=== PATIENT | female | born 1970 | race Caucasian/White ===

== ENCOUNTER 2017-01-17 21:57 | Emergency (ER) | payer OTHER ==
[2017-01-17 22:10] VITALS: RESP 18
[2017-01-17] MEDS ORDERED: METOCLOPRAMIDE 5 MG/ML 2 ML VIAL IVP STA (22:16)
[2017-01-17] MEDS ORDERED: KETOROLAC 30 MG/ML 1 ML VIAL IVP STA (22:16)
[2017-01-17] MEDS ORDERED: SODIUM CHLORIDE 0.9% 1,000 ML IV STA (22:16)
--- NOTE | 2017-01-17 22:19 | ED ---
General Adult HPI - General Chief complaint: Abdominal Pain Stated complaint: kidney stone Time Seen by Provider: 01/17/17 22:13 Source: patient, RN notes reviewed Mode of arrival: ambulatory Limitations: no limitations - History of Present Illness Initial comments: Patient is a pleasantly 7-year-old female presenting to the emergency Department with right flank pain. Onset of symptoms was an hour to an hour and a half ago. Discomfort was sudden and remained severe. Patient states symptoms are similar to previous kidney stones. Patient states she has had kidney stones approximately 30 times in the past. Patient has associated nausea. Patient has had 3 episodes of diarrhea since early this morning. Patient has occasional lower abdominal cramping, none at this time. No fever. - Related Data Home Medications Medication Instructions Recorded Confirmed Loratadine [Claritin] 10 mg PO DAILY 01/17/17 01/17/17 Losartan [Cozaar] 25 mg PO HS 01/17/17 01/17/17 Omeprazole 20 mg PO DAILY 01/17/17 01/17/17 Phentermine HCl [Adipex-P] 37.5 mg PO QAM 01/17/17 01/17/17 Plant Stanol Anaid [Cholest Off] 450 mg PO HS 01/17/17 01/17/17 Ranitidine HCl [Zantac] 150 mg PO BID 01/17/17 01/17/17 Vitamin D(Unknown) 1 tab PO HS 01/17/17 01/17/17 Previous Rx's Medication Instructions Recorded Hydrocodone/Acetaminophen [[place] 2 each PO Q6HR PRN #20 tab 01/17/17 5-325] Ondansetron Odt [Zofran Odt] 4 mg PO Q8HR PRN #10 tab 01/17/17 Allergies Allergy/AdvReac Type Severity Reaction Status Date / Time adhesive tape Allergy Rash/Hives Verified 01/17/17 22:37 benzene Allergy Itching Verified 01/17/17 22:37 Sulfa (Sulfonamide Allergy Dyspnea Verified 01/17/17 22:37 Antibiotics) Review of Systems ROS Statement: Those systems with pertinent positive or pertinent negative responses have been documented in the HPI. ROS Other: All systems not noted in ROS Statement are negative. Constitutional: Denies: fever, chills Eyes: Denies: eye pain ENT: Denies: ear pain Respiratory: Denies: cough, dyspnea Cardiovascular: Denies: chest pain Endocrine: Denies: fatigue Gastrointestinal: Reports: abdominal pain, nausea, diarrhea Genitourinary: Denies: urgency, dysuria, frequency, hematuria Musculoskeletal: Reports: back pain (Right flank) Skin: Denies: rash Neurological: Denies: weakness Past Medical History Additional Past Medical History / Comment(s): Kidney Stones History of Any Multi-Drug Resistant Organisms: None Reported Past Surgical History: Back Surgery, Hysterectomy, Orthopedic Surgery Additional Past Surgical History / Comment(s): Rotator cuff left; foot surgery left Past Psychological History: No Psychological Hx Reported Smoking Status: Never smoker Past Alcohol Use History: None Reported Past Drug Use History: None Reported General Exam Limitations: no limitations General appearance: alert, other (Appears uncomfortable) Head exam: Present: atraumatic Eye exam: Present: normal appearance, PERRL ENT exam: Present: normal oropharynx Neck exam: Present: normal inspection Respiratory exam: Present: normal lung sounds bilaterally Cardiovascular Exam: Present: tachycardia GI/Abdominal exam: Present: soft, normal bowel sounds. Absent: distended, tenderness, guarding, rebound, rigid, pulsatile mass Back exam: Present: tenderness (Patient does have mild to moderate tenderness below the right CVA) Neurological exam: Present: alert Psychiatric exam: Present: normal affect, normal mood Skin exam: Absent: rash Course Vital Signs 01/17/17 01/17/17 22:08 23:39 Temperature 98.0 F 97.1 F L Pulse Rate 116 H 94 Respiratory 18 18 Rate Blood Pressure 162/71 135/70 O2 Sat by Pulse 99 98 Oximetry Medical Decision Making - Medical Decision Making Patient reevaluated and resting comfortably in bed. Patient symptom-free. Patient updated on results and need for follow-up. - Lab Data Result diagrams: 01/17/17 22:35 01/17/17 22:35 Lab Results 01/17/17 01/17/17 01/17/17 Range/Units 22:35 22:35 22:35 WBC 7.1 (3.8-10.6) k/uL RBC 5.20 (3.80-5.40) m/uL Hgb 15.1 (11.4-16.0) gm/dL Hct 45.0 (34.0-46.0) % MCV 86.5 (80.0-100.0) fL MCH 29.1 (25.0-35.0) pg MCHC 33.6 (31.0-37.0) g/dL RDW 12.8 (11.5-15.5) % Plt Count 277 (150-450) k/uL Neutrophils % 56 % Lymphocytes % 33 % Monocytes % 5 % Eosinophils % 2 % Basophils % 1 % Neutrophils # 4.0 (1.3-7.7) k/uL Lymphocytes # 2.4 (1.0-4.8) k/uL Monocytes # 0.3 (0-1.0) k/uL Eosinophils # 0.2 (0-0.7) k/uL Basophils # 0.0 (0-0.2) k/uL PT 10.4 (9.0-12.0) sec INR 1.0 (<1.1) APTT 24.7 (22.0-30.0) sec Sodium 143 (137-145) mmol/L Potassium 3.7 (3.5-5.1) mmol/L Chloride 105 (98-107) mmol/L Carbon Dioxide 26 (22-30) mmol/L Anion Gap 12 mmol/L BUN 14 (7-17) mg/dL Creatinine 0.77 (0.52-1.04) mg/dL Est GFR (MDRD) Af Amer >60 (>60 ml/min/1.73 sqM) Est GFR (MDRD) Non-Af >60 (>60 ml/min/1.73 sqM) Glucose 107 H (74-99) mg/dL Calcium 9.8 (8.4-10.2) mg/dL Total Bilirubin 0.7 (0.2-1.3) mg/dL AST 36 (14-36) U/L ALT 70 H (9-52) U/L Alkaline Phosphatase 72 (38-126) U/L Total Protein 7.7 (6.3-8.2) g/dL Albumin 4.6 (3.5-5.0) g/dL Amylase <30 L (30-110) U/L Lipase 60 (23-300) U/L HCG, Quant <2.4 mIU/mL Urine Color Urine Appearance (Clear) Urine pH (5.0-8.0) Ur Specific [place] (1.001-1.035) Urine Protein (Negative) Urine Glucose (UA) (Negative) Urine Ketones (Negative) Urine Blood (Negative) Urine Nitrate (Negative) Urine Bilirubin (Negative) Urine Urobilinogen (<2.0) mg/dL Ur Leukocyte Esterase (Negative) Urine RBC (0-5) /hpf Urine WBC (0-5) /hpf Ur Squamous Epith Cells (0-4) /hpf Urine Mucus (None) /hpf 01/17/17 Range/Units 23:40 WBC (3.8-10.6) k/uL RBC (3.80-5.40) m/uL Hgb (11.4-16.0) gm/dL Hct (34.0-46.0) % MCV (80.0-100.0) fL MCH (25.0-35.0) pg MCHC (31.0-37.0) g/dL RDW (11.5-15.5) % Plt Count (150-450) k/uL Neutrophils % % Lymphocytes % % Monocytes % % Eosinophils % % Basophils % % Neutrophils # (1.3-7.7) k/uL Lymphocytes # (1.0-4.8) k/uL Monocytes # (0-1.0) k/uL Eosinophils # (0-0.7) k/uL Basophils # (0-0.2) k/uL PT (9.0-12.0) sec INR (<1.1) APTT (22.0-30.0) sec Sodium (137-145) mmol/L Potassium (3.5-5.1) mmol/L Chloride (98-107) mmol/L Carbon Dioxide (22-30) mmol/L Anion Gap mmol/L BUN (7-17) mg/dL Creatinine (0.52-1.04) mg/dL Est GFR (MDRD) Af Amer (>60 ml/min/1.73 sqM) Est GFR (MDRD) Non-Af (>60 ml/min/1.73 sqM) Glucose (74-99) mg/dL Calcium (8.4-10.2) mg/dL Total Bilirubin (0.2-1.3) mg/dL AST (14-36) U/L ALT (9-52) U/L Alkaline Phosphatase (38-126) U/L Total Protein (6.3-8.2) g/dL Albumin (3.5-5.0) g/dL Amylase (30-110) U/L Lipase (23-300) U/L HCG, Quant mIU/mL Urine Color Light Red Urine Appearance Cloudy H (Clear) Urine pH 5.5 (5.0-8.0) Ur Specific [place] 1.019 (1.001-1.035) Urine Protein 1+ H (Negative) Urine Glucose (UA) Negative (Negative) Urine Ketones Negative (Negative) Urine Blood Large H (Negative) Urine Nitrate Negative (Negative) Urine Bilirubin Negative (Negative) Urine Urobilinogen <2.0 (<2.0) mg/dL Ur Leukocyte Esterase Trace H (Negative) Urine RBC >182 H (0-5) /hpf Urine WBC 9 H (0-5) /hpf Ur Squamous Epith Cells 9 H (0-4) /hpf Urine Mucus Moderate H (None) /hpf - Radiology Data Radiology results: report reviewed (Computed tomography scan shows a 5-6 mm stone proximal right ureter.) Disposition Clinical Impression: Ureterolithiasis Disposition: HOME SELF-CARE Condition: Stable Instructions: Kidney Stones (ED) Additional Instructions: Please follow-up with primary care physician in the next day or 2 for recheck. Return for fever, uncontrolled vomiting, uncontrolled pain, worsening symptoms or other concerns. Prescriptions: Hydrocodone/Acetaminophen [[place] 5-325] 2 each PO Q6HR PRN #20 tab PRN Reason: Pain Ondansetron Odt [Zofran Odt] 4 mg PO Q8HR PRN #10 tab PRN Reason: Nausea Referrals: Josue Cline MD [Primary Care Provider] - 1-2 days Neeraj Castro MD [STAFF PHYSICIAN] - 1-2 days
[2017-01-17 22:49] LABS: Basophils % (A) 1 %; CH 30.3; CHCM 35.1; Eosinophils # (A) 0.2 k/uL (0-0.7); Eosinophils % (A) 2 %; HDW 2.82; HGB 15.1 gm/dL (11.4-16.0); Luc # (Auto) 0.26; Luc % (Auto) 4; Lymphocytes # (A) 2.4 k/uL (1.0-4.8); Lymphocytes % (A) 33 %; MCH 29.1 pg (25.0-35.0); MCHC 33.6 g/dL (31.0-37.0); MCV 86.5 fL (80.0-100.0); Mean Platelet Volume 7.6; Monocytes # (A) 0.3 k/uL (0-1.0); Monocytes % (A) 5 %; Neutrophils % (A) 56 %; RDW 12.8 % (11.5-15.5); WBC 7.1 k/uL (3.8-10.6); WBC (Perox) 6.98
[2017-01-17 22:59] LABS: ALT 70 U/L (9-52); AST 36 U/L (14-36); Alkaline Phosphatase 72 U/L (38-126); Amylase <30 U/L (30-110); Anion Gap 12 mmol/L; Blood Urea Nitrogen 14 mg/dL (7-17); Calcium 9.8 mg/dL (8.4-10.2); Carbon Dioxide 26 mmol/L (22-30); Chloride 105 mmol/L (98-107); Glucose 107 mg/dL (74-99); Non-African American GFR(MDRD) >60 (>60 ml/min/1.73 sqM); Potassium 3.7 mmol/L (3.5-5.1); Sodium 143 mmol/L (137-145); Total Bilirubin 0.7 mg/dL (0.2-1.3); Total Protein 7.7 g/dL (6.3-8.2)
[2017-01-17 23:03] LABS: Partial Thromboplastin Time 24.7 sec (22.0-30.0); Prothrombin Time 10.4 sec (9.0-12.0)
[2017-01-17 23:15] LABS: HCG,Quantitative Serum <2.4 mIU/mL
--- NOTE | 2017-01-17 23:37 | CT ---
EXAM: CT Abdomen and Pelvis Without Intravenous Contrast. CLINICAL HISTORY: Right flank pain TECHNIQUE: Axial computed tomography images of the abdomen and pelvis without intravenous contrast. CTDI is 25 mGy and DLP is 1244 mGy-cm. Coronal and sagittal reformatted images were created and reviewed. COMPARISON: No relevant prior studies available. FINDINGS: Lower thorax: No acute findings. Small hiatal hernia ABDOMEN: Liver: Fatty infiltration. Gallbladder and bile ducts: Unremarkable. No calcified stones. No ductal dilation. Pancreas: Unremarkable. No ductal dilation. Spleen: Unremarkable. No splenomegaly. Adrenals: Unremarkable. No mass. Kidneys and ureters: 5-6 mm stone in the proximal right ureter. Nonobstructive bilateral renal stones. Mild right hydronephrosis. Stomach and bowel: Diverticulosis without evidence of diverticulitis. No obstruction. No mucosal thickening. Appendix: No findings to suggest acute appendicitis. PELVIS: Bladder: Unremarkable. No stones. Reproductive: Absent uterus. ABDOMEN and PELVIS: Intraperitoneal space: Unremarkable. No free air. No significant fluid collection. Bones/joints: No acute fracture. No dislocation. Degenerative changes in lower lumbar spine. Soft tissues: Unremarkable. Vasculature: Unremarkable. No abdominal aortic aneurysm. Lymph nodes: Unremarkable. No enlarged lymph nodes. IMPRESSION: 5-6 mm stone in proximal right ureter, resulting in mild right hydronephrosis. Punctate bilateral nonobstructive renal stones. Normal appendix. Diverticulosis without evidence of diverticulitis. Fatty liver.
[2017-01-17 23:39] VITALS: BP 135/70; PULSE 94; TEMP 97.1
[2017-01-17 23:52] LABS: Appearance,Urine Cloudy (Clear); Bilirubin,Urine Negative (Negative); Glucose,Urine (UA) Negative (Negative); Ketones,Urine Negative (Negative); Leukocyte Esterase,Urine Trace (Negative); Mucus,Urine Moderate /hpf; Nitrite,Urine Negative (Negative); PH, Urine 5.5 (5.0-8.0); Particle Count 15833; Protein,Urine 1+ (Negative); RBC,Urine >182 /hpf (0-5); Specific Gravity,Urine 1.019 (1.001-1.035); Squamous Epithelial Cell,Urine 9 /hpf (0-4); UA Billing (MACRO vs. MICRO) MICRO; Urobilinogen,Urine <2.0 mg/dL (<2.0); WBC,Urine 9 /hpf (0-5)
== END 2017-01-18 00:16 | disposition home or self-care (01) ==
LOC: EC 21:57
DX: N20.1 Calculus of ureter (principal); Z91.048 Other nonmedicinal substance allergy status; Z88.2 Allergy status to sulfonamides; Z88.8 Allergy status to other drugs, medicaments and biological substances; Z79.899 Other long term (current) drug therapy
CPT/HCPCS: 96361 ×2; 96374 ×2; 96375 ×2; 99284 ×2; 36415; 80053; 82150; 83690; 85025; 85610; 85730; 81001; 84702; 74176; J2765; J1885

== ENCOUNTER → 2017-01-28 | Outpatient (CLI) | payer OTHER ==
--- NOTE | 2017-01-28 15:56 | XR ---
EXAMINATION TYPE: XR abdomen 1V DATE OF EXAM: 01/28/2017 3:26 PM COMPARISON: 06/18/2012 HISTORY: Renal stone TECHNIQUE: 2 views FINDINGS: Bowel gas pattern is normal. There is no sign of intestinal obstruction or pneumoperitoneum . I see no pathologic calcifications over the kidneys and ureters. Lung bases are clear. There is no sign of a mass. IMPRESSION: Nonacute abdomen. No change.
== END | disposition home or self-care (01) ==
LOC: RADXRMAIN 14:46
PROVIDERS: ATTEND Urology
DX: N20.1 Calculus of ureter (principal)
CPT/HCPCS: 74000

== ENCOUNTER → 2017-02-07 | Outpatient (CLI) | payer OTHER | LOC: LABWHC1 11:39 | PROVIDERS: ATTEND Urology | DX: N20.1 Calculus of ureter (principal); E83.50 Unspecified disorder of calcium metabolism | CPT/HCPCS: 36415; 80051 ==

== ENCOUNTER → 2017-06-15 | Outpatient (CLI) | payer OTHER ==
--- NOTE | 2017-06-19 08:15 | MM ---
Reason for exam: additional evaluation requested from prior study. Last mammogram was performed 1 year and 1 month ago. History: Benign core biopsy of the left breast, November 2013. Took hormonal contraceptives for 4 years beginning at age 22. Physical Findings: Nurse did not find any significant physical abnormalities on exam. MG Diagnostic Mammo w CAD SHAY Bilateral CC and MLO view(s) were taken. Prior study comparison: May 25, 2016, bilateral MG diagnostic mammo w CAD SHAY. November 25, 2015, bilateral MG diagnostic mammo w CAD SHAY. The breast tissue is heterogeneously dense. This may lower the sensitivity of mammography. Previous mammotome biopsy in the left breast. There is chronic nodularity bilaterally. There is no dominant lesion. There is no discrete abnormality. These results were verbally communicated with the patient and result sheet given to the patient on 06/15/17. ASSESSMENT: Benign, BI-RAD 2 RECOMMENDATION: Routine screening mammogram of both breasts in 1 year.
--- NOTE | 2017-06-19 08:19 | USB ---
Reason for exam: additional evaluation requested from prior study. History: Benign core biopsy of the left breast, November 2013. Took hormonal contraceptives for 4 years beginning at age 22. US Breast BILAT Right breast ultrasound includes all four quadrants, the retroareolar region and axilla. Finding demonstrates a 0.7 x 0.3 x 0.5cm oval, cystic, stable lesion at 12 o'clock, a 0.5 x 0.4 x 0.5cm lesion too small to characterize at 1 o'clock, a 0.5 x 0.2 x 0.4cm lesion too small to characterize at 6 o'clock, a 0.5 x 0.2 x 0.3cm lesion too small to characterize at 6 o'clock, a 0.3 x 0.2 x 0.5cm lesion too small to characterize at 9 o'clock and a 1.0 x 0.6 x 0.8cm mixed lesion at 10 o'clock. Left breast ultrasound includes all four quadrants, the retroareolar region and axilla. Finding demonstrates a 0.5 x 0.2 x 0.6cm mixed lesion at 12 o'clock, ductal ectasia at 6 o'clock and a 0.5 x 0.2 x 0.2cm mixed lesion at 11 o'clock, decreased in size. These results were verbally communicated with the patient and result sheet given to the patient on 06/15/17. ASSESSMENT: Benign, BI-RAD 2 RECOMMENDATION: Routine screening mammogram of both breasts in 1 year.
== END | disposition home or self-care (01) ==
LOC: RADMAMWWP 14:56
PROVIDERS: ATTEND Surgery
DX: R92.8 Other abnormal and inconclusive findings on diagnostic imaging of breast (principal)
CPT/HCPCS: 76641; G0204

== ENCOUNTER 2018-01-10 09:21 | Emergency (ER) | payer OTHER ==
[2018-01-10] MEDS ORDERED: KETOROLAC 30 MG/ML 1 ML VIAL IVP STA (09:28)
[2018-01-10] MEDS ORDERED: MORPHINE SULFATE 4 MG/ML SYRINGE IV STA ×2 (09:28→10:32)
[2018-01-10] MEDS ORDERED: SODIUM CHLORIDE 0.9% 1,000 ML IV STA (09:28)
[2018-01-10] MEDS ORDERED: ONDANSETRON 4 MG/2 ML VIAL IVP STA (09:28)
--- NOTE | 2018-01-10 09:38 | ED ---
General Adult HPI - General Chief complaint: Abdominal Pain Stated complaint: Poss Kidney Stone Time Seen by Provider: 01/10/18 09:27 Source: patient, RN notes reviewed Mode of arrival: wheelchair Limitations: no limitations - History of Present Illness Initial comments: Patient is a 48-year-old female with significant past medical history for kidney stones, presenting today with a chief complaint of left-sided flank pain. She states she's had the stone over the last 4 weeks has been following up with her urologist. Had an ultrasound 5 days ago and saw small stone on the left side. She states she had increased pain with nausea vomiting this morning. Patient states only symptoms are consistent with kidney stones that she's had in the past. Patient denies any recent fever, chills, shortness of breath, chest pain, numbness or tingling, headaches or visual changes, or any other complaints. - Related Data Home Medications Medication Instructions Recorded Confirmed Omeprazole 20 mg PO DAILY 01/17/17 01/10/18 Ranitidine HCl [Zantac] 150 mg PO BID 01/17/17 01/10/18 Albuterol Nebulized [Ventolin 2.5 mg INHALATION RT-TID 01/10/18 01/10/18 Nebulized] Albuterol Sulfate [Proair Hfa] 2 puff INHALATION RT-Q4H PRN 01/10/18 01/10/18 Atorvastatin [Lipitor] 10 mg PO DAILY 01/10/18 01/10/18 Beclomethasone Dipropionate [Qvar 2 puff INHALATION RT-BID 01/10/18 01/10/18 80 mcg] Cetirizine HCl [Zyrtec] 10 mg PO DAILY 01/10/18 01/10/18 Cyclobenzaprine [Flexeril] 5 mg PO TID PRN 01/10/18 01/10/18 EPINEPHrine (Auto Inject) [Epipen] 0.3 mg IM ONCE PRN 01/10/18 01/10/18 Ergocalciferol (Vitamin D2) 50,000 unit PO Q7D 01/10/18 01/10/18 [Vitamin D2] Fluticasone Nasal [place] [Flonase 1 spray EA NOSTRIL DAILY 01/10/18 01/10/18 Nasal [place]] Ibuprofen [Motrin] 800 mg PO TID PRN 01/10/18 01/10/18 Ketorolac [Toradol] 10 mg PO Q6HR 01/10/18 01/10/18 Losartan-Hctz 50-12.5 mg [Hyzaar 1 tab PO DAILY 01/10/18 01/10/18 50-12.5] SUMAtriptan SUCCINATE [Imitrex] 50 mg PO DAILY PRN 01/10/18 01/10/18 Tamsulosin HCl [Flomax] 0.4 mg PO DAILY 01/10/18 01/10/18 Allergies Allergy/AdvReac Type Severity Reaction Status Date / Time adhesive tape Allergy Rash/Hives Verified 01/10/18 10:04 benzene Allergy Itching Verified 01/10/18 10:04 Sulfa (Sulfonamide Allergy Dyspnea Verified 01/10/18 10:04 Antibiotics) Review of Systems ROS Statement: Those systems with pertinent positive or pertinent negative responses have been documented in the HPI. ROS Other: All systems not noted in ROS Statement are negative. Past Medical History Additional Past Medical History / Comment(s): Kidney Stones History of Any Multi-Drug Resistant Organisms: None Reported Past Surgical History: Back Surgery, Hysterectomy, Orthopedic Surgery Additional Past Surgical History / Comment(s): Rotator cuff left; foot surgery left Past Psychological History: No Psychological Hx Reported Smoking Status: Never smoker Past Alcohol Use History: None Reported Past Drug Use History: None Reported General Exam - General Exam Comments Initial Comments: General: The patient is awake and alert, in moderate distress. Eye: Pupils are equal, round and reactive to light, extra-ocular movements are intact. No nystagmus. There is normal conjunctiva bilaterally. No signs of icterus. Ears, nose, mouth and throat: There are moist mucous membranes and no oral lesions. Neck: The neck is supple, there is no tenderness or JVD. Cardiovascular: Tachycardic. No murmur, rub or gallop is appreciated. Respiratory: Lungs are clear to auscultation, respirations are non-labored, breath sounds are equal. No wheezes, stridor, rales, or rhonchi. Gastrointestinal: Abdomen soft on palpation mild tenderness left lower side. Mild tenderness left CVA. No rebound tenderness. No guarding. Musculoskeletal: Normal ROM, no tenderness. Strength 5/5. Sensation intact. Pulses equal bilaterally 2+. Neurological: A&O x 3. CN II-XII intact, There are no obvious motor or sensory deficits. Coordination appears grossly intact. Speech is normal. Skin: Skin is warm and dry and no rashes or lesions are noted. Psychiatric: Cooperative, appropriate mood & affect, normal judgment. Limitations: no limitations Course Vital Signs 01/10/18 01/10/18 01/10/18 09:23 10:28 11:27 Temperature 98.3 F Pulse Rate 129 H 112 H 99 Respiratory 24 16 18 Rate Blood Pressure 138/80 131/70 120/64 O2 Sat by Pulse 98 96 97 Oximetry 01/10/18 11:35 Temperature 98.6 F Pulse Rate Respiratory Rate Blood Pressure O2 Sat by Pulse Oximetry Medical Decision Making - Medical Decision Making Patient's labs been reviewed. Patient's CT of the abdomen and pelvis does reveal a kidney stone which appears to maybe just passed into the bladder. Patient at this time is feeling much better. She states her pain is gone. It appears that kidney stone has passed into bladder. Patient feels comfortable being discharged to follow-up with her urologist if needed. Advised return if any symptoms increase or worsen. - Lab Data Result diagrams: 01/10/18 09:49 01/10/18 09:49 Lab Results 01/10/18 01/10/18 01/10/18 Range/Units 09:49 09:49 09:49 WBC 6.1 (3.8-10.6) k/uL RBC 4.92 (3.80-5.40) m/uL Hgb 14.3 (11.4-16.0) gm/dL Hct 41.2 (34.0-46.0) % MCV 83.7 (80.0-100.0) fL MCH 29.1 (25.0-35.0) pg MCHC 34.8 (31.0-37.0) g/dL RDW 12.9 (11.5-15.5) % Plt Count 246 (150-450) k/uL Neutrophils % 58 % Lymphocytes % 33 % Monocytes % 5 % Eosinophils % 2 % Basophils % 0 % Neutrophils # 3.5 (1.3-7.7) k/uL Lymphocytes # 2.0 (1.0-4.8) k/uL Monocytes # 0.3 (0-1.0) k/uL Eosinophils # 0.1 (0-0.7) k/uL Basophils # 0.0 (0-0.2) k/uL Sodium 139 (137-145) mmol/L Potassium 3.6 (3.5-5.1) mmol/L Chloride 101 (98-107) mmol/L Carbon Dioxide 24 (22-30) mmol/L Anion Gap 14 mmol/L BUN 15 (7-17) mg/dL Creatinine 0.58 (0.52-1.04) mg/dL Est GFR (CKD-EPI)AfAm >90 (>60 ml/min/1.73 sqM) Est GFR (CKD-EPI)NonAf >90 (>60 ml/min/1.73 sqM) Glucose 141 H (74-99) mg/dL Calcium 9.7 (8.4-10.2) mg/dL Total Bilirubin 0.8 (0.2-1.3) mg/dL AST 28 (14-36) U/L ALT 38 (9-52) U/L Alkaline Phosphatase 97 (38-126) U/L Total Protein 7.3 (6.3-8.2) g/dL Albumin 4.4 (3.5-5.0) g/dL Amylase 33 (30-110) U/L Lipase 49 (23-300) U/L Urine Color Urine Appearance (Clear) Urine pH (5.0-8.0) Ur Specific [place] (1.001-1.035) Urine Protein (Negative) Urine Glucose (UA) (Negative) Urine Ketones (Negative) Urine Blood (Negative) Urine Nitrite (Negative) Urine Bilirubin (Negative) Urine Urobilinogen (<2.0) mg/dL Ur Leukocyte Esterase (Negative) Urine HCG, Qual Not Detected (Not Detectd) 01/10/18 Range/Units 09:49 WBC (3.8-10.6) k/uL RBC (3.80-5.40) m/uL Hgb (11.4-16.0) gm/dL Hct (34.0-46.0) % MCV (80.0-100.0) fL MCH (25.0-35.0) pg MCHC (31.0-37.0) g/dL RDW (11.5-15.5) % Plt Count (150-450) k/uL Neutrophils % % Lymphocytes % % Monocytes % % Eosinophils % % Basophils % % Neutrophils # (1.3-7.7) k/uL Lymphocytes # (1.0-4.8) k/uL Monocytes # (0-1.0) k/uL Eosinophils # (0-0.7) k/uL Basophils # (0-0.2) k/uL Sodium (137-145) mmol/L Potassium (3.5-5.1) mmol/L Chloride (98-107) mmol/L Carbon Dioxide (22-30) mmol/L Anion Gap mmol/L BUN (7-17) mg/dL Creatinine (0.52-1.04) mg/dL Est GFR (CKD-EPI)AfAm (>60 ml/min/1.73 sqM) Est GFR (CKD-EPI)NonAf (>60 ml/min/1.73 sqM) Glucose (74-99) mg/dL Calcium (8.4-10.2) mg/dL Total Bilirubin (0.2-1.3) mg/dL AST (14-36) U/L ALT (9-52) U/L Alkaline Phosphatase (38-126) U/L Total Protein (6.3-8.2) g/dL Albumin (3.5-5.0) g/dL Amylase (30-110) U/L Lipase (23-300) U/L Urine Color Light Yellow Urine Appearance Clear (Clear) Urine pH 5.5 (5.0-8.0) Ur Specific [place] 1.010 (1.001-1.035) Urine Protein Negative (Negative) Urine Glucose (UA) Trace H (Negative) Urine Ketones Negative (Negative) Urine Blood Negative (Negative) Urine Nitrite Negative (Negative) Urine Bilirubin Negative (Negative) Urine Urobilinogen <2.0 (<2.0) mg/dL Ur Leukocyte Esterase Negative (Negative) Urine HCG, Qual (Not Detectd) Disposition Clinical Impression: Kidney stone Disposition: HOME SELF-CARE Condition: Good Instructions: Kidney Stones (ED) Additional Instructions: Please use medication as discussed. Please follow-up with urology/family doctor in the next 2 days of symptoms have not improved. Please return to emergency room if the symptoms increase or worsen or for any other concerns. Referrals: Josue Cline MD [Primary Care Provider] - 1-2 days Time of Disposition: 11:49
[2018-01-10 09:54] LABS: Basophils % (A) 0 %; Eosinophils # (A) 0.1 k/uL (0-0.7); Eosinophils % (A) 2 %; HCT 41.2 % (34.0-46.0); HGB 14.3 gm/dL (11.4-16.0); Lymphocytes % (A) 33 %; MCH 29.1 pg (25.0-35.0); MCHC 34.8 g/dL (31.0-37.0); MCV 83.7 fL (80.0-100.0); Mean Platelet Volume 7.2; Monocytes # (A) 0.3 k/uL (0-1.0); Monocytes % (A) 5 %; Neutrophils # (A) 3.5 k/uL (1.3-7.7); Neutrophils % (A) 58 %; Platelet Count 246 k/uL (150-450); RBC 4.92 m/uL (3.80-5.40); RDW 12.9 % (11.5-15.5); WBC 6.1 k/uL (3.8-10.6)
[2018-01-10 09:56] LABS: Appearance,Urine Clear (Clear); Bilirubin,Urine Negative (Negative); Blood,Urine Negative (Negative); Color,Urine Light Yellow; Glucose,Urine (UA) Trace (Negative); Ketones,Urine Negative (Negative); Leukocyte Esterase,Urine Negative (Negative); PH, Urine 5.5 (5.0-8.0); Protein,Urine Negative (Negative); Urobilinogen,Urine <2.0 mg/dL (<2.0)
--- NOTE | 2018-01-10 10:02 | XR ---
EXAMINATION TYPE: XR KUB DATE OF EXAM: 01/10/2018 COMPARISON: 06/18/2012 INDICATION: Abdomen pain left flank pain TECHNIQUE: Single view abdomen frontal projection FINDINGS: There is a normal bowel gas pattern. Psoas margins are normal. No organomegaly is present. No suspicious calcifications are evident. IMPRESSION: 1. Unremarkable Abdomen
[2018-01-10 10:07] LABS: ALT 38 U/L (9-52); AST 28 U/L (14-36); Albumin 4.4 g/dL (3.5-5.0); Alkaline Phosphatase 97 U/L (38-126); Amylase 33 U/L (30-110); Anion Gap 14 mmol/L; Blood Urea Nitrogen 15 mg/dL (7-17); Calcium 9.7 mg/dL (8.4-10.2); Carbon Dioxide 24 mmol/L (22-30); Chloride 101 mmol/L (98-107); Glucose 141 mg/dL (74-99); Lipase 49 U/L (23-300); Potassium 3.6 mmol/L (3.5-5.1); Sodium 139 mmol/L (137-145); Total Bilirubin 0.8 mg/dL (0.2-1.3); Total Protein 7.3 g/dL (6.3-8.2)
--- NOTE | 2018-01-10 11:23 | CT ---
EXAMINATION TYPE: CT abdomen pelvis wo con DATE OF EXAM: 01/10/2018 COMPARISON: Prior CT 01/17/2017 HISTORY: Lt flank and groin pain CT DLP: 1132 mGycm Automated exposure control for dose reduction was used. TECHNIQUE: Helical acquisition of images from the lung bases through the pelvis. FINDINGS: LUNG BASES: No significant abnormality is appreciated. AORTA: No significant abnormality is appreciated. LIVER/GB: Liver shows low attenuation likely due to hepatic steatosis. The liver is enlarged. Gallbla dder is normal. PANCREAS: No significant abnormality is seen. SPLEEN: Spleen is borderline enlarged ADRENALS: No significant abnormality is seen. KIDNEYS: Punctate calcifications are present within the left kidney which are nonobstructive, there a re at least 2 noted on the left, one on the right at the upper pole. No evident hydronephrosis bilate rally. No ureteral calcification. REPRODUCTIVE ORGANS: Not seen. URINARY BLADDER: 4 mm calcification is present within the right side of the bladder near the level o f the ureterovesical orifice. Urinary bladder is contracted. BOWEL: Suspect a hiatal hernia present at the gastroesophageal junction, some focal thickening is in determinate. Duodenal diverticulum is present at the level of the head of the pancreas. Small umbilic al hernia contains fat. Diverticular changes associated with the colon. The appendix is normal FREE AIR: No Free Air is visible. ASCITES: None visible. PELVIC ADENOPATHY: None visualized. Probable phleboliths present within gonadal vein on the left at the level of the psoas muscle and pelvic inlet. RETROPERITONEAL ADENOPATHY: No Retroperitoneal Adenopathy visible. OSSEOUS STRUCTURES: Degenerative disc change noted at the lumbosacral junction, there is loss of dis c height, minimal retrolisthesis grade 1 L5-S1, posterior extension of endplate disc complex. IMPRESSION: Noncontrast exam. CALCIFICATION IN THE BLADDER MAY BE AT THE LEVEL OF THE URETEROVESICAL ORIFICE ON THE RIGHT. BILATERA L NONOBSTRUCTIVE NEPHROLITHIASIS. DIVERTICULOSIS. HEPATIC STEATOSIS, HEPATOSPLENOMEGALY. DUODENAL DIV ERTICULUM. Additional findings above. Postop changes.
[2018-01-10 11:29] VITALS: BP 120/64
[2018-01-10 11:36] VITALS: TEMP 98.6
[2018-01-10 12:14] VITALS: PULSE 86; RESP 16
== END 2018-01-10 12:14 | disposition home or self-care (01) ==
LOC: EC 09:21
DX: N20.0 Calculus of kidney (principal); Z79.899 Other long term (current) drug therapy; Z79.52 Long term (current) use of systemic steroids; Z79.1 Long term (current) use of non-steroidal anti-inflammatories (NSAID); Z79.51 Long term (current) use of inhaled steroids; Z91.048 Other nonmedicinal substance allergy status; Z88.8 Allergy status to other drugs, medicaments and biological substances; Z88.2 Allergy status to sulfonamides
CPT/HCPCS: 36415; 80053; 82150; 83690; 85025; 81003; 81025; 87086; 74018; 74176; 99284; 96374; 96375 ×2; 96376; 96361; J2270; J2405; J1885

== ENCOUNTER → 2018-06-05 | Outpatient (CLI) | payer OTHER ==
--- NOTE | 2018-06-05 13:42 | XR ---
EXAMINATION TYPE: XR KUB DATE OF EXAM: 06/05/2018 COMPARISON: 01/10/2018 HISTORY: Pain TECHNIQUE: One view abdominal series FINDINGS: The osseous structures are intact. The bowel gas pattern is nonspecific. Lung bases are clear. No s uspicious calcifications. IMPRESSION: 1. Nonspecific abdomen.
== END | disposition home or self-care (01) ==
LOC: RADXRMAIN 13:18
PROVIDERS: ATTEND Urology
DX: N20.0 Calculus of kidney (principal)
CPT/HCPCS: 74018

== ENCOUNTER → 2018-07-05 | Outpatient (CLI) | payer OTHER ==
--- NOTE | 2018-07-05 14:39 | MM ---
Reason for exam: screening (asymptomatic). Last mammogram was performed 1 year and 1 month ago. History: Benign core biopsy of the left breast, November 2013. Took hormonal contraceptives for 4 years beginning at age 22. Physical Findings: A clinical breast exam by your physician is recommended on an annual basis and results should be correlated with mammographic findings. MG Screening Mammo w CAD Bilateral CC and MLO view(s) were taken. Prior study comparison: June 15, 2017, bilateral MG diagnostic mammo w CAD SHAY. May 25, 2016, bilateral MG diagnostic mammo w CAD SHAY. The breast tissue is heterogeneously dense. This may lower the sensitivity of mammography. Previous mammotome biopsy in the left breast. There is chronic nodularity bilaterally with slight fluctuation in size on the right. No significant changes when compared with prior studies. ASSESSMENT: Benign, BI-RAD 2 RECOMMENDATION: Routine screening mammogram of both breasts in 1 year.
== END | disposition home or self-care (01) ==
LOC: RADMAMWWP 09:48
PROVIDERS: ATTEND Surgery
DX: Z12.31 Encounter for screening mammogram for malignant neoplasm of breast (principal)
CPT/HCPCS: 77067

== ENCOUNTER 2019-07-21 12:57 | Emergency (ER) | payer OTHER ==
[2019-07-21] MEDS ORDERED: IPRATROPIUM-ALBUTEROL 3 ML NEB INHALATION STA ×2 (13:36→15:57)
[2019-07-21] MEDS ORDERED: MAGNESIUM SULFATE-D5W PMX 1 GM in DEXTROSE/WATER 1 100ML.BAG IVPB STA (13:36)
[2019-07-21] MEDS ORDERED: SODIUM CHLORIDE 0.9% 1,000 ML IV STA (13:36)
[2019-07-21 13:47] LABS: Basophils % (A) 0 %; Eosinophils # (A) 0.2 k/uL (0-0.7); Eosinophils % (A) 2 %; HCT 39.7 % (34.0-46.0); Lymphocytes # (A) 1.4 k/uL (1.0-4.8); Lymphocytes % (A) 12 %; MCH 27.7 pg (25.0-35.0); MCHC 32.9 g/dL (31.0-37.0); MCV 84.2 fL (80.0-100.0); Mean Platelet Volume 7.4; Monocytes # (A) 0.3 k/uL (0-1.0); Monocytes % (A) 3 %; Neutrophils # (A) 9.2 k/uL (1.3-7.7); Neutrophils % (A) 82 %; Platelet Count 281 k/uL (150-450); Poikilocytosis Slight; RBC 4.71 m/uL (3.80-5.40); RDW 15.2 % (11.5-15.5); WBC 11.3 k/uL (3.8-10.6)
--- NOTE | 2019-07-21 13:47 | ED ---
SOB HPI - General Chief Complaint: Shortness of Breath Stated Complaint: SOB, congestion Time Seen by Provider: 07/21/19 13:15 Source: patient, RN notes reviewed Mode of arrival: ambulatory Limitations: no limitations - History of Present Illness Initial Comments: This is a 49-year-old female history of asthma states she's had upper respiratory symptoms for past several days and started having shortness breath yesterday with cough fevers chills and sweats. She was seen at [facility] x- rays were done which showed no evidence of infiltrate EKG was unremarkable she did have a shot of steroids given as well as updraft treatments without any relief. She was sent here for further evaluation. She has some chest tightness but no overt pain no palpitations she is a nonsmoker. No other modifying factors. MD Complaint: shortness of breath, cough - Related Data Home Medications Medication Instructions Recorded Confirmed Omeprazole 20 mg PO DAILY 01/17/17 07/21/19 Ranitidine HCl [Zantac] 150 mg PO BID 01/17/17 07/21/19 Albuterol Sulfate [Proair Hfa] 2 puff INHALATION RT-Q4H PRN 01/10/18 07/21/19 Atorvastatin [Lipitor] 10 mg PO DAILY 01/10/18 07/21/19 Cetirizine HCl [Zyrtec] 10 mg PO DAILY 01/10/18 07/21/19 EPINEPHrine (Auto Inject) [Epipen] 0.3 mg IM ONCE PRN 01/10/18 07/21/19 Ergocalciferol (Vitamin D2) 50,000 unit PO MO 01/10/18 07/21/19 [Vitamin D2] Losartan-Hctz 50-12.5 mg [Hyzaar 1 tab PO DAILY 01/10/18 07/21/19 50-12.5] Previous Rx's Medication Instructions Recorded Azithromycin [Zithromax Z-pack] 250 mg PO DIRECTED #6 tab 07/21/19 Benzonatate [Tessalon Perles] 100 mg PO TID #15 cap 07/21/19 Ipratropium/Albuterol Sulfate 2 puff INHALATION QID #1 inhaler 07/21/19 [Combivent Respimat Inhaler] predniSONE 20 mg PO BID #10 tab 07/21/19 Allergies Allergy/AdvReac Type Severity Reaction Status Date / Time adhesive tape Allergy Rash/Hives Verified 07/21/19 13:44 benzene Allergy Itching Verified 07/21/19 13:44 Sulfa (Sulfonamide Allergy Dyspnea Verified 07/21/19 13:44 Antibiotics) Review of Systems ROS Statement: Those systems with pertinent positive or pertinent negative responses have been documented in the HPI. ROS Other: All systems not noted in ROS Statement are negative. Past Medical History Additional Past Medical History / Comment(s): Kidney Stones History of Any Multi-Drug Resistant Organisms: None Reported Past Surgical History: Back Surgery, Hysterectomy, Orthopedic Surgery Additional Past Surgical History / Comment(s): Rotator cuff left; foot surgery left Past Psychological History: No Psychological Hx Reported Smoking Status: Never smoker Past Alcohol Use History: None Reported Past Drug Use History: None Reported General Exam - General Exam Comments Initial Comments: This is a well-developed well-nourished awake alert oriented x 3 female Limitations: no limitations General appearance: alert, anxious, in distress Head exam: Present: atraumatic, normocephalic, normal inspection Eye exam: Present: normal appearance, PERRL, EOMI. Absent: scleral icterus, conjunctival injection, periorbital swelling ENT exam: Present: other (Boggy nasal mucosa with clear drainage) Neck exam: Present: normal inspection, full ROM, other (No stridor JVD or bruits). Absent: tenderness, meningismus, lymphadenopathy Respiratory exam: Present: wheezes, accessory muscle use, decreased breath sounds Cardiovascular Exam: Present: normal rhythm, tachycardia GI/Abdominal exam: Present: soft, normal bowel sounds. Absent: distended, tenderness, guarding, rebound, rigid Extremities exam: Present: normal inspection, full ROM, normal capillary refill. Absent: tenderness, pedal edema, joint swelling, calf tenderness Back exam: Present: normal inspection Neurological exam: Present: alert, oriented X3, CN II-XII intact Psychiatric exam: Present: normal affect, normal mood Skin exam: Present: warm, dry, intact, normal color. Absent: rash Course Vital Signs 07/21/19 07/21/19 07/21/19 13:09 13:43 13:52 Temperature 97.8 F Pulse Rate 117 H 97 98 Respiratory 16 Rate Blood Pressure 148/82 O2 Sat by Pulse 97 Oximetry 07/21/19 07/21/19 07/21/19 15:01 16:42 16:51 Temperature 98.1 F Pulse Rate 90 114 H 110 H Respiratory 18 Rate Blood Pressure 145/82 O2 Sat by Pulse 97 Oximetry - Reevaluation(s) Reevaluation #1: 07/21/19 16:45 Reevaluation after the initial treatment reveals some improvement patient does feel better she still has some slight wheezing or tightness has improved. Medical Decision Making - Medical Decision Making Patient is feeling improved at this time after 2 treatments as well as medication previously rendered. She is in satisfactory condition for discharge at this time we did discuss the findings and the medication. She will be placed on an antitussive as well as antibiotics she'll change from an albuterol inhaler to calm he had and a course of oral steroids. She is a follow-up with her doctor return when necessary - Lab Data Result diagrams: 07/21/19 13:36 07/21/19 13:36 Lab Results 07/21/19 07/21/19 07/21/19 Range/Units 13:36 13:36 13:36 WBC 11.3 H (3.8-10.6) k/uL RBC 4.71 (3.80-5.40) m/uL Hgb 13.0 (11.4-16.0) gm/dL Hct 39.7 (34.0-46.0) % MCV 84.2 (80.0-100.0) fL MCH 27.7 (25.0-35.0) pg MCHC 32.9 (31.0-37.0) g/dL RDW 15.2 (11.5-15.5) % Plt Count 281 (150-450) k/uL Neutrophils % 82 % Lymphocytes % 12 % Monocytes % 3 % Eosinophils % 2 % Basophils % 0 % Neutrophils # 9.2 H (1.3-7.7) k/uL Lymphocytes # 1.4 (1.0-4.8) k/uL Monocytes # 0.3 (0-1.0) k/uL Eosinophils # 0.2 (0-0.7) k/uL Basophils # 0.0 (0-0.2) k/uL Poikilocytosis Slight PT 9.8 (9.0-12.0) sec INR 0.9 (<1.2) APTT 25.3 (22.0-30.0) sec D-Dimer 0.58 (<0.60) mg/L FEU Sodium 139 (137-145) mmol/L Potassium 4.7 (3.5-5.1) mmol/L Chloride 104 (98-107) mmol/L Carbon Dioxide 22 (22-30) mmol/L Anion Gap 13 mmol/L BUN 9 (7-17) mg/dL Creatinine 0.50 L (0.52-1.04) mg/dL Est GFR (CKD-EPI)AfAm >90 (>60 ml/min/1.73 sqM) Est GFR (CKD-EPI)NonAf >90 (>60 ml/min/1.73 sqM) Glucose 124 H (74-99) mg/dL Calcium 9.2 (8.4-10.2) mg/dL Magnesium 1.9 (1.6-2.3) mg/dL Total Bilirubin 0.9 (0.2-1.3) mg/dL AST 83 H (14-36) U/L ALT 94 H (9-52) U/L Alkaline Phosphatase 100 (38-126) U/L Creatine Kinase 105 (30-135) U/L Troponin I (0.000-0.034) ng/mL NT-Pro-B Natriuret Pep pg/mL Total Protein 8.0 (6.3-8.2) g/dL Albumin 4.6 (3.5-5.0) g/dL 07/21/19 07/21/19 Range/Units 13:36 13:36 WBC (3.8-10.6) k/uL RBC (3.80-5.40) m/uL Hgb (11.4-16.0) gm/dL Hct (34.0-46.0) % MCV (80.0-100.0) fL MCH (25.0-35.0) pg MCHC (31.0-37.0) g/dL RDW (11.5-15.5) % Plt Count (150-450) k/uL Neutrophils % % Lymphocytes % % Monocytes % % Eosinophils % % Basophils % % Neutrophils # (1.3-7.7) k/uL Lymphocytes # (1.0-4.8) k/uL Monocytes # (0-1.0) k/uL Eosinophils # (0-0.7) k/uL Basophils # (0-0.2) k/uL Poikilocytosis PT (9.0-12.0) sec INR (<1.2) APTT (22.0-30.0) sec D-Dimer (<0.60) mg/L FEU Sodium (137-145) mmol/L Potassium (3.5-5.1) mmol/L Chloride (98-107) mmol/L Carbon Dioxide (22-30) mmol/L Anion Gap mmol/L BUN (7-17) mg/dL Creatinine (0.52-1.04) mg/dL Est GFR (CKD-EPI)AfAm (>60 ml/min/1.73 sqM) Est GFR (CKD-EPI)NonAf (>60 ml/min/1.73 sqM) Glucose (74-99) mg/dL Calcium (8.4-10.2) mg/dL Magnesium (1.6-2.3) mg/dL Total Bilirubin (0.2-1.3) mg/dL AST (14-36) U/L ALT (9-52) U/L Alkaline Phosphatase (38-126) U/L Creatine Kinase (30-135) U/L Troponin I <0.012 (0.000-0.034) ng/mL NT-Pro-B Natriuret Pep 67 pg/mL Total Protein (6.3-8.2) g/dL Albumin (3.5-5.0) g/dL - EKG Data -: EKG Interpreted by Dc EKG shows normal: sinus rhythm (Sinus tachycardia rate of 111. Interval 140 QRS duration 74 QT since QTC 350/476 moderate voltage criteria for LVH no change when compared to that of the one submitted from the outpatient clinic.) - Radiology Data Radiology results: report reviewed (I did review the imaging and report no acute findings.), image reviewed Disposition Clinical Impression: Asthma with acute exacerbation, Bronchitis, Upper respiratory infection, Bro nchospasm, acute Disposition: HOME SELF-CARE Condition: Good Instructions (If sedation given, give patient instructions): Asthma (ED), Bronchospasm (ED), Acute Bronchitis (ED) Additional Instructions: Pres[place] [facility] [place] Prescriptions: Ipratropium/Albuterol Sulfate [Combivent Respimat Inhaler] 2 puff INHALATION QID #1 inhaler predniSONE 20 mg PO BID #10 tab Benzonatate [Tessalon Perles] 100 mg PO TID #15 cap Azithromycin [Zithromax Z-pack] 250 mg PO DIRECTED #6 tab Is patient prescribed a controlled substance at d/c from ED?: No Referrals: Gabino Gonzalez, ZURI [Primary Care Provider] - 1-2 days
[2019-07-21 14:02] LABS: ALT 94 U/L (9-52); AST 83 U/L (14-36); African American GFR (CKD) >90 (>60 ml/min/1.73 sqM); Albumin 4.6 g/dL (3.5-5.0); Alkaline Phosphatase 100 U/L (38-126); Anion Gap 13 mmol/L; Blood Urea Nitrogen 9 mg/dL (7-17); Calcium 9.2 mg/dL (8.4-10.2); Carbon Dioxide 22 mmol/L (22-30); Chloride 104 mmol/L (98-107); Creatine Kinase 105 U/L (30-135); Glucose 124 mg/dL (74-99); Magnesium 1.9 mg/dL (1.6-2.3); Sodium 139 mmol/L (137-145); Total Bilirubin 0.9 mg/dL (0.2-1.3)
[2019-07-21 14:04] LABS: D-Dimer 0.58 mg/L FEU (<0.60); INR 0.9 (<1.2); Partial Thromboplastin Time 25.3 sec (22.0-30.0); Prothrombin Time 9.8 sec (9.0-12.0)
[2019-07-21 14:05] LABS: Potassium 4.7 mmol/L (3.5-5.1)
--- NOTE | 2019-07-21 14:30 | XR ---
EXAMINATION TYPE: XR chest 2V DATE OF EXAM: 07/21/2019 COMPARISON: Chest x-ray October 04, 2012 HISTORY: History of asthma with shortness of breath, cough, and congestion. TECHNIQUE: Frontal and lateral views of the chest are obtained. FINDINGS: Overlying EKG leads are seen. There is no focal air space opacity, pleural effusion, or pne umothorax seen. The cardiac silhouette size is within normal limits. The osseous structures are in tact. IMPRESSION: No suspicious new acute pulmonary process.
[2019-07-21 15:02] VITALS: RESP 18
[2019-07-21 18:10] VITALS: BP 147/72; PULSE 98; TEMP 98.2
== END 2019-07-21 18:09 | disposition home or self-care (01) ==
LOC: EC 12:57
DX: J45.901 Unspecified asthma with (acute) exacerbation (principal); J06.9 Acute upper respiratory infection, unspecified; Z79.51 Long term (current) use of inhaled steroids; Z79.899 Other long term (current) drug therapy; Z88.2 Allergy status to sulfonamides; Z91.048 Other nonmedicinal substance allergy status
CPT/HCPCS: 99285; 96365; 96366; 96361 ×3; 36415; 94640 ×2; 93005; 85379; 83880; 80053; 82550; 83735; 84484; 85025; 85610; 85730; 87040; 71046; J3475

== ENCOUNTER → 2019-09-11 | Outpatient (CLI) | payer OTHER ==
--- NOTE | 2019-09-13 09:36 | MM ---
Reason for exam: screening (asymptomatic). Last mammogram was performed 1 year and 2 months ago. History: Benign core biopsy of the left breast, November 2013. Took hormonal contraceptives for 4 years beginning at age 22. Physical Findings: A clinical breast exam by your physician is recommended on an annual basis and results should be correlated with mammographic findings. MG 3D Screening Mammo W/Cad Bilateral CC and MLO view(s) were taken. Prior study comparison: July 05, 2018, bilateral MG screening mammo w CAD. June 15, 2017, bilateral MG diagnostic mammo w CAD SHAY. The breast tissue is heterogeneously dense. This may lower the sensitivity of mammography. Finding: There is a 16 mm circumscribed oval mass located 10 cm from the nipple in the posterior middle position of the left breast. Previous mammotome biopsy in the left breast. There is a chronic nodularity bilaterally. New finding since July 05, 2018. ASSESSMENT: Incomplete: need additional imaging evaluation, BI-RAD 0 RECOMMENDATION: Ultrasound of the left breast. [facility] will attempt to contact patient to return for ultrasound.
== END | disposition home or self-care (01) ==
LOC: RADMAMWWP 13:40
PROVIDERS: ATTEND Surgery
DX: Z12.31 Encounter for screening mammogram for malignant neoplasm of breast (principal)
CPT/HCPCS: 77063; 77067

== ENCOUNTER → 2019-09-27 | Outpatient (CLI) | payer OTHER ==
--- NOTE | 2019-09-30 08:32 | USB ---
Reason for exam: additional evaluation requested from abnormal screening. History: Benign core biopsy of the left breast, November 2013. Took hormonal contraceptives for 4 years beginning at age 22. Physical Findings: Nurse did not find any significant physical abnormalities on exam. US Breast Workup Limited LT Left limited breast ultrasound including focal area of concern, retroareolar and axilla demonstrates a 1.5 x 0.6 x 1.1cm cystic cluster at 6 o'clock and a 1.5 x 0.4 x 1.5cm cystic cluster at 6 o'clock. These results were verbally communicated with the patient and result sheet given to the patient on 09/27/19. ASSESSMENT: Benign, BI-RAD 2 RECOMMENDATION: Return to routine screening mammogram schedule for both breasts.
== END | disposition home or self-care (01) ==
LOC: RADUSWWP 14:59
PROVIDERS: ATTEND Surgery
DX: R92.8 Other abnormal and inconclusive findings on diagnostic imaging of breast (principal)

== ENCOUNTER → 2021-02-18 | Outpatient (CLI) | payer OTHER ==
--- NOTE | 2021-02-22 11:59 | MM ---
Reason for exam: screening (asymptomatic). Last mammogram was performed 1 year and 5 months ago. History: Benign core biopsy of the left breast, November 2013. Took hormonal contraceptives for 4 years beginning at age 22. Physical Findings: A clinical breast exam by your physician is recommended on an annual basis and results should be correlated with mammographic findings. MG Screening Mammo w CAD Bilateral CC and MLO view(s) were taken. Prior study comparison: September 11, 2019, bilateral MG 3d screening mammo w/cad. July 05, 2018, bilateral MG screening mammo w CAD. The breast tissue is heterogeneously dense. This may lower the sensitivity of mammography. There is chronic nodularity bilaterally. No significant changes when compared with prior studies. ASSESSMENT: Benign, BI-RAD 2 RECOMMENDATION: Routine screening mammogram of both breasts in 1 year.
== END | disposition home or self-care (01) ==
LOC: RADMAMWWP 08:20
PROVIDERS: ATTEND Family Medicine
DX: Z12.31 Encounter for screening mammogram for malignant neoplasm of breast (principal)
CPT/HCPCS: 77067

== ENCOUNTER 2021-03-15 15:25 | Inpatient (IN) | payer OTHER ==
[2021-03-15] MEDS ORDERED: DEXAMETHASONE SOD PHOSPHATE 10 MG/ML 1 ML VIAL IV STA (16:06)
[2021-03-15 16:28] LABS: Basophils % (A) 0 %; Eosinophils # (A) 0.1 k/uL (0-0.7); Eosinophils % (A) 1 %; HCT 44.2 % (34.0-46.0); HGB 14.8 gm/dL (11.4-16.0); Lymphocytes # (A) 1.2 k/uL (1.0-4.8); Lymphocytes % (A) 8 %; MCH 29.2 pg (25.0-35.0); MCHC 33.4 g/dL (31.0-37.0); MCV 87.4 fL (80.0-100.0); Mean Platelet Volume 6.9; Monocytes # (A) 0.6 k/uL (0-1.0); Monocytes % (A) 4 %; Neutrophils % (A) 87 %; Platelet Count 295 k/uL (150-450); RBC 5.06 m/uL (3.80-5.40); RDW 13.3 % (11.5-15.5)
[2021-03-15 16:38] LABS: ALT 31 U/L (4-34); AST 24 U/L (14-36); African American GFR (CKD) >90 (>60 ml/min/1.73 sqM); Albumin 4.8 g/dL (3.5-5.0); Alkaline Phosphatase 125 U/L (38-126); Anion Gap 12 mmol/L; Blood Urea Nitrogen 13 mg/dL (7-17); Calcium 9.8 mg/dL (8.4-10.2); Carbon Dioxide 21 mmol/L (22-30); Chloride 109 mmol/L (98-107); Glucose 136 mg/dL (74-99); Non-African American GFR(CKD) >90 (>60 ml/min/1.73 sqM); Potassium 4.1 mmol/L (3.5-5.1); Sodium 142 mmol/L (137-145); Total Bilirubin 0.5 mg/dL (0.2-1.3)
[2021-03-15 16:43] LABS: INR 0.9 (<1.2); Partial Thromboplastin Time 22.5 sec (22.0-30.0); Prothrombin Time 9.7 sec (9.0-12.0)
[2021-03-15] MEDS ORDERED: diphenhydrAMINE 50 MG/ML 1 ML VIAL IVP STA (16:50)
[2021-03-15] MEDS ORDERED: FAMOTIDINE 20 MG/2 ML VIAL IV STA (16:50)
--- NOTE | 2021-03-15 17:06 | ED ---
SOB HPI - General Chief Complaint: Shortness of Breath Stated Complaint: DUY Time Seen by Provider: 03/15/21 15:46 Source: patient Mode of arrival: ambulatory Limitations: no limitations - History of Present Illness Initial Comments: 51-year-old female past medical history of asthma who presents emergency Department with reported shortness of breath. Patient is under the care of Dr. Ovalles and Dr. Rodarte. She reports that she began having shortness of breath 3 weeks ago. She was seen in our office and placed on steroids, nebulizer, antibiotics and an inhaler. She took the entire course of the medications without improvement in her symptoms. She then presented to the office again yesterday and had a chest x-ray performed. She was told she had pneumonia and was started once again steroids and antibiotics. They were concerned as patient was tachycardic and had upper airway stridor. They recommended that she come into the emergency room for evaluation however the patient waited until today. Patient admits to palpitations. Denies fevers or chills. Denies previous hospital admissions or intubations due to her asthma. She did attempt to set up an appointment with a pediatric medical assistant however does not have an appointment until April 12. Her progressive worsening symptoms with failed outpatient treatment she did present to the emergency room. Denies any chest pain. No cardiac history. No lower extremity swelling. No history of DVT or PE. No other alleviating, precipitating or modifying factors - Related Data Home Medications Medication Instructions Recorded Confirmed Omeprazole 20 mg PO DAILY 01/17/17 03/15/21 Albuterol Sulfate [Proair Hfa] 2 puff INHALATION RT-Q4H PRN 01/10/18 03/15/21 Cetirizine HCl [Zyrtec] 10 mg PO HS 01/10/18 03/15/21 Albuterol Nebulized [Ventolin 2.5 mg INHALATION RT-Q2H 03/15/21 03/15/21 Nebulized] Atorvastatin Calcium [Lipitor] 40 mg PO HS 03/15/21 03/15/21 Losartan Potassium [Cozaar] 50 mg PO HS 03/15/21 03/15/21 Melatonin 10 mg PO HS 03/15/21 03/15/21 traZODone HCL [Desyrel] 50 mg PO HS 03/15/21 03/15/21 Previous Rx's Medication Instructions Recorded Azithromycin [Zithromax] 500 mg PO HS 4 Days #4 tab 03/17/21 Benzonatate [Tessalon Perles] 200 mg PO TID PRN 10 Days #40 cap 03/17/21 Budesonide-Formot 160-4.5 Mcg 2 puff INHALATION BID 30 Days #1 03/17/21 [Symbicort 160-4.5 Mcg Inhaler] inhaler Cefdinir [Omnicef] 300 mg PO Q12HR 5 Days #10 capsule 03/17/21 methylPREDNISolone Dose Pack 4 mg PO DIRECTED #21 package 03/17/21 [Medrol Dose Pack] Allergies Allergy/AdvReac Type Severity Reaction Status Date / Time adhesive tape Allergy Rash/Hives Verified 03/15/21 19:13 benzene Allergy Itching Verified 03/15/21 19:13 Iodine and Iodide Containing Allergy Unknown Verified 03/15/21 19:13 Produc Sulfa (Sulfonamide Allergy Dyspnea Verified 03/15/21 19:13 Antibiotics) Review of Systems ROS Statement: Those systems with pertinent positive or pertinent negative responses have been documented in the HPI. ROS Other: All systems not noted in ROS Statement are negative. Past Medical History Past Medical History: Asthma Additional Past Medical History / Comment(s): Kidney Stones History of Any Multi-Drug Resistant Organisms: None Reported Past Surgical History: Back Surgery, Hysterectomy, Orthopedic Surgery Additional Past Surgical History / Comment(s): Rotator cuff left; foot surgery left Past Psychological History: No Psychological Hx Reported Smoking Status: Never smoker Past Alcohol Use History: None Reported Past Drug Use History: None Reported General Exam Limitations: no limitations General appearance: alert, in no apparent distress, anxious Head exam: Present: atraumatic, normocephalic, normal inspection Eye exam: Present: normal appearance, PERRL, EOMI. Absent: scleral icterus, conjunctival injection, periorbital swelling ENT exam: Present: normal oropharynx, mucous membranes moist Neck exam: Present: normal inspection, other (upper airway stridor). Absent: tenderness, meningismus, lymphadenopathy Respiratory exam: Present: normal lung sounds bilaterally. Absent: respiratory distress, wheezes, rales, rhonchi, stridor Cardiovascular Exam: Present: regular rate, normal rhythm, tachycardia, normal heart sounds. Absent: systolic murmur, diastolic murmur, rubs, gallop, clicks GI/Abdominal exam: Present: soft, normal bowel sounds. Absent: distended, tenderness, guarding, rebound, rigid Extremities exam: Present: normal inspection, full ROM, normal capillary refill. Absent: tenderness, pedal edema, joint swelling, calf tenderness Back exam: Present: normal inspection Neurological exam: Present: alert, oriented X3, CN II-XII intact Psychiatric exam: Present: normal affect, normal mood Skin exam: Present: warm, dry, intact, normal color. Absent: rash Course Vital Signs 03/15/21 03/15/21 03/15/21 15:43 18:00 19:30 Temperature 97.9 F Pulse Rate 116 H 108 H 97 Respiratory 24 20 Rate Blood Pressure 191/94 182/113 O2 Sat by Pulse 95 96 Oximetry 03/15/21 03/15/21 19:39 20:44 Temperature 97.7 F Pulse Rate 96 106 H Respiratory 20 Rate Blood Pressure 166/106 O2 Sat by Pulse 96 Oximetry Medical Decision Making - Medical Decision Making Upon arrival patient is placed into room 5. There was seen physical exam was performed. Patient does have significant upper airway stridor. IV was established. 12-lead EKG was performed. Patient to continuous pulse ox and cardiac monitoring. After increases her conducted which demonstrated white count of 15,000. Likely secondary to recent steroid use. Lactic acid is 2.4. Patient was sent over for a CT of her chest as well as CT of her neck. Demonstrates no acute findings in the cervical soft tissues. Normal epiglottis. Normal trachea. CT of the chest fails to demonstrate home embolism. Mild groundglass interstitial pneumonia. Patient was given a DuoNeb breathing treatments no liter bolus of normal saline. Patient started on steroids. Did recommend hospital admission due to failed outpatient treatment which the patient did agree to. Spoke with Dr. Howard who agreed to admit the patient. Patient was taken to the floor in stable condition - Lab Data Result diagrams: 03/17/21 06:31 03/17/21 06:31 Lab Results 03/15/21 03/15/21 03/15/21 Range/Units 16:20 16:20 16:20 WBC 15.0 H (3.8-10.6) k/uL RBC 5.06 (3.80-5.40) m/uL Hgb 14.8 (11.4-16.0) gm/dL Hct 44.2 (34.0-46.0) % MCV 87.4 (80.0-100.0) fL MCH 29.2 (25.0-35.0) pg MCHC 33.4 (31.0-37.0) g/dL RDW 13.3 (11.5-15.5) % Plt Count 295 (150-450) k/uL MPV 6.9 Neutrophils % 87 % Lymphocytes % 8 % Monocytes % 4 % Eosinophils % 1 % Basophils % 0 % Neutrophils # 13.0 H (1.3-7.7) k/uL Lymphocytes # 1.2 (1.0-4.8) k/uL Monocytes # 0.6 (0-1.0) k/uL Eosinophils # 0.1 (0-0.7) k/uL Basophils # 0.0 (0-0.2) k/uL PT 9.7 (9.0-12.0) sec INR 0.9 (<1.2) APTT 22.5 (22.0-30.0) sec D-Dimer 0.38 (<0.60) mg/L FEU Sodium 142 (137-145) mmol/L Potassium 4.1 (3.5-5.1) mmol/L Chloride 109 H (98-107) mmol/L Carbon Dioxide 21 L (22-30) mmol/L Anion Gap 12 mmol/L BUN 13 (7-17) mg/dL Creatinine 0.59 (0.52-1.04) mg/dL Est GFR (CKD-EPI)AfAm >90 (>60 ml/min/1.73 sqM) Est GFR (CKD-EPI)NonAf >90 (>60 ml/min/1.73 sqM) Glucose 136 H (74-99) mg/dL Lactic Ac Sepsis Rflx Plasma Lactic Acid Aubrey (0.7-2.0) mmol/L Calcium 9.8 (8.4-10.2) mg/dL Magnesium 2.0 (1.6-2.3) mg/dL Total Bilirubin 0.5 (0.2-1.3) mg/dL AST 24 (14-36) U/L ALT 31 (4-34) U/L Alkaline Phosphatase 125 (38-126) U/L Troponin I (0.000-0.034) ng/mL Total Protein 8.0 (6.3-8.2) g/dL Albumin 4.8 (3.5-5.0) g/dL Influenza Type A (PCR) (Not Detectd) Influenza Type B (PCR) (Not Detectd) RSV (PCR) (Not Detectd) SARS-CoV-2 (PCR) (Not Detectd) 03/15/21 03/15/21 03/15/21 Range/Units 16:20 16:20 16:20 WBC (3.8-10.6) k/uL RBC (3.80-5.40) m/uL Hgb (11.4-16.0) gm/dL Hct (34.0-46.0) % MCV (80.0-100.0) fL MCH (25.0-35.0) pg MCHC (31.0-37.0) g/dL RDW (11.5-15.5) % Plt Count (150-450) k/uL MPV Neutrophils % % Lymphocytes % % Monocytes % % Eosinophils % % Basophils % % Neutrophils # (1.3-7.7) k/uL Lymphocytes # (1.0-4.8) k/uL Monocytes # (0-1.0) k/uL Eosinophils # (0-0.7) k/uL Basophils # (0-0.2) k/uL PT (9.0-12.0) sec INR (<1.2) APTT (22.0-30.0) sec D-Dimer (<0.60) mg/L FEU Sodium (137-145) mmol/L Potassium (3.5-5.1) mmol/L Chloride (98-107) mmol/L Carbon Dioxide (22-30) mmol/L Anion Gap mmol/L BUN (7-17) mg/dL Creatinine (0.52-1.04) mg/dL Est GFR (CKD-EPI)AfAm (>60 ml/min/1.73 sqM) Est GFR (CKD-EPI)NonAf (>60 ml/min/1.73 sqM) Glucose (74-99) mg/dL Lactic Ac Sepsis Rflx Plasma Lactic Acid Aubrey 2.4 H* (0.7-2.0) mmol/L Calcium (8.4-10.2) mg/dL Magnesium (1.6-2.3) mg/dL Total Bilirubin (0.2-1.3) mg/dL AST (14-36) U/L ALT (4-34) U/L Alkaline Phosphatase (38-126) U/L Troponin I <0.012 (0.000-0.034) ng/mL Total Protein (6.3-8.2) g/dL Albumin (3.5-5.0) g/dL Influenza Type A (PCR) Not Detected (Not Detectd) Influenza Type B (PCR) Not Detected (Not Detectd) RSV (PCR) Not Detected (Not Detectd) SARS-CoV-2 (PCR) Not Detected (Not Detectd) 03/15/21 03/15/21 Range/Units 16:42 18:27 WBC (3.8-10.6) k/uL RBC (3.80-5.40) m/uL Hgb (11.4-16.0) gm/dL Hct (34.0-46.0) % MCV (80.0-100.0) fL MCH (25.0-35.0) pg MCHC (31.0-37.0) g/dL RDW (11.5-15.5) % Plt Count (150-450) k/uL MPV Neutrophils % % Lymphocytes % % Monocytes % % Eosinophils % % Basophils % % Neutrophils # (1.3-7.7) k/uL Lymphocytes # (1.0-4.8) k/uL Monocytes # (0-1.0) k/uL Eosinophils # (0-0.7) k/uL Basophils # (0-0.2) k/uL PT (9.0-12.0) sec INR (<1.2) APTT (22.0-30.0) sec D-Dimer (<0.60) mg/L FEU Sodium (137-145) mmol/L Potassium (3.5-5.1) mmol/L Chloride (98-107) mmol/L Carbon Dioxide (22-30) mmol/L Anion Gap mmol/L BUN (7-17) mg/dL Creatinine (0.52-1.04) mg/dL Est GFR (CKD-EPI)AfAm (>60 ml/min/1.73 sqM) Est GFR (CKD-EPI)NonAf (>60 ml/min/1.73 sqM) Glucose (74-99) mg/dL Lactic Ac Sepsis Rflx Y Plasma Lactic Acid Aubrey 1.9 (0.7-2.0) mmol/L Calcium (8.4-10.2) mg/dL Magnesium (1.6-2.3) mg/dL Total Bilirubin (0.2-1.3) mg/dL AST (14-36) U/L ALT (4-34) U/L Alkaline Phosphatase (38-126) U/L Troponin I (0.000-0.034) ng/mL Total Protein (6.3-8.2) g/dL Albumin (3.5-5.0) g/dL Influenza Type A (PCR) (Not Detectd) Influenza Type B (PCR) (Not Detectd) RSV (PCR) (Not Detectd) SARS-CoV-2 (PCR) (Not Detectd) - EKG Data EKG Comments: EKG demonstrates sinus tachycardia with a ventricular rate of 105. GA interval 138. QRS 82. QTC 446. No acute ST segment elevations or depressions Disposition Clinical Impression: Tachycardia, Acute respiratory insufficiency, Stridor Disposition: ADMITTED IP TO THIS HOSP Condition: Stable Is patient prescribed a controlled substance at d/c from ED?: No Decision to Admit Reason: Admit from EC Decision Date: 03/15/21 Decision Time: 18:58
[2021-03-15] MEDS ORDERED: SODIUM CHLORIDE 0.9% 1,000 ML IV ONE (18:15)
[2021-03-15] MEDS ORDERED: IPRATROPIUM-ALBUTEROL 3 ML NEB INHALATION STA (18:16)
--- NOTE | 2021-03-15 18:34 | CT ---
EXAMINATION TYPE: CT chest angio for PE DATE OF EXAM: 03/15/2021 COMPARISON: None HISTORY: Stridor and shortness of breath. CT DLP: 890.4 mGycm Automated exposure control for dose reduction was used. CONTRAST: Performed with IV Contrast, patient injected with 50ml mL of Isovue 370. Images were obtained from the thoracic inlet to the diaphragm with IV contrast. There are 3-D post pr ocessed images. There is mild increased groundglass interstitial density in the mid and upper lung hermosillo. There is n o evidence of a pulmonary mass. There is no pleural effusion. There is small area of subsegmental ate lectasis in the lingula left upper lobe. There is no pericardial effusion. There is no mediastinal adenopathy. There are no hilar masses. I see no evidence of filling defect in the pulmonary arteries. The thoracic vertebra have normal alignment. There is mild spurring of the endplates. There is no com pression fracture. Sternum is intact. IMPRESSION: No evidence of pulmonary embolism. Mild groundglass interstitial pneumonia. No suspicious primary mas s.
--- NOTE | 2021-03-15 18:40 | CT ---
EXAMINATION TYPE: CT soft tissue neck w con DATE OF EXAM: 03/15/2021 COMPARISON: None HISTORY: Stridor and shortness of breath. CT DLP: 705.5 mGycm Automated exposure control for dose reduction was used. CONTRAST: Performed with IV Contrast, patient injected with 50ml mL of Isovue 370. Images obtained from the level of the aortic arch to the top of the maxillary sinuses with IV contras t. There is no evidence of mediastinal adenopathy. Thoracic aorta appears intact. There is no evidence o f aneurysm or dissection. Trachea appears normal. Epiglottis is normal. Prevertebral soft tissues christo ear normal. Cervical vertebra have fairly normal spacing and alignment. The tonsils and adenoids are within normal limits. The tongue appears normal. There is no evidence of a pharyngeal mass. There is fatty infiltration of the parotid glands. Submandibular salivary glands are symmetric. There is normal aeration of the maxillary sinuses. The maxilla is intact. I see no evidence of cervical adenopathy. There are a few anterior triangle cervical lymph nodes that measure up to 10 mm. IMPRESSION: Negative CT scan of the cervical soft tissues. Normal epiglottis. Normal trachea.
[2021-03-15] MEDS ORDERED: NALOXONE 0.4 MG/ML 1 ML VIAL IV PRN (19:11)
[2021-03-15] MEDS ORDERED: guaiFENesin SYRUP 100MG/5ML 200 MG/10 ML CUP PO PRN (22:24)
[2021-03-15] MEDS: BENZONATATE 100 MG CAP PO PRN (22:50)
[2021-03-15] MEDS: DEXAMETHASONE SOD PHOSPHATE 4 MG/ML 1 ML VIAL IV SCH (22:53)
--- NOTE | 2021-03-16 | P.HPIM ---
History of Present Illness H&P Date: 03/15/21 Patient is a 51-year-old female with a PMH of asthma, non-smoker who presents to the emergency room with complaints of shortness of breath and wheezing. The patient reports that she had her symptoms initially started 3 weeks ago, at which time she was seen at her primary care physician office (Dr Roadrte) and was prescribed a Z-Santino, oral prednisone, and an inhaler. Patient reports that she completed the course without any improvement in her symptoms. She subsequently went back to the office twice including ones earlier today and was informed that she may have a pneumonia after undergoing a chest x-ray. The patient was also noted to be tachycardic with concerns for stridor and was sent into the emergency room for further evaluation. The patient reports that she her symptoms of shortness of breath and wheezing have only worsened since their onset. She notes that this is not typical for attacks of asthma since they all would resolve quickly after initiation of steroids. She also reported fever and chills at home with T-max of 100.5 over the past 1 week. She further endorsed on-going cough productive of green-yellow phlegm. She underwent an extensive evaluation in the emergency room with a CT angiogram of the chest revealing no evidence of PE with mild ground glass interstitial pneumonia. Neck CT was also unremarkable. EKG revealed sinus tachycardia at [address]/T-wave changes noted as reviewed by me. Laboratory evaluation was remarkable for leukocytosis of 15.0, chloride 109, CO2 21, glucose 136, lactic acid 2.4, troponin less than 0.012, influenza type A and B negative, and COVID-19 PCR negative. Review of Systems Pertinent positives and negatives as discussed in HPI, a complete review of systems was performed and all other systems are negative. Past Medical History Past Medical History: Asthma Additional Past Medical History / Comment(s): Kidney Stones History of Any Multi-Drug Resistant Organisms: None Reported Past Surgical History: Back Surgery, Hysterectomy, Orthopedic Surgery Additional Past Surgical History / Comment(s): Rotator cuff left; foot surgery left Past Psychological History: No Psychological Hx Reported Smoking Status: Never smoker Past Alcohol Use History: None Reported Past Drug Use History: None Reported Medications and Allergies Home Medications Medication Instructions Recorded Confirmed Type Omeprazole 20 mg PO DAILY 01/17/03/15/21 History Albuterol Sulfate [Proair Hfa] 2 puff INHALATION RT-Q4H PRN 01/10/18 03/15/21 History Cetirizine HCl [Zyrtec] 10 mg PO HS 01/10/18 03/15/21 History Albuterol Nebulized [Ventolin 2.5 mg INHALATION RT-Q2H 03/15/21 03/15/21 History Nebulized] Atorvastatin Calcium [Lipitor] 40 mg PO HS 03/15/21 03/15/21 History Azithromycin [Zithromax] 500 mg PO HS 03/15/21 03/15/21 History Losartan Potassium [Cozaar] 50 mg PO HS 03/15/21 03/15/21 History Melatonin 10 mg PO HS 03/15/21 03/15/21 History predniSONE See Taper PO DIRECTED 03/15/21 03/15/21 History traZODone HCL [Desyrel] 50 mg PO HS 03/15/21 03/15/21 History Allergies Allergy/AdvReac Type Severity Reaction Status Date / Time adhesive tape Allergy Rash/Hives Verified 03/15/21 19:13 benzene Allergy Itching Verified 03/15/21 19:13 Iodine and Iodide Containing Allergy Unknown Verified 03/15/21 19:13 Produc Sulfa (Sulfonamide Allergy Dyspnea Verified 03/15/21 19:13 Antibiotics) Physical Exam Vitals: Vital Signs Temp Pulse Pulse Resp BP BP Pulse Ox 03/15/21 21:55 165/113 03/15/21 21:18 97.3 F L 100 18 180/99 94 L 03/15/21 20:44 97.7 F 106 H 20 166/106 96 03/15/21 19:39 96 03/15/21 19:30 97 03/15/21 18:00 108 H 20 182/113 96 03/15/21 15:43 97.9 F 116 H 24 191/94 95 Intake and Output 03/15/21 03/15/21 03/16/21 14:59 22:59 06:59 Other: # Voids 1 Weight 122.47 kg General: non toxic, no distress, appears at stated age, morbidly obese, audible stridor noted Derm: no unusual rashes/lesions no unusual ecchymoses, warm, dry Head: atraumatic, normocephalic, symmetric Eyes: EOMI, no lid lag, anicteric sclera, pupils equal round reactive to light ENT: Nose and ears atraumatic, no thrush, no pharyngeal erythema Neck: No thyromegaly, no cervical lymphadenopathy, trachea midline, supple Mouth: no lip lesion, mucus membranes moist Cardiovascular: S1S2 reg, no murmur, positive posterior tibial pulse bilateral, no edema, capillary refill less than 2 seconds Lungs: Somewhat poor air entry bilaterally with bibasilar rales, no wheezing noted throughout the lung hermosillo, no accessory muscle use Abdominal: soft, nontender to palpation, no guarding, no appreciable organomegaly, normal bowel sounds Ext: no gross muscle atrophy, muscle strength 5 out of 5 in all 4 extremities grossly, no contractures, Neuro: CN II-XI grossly intact, light touch intact all 4 extremities, finger to nose within normal limits, Psych: Alert, oriented, appropriate affect Results CBC & Chem 7: 03/15/21 16:20 03/15/21 16:20 Labs: Abnormal Lab Results - Last 24 Hours (Table) 03/15/21 03/15/21 03/15/21 Range/Units 16:20 16:20 16:20 WBC 15.0 H (3.8-10.6) k/uL Neutrophils # 13.0 H (1.3-7.7) k/uL Chloride 109 H (98-107) mmol/L Carbon Dioxide 21 L (22-30) mmol/L Glucose 136 H (74-99) mg/dL Plasma Lactic Acid Aubrey 2.4 H* (0.7-2.0) mmol/L Thrombosis Risk Factor Assmnt - Choose All That Apply Each Factor Represents 1 point: Age 41-60 years, Obesity (BMI >25) Other Risk Factors: No Other congenital or acquired thrombophilia - If yes, enter type in comment: No Thrombosis Risk Factor Assessment Total Risk Factor Score: 2 Thrombosis Risk Factor Assessment Level: Low Risk Assessment and Plan Plan: Stridor, differential includes vocal cord dysfunction vs laryngeal stenosis -ENT consult -Obtain ABG -- may consider BiPAP -C/w Decadron for now -Antitussives -C/w Bronchodilators -Insulin supplemental scale for now Fever, productive cough, concerning for pneumonia -C/w Azithromycin and Ceftriaxone for now -Obtain Procalcitonin levels Lactic acidosis -Monitor to resolution DVT prophylaxis -Heparin subq The patient is admitted with an anticipated greater than 2 midnight stay for evaluation of Stridor CODE STATUS:Full Code Discussed with: Patient Anticipated dischage date: 2-[address]: Home A total of 35 minutes was spent on the care of this complex patient more than 50% of the time was spent in counseling and care coordination.
[2021-03-16] MEDS: HEPARIN SODIUM,PORCINE/PF 5,000 UNIT/0.5 ML SYRINGE SQ SCH ×4 (00:51→23:05)
[2021-03-16] MEDS: IPRATROPIUM-ALBUTEROL 3 ML NEB INHALATION SCH ×6 (02:13→20:04)
[2021-03-16 02:39] LABS: ABG Base Excess -1.1 mmol/L; ABG HCO3 23 mmol/L (21-25); ABG PCO2 34 mmHg (35-45); ABG PH 7.45 (7.35-7.45); ABG PO2 83 mmHg (83-108); ABG TCO2 24 mmol/L (19-24); Allen Test Performed? Yes
[2021-03-16] MEDS ORDERED: RACEPINEPHRINE 2.25% NEB 0.5 ML NEBU INHALATION PRN (03:13)
[2021-03-16] MEDS: BUDESONIDE 1 MG/2 ML NEBU INHALATION SCH ×2 (03:37→20:04)
[2021-03-16 07:53] LABS: African American GFR (CKD) >90 (>60 ml/min/1.73 sqM); Anion Gap 10 mmol/L; Blood Urea Nitrogen 12 mg/dL (7-17); Carbon Dioxide 23 mmol/L (22-30); Chloride 108 mmol/L (98-107); Glucose 199 mg/dL (74-99); Non-African American GFR(CKD) >90 (>60 ml/min/1.73 sqM); Potassium 3.8 mmol/L (3.5-5.1); Sodium 141 mmol/L (137-145)
[2021-03-16 08:21] LABS: Basophils % (A) 0 %; Eosinophils % (A) 0 %; HGB 13.3 gm/dL (11.4-16.0); Lymphocytes # (A) 0.8 k/uL (1.0-4.8); Lymphocytes % (A) 6 %; MCH 29.4 pg (25.0-35.0); MCHC 33.2 g/dL (31.0-37.0); MCV 88.4 fL (80.0-100.0); Monocytes # (A) 0.4 k/uL (0-1.0); Monocytes % (A) 3 %; Neutrophils # (A) 10.9 k/uL (1.3-7.7); Neutrophils % (A) 90 %; Platelet Count 242 k/uL (150-450); RBC 4.53 m/uL (3.80-5.40); RDW 13.5 % (11.5-15.5); WBC 12.1 k/uL (3.8-10.6)
[2021-03-16 08:25] LABS: Glucose,Whole Blood 205 mg/dL (75-99)
[2021-03-16] MEDS: AZITHROMYCIN 250 MG TAB PO SCH (08:28)
[2021-03-16] MEDS: DEXAMETHASONE SOD PHOSPHATE 4 MG/ML 1 ML VIAL IV SCH (08:30)
[2021-03-16] MEDS: INSULIN ASPART (NovoLOG) 100 UNIT/ML VIAL SQ SCH ×4 (08:30→21:06)
[2021-03-16] MEDS: ACETAMINOPHEN TAB 325 MG TAB PO PRN (10:30)
[2021-03-16 11:23] LABS: Glucose,Whole Blood 156 mg/dL (75-99)
[2021-03-16] MEDS: PANTOPRAZOLE 40 MG TABLET PO SCH (11:45)
[2021-03-16] MEDS: BENZONATATE 100 MG CAP PO PRN ×2 (11:48→21:05)
--- NOTE | 2021-03-16 14:04 | P.PN ---
Subjective Progress Note Date: 03/16/21 Principal diagnosis: Pneumonia Currently doing better. Breathing is improved. No pain. Still having a dry cough. Objective - Vital Signs Vital signs: Vital Signs Temp 97.7 F 03/16/21 07:56 Pulse 92 03/16/21 11:51 Resp 16 03/16/21 08:00 BP 167/94 03/16/21 07:56 Pulse Ox 94 L 03/16/21 07:56 Intake & Output 03/15/21 03/16/21 03/16/21 18:59 06:59 18:59 Weight 122.47 kg 122.47 kg Other: # Voids 1 - Exam Constitutional: No acute distress, conversant, pleasant Eyes:Anicteric sclerae, moist conjunctiva, no lid-lag, PERRLA, ENMT: Oropharynx clear, no erythema, exudates Neck: Supple, FROM, no masses, or JVD, No carotid bruits, No thyromegaly Lungs: Minimal scattered wheezing, Clear to percussion, Normal respiratory effort, no accessory muscle use Cardiovascular: Heart regular in rate and rhythm, No murmurs, gallops, or rubs, No peripheral edema Abdominal: Soft, Nontender, no guarding, rebound or rigidity, Normoactive bowel sounds, No hepatomegaly, No splenomegaly, No palpable mass Skin: Normal temperature, tone, texture, turgor, no induration, No subcutaneous nodules, No rash, lesions, No ulcers Extremities: No digital cyanosis, No clubbing, Pedal pulses intact and symmetrical, Radial pulses intact and symmetrical, No calf tenderness Psychiatric: Alert and oriented to person, place and time, appropriate affect, intact judgement Neuro: Muscles Strength 5/5 in all 4 extremities, Sensation to light touch grossly present throughout, Cranial nerves II-XII grossly intact, no focal sensory deficits - Labs CBC & Chem 7: 03/16/21 07:09 03/16/21 07:09 Labs: Abnormal Lab Results - Last 24 Hours (Table) 03/15/21 03/15/21 03/15/21 Range/Units 16:20 16:20 16:20 WBC 15.0 H (3.8-10.6) k/uL Neutrophils # 13.0 H (1.3-7.7) k/uL Lymphocytes # (1.0-4.8) k/uL ABG pCO2 (35-45) mmHg Chloride 109 H (98-107) mmol/L Carbon Dioxide 21 L (22-30) mmol/L Glucose 136 H (74-99) mg/dL POC Glucose (mg/dL) (75-99) mg/dL Plasma Lactic Acid Aubrey 2.4 H* (0.7-2.0) mmol/L 03/16/21 03/16/21 03/16/21 Range/Units 02:35 07:09 07:09 WBC 12.1 H (3.8-10.6) k/uL Neutrophils # 10.9 H (1.3-7.7) k/uL Lymphocytes # 0.8 L (1.0-4.8) k/uL ABG pCO2 34 L (35-45) mmHg Chloride 108 H (98-107) mmol/L Carbon Dioxide (22-30) mmol/L Glucose 199 H (74-99) mg/dL POC Glucose (mg/dL) (75-99) mg/dL Plasma Lactic Acid Aubrey (0.7-2.0) mmol/L 03/16/21 03/16/21 Range/Units 08:24 11:19 WBC (3.8-10.6) k/uL Neutrophils # (1.3-7.7) k/uL Lymphocytes # (1.0-4.8) k/uL ABG pCO2 (35-45) mmHg Chloride (98-107) mmol/L Carbon Dioxide (22-30) mmol/L Glucose (74-99) mg/dL POC Glucose (mg/dL) 205 H 156 H (75-99) mg/dL Plasma Lactic Acid Aubrey (0.7-2.0) mmol/L Assessment and Plan Plan: Stridor, differential includes vocal cord dysfunction vs laryngeal stenosis -Likely sec to bronchitis/pneumonia -C/w steroids Multilobar bilateral CAP -Antitussives -Bronchodilators -Abx -O2 to keep sats above 92% Lactic acidosis -Resolved DVT prophylaxis -Heparin subq Anticipated discharge tomorrow Disposition home
[2021-03-16 16:23] LABS: Glucose,Whole Blood 220 mg/dL (75-99)
[2021-03-16] MEDS: methylPREDNISolone SOD SUCCI 40 MG/ML 1 ML VIAL IV SCH ×2 (17:14→23:05)
[2021-03-16 20:39] LABS: Glucose,Whole Blood 181 mg/dL (75-99)
[2021-03-16] MEDS ORDERED: MELATONIN 5 MG TABLET PO SCH (21:00)
[2021-03-16] MEDS ORDERED: LOSARTAN 50 MG TAB PO SCH (21:00)
[2021-03-16] MEDS ORDERED: traZODone HCL 50 MG TAB PO SCH (21:00)
[2021-03-16] MEDS ORDERED: ATORVASTATIN 40 MG TAB PO SCH (21:00)
[2021-03-17] MEDS: IPRATROPIUM-ALBUTEROL 3 ML NEB INHALATION SCH ×4 (01:16→11:21)
[2021-03-17 03:41] VITALS: RESP 18
[2021-03-17] MEDS: BENZONATATE 100 MG CAP PO PRN (06:11)
[2021-03-17] MEDS: methylPREDNISolone SOD SUCCI 40 MG/ML 1 ML VIAL IV SCH ×2 (06:11→12:40)
[2021-03-17] MEDS: ACETAMINOPHEN TAB 325 MG TAB PO PRN (06:15)
[2021-03-17 07:09] LABS: Basophils % (A) 0 %; Eosinophils % (A) 0 %; HCT 39.4 % (34.0-46.0); HGB 13.3 gm/dL (11.4-16.0); Lymphocytes % (A) 8 %; MCH 29.9 pg (25.0-35.0); MCHC 33.7 g/dL (31.0-37.0); MCV 88.6 fL (80.0-100.0); Monocytes # (A) 0.4 k/uL (0-1.0); Monocytes % (A) 3 %; Neutrophils # (A) 11.1 k/uL (1.3-7.7); Neutrophils % (A) 88 %; Platelet Count 235 k/uL (150-450); RBC 4.44 m/uL (3.80-5.40); RDW 13.4 % (11.5-15.5); WBC 12.6 k/uL (3.8-10.6)
[2021-03-17 07:21] LABS: Glucose,Whole Blood 165 mg/dL (75-99)
[2021-03-17] MEDS: AZITHROMYCIN 250 MG TAB PO SCH (07:29)
[2021-03-17] MEDS: HEPARIN SODIUM,PORCINE/PF 5,000 UNIT/0.5 ML SYRINGE SQ SCH (07:29)
[2021-03-17] MEDS: PANTOPRAZOLE 40 MG TABLET PO SCH (07:29)
[2021-03-17] MEDS: INSULIN ASPART (NovoLOG) 100 UNIT/ML VIAL SQ SCH ×2 (07:30→12:40)
[2021-03-17 07:48] VITALS: BP 151/94; TEMP 97.6
[2021-03-17] MEDS: BUDESONIDE 1 MG/2 ML NEBU INHALATION SCH (07:50)
[2021-03-17 08:32] LABS: African American GFR (CKD) >90 (>60 ml/min/1.73 sqM); Anion Gap 11 mmol/L; Blood Urea Nitrogen 13 mg/dL (7-17); Calcium 9.8 mg/dL (8.4-10.2); Carbon Dioxide 23 mmol/L (22-30); Chloride 108 mmol/L (98-107); Glucose 183 mg/dL (74-99); Magnesium 2.1 mg/dL (1.6-2.3); Non-African American GFR(CKD) >90 (>60 ml/min/1.73 sqM); Phosphorus 3.7 mg/dL (2.5-4.5); Potassium 4.3 mmol/L (3.5-5.1); Sodium 142 mmol/L (137-145)
[2021-03-17 11:35] VITALS: PULSE 79
[2021-03-17 12:10] LABS: Glucose,Whole Blood 186 mg/dL (75-99)
--- NOTE | 2021-03-17 14:23 | P.DS ---
Providers Date of admission: 03/15/21 19:11 Expected date of discharge: 03/17/21 Attending physician: Gilma Ling MD Primary care physician: Ervin Rodarte [facility] Course: Patient is a 51-year-old female with a PMH of asthma, non-smoker who presents to the emergency room with complaints of shortness of breath and wheezing. Her symptoms initially started 3 weeks ago, at which time she was seen at her primary care physician office (Dr Rodarte) and was prescribed a Z-Santino, oral prednisone, and an inhaler. Patient reports that she completed the course without any improvement in her symptoms. She subsequently went back to the office twice and was informed that she may have a pneumonia after undergoing a chest x-ray. She also reported fever and chills at home with T-max of 100.5 over the past 1 week. She further endorsed on-going cough productive of green-yellow phlegm. The patient was also noted to be tachycardic with concerns for stridor and was sent into the emergency room for further evaluation. Patient reported that this was her fourth worsening of shortness of breath/asthma attack over the past several months. She underwent an extensive evaluation in the emergency room with a CT angiogram of the chest revealing no evidence of PE with mild ground glass interstitial pneumonia. Neck CT was also unremarkable. EKG revealed sinus tachycardia at [address]/T-wave changes noted as reviewed by me. Laboratory evaluation was remarkable for leukocytosis of 15.0, chloride 109, CO2 21, glucose 136, lactic acid 2.4, troponin less than 0.012, influenza type A and B negative, and COVID-19 PCR negative. Patient was admitted for treatment of acute asthma exacerbation and community- acquired pneumonia. She was started on ceftriaxone and azithromycin. In addition she was treated with bronchodilators and steroids. She continued to have cough during the admission but her shortness of breath improved. She was treated symptomatically with Tessalon. Today she is feeling better, she will be discharged on a steroid taper, Omnicef, azithromycin. Symbicort and restarted because this is her fourth asthma exacerbation over the past several months. Symbicort can be tapered down over the next few month if she remains clinically stable. Time for discharge 35 minutes. Patient Condition at Discharge: Stable Plan - Discharge Summary Discharge Rx Participant: Yes New Discharge Prescriptions: New methylPREDNISolone Dose Pack [Medrol Dose Pack] 4 mg PO DIRECTED #21 package Budesonide-Formot 160-4.5 Mcg [Symbicort 160-4.5 Mcg Inhaler] 2 puff INHALATION BID 30 Days #1 inhaler Benzonatate [Tessalon Perles] 200 mg PO TID PRN 10 Days #40 cap PRN Reason: Cough Cefdinir [Omnicef] 300 mg PO Q12HR 5 Days #10 capsule Continue Omeprazole 20 mg PO DAILY Albuterol Sulfate [Proair Hfa] 2 puff INHALATION RT-Q4H PRN PRN Reason: Shortness Of Breath Cetirizine HCl [Zyrtec] 10 mg PO HS Albuterol Nebulized [Ventolin Nebulized] 2.5 mg INHALATION RT-Q2H Losartan Potassium [Cozaar] 50 mg PO HS traZODone HCL [Desyrel] 50 mg PO HS Melatonin 10 mg PO HS Atorvastatin Calcium [Lipitor] 40 mg PO HS Azithromycin [Zithromax] 500 mg PO HS 4 Days #4 tab Discontinued predniSONE See Taper PO DIRECTED Discharge Medication List Omeprazole 20 mg PO DAILY 01/17/17 [History] Albuterol Sulfate [Proair Hfa] 2 puff INHALATION RT-Q4H PRN 01/10/18 [History] Cetirizine HCl [Zyrtec] 10 mg PO HS 01/10/18 [History] Albuterol Nebulized [Ventolin Nebulized] 2.5 mg INHALATION RT-Q2H 03/15/21 [History] Atorvastatin Calcium [Lipitor] 40 mg PO HS 03/15/21 [History] Losartan Potassium [Cozaar] 50 mg PO HS 03/15/21 [History] Melatonin 10 mg PO HS 03/15/21 [History] traZODone HCL [Desyrel] 50 mg PO HS 03/15/21 [History] Azithromycin [Zithromax] 500 mg PO HS 4 Days #4 tab 03/17/21 [Rx] Benzonatate [Tessalon Perles] 200 mg PO TID PRN 10 Days #40 cap 03/17/21 [Rx] Budesonide-Formot 160-4.5 Mcg [Symbicort 160-4.5 Mcg Inhaler] 2 puff INHALATION BID 30 Days #1 inhaler 03/17/21 [Rx] Cefdinir [Omnicef] 300 mg PO Q12HR 5 Days #10 capsule 03/17/21 [Rx] methylPREDNISolone Dose Pack [Medrol Dose Pack] 4 mg PO DIRECTED #21 package 03/17/21 [Rx] Follow up Appointment(s)/Referral(s): Ervin Rodarte MD [Primary Care Provider] - 1-2 days
--- NOTE | 2021-04-08 09:07 | CDI ---
Documentation Clarification Form Date: 04/08/2021 08:48:00 AM From: Shameka Elizalde * Phone: If you have a question about this query, please contact Fernanda Almonte, Singe Winder at [phone] Admit Date: 03/15/2021 07:11:00 PM Patient Name: Iveth Dockery Visit Number: [id number] Discharge Date: 03/17/2021 03:05:00 PM ATTENTION: The Clinical Documentation Specialists (CDI) and [facility] Coding Staff appreciate your assistance in clarifying documentation. Please respond to the clarification below the line at the bottom and electronically sign. The CDI & [facility] Coding staff will review the response and follow-up if needed. Please note: Queries are made part of the Legal Health Record. If you have any questions, please contact the author of this message via ITS. Dr. Sandra oHward The patient presented with the following clinical indicators elevated WBC's, lactic acidosis and tachycardia.. Additional clarification regarding the etiology/cause of the clinical indicators is requested. History/Risk Factors: Patient with pneumonia and exacerbation of asthma Clinical Indicators: WBC: 15.0 Lactic acid: 1.9 2.4 Blood cultures: Blood cultures not drawn Vitals signs: 98.2 F, 116 bpm, 18, 179/94, 97% RA Treatment: Antibiotics, bronchodilators and steroids Antibiotics: Ceftraxone and Azithromycin In your professional opinion, please clarify if these findings of patient meeting 2/4 of SIRS criteria, signify one of the following conditions: [ ] Sepsis POA [ ] Sepsis, Not POA [ ] Sepsis ruled out [ ] Severe Sepsis with organ failure [ ] Other, please specify [ ] Unable to determine SIRS Criteria: 2 or more of the following may indicate SIRS -Temperature < 96.8F (36C) or > 101.0F (38.3C) -Heart Rate > 90 bpm -Respiratory Rate > 20 breaths/min or PaCO2 < 32 mmHg -White Blood Cell Count > 12,000 or < 4,000 cells/mm3 or > 10% bands MTDD
== END 2021-03-17 15:05 | disposition home or self-care (01) | DRG 871 ==
LOC: EC 15:25 → 4SSUR 19:11
PROVIDERS: ADMIT Internal Medicine; ATTEND Internal Medicine
DX: A41.9 Sepsis, unspecified organism (principal); J18.9 Pneumonia, unspecified organism; J45.901 Unspecified asthma with (acute) exacerbation; E87.2 Acidosis; T38.0X5A Adverse effect of glucocorticoids and synthetic analogues, initial encounter; R06.1 Stridor; D72.829 Elevated white blood cell count, unspecified; Z20.822 Contact with and (suspected) exposure to COVID-19; Z79.51 Long term (current) use of inhaled steroids; Z79.899 Other long term (current) drug therapy; Z87.442 Personal history of urinary calculi; Z90.710 Acquired absence of both cervix and uterus; Z98.890 Other specified postprocedural states; Z88.2 Allergy status to sulfonamides; Z88.8 Allergy status to other drugs, medicaments and biological substances
CPT/HCPCS: 36415; 36600; 70491; 71275; 80048; 80053; 82805; 83605; 83735; 84100; 84145; 84484; 85025; 85379; 85610; 85730; 87636; 93005; 94640; 94760; 96365; 96366; 96375; 99285

== ENCOUNTER → 2021-04-07 | Outpatient (CLI) | payer OTHER ==
[2021-04-08 19:25] LABS: Alternaria alternata IgE <0.10 kU/L
[2021-04-08 19:26] LABS: Ragweed,Common IgE 4.04 kU/L
[2021-04-08 19:27] LABS: Birch IgE 1.72 kU/L; Elm IgE <0.10 kU/L; Oak IgE 0.12 kU/L
[2021-04-08 19:29] LABS: Aspergillus fumagatus IgE <0.10 kU/L; Cladosporian herbarum IgE <0.10 kU/L; Maple (Box Elder) IgE 0.21 kU/L
[2021-04-08 19:30] LABS: Cat Epith & Dander IgE 0.72 kU/L; Cockroach IgE <0.10 kU/L; Dermato. farinae IgE 0.63 kU/L; Dog Dander IgE <0.10 kU/L
[2021-04-08 19:35] LABS: Scallop IgE <0.10 kU/L; Walnut IgE (Food) <0.10 kU/L
[2021-04-08 19:36] LABS: Clam IgE <0.10 kU/L; Shrimp IgE <0.10 kU/L; Soybean IgE <0.10 kU/L
[2021-04-08 19:37] LABS: Peanut IgE <0.10 kU/L
[2021-04-08 19:39] LABS: Codfish IgE <0.10 kU/L; Egg White IgE <0.10 kU/L
== END | disposition home or self-care (01) ==
LOC: LABWHC1 10:03
PROVIDERS: ATTEND Internal Medicine Critical Care Medicine
DX: J45.909 Unspecified asthma, uncomplicated (principal); T78.40XA Allergy, unspecified, initial encounter
CPT/HCPCS: 36415; 82785; 85008; 86001; 86003; 86606; 86609

== ENCOUNTER → 2021-06-11 | Outpatient (CLI) | payer OTHER ==
--- NOTE | 2021-06-13 10:24 | CT ---
EXAMINATION TYPE: CT chest wo con DATE OF EXAM: 06/11/2021 COMPARISON: HISTORY: Pt being treated for asthma, but symptoms not improving. Interstitial pulmonary disease. Hx Covid CT DLP: 1121.10 mGycm, Automated exposure control for dose reduction was used. CONTRAST: None TECHNIQUE: Axial images were obtained at 1 mm thick sections at 10 mm intervals. This will limit po rtions of the examination which may not be visualized within the [id number]. Images were obtained in the prone and supine views. FINDINGS: Portion of the thyroid visualized is normal. There is a 0.6 cm nodule within the posterior right upper lobe. Series [address] chest with contrast is recommended for additional workup. Nodule versus vascular structure is in the anterior left lung. Series 8 image 13. Mild filtration may be within the right upper lung field, series 4 image 14. No enlarged mediastinal or hilar adenopathy is evident. The ascending aorta diameter at the level o f the main pulmonary artery is 3.1 cm. The main pulmonary artery diameter at the bifurcation is 2.[address] sections are obtained through the upper abdomen. Abdomen is essentially unremarkable. IMPRESSIONS: 1. 0.6 cm nodule suspected posterior right upper lung field. Additional workup with standard CT chest with contrast recommended. 2. An additional nodule may be present on the left. However, given the limitations of high-resolution CT images could be artifactual.
== END | disposition home or self-care (01) ==
LOC: RADCTMAIN 18:18
PROVIDERS: ATTEND Internal Medicine Critical Care Medicine
DX: J84.89 Other specified interstitial pulmonary diseases (principal); Z86.16 Personal history of COVID-19
CPT/HCPCS: 71250

== ENCOUNTER → 2021-06-30 | Outpatient (CLI) | payer OTHER ==
[2021-07-02 15:00] LABS: Cotinine <2.0 ng/mL (<2.0); Nicotine <2.0 ng/mL (<2.0)
== END | disposition home or self-care (01) ==
LOC: LABWHC1 12:17
PROVIDERS: ATTEND Internal Medicine Critical Care Medicine
DX: J45.909 Unspecified asthma, uncomplicated (principal)
CPT/HCPCS: 36415; G0480; 80323

== ENCOUNTER → 2021-12-13 | Outpatient (CLI) | payer OTHER ==
--- NOTE | 2021-12-13 13:35 | CT ---
EXAMINATION TYPE: CT abdomen pelvis wo con DATE OF EXAM: 12/13/2021 COMPARISON: 01/10/2018 HISTORY: Right lower quadrant CT DLP: 1136 mGycm Automated exposure control for dose reduction was used. TECHNIQUE: Helical acquisition of images was performed from the lung bases through the pelvis. FINDINGS: LUNG BASES: No significant abnormality is appreciated. LIVER/GB: Diffuse low-attenuation throughout the liver compatible with fatty change postcholecystecto my changes noted. PANCREAS: No significant abnormality is seen. SPLEEN: No significant abnormality is seen. ADRENALS: No significant abnormality is seen. KIDNEYS: Indeterminate hypodensity involving the posterior mid pole right kidney. 1 mm punctate lower pole left renal calculus which is nonobstructing. ADENOPATHY: None visualized. OSSEOUS STRUCTURES: No significant abnormality is seen. BOWEL: Bowel gas pattern nonspecific with no obstruction and changes of diverticulosis. Appendix is normal. OTHER: Hypertrophic and degenerative change spine. Aorta of normal caliber small hiatal hernia IMPRESSION: 1. No hydronephrosis. Nonobstructing 1 mm lower pole left renal calculus. Indeterminate right renal l esion correlate with ultrasound. 2. Fatty infiltration of liver 3. small hiatal hernia. 4. Diverticulosis no CT evidence of diverticulitis
== END | disposition home or self-care (01) ==
LOC: RADCTMAIN 12:35
PROVIDERS: ATTEND Family Medicine
DX: N20.0 Calculus of kidney (principal); K76.0 Fatty (change of) liver, not elsewhere classified; K44.9 Diaphragmatic hernia without obstruction or gangrene; K57.90 Diverticulosis of intestine, part unspecified, without perforation or abscess without bleeding
CPT/HCPCS: 74176

== ENCOUNTER → 2021-12-27 | Outpatient (CLI) | payer OTHER ==
--- NOTE | 2021-12-27 16:58 | US ---
EXAMINATION TYPE: US kidneys/renal and bladder DATE OF EXAM: 12/27/2021 COMPARISON: US 05/11/12, CT 12/13/21 CLINICAL HISTORY: D49.511 NEOPLASM UNSPECIFIED BEHAVIOR RT KIDNEY. Right flank pain on and off. Hx re nal stones. Compare to CT EXAM MEASUREMENTS: Right Kidney: 14.5 x 6.7 x 6.3 cm Left Kidney: 13.3 x 5.5 x 4.7 cm Post Void Residual Volume: 24.0 mL Right Kidney: No hydronephrosis or masses seen, ? upper/mid pole cyst = 1.4 x 1.6 x 1.4 cm Left Kidney: echogenic foci seen in lower pole. Shadowing not definitely seen. No obstructing stone identified. Bladder: wnl Bilateral Jets seen: Yes Normal Post Void Residual: Yes COMPARISON: This exam is compared to 12/13/2021 CT exam. The echogenic foci within the inferior pole le ft kidney on ultrasound is larger than the very fine calcification identified on the CT examination. No comparable large calcification on CT is identified. In retrospect a very faint cyst at the superio r pole right kidney is identified corresponding to the finding on ultrasound. This does not have post erior wall enhancement although good through transmission may be present. Short term Follow-up is rec ommended. IMPRESSION: 1. Suspected cyst superior pole right kidney better visualized by ultrasound. Short-term follow-up re commended for monitoring. 2. There appears to be large calcification present at the inferior pole left kidney measuring 0.6 cm. This is significantly larger than the uptake 0.[address]
== END | disposition home or self-care (01) ==
LOC: RADUSWWP 11:00
PROVIDERS: ATTEND Family Medicine
DX: D49.511 Neoplasm of unspecified behavior of right kidney (principal)
CPT/HCPCS: 76770

== ENCOUNTER → 2021-12-27 | Outpatient (CLI) | payer OTHER ==
--- NOTE | 2021-12-27 17:14 | FL ---
EXAMINATION TYPE: FL barium swallow DATE OF EXAM: 12/27/2021 COMPARISON: None HISTORY: Dyskinesia of the esophagus, history of GERD TECHNIQUE: A double air contrast esophagram study is performed. FINDINGS: Esophagus dilation normal caliber and has normal contour to the gastroesophageal junction. The gastro esophageal junction opens to normal caliber. Reflux could not be elicited during this examination. In the horizontal drinking position a partial Schatzki's ring is identified. A small sliding-type hia lucien hernia is identified. A secondary contraction was evident. IMPRESSIONS: 1. Small self reducing sliding type hiatal hernia. 2. No reflux elicited during this exam. 3. Mild presbyesophagus with secondary contraction horizontal drinking position.
== END | disposition home or self-care (01) ==
LOC: RADUSWWP 11:01
PROVIDERS: ATTEND Family Medicine
DX: K44.9 Diaphragmatic hernia without obstruction or gangrene (principal); K22.89 Other specified disease of esophagus
CPT/HCPCS: 74220

== ENCOUNTER 2022-02-25 14:23 | Inpatient (IN) | payer OTHER ==
--- NOTE | 2022-02-25 15:34 | XR ---
EXAMINATION TYPE: XR chest 2V DATE OF EXAM: 02/25/2022 COMPARISON: 07/21/2019 INDICATION: Difficulty breathing TECHNIQUE: Frontal and lateral views of the chest are obtained. FINDINGS: The heart size is normal. The pulmonary vasculature is normal. The lungs are clear. IMPRESSION: 1. No acute pulmonary process.
[2022-02-25 16:02] LABS: Basophils % (A) 0 %; Eosinophils # (A) 0.3 k/uL (0-0.7); Eosinophils % (A) 2 %; HCT 44.4 % (34.0-46.0); Lymphocytes % (A) 17 %; MCH 29.7 pg (25.0-35.0); MCHC 33.7 g/dL (31.0-37.0); Mean Platelet Volume 7.1; Monocytes # (A) 0.5 k/uL (0-1.0); Monocytes % (A) 5 %; Neutrophils # (A) 8.8 k/uL (1.3-7.7); Neutrophils % (A) 74 %; Platelet Count 378 k/uL (150-450); RBC 5.04 m/uL (3.80-5.40); RDW 13.9 % (11.5-15.5); WBC 11.9 k/uL (3.8-10.6)
[2022-02-25] MEDS ORDERED: diphenhydrAMINE 50 MG/ML 1 ML VIAL IVP ONE (16:09)
[2022-02-25] MEDS ORDERED: methylPREDNISolone SOD SUCCI 125 MG/2 ML VIAL IV ONE (16:09)
[2022-02-25 16:11] LABS: ALT 79 U/L (4-34); AST 111 U/L (14-36); African American GFR (CKD) >90 (>60 ml/min/1.73 sqM); Albumin 4.4 g/dL (3.5-5.0); Alkaline Phosphatase 108 U/L (38-126); Blood Urea Nitrogen 12 mg/dL (7-17); Calcium 8.7 mg/dL (8.4-10.2); Carbon Dioxide 25 mmol/L (22-30); Glucose 192 mg/dL (74-99); Non-African American GFR(CKD) >90 (>60 ml/min/1.73 sqM); Total Bilirubin 0.6 mg/dL (0.2-1.3); Total Protein 7.6 g/dL (6.3-8.2)
[2022-02-25 16:15] LABS: INR 0.9 (<1.2); Partial Thromboplastin Time 23.4 sec (22.0-30.0); Prothrombin Time 9.7 sec (9.0-12.0)
[2022-02-25 16:30] LABS: Anion Gap 12 mmol/L; Chloride 104 mmol/L (98-107); Potassium 3.3 mmol/L (3.5-5.1); Sodium 141 mmol/L (137-145)
[2022-02-25] MEDS ORDERED: SODIUM CHLORIDE 0.9% 2,000 ML IV STA (17:02)
--- NOTE | 2022-02-25 17:39 | CT ---
EXAMINATION TYPE: CT chest angio for PE CT DLP: 609.9 mGycm, Automated exposure control for dose reduction was used. DATE OF EXAM: 02/25/2022 5:15 PM COMPARISON: Chest radiograph from same day. CT chest 03/15/2021. CLINICAL INDICATION:Female, 52 years old with history of SOB with PE risk factors; Shortness of breat h. TECHNIQUE/CONTRAST: CTA scan of the thorax is performed with IV Contrast, patient injected with 100 mL of Isovue 370, pul monary embolism protocol. MIP images are created and reviewed. FINDINGS: Pulmonary Artery: There is no evidence for a central filling defect within the pulmonary vasculature to suggest acute pulmonary embolism. Limited evaluation of the segmental and subsegmental branches se condary to bolus timing. The pulmonary artery is of normal size. Lungs/Pleura: No evidence of focal consolidation, pleural effusion or pneumothorax. Scattered mosaic attenuation to the lung parenchyma which is more prominent on today's exam and could be due to phase of inspiration given respiratory motion. Airway: Large airways are patent. Heart: Within normal limits for size.. Vasculature: No evidence of aortic aneurysm. Mediastinum: No gross evidence of adenopathy. Musculoskeletal: No acute osseous abnormalities. Mild multilevel disc degeneration changes throughout the spine. Soft Tissues: Unremarkable. Lower neck: No significant findings. Upper Abdomen: Diffuse low-attenuation to the liver parenchyma IMPRESSION: 1. No evidence of central pulmonary embolism. Limited evaluation of the segmental and subsegmental br anches. 2. Hepatic steatosis.
[2022-02-25] MEDS: IPRATROPIUM-ALBUTEROL 3 ML NEB INHALATION STA ×2 (18:22→20:03)
[2022-02-25] MEDS ORDERED: IPRATROPIUM-ALBUTEROL 3 ML NEB INHALATION STA ×2 (18:51→20:46)
[2022-02-25] MEDS ORDERED: MORPHINE SULFATE 4 MG/ML SYRINGE IVP PRN (21:29)
--- NOTE | 2022-02-25 22:23 | ED ---
SOB HPI - General Chief Complaint: Shortness of Breath Stated Complaint: Poss DVT Time Seen by Provider: 02/25/22 15:56 Source: patient Mode of arrival: ambulatory Limitations: no limitations - History of Present Illness Initial Comments: Patient is a 52-year-old female with a past medical history of asthma who presents to the emergency department with a chief complaint of shortness of breath. Patient states shortness of breath started 1 week ago. Patient used her albuterol inhaler and nebulizer with no relief. Patient has associated sore throat, intermittent chills and general malaise. Patient saw her primary care provider on Monday02/21/22 and states that she was told she had walking pneumonia however no imaging was performed. She states she was negative for COVID-19 and influenza. Patient was given a Z-Santino and a Solu-Medrol Dosepak. P atient states she stopped the steroid on day 2 because it caused rash and irritated mood. Patient currently reports worsening of shortness of breath. Patient feels short of breath at rest. Patient states she has not had an asthma exacerbation in a long time. Patient saw her primary care provider again today who had concern for pulmonary embolism. Patient notes she was diagnosed with lung nodule that she was supposed to have monitored in another [address] as well as a biopsy of the nodule however patient has not had these test done yet. She denies leg pain or swelling. She denies headache, runny nose, congestion, cough, chest pain, abdominal pain, nausea, vomiting, diarrhea, and burning with urination. - Related Data Home Medications Medication Instructions Recorded Confirmed Cetirizine HCl [Zyrtec] 10 mg PO HS 01/10/18 02/25/22 Atorvastatin Calcium [Lipitor] 40 mg PO HS 03/15/21 02/25/22 traZODone HCL [Desyrel] 50 mg PO HS 03/15/21 02/25/22 DULoxetine HCL [Cymbalta] 30 mg PO DAILY 02/25/22 02/25/22 Losartan Potassium [Cozaar] 100 mg PO HS 02/25/22 02/25/22 Nitroglycerin Sl Tabs [Nitrostat] 0.4 mg SUBLINGUAL Q5M PRN 02/25/22 02/25/22 Pantoprazole [Protonix] 40 mg PO BID 02/25/22 02/25/22 Vitamin E 100 unit PO DAILY 02/25/22 02/25/22 metFORMIN HCL ER [Glucophage XR] 500 mg PO HS 02/25/22 02/25/22 Allergies Allergy/AdvReac Type Severity Reaction Status Date / Time adhesive tape Allergy Rash/Hives Verified 02/25/22 17:03 benzene Allergy Itching Verified 02/25/22 17:03 Iodine and Iodide Containing Allergy Unknown Verified 02/25/22 17:03 Produc prednisone Allergy Unknown Verified 02/25/22 17:03 Sulfa (Sulfonamide Allergy Dyspnea Verified 02/25/22 17:03 Antibiotics) Review of Systems ROS Statement: Those systems with pertinent positive or pertinent negative responses have been documented in the HPI. ROS Other: All systems not noted in ROS Statement are negative. Past Medical History Past Medical History: Asthma Additional Past Medical History / Comment(s): Kidney Stones History of Any Multi-Drug Resistant Organisms: None Reported Past Surgical History: Back Surgery, Hysterectomy, Orthopedic Surgery Additional Past Surgical History / Comment(s): Rotator cuff left; foot surgery left Past Psychological History: No Psychological Hx Reported Smoking Status: Never smoker Past Alcohol Use History: None Reported Past Drug Use History: None Reported - Past Family History Mother Family Medical History: Myocardial Infarction ([place]) Father Family Medical History: CVA/TIA General Exam Limitations: no limitations General appearance: alert, in no apparent distress Head exam: Present: atraumatic, normocephalic, normal inspection Eye exam: Present: normal appearance, PERRL, EOMI. Absent: scleral icterus, conjunctival injection, periorbital swelling ENT exam: Present: normal oropharynx, mucous membranes moist Neck exam: Present: normal inspection, full ROM Respiratory exam: Present: wheezes (audible), decreased breath sounds. Absent: normal lung sounds bilaterally, respiratory distress, rales, rhonchi, stridor, chest wall tenderness, accessory muscle use, prolonged expiratory Cardiovascular Exam: Present: normal rhythm, tachycardia, normal heart sounds. Absent: systolic murmur, diastolic murmur, rubs, gallop, JVD, S3, S4 GI/Abdominal exam: Present: soft, normal bowel sounds. Absent: distended, tenderness, guarding, rebound, rigid Extremities exam: Present: normal inspection, full ROM, normal capillary refill, calf tenderness (Right) Neurological exam: Present: alert, oriented X3, CN II-XII intact Psychiatric exam: Present: normal affect, normal mood Skin exam: Present: warm, dry, intact, normal color. Absent: rash Course Vital Signs 02/25/22 02/25/22 02/25/22 15:00 16:02 18:22 Temperature 98.3 F Pulse Rate 110 H 113 H 84 Respiratory 24 26 H 20 Rate Blood Pressure 159/105 158/101 O2 Sat by Pulse 97 97 Oximetry 02/25/22 02/25/22 02/25/22 18:29 20:03 20:15 Temperature Pulse Rate 94 104 H 116 H Respiratory 18 Rate Blood Pressure O2 Sat by Pulse Oximetry 02/25/22 02/25/22 02/25/22 21:00 21:12 21:26 Temperature 97.5 F L Pulse Rate 122 H 117 H 118 H Respiratory 28 H Rate Blood Pressure 130/103 O2 Sat by Pulse 97 Oximetry 02/25/22 02/25/22 02/25/22 22:13 22:38 22:45 Temperature Pulse Rate 130 H 115 H 124 H Respiratory 18 26 H 18 Rate Blood Pressure 169/100 175/125 155/88 O2 Sat by Pulse 98 97 97 Oximetry 02/25/22 02/26/22 02/26/22 22:55 01:50 05:00 Temperature Pulse Rate 105 H 95 75 Respiratory 18 19 17 Rate Blood Pressure 132/60 152/80 O2 Sat by Pulse 97 96 97 Oximetry 02/26/22 02/26/22 02/26/22 06:56 07:10 07:21 Temperature 97.8 F Pulse Rate 79 74 78 Respiratory 18 18 18 Rate Blood Pressure 128/64 O2 Sat by Pulse 97 95 Oximetry Medical Decision Making - Medical Decision Making This is a 52-year-old female with a history of asthma who presents with shortness of breath, sore throat, malaise, and intermittent chills x1 week. Thorough history and examination were performed. Pulse ox is 97% on room air. Patient is afebrile. She is tachycardic at 110 bpm. Patient is in no apparent distress however has diminished breath sounds with audible wheeze. Pulmonary embolism and asthma exacerbation are on my differential. Patient has risk factors for pulmonary embolism which include obesity and possible malignancy. Patient has right calf tenderness with palpation. Negative Homans sign. With her primary care provider's concern for pulmonary embolism as well as my moderate level of clinical suspicion CT angiogram was ordered to rule out pulmonary embolism. This showed no evidence of central pulmonary embolism. There was limited valuation of the segmental and subsegmental branches. D-dimer is within normal limits. Further workup was initiated for possible asthma exacerbation. Chest x-ray is negative for acute process. White count is elevated at 11.9. Lactic acid is elevated at 2.2. Large fluid bolus was ordered. Patient was given Solu-Medrol IV and 3 DuoNeb treatments with no response. On my third reevaluation patient continued to have audible wheeze. At this time patient appeared diaphoretic and rigors were observed. Patient seemed very uncomfortable and reported severe body aches. Patient states she just isn't feeling well overall. COVID-19 and influenza A/B were tested which arr not detected. Repeat lactic acid is 4.0. With suspicion for infection blood cultures were ordered. Morphine was given for pain control. Blood pressure consistently remained elevated during patient's emergency stay. At 22:38 blood pressure is 175/125. Patient was given nitroglycerin with good response of blood pressure. Repeat blood pressure is 132/60. On reevaluation patient appears markedly improved. Patient is no longer diaphoretic. She is r esting comfortably and is much more calm. Rigors have improved. She states that the medications she received has made her feel much better. Case discussed with Dr. Howard. Patient will be admitted to his service for asthma exacerbation refractory to treatment. He recommended initiation of IV antibiotics, ABG draw, and a liter fluid bolus. Zosyn was given. ABG was significant for decreases pO2 at 73.9. Respiratory recommended oxygen supplementation via 2L nasal cannula. Patient is currently receiving supplemental oxygen. She is agreeable to admission. Available bed pending. The nurse did inform me that patient disconnected her original 2 L fluid bolus therefore she only received a portion of the bolus. Patient did receive rest of bolus and repeat lactic acid was ordered. On repeat evaluation (00:57) patient is sleeping in bed. Repeat lactic acid is 4.2. On repeat evaluation (2:05) patient has increased body aches. No audible wheeze. Nurse is giving more fluids and another dose of morphine. Dr. Howard is agreeable with plan. Dr. Oates is my attending. Patient was admitted to the hospital in stable condition. - Lab Data Result diagrams: 02/26/22 05:37 02/26/22 05:37 Lab Results 02/25/22 02/25/22 02/25/22 Range/Units 15:48 15:48 15:48 WBC 11.9 H (3.8-10.6) k/uL RBC 5.04 (3.80-5.40) m/uL Hgb 15.0 (11.4-16.0) gm/dL Hct 44.4 (34.0-46.0) % MCV 88.0 (80.0-100.0) fL MCH 29.7 (25.0-35.0) pg MCHC 33.7 (31.0-37.0) g/dL RDW 13.9 (11.5-15.5) % Plt Count 378 (150-450) k/uL MPV 7.1 Neutrophils % 74 % Lymphocytes % 17 % Monocytes % 5 % Eosinophils % 2 % Basophils % 0 % Neutrophils # 8.8 H (1.3-7.7) k/uL Lymphocytes # 2.0 (1.0-4.8) k/uL Monocytes # 0.5 (0-1.0) k/uL Eosinophils # 0.3 (0-0.7) k/uL Basophils # 0.0 (0-0.2) k/uL PT 9.7 (9.0-12.0) sec INR 0.9 (<1.2) APTT 23.4 (22.0-30.0) sec D-Dimer 0.29 (<0.60) mg/L FEU Sodium 141 (137-145) mmol/L Potassium 3.3 L (3.5-5.1) mmol/L Chloride 104 (98-107) mmol/L Carbon Dioxide 25 (22-30) mmol/L Anion Gap 12 mmol/L BUN 12 (7-17) mg/dL Creatinine 0.55 (0.52-1.04) mg/dL Est GFR (CKD-EPI)AfAm >90 (>60 ml/min/1.73 sqM) Est GFR (CKD-EPI)NonAf >90 (>60 ml/min/1.73 sqM) Glucose 192 H (74-99) mg/dL Lactic Ac Sepsis Rflx Plasma Lactic Acid Aubrey (0.7-2.0) mmol/L Calcium 8.7 (8.4-10.2) mg/dL Total Bilirubin 0.6 (0.2-1.3) mg/dL AST 111 H (14-36) U/L ALT 79 H (4-34) U/L Alkaline Phosphatase 108 (38-126) U/L Troponin I (0.000-0.034) ng/mL Total Protein 7.6 (6.3-8.2) g/dL Albumin 4.4 (3.5-5.0) g/dL Influenza Type A (PCR) (Not Detectd) Influenza Type B (PCR) (Not Detectd) RSV (PCR) (Not Detectd) SARS-CoV-2 (PCR) (Not Detectd) 02/25/22 02/25/22 02/25/22 Range/Units 15:48 15:48 16:52 WBC (3.8-10.6) k/uL RBC (3.80-5.40) m/uL Hgb (11.4-16.0) gm/dL Hct (34.0-46.0) % MCV (80.0-100.0) fL MCH (25.0-35.0) pg MCHC (31.0-37.0) g/dL RDW (11.5-15.5) % Plt Count (150-450) k/uL MPV Neutrophils % % Lymphocytes % % Monocytes % % Eosinophils % % Basophils % % Neutrophils # (1.3-7.7) k/uL Lymphocytes # (1.0-4.8) k/uL Monocytes # (0-1.0) k/uL Eosinophils # (0-0.7) k/uL Basophils # (0-0.2) k/uL PT (9.0-12.0) sec INR (<1.2) APTT (22.0-30.0) sec D-Dimer (<0.60) mg/L FEU Sodium (137-145) mmol/L Potassium (3.5-5.1) mmol/L Chloride (98-107) mmol/L Carbon Dioxide (22-30) mmol/L Anion Gap mmol/L BUN (7-17) mg/dL Creatinine (0.52-1.04) mg/dL Est GFR (CKD-EPI)AfAm (>60 ml/min/1.73 sqM) Est GFR (CKD-EPI)NonAf (>60 ml/min/1.73 sqM) Glucose (74-99) mg/dL Lactic Ac Sepsis Rflx Y Plasma Lactic Acid Aubrey 2.2 H* (0.7-2.0) mmol/L Calcium (8.4-10.2) mg/dL Total Bilirubin (0.2-1.3) mg/dL AST (14-36) U/L ALT (4-34) U/L Alkaline Phosphatase (38-126) U/L Troponin I <0.012 (0.000-0.034) ng/mL Total Protein (6.3-8.2) g/dL Albumin (3.5-5.0) g/dL Influenza Type A (PCR) (Not Detectd) Influenza Type B (PCR) (Not Detectd) RSV (PCR) (Not Detectd) SARS-CoV-2 (PCR) (Not Detectd) 02/25/22 02/25/22 02/25/22 Range/Units 21:03 21:14 21:51 WBC (3.8-10.6) k/uL RBC (3.80-5.40) m/uL Hgb (11.4-16.0) gm/dL Hct (34.0-46.0) % MCV (80.0-100.0) fL MCH (25.0-35.0) pg MCHC (31.0-37.0) g/dL RDW (11.5-15.5) % Plt Count (150-450) k/uL MPV Neutrophils % % Lymphocytes % % Monocytes % % Eosinophils % % Basophils % % Neutrophils # (1.3-7.7) k/uL Lymphocytes # (1.0-4.8) k/uL Monocytes # (0-1.0) k/uL Eosinophils # (0-0.7) k/uL Basophils # (0-0.2) k/uL PT (9.0-12.0) sec INR (<1.2) APTT (22.0-30.0) sec D-Dimer (<0.60) mg/L FEU Sodium (137-145) mmol/L Potassium (3.5-5.1) mmol/L Chloride (98-107) mmol/L Carbon Dioxide (22-30) mmol/L Anion Gap mmol/L BUN (7-17) mg/dL Creatinine (0.52-1.04) mg/dL Est GFR (CKD-EPI)AfAm (>60 ml/min/1.73 sqM) Est GFR (CKD-EPI)NonAf (>60 ml/min/1.73 sqM) Glucose (74-99) mg/dL Lactic Ac Sepsis Rflx Y Plasma Lactic Acid Aubrey 4.0 H* (0.7-2.0) mmol/L Calcium (8.4-10.2) mg/dL Total Bilirubin (0.2-1.3) mg/dL AST (14-36) U/L ALT (4-34) U/L Alkaline Phosphatase (38-126) U/L Troponin I (0.000-0.034) ng/mL Total Protein (6.3-8.2) g/dL Albumin (3.5-5.0) g/dL Influenza Type A (PCR) Not Detected (Not Detectd) Influenza Type B (PCR) Not Detected (Not Detectd) RSV (PCR) Not Detected (Not Detectd) SARS-CoV-2 (PCR) Not Detected (Not Detectd) - EKG Data EKG Comments: EKG taken at 15:41 Sinus tachycardia, possible left atrial enlargement Ventricular rate 115 GA interval 147 QRS duration 84 QTC 385 Disposition Clinical Impression: Rigors, Shortness of breath, Tachycardia, Tachypnea Disposition: ADMITTED IP TO THIS HOSP Condition: Fair Decision Time: 23:21
[2022-02-25] MEDS ORDERED: PIPERACILLIN-TAZOBACTAM 3.375 GM in SODIUM CHLORIDE 0.9% 100 ML IVPB STA (22:25)
[2022-02-25] MEDS ORDERED: SODIUM CHLORIDE 0.9% 1,000 ML IV STA (22:26)
[2022-02-25] MEDS: NITROGLYCERIN SL TABS 0.4 MG TAB SUBLINGUAL PRN ×2 (22:40→22:48)
[2022-02-25 22:55] LABS: ABG Base Excess -5.3 mmol/L; ABG HCO3 20 mmol/L (21-25); ABG Oxygen Saturation 95.1 % (94-97); ABG PCO2 34 mmHg (35-45); ABG PH 7.38 (7.35-7.45); ABG PO2 74 mmHg (83-108); ABG TCO2 21 mmol/L (19-24); Allen Test Performed? Yes
[2022-02-25 23:36] LABS: Amorphous Sediment,Urine Rare /hpf; Appearance,Urine Cloudy (Clear); Bacteria,Urine Rare /hpf; Bilirubin,Urine Negative (Negative); Blood,Urine Negative (Negative); Calcium Oxalate Crystals,Urine Many /hpf; Color,Urine Yellow; Glucose,Urine (UA) 2+ (Negative); Ketones,Urine Negative (Negative); Leukocyte Esterase,Urine Negative (Negative); Mucus,Urine Occasional /hpf; Nitrite,Urine Negative (Negative); PH, Urine 5.5 (5.0-8.0); Protein,Urine Trace (Negative); RBC,Urine 2 /hpf (0-5); Specific Gravity,Urine 1.028 (1.001-1.035); Squamous Epithelial Cell,Urine 3 /hpf (0-4); Urobilinogen,Urine <2.0 mg/dL (<2.0); WBC,Urine 2 /hpf (0-5)
[2022-02-26] MEDS ORDERED: SODIUM CHLORIDE 0.9% 1,000 ML IV ONE (01:38)
[2022-02-26] MEDS: SODIUM CHLORIDE 0.9% 1,000 ML IV SCH ×4 (01:45→22:59)
[2022-02-26] MEDS ORDERED: IPRATROPIUM-ALBUTEROL 3 ML NEB INHALATION PRN (02:41)
--- NOTE | 2022-02-26 02:43 | P.HPIM ---
History of Present Illness H&P Date: 02/25/22 Patient is a 52-year-old female with a PMH of asthma, hypertension, hyperlipidemia, and type II DM who presents to the emergency room with complaints of shortness of breath, wheezing, and myalgias. Patient reports that her symptoms started roughly one week ago. She reports being seen at her PCPs o ffice 5 days ago at which time she was started on Medrol Dosepak and Z-Santino. She also was tested for COVID-19 and influenza which were reportedly negative. Patient reported however that she stopped taking her steroids due to pruritus diffusely on day 2. She also reported feeling irritable. She reports gradual worsening of her shortness of breath but denied experiencing chest discomfort. Reports nonproductive cough. Also reports diffuse myalgias. Denied nausea, vomiting, abdominal pain, diarrhea. She reported being informed of a lung nodule for which a follow-up CT was to be performed in [address] in the emergency room was unremarkable except for hepatic steatosis. Laboratory evaluation was remarkable for a lactic acid of 2.2, potassium 3.3, WBC count 11.9, with influenza, RSV, and Covid testing negative. The patient was not requiring supplemental oxygen in the emergency room with SpO2 97% on room air although was tachycardic and mildly tachypneic with RR 20-25. Review of systems: Pertinent positives and negatives as discussed in HPI, a complete review of systems was performed and all other systems are negative. Physical examination: General: non toxic, no distress, appears at stated age, morbidly obese Derm: no unusual rashes/lesions no unusual ecchymoses, warm, dry Head: atraumatic, normocephalic, symmetric Eyes: EOMI, no lid lag, anicteric sclera, pupils equal round reactive to light ENT: Nose and ears atraumatic, no thrush, no pharyngeal erythema Neck: No thyromegaly, no cervical lymphadenopathy, trachea midline, supple Mouth: no lip lesion, mucus membranes moist Cardiovascular: S1S2 reg, no murmur, positive posterior tibial pulse bilateral, no edema, capillary refill less than 2 seconds Lungs: Diffuse expiratory wheezing without rales or ronchi, no accessory muscle use Abdominal: soft, nontender to palpation, no guarding, no appreciable orga nomegaly, normal bowel sounds Ext: no gross muscle atrophy, muscle strength 5 out of 5 in all 4 extremities grossly, no contractures, Neuro: CN II-XI grossly intact, light touch intact all 4 extremities, finger to nose within normal limits, Psych: Alert, oriented, appropriate affect Assessment/plan Acute asthma exacerbation -Solu-Medrol -DuoNeb's -Supplemental oxygen SIRS with myalgias, no clear infectious etiology noted -IV fluids -Broad-spectrum IV antibiotics given in the emergency room -Follow up blood cultures Lactic acidosis -IV fluids -Monitor for resolution Chronic conditions: Hypertension, hyperlipidemia, type II DM -Insulin sliding scale and blood glucose monitoring -Continue home medications DVT prophylaxis -Heparin subq The patient is admitted with an anticipated [] than 2 midnight stay for evaluation of []. CODE STATUS:[] Discussed with: Patient Anticipated discharge date: [] Anticipated discharge place: Home Past Medical History Past Medical History: Asthma Additional Past Medical History / Comment(s): Kidney Stones History of Any Multi-Drug Resistant Organisms: None Reported Past Surgical History: Back Surgery, Hysterectomy, Orthopedic Surgery Additional Past Surgical History / Comment(s): Rotator cuff left; foot surgery left Past Psychological History: No Psychological Hx Reported Smoking Status: Never smoker Past Alcohol Use History: None Reported Past Drug Use History: None Reported Medications and Allergies Home Medications Medication Instructions Recorded Confirmed Type Cetirizine HCl [Zyrtec] 10 mg PO HS 01/10/18 02/25/22 History Atorvastatin Calcium [Lipitor] 40 mg PO HS 03/15/21 02/25/22 History traZODone HCL [Desyrel] 50 mg PO HS 03/15/21 02/25/22 History DULoxetine HCL [Cymbalta] 30 mg PO DAILY 02/25/22 02/25/22 History Losartan Potassium [Cozaar] 100 mg PO HS 02/25/22 02/25/22 History Nitroglycerin Sl Tabs [Nitrostat] 0.4 mg SUBLINGUAL Q5M PRN 02/25/22 02/25/22 History Pantoprazole [Protonix] 40 mg PO BID 02/25/22 02/25/22 History Vitamin E 100 unit PO DAILY 02/25/22 02/25/22 History metFORMIN HCL ER [Glucophage XR] 500 mg PO HS 02/25/22 02/25/22 History Allergies Allergy/AdvReac Type Severity Reaction Status Date / Time adhesive tape Allergy Rash/Hives Verified 02/25/22 17:03 benzene Allergy Itching Verified 02/25/22 17:03 Iodine and Iodide Containing Allergy Unknown Verified 02/25/22 17:03 Produc prednisone Allergy Unknown Verified 02/25/22 17:03 Sulfa (Sulfonamide Allergy Dyspnea Verified 02/25/22 17:03 Antibiotics) Physical Exam Vitals: Vital Signs Temp Pulse Resp BP Pulse Ox 02/25/22 22:55 105 H 18 132/60 97 02/25/22 22:45 124 H 18 155/88 97 02/25/22 22:38 115 H 26 H 175/125 97 02/25/22 22:13 130 H 18 169/100 98 02/25/22 21:26 118 H 02/25/22 21:12 117 H 02/25/22 21:00 97.5 F L 122 H 28 H 130/103 97 02/25/22 20:15 116 H 02/25/22 20:03 104 H 02/25/22 18:29 94 18 02/25/22 18:22 84 20 02/25/22 16:02 113 H 26 H 158/101 97 02/25/22 15:00 98.3 F 110 H 24 159/105 97 Intake and Output 02/25/22 02/25/22 02/26/22 14:59 22:59 06:59 Other: Weight 122.47 kg Results CBC & Chem 7: 02/25/22 15:48 02/25/22 15:48 Labs: Abnormal Lab Results - Last 24 Hours (Table) 02/25/22 02/25/22 02/25/22 Range/Units 15:48 15:48 15:48 WBC 11.9 H (3.8-10.6) k/uL Neutrophils # 8.8 H (1.3-7.7) k/uL ABG pCO2 (35-45) mmHg ABG pO2 (83-108) mmHg ABG HCO3 (21-25) mmol/L Potassium 3.3 L (3.5-5.1) mmol/L Glucose 192 H (74-99) mg/dL Plasma Lactic Acid Aubrey 2.2 H* (0.7-2.0) mmol/L AST 111 H (14-36) U/L ALT 79 H (4-34) U/L Urine Appearance (Clear) Urine Protein (Negative) Urine Glucose (UA) (Negative) Calcium Oxalate Crystal (None) /hpf Amorphous Sediment (None) /hpf Urine Bacteria (None) /hpf Urine Mucus (None) /hpf 02/25/22 02/25/22 02/25/22 Range/Units 21:14 22:44 23:04 WBC (3.8-10.6) k/uL Neutrophils # (1.3-7.7) k/uL ABG pCO2 34 L (35-45) mmHg ABG pO2 74 L (83-108) mmHg ABG HCO3 20 L (21-25) mmol/L Potassium (3.5-5.1) mmol/L Glucose (74-99) mg/dL Plasma Lactic Acid Aubrey 4.0 H* (0.7-2.0) mmol/L AST (14-36) U/L ALT (4-34) U/L Urine Appearance Cloudy H (Clear) Urine Protein Trace H (Negative) Urine Glucose (UA) 2+ H (Negative) Calcium Oxalate Crystal Many H (None) /hpf Amorphous Sediment Rare H (None) /hpf Urine Bacteria Rare H (None) /hpf Urine Mucus Occasional H (None) /hpf
[2022-02-26] MEDS: IPRATROPIUM-ALBUTEROL 3 ML NEB INHALATION SCH ×4 (07:10→20:33)
[2022-02-26 07:56] LABS: Glucose,Whole Blood 132 mg/dL (75-99)
[2022-02-26] MEDS: INSULIN ASPART (NovoLOG) 100 UNIT/ML VIAL SQ SCH ×4 (08:40→22:26)
[2022-02-26 09:02] LABS: HCT 38.6 % (37.2-46.3); HGB 12.4 g/dL (12.0-15.0); MCH 28.3 pg (27.0-32.0); MCHC 32.1 g/dL (32.0-37.0); MCV 88.1 fL (80.0-97.0); Mean Platelet Volume 10.2 fL (9.5-12.2); NRBC Per 100 WBC 0 /100 WBCS (0.0-0.0); Platelet Count 283 X 10*3/uL (140-440); RBC 4.38 X 10*6/uL (4.10-5.20); RDW 13.1 % (11.5-14.5); WBC 11.49 X 10*3/uL (4.50-10.00)
[2022-02-26 09:08] LABS: African American GFR (CKD) 130.8 (60.0-200.0); Anion Gap 12.2 mmol/L (10.00-18.00); BUN/Creat Ratio 15.4 Ratio (12.00-20.00); Blood Urea Nitrogen 7.7 mg/dL (9.0-27.0); Calcium 8.1 mg/dL (8.7-10.3); Carbon Dioxide 20.8 mmol/L (20.0-27.5); Non-African American GFR(CKD) 112.9 (60.0-200.0); Potassium 4.1 mmol/L (3.5-5.5)
[2022-02-26] MEDS ORDERED: LOSARTAN 50 MG TAB PO STA (09:36)
[2022-02-26] MEDS: methylPREDNISolone SOD SUCCI 125 MG/2 ML VIAL IV SCH ×2 (09:50→16:35)
[2022-02-26] MEDS: PANTOPRAZOLE 40 MG TABLET PO SCH ×2 (09:51→16:36)
[2022-02-26] MEDS: DULoxetine HCL 30 MG CAPSULE.DR PO SCH (09:51)
[2022-02-26 11:43] LABS: Glucose,Whole Blood 195 mg/dL (75-99)
--- NOTE | 2022-02-26 13:47 | P.PN ---
Subjective Progress Note Date: 02/26/22 History of Present Illness H&P Date: 02/25/22 Patient is a 52-year-old female with a PMH of asthma, hypertension, hyperlipidemia, and type II DM who presents to the emergency room with complaints of shortness of breath, wheezing, and myalgias. Patient reports that her symptoms started roughly one week ago. She reports being seen at her PCPs office 5 days ago at which time she was started on Medrol Dosepak and Z-Santino. She also was tested for COVID-19 and influenza which were reportedly negative. Patient reported however that she stopped taking her steroids due to pruritus diffusely on day 2. She also reported feeling irritable. She reports gradual worsening of her shortness of breath but denied experiencing chest discomfort. Reports nonproductive cough. Also reports diffuse myalgias. Denied nausea, vomiting, abdominal pain, diarrhea. She reported being informed of a lung nodule for which a follow-up CT was to be performed in [address] in the emergency room was unremarkable except for hepatic steatosis. Laboratory evaluation was remarkable for a lactic acid of 2.2, potassium 3.3, WBC count 11.9, with influenza, RSV, and Covid testing negative. The patient was not requiring supplemental oxygen in the emergency room with SpO2 97% on room air although was tachycardic and mildly tachypneic with RR 20-25. Interval history: Patient was examined at the bedside. She still complained of shortness of breath. She denies any chest pain. Physical examination: General: non toxic, no distress, appears at stated age, morbidly obese Derm: no unusual rashes/lesions no unusual ecchymoses, warm, dry Head: atraumatic, normocephalic, symmetric Eyes: EOMI, no lid lag, anicteric sclera, pupils equal round reactive to light ENT: Nose and ears atraumatic, no thrush, no pharyngeal erythema Neck: No thyromegaly, no cervical lymphadenopathy, trachea midline, supple Mouth: no lip lesion, mucus membranes moist Cardiovascular: S1S2 reg, no murmur, positive posterior tibial pulse bilateral, no edema, capillary refill less than 2 seconds Lungs: Diffuse expiratory wheezing without rales or ronchi, no accessory muscle use Abdominal: soft, nontender to palpation, no guarding, no appreciable organomegaly, normal bowel sounds Ext: no gross muscle atrophy, muscle strength 5 out of 5 in all 4 extremities grossly, no contractures, Neuro: CN II-XI grossly intact, light touch intact all 4 extremities, finger to nose within normal limits, Psych: Alert, oriented, appropriate affect. Assessment/plan: Acute asthma exacerbation -Solu-Medrol -DuoNeb's -Supplemental oxygen. SIRS with myalgias, no clear infectious etiology noted -Negative Covid 19 infection negative RSV and influenza -IV Rocephin and azithromycin -Follow up blood cultures Lactic acidosis -Resolved -IV fluids -Monitor for resolution. Chronic conditions: Hypertension, hyperlipidemia, type II DM -Insulin sliding scale and blood glucose monitoring -Continue home medications. Obesity BMI 39 DVT prophylaxis -Heparin subq CODE STATUS: Full code Objective - Vital Signs Vital signs: Vital Signs Temp 96.9 F L 02/26/22 08:00 Pulse 78 02/26/22 11:26 Resp 18 02/26/22 11:26 BP 198/101 02/26/22 08:00 Pulse Ox 98 02/26/22 08:00 Intake & Output 02/25/22 02/26/22 02/26/22 18:59 06:59 18:59 Weight 122.47 kg 122.47 kg - Labs CBC & Chem 7: 02/26/22 05:37 02/26/22 05:37 Labs: Abnormal Lab Results - Last 24 Hours (Table) 02/25/22 02/25/22 02/25/22 Range/Units 15:48 15:48 15:48 WBC 11.9 H (3.8-10.6) k/uL Neutrophils # 8.8 H (1.3-7.7) k/uL ABG pCO2 (35-45) mmHg ABG pO2 (83-108) mmHg ABG HCO3 (21-25) mmol/L Potassium 3.3 L (3.5-5.1) mmol/L BUN (9.0-27.0) mg/dL Creatinine (0.6-1.5) mg/dL Glucose 192 H (74-99) mg/dL POC Glucose (mg/dL) (75-99) mg/dL Plasma Lactic Acid Aubrey 2.2 H* (0.7-2.0) mmol/L Calcium (8.7-10.3) mg/dL AST 111 H (14-36) U/L ALT 79 H (4-34) U/L Urine Appearance (Clear) Urine Protein (Negative) Urine Glucose (UA) (Negative) Calcium Oxalate Crystal (None) /hpf Amorphous Sediment (None) /hpf Urine Bacteria (None) /hpf Urine Mucus (None) /hpf 02/25/22 02/25/22 02/25/22 Range/Units 21:14 22:44 23:04 WBC (3.8-10.6) k/uL Neutrophils # (1.3-7.7) k/uL ABG pCO2 34 L (35-45) mmHg ABG pO2 74 L (83-108) mmHg ABG HCO3 20 L (21-25) mmol/L Potassium (3.5-5.1) mmol/L BUN (9.0-27.0) mg/dL Creatinine (0.6-1.5) mg/dL Glucose (74-99) mg/dL POC Glucose (mg/dL) (75-99) mg/dL Plasma Lactic Acid Aubrey 4.0 H* (0.7-2.0) mmol/L Calcium (8.7-10.3) mg/dL AST (14-36) U/L ALT (4-34) U/L Urine Appearance Cloudy H (Clear) Urine Protein Trace H (Negative) Urine Glucose (UA) 2+ H (Negative) Calcium Oxalate Crystal Many H (None) /hpf Amorphous Sediment Rare H (None) /hpf Urine Bacteria Rare H (None) /hpf Urine Mucus Occasional H (None) /hpf 02/26/22 02/26/22 02/26/22 Range/Units 00:10 01:09 03:42 WBC (3.8-10.6) k/uL Neutrophils # (1.3-7.7) k/uL ABG pCO2 (35-45) mmHg ABG pO2 (83-108) mmHg ABG HCO3 (21-25) mmol/L Potassium (3.5-5.1) mmol/L BUN (9.0-27.0) mg/dL Creatinine (0.6-1.5) mg/dL Glucose (74-99) mg/dL POC Glucose (mg/dL) (75-99) mg/dL Plasma Lactic Acid Aubrey 4.2 H* 3.9 H* 2.8 H* (0.7-2.0) mmol/L Calcium (8.7-10.3) mg/dL AST (14-36) U/L ALT (4-34) U/L Urine Appearance (Clear) Urine Protein (Negative) Urine Glucose (UA) (Negative) Calcium Oxalate Crystal (None) /hpf Amorphous Sediment (None) /hpf Urine Bacteria (None) /hpf Urine Mucus (None) /hpf 02/26/22 02/26/22 02/26/22 Range/Units 05:37 05:37 07:54 WBC 11.49 H (3.8-10.6) k/uL Neutrophils # (1.3-7.7) k/uL ABG pCO2 (35-45) mmHg ABG pO2 (83-108) mmHg ABG HCO3 (21-25) mmol/L Potassium (3.5-5.1) mmol/L BUN 7.7 L (9.0-27.0) mg/dL Creatinine 0.5 L (0.6-1.5) mg/dL Glucose 172 H (74-99) mg/dL POC Glucose (mg/dL) 132 H (75-99) mg/dL Plasma Lactic Acid Aubrey (0.7-2.0) mmol/L Calcium 8.1 L (8.7-10.3) mg/dL AST (14-36) U/L ALT (4-34) U/L Urine Appearance (Clear) Urine Protein (Negative) Urine Glucose (UA) (Negative) Calcium Oxalate Crystal (None) /hpf Amorphous Sediment (None) /hpf Urine Bacteria (None) /hpf Urine Mucus (None) /hpf 02/26/22 Range/Units 11:41 WBC (3.8-10.6) k/uL Neutrophils # (1.3-7.7) k/uL ABG pCO2 (35-45) mmHg ABG pO2 (83-108) mmHg ABG HCO3 (21-25) mmol/L Potassium (3.5-5.1) mmol/L BUN (9.0-27.0) mg/dL Creatinine (0.6-1.5) mg/dL Glucose (74-99) mg/dL POC Glucose (mg/dL) 195 H (75-99) mg/dL Plasma Lactic Acid Aubrey (0.7-2.0) mmol/L Calcium (8.7-10.3) mg/dL AST (14-36) U/L ALT (4-34) U/L Urine Appearance (Clear) Urine Protein (Negative) Urine Glucose (UA) (Negative) Calcium Oxalate Crystal (None) /hpf Amorphous Sediment (None) /hpf Urine Bacteria (None) /hpf Urine Mucus (None) /hpf
[2022-02-26 16:12] LABS: Glucose,Whole Blood 171 mg/dL (75-99)
[2022-02-26] MEDS: ACETAMINOPHEN TAB 325 MG TAB PO PRN ×2 (16:34→22:25)
[2022-02-26] MEDS: AZITHROMYCIN 500 MG in SODIUM CHLORIDE 0.9% 250 ML IVPB SCH (16:35)
[2022-02-26 21:09] LABS: Glucose,Whole Blood 168 mg/dL (75-99)
[2022-02-26] MEDS: traZODone HCL 50 MG TAB PO SCH (22:24)
[2022-02-26] MEDS: ATORVASTATIN 40 MG TAB PO SCH (22:25)
[2022-02-26] MEDS: LOSARTAN 50 MG TAB PO SCH (22:25)
[2022-02-27] MEDS: methylPREDNISolone SOD SUCCI 125 MG/2 ML VIAL IV SCH ×4 (00:18→23:57)
[2022-02-27] MEDS: SODIUM CHLORIDE 0.9% 1,000 ML IV SCH ×3 (06:26→20:19)
[2022-02-27 07:16] LABS: Glucose,Whole Blood 137 mg/dL (75-99)
[2022-02-27] MEDS: IPRATROPIUM-ALBUTEROL 3 ML NEB INHALATION SCH ×4 (08:22→19:26)
[2022-02-27] MEDS: AZITHROMYCIN 500 MG in SODIUM CHLORIDE 0.9% 250 ML IVPB SCH (08:47)
[2022-02-27] MEDS: INSULIN ASPART (NovoLOG) 100 UNIT/ML VIAL SQ SCH ×4 (08:47→20:54)
[2022-02-27] MEDS: PANTOPRAZOLE 40 MG TABLET PO SCH ×2 (08:47→18:16)
[2022-02-27] MEDS: ACETAMINOPHEN TAB 325 MG TAB PO PRN ×2 (08:53→20:14)
[2022-02-27 09:08] LABS: Basophils # (A) 0.02 X 10*3/uL (0.00-0.10); Basophils % (A) 0.2 %; Eosinophils # (A) 0.01 X 10*3/uL (0.04-0.35); Eosinophils % (A) 0.1 %; HCT 37.8 % (37.2-46.3); HGB 11.9 g/dL (12.0-15.0); Immature Grans, Automated 2.1 %; Lymphocytes # (A) 1.14 X 10*3/uL (0.90-5.00); Lymphocytes % (A) 9.4 %; MCH 28.2 pg (27.0-32.0); MCHC 31.5 g/dL (32.0-37.0); MCV 89.6 fL (80.0-97.0); Mean Platelet Volume 10.2 fL (9.5-12.2); Monocytes # (A) 0.43 X 10*3/uL (0.20-1.00); Monocytes % (A) 3.6 %; NRBC Per 100 WBC 0 /100 WBCS (0.0-0.0); Neutrophils # (A) 10.26 X 10*3/uL (1.80-7.70); Neutrophils % (A) 84.6 %; Platelet Count 275 X 10*3/uL (140-440); RBC 4.22 X 10*6/uL (4.10-5.20); RDW 13.2 % (11.5-14.5); WBC 12.11 X 10*3/uL (4.50-10.00)
[2022-02-27 09:30] LABS: ALT 45 U/L (8-44); AST 17 U/L (13-35); African American GFR (CKD) 138.5 (60.0-200.0); Albumin 3.9 g/dL (3.8-4.9); Albumin/Globulin Ratio 1.72 (1.60-3.17); Alkaline Phosphatase 92 U/L (41-126); BUN/Creat Ratio 22.14 Ratio (12.00-20.00); Blood Urea Nitrogen 9.3 mg/dL (9.0-27.0); Calcium 8.4 mg/dL (8.7-10.3); Carbon Dioxide 21.1 mmol/L (20.0-27.5); Chloride 108 mmol/L (96-109); Globulin 2.3 g/dL (1.6-3.3); Glucose 155 mg/dL (70-110); Magnesium 2.3 mg/dL (1.5-2.4); Non-African American GFR(CKD) 119.5 (60.0-200.0); Potassium 4.1 mmol/L (3.5-5.5); Sodium 142 mmol/L (135-145); Total Bilirubin <0.15 mg/dL (0.30-1.20); Total Protein 6.1 g/dL (6.2-8.2)
[2022-02-27] MEDS: DULoxetine HCL 30 MG CAPSULE.DR PO SCH (09:30)
[2022-02-27 11:32] LABS: Glucose,Whole Blood 139 mg/dL (75-99)
--- NOTE | 2022-02-27 14:15 | P.PN ---
Subjective History of Present Illness H&P Date: 02/25/22 Patient is a 52-year-old female with a PMH of asthma, hypertension, hyperlipidemia, and type II DM who presents to the emergency room with complaints of shortness of breath, wheezing, and myalgias. Patient reports that her symptoms started roughly one week ago. She reports being seen at her PCPs office 5 days ago at which time she was started on Medrol Dosepak and Z-Santino. She also was tested for COVID-19 and influenza which were reportedly negative. Patient reported however that she stopped taking her steroids due to pruritus diffusely on day 2. She also reported feeling irritable. She reports gradual worsening of her shortness of breath but denied experiencing chest discomfort. Reports nonproductive cough. Also reports diffuse myalgias. Denied nausea, vomiting, abdominal pain, diarrhea. She reported being informed of a lung nodule for which a follow-up CT was to be performed in [address] in the emergency room was unremarkable except for hepatic steatosis. Laboratory evaluation was remarkable for a lactic acid of 2.2, potassium 3.3, WBC count 11.9, with influenza, RSV, and Covid testing negative. The patient was not requiring supplemental oxygen in the emergency room with SpO2 97% on room air although was tachycardic and mildly tachypneic with RR 20-25. Interval history: Patient was examined at the bedside. She still complained of shortness of breath. She denies any chest pain. 02/27 patient was seen and examined at the bedside. She is complaining of shortness of breath she is currently on 3 L nasal cannula satting 94% Physical examination: General: non toxic, no distress, appears at stated age, morbidly obese Derm: no unusual rashes/lesions no unusual ecchymoses, warm, dry Head: atraumatic, normocephalic, symmetric Eyes: EOMI, no lid lag, anicteric sclera, pupils equal round reactive to light ENT: Nose and ears atraumatic, no thrush, no pharyngeal erythema Neck: No thyromegaly, no cervical lymphadenopathy, trachea midline, supple Mouth: no lip lesion, mucus membranes moist Cardiovascular: S1S2 reg, no murmur, positive posterior tibial pulse bilateral, no edema, capillary refill less than 2 seconds Lungs: Diffuse expiratory wheezing without rales or ronchi, no accessory muscle use Abdominal: soft, nontender to palpation, no guarding, no appreciable organomegaly, normal bowel sounds Ext: no gross muscle atrophy, muscle strength 5 out of 5 in all 4 extremities grossly, no contractures, Neuro: CN II-XI grossly intact, light touch intact all 4 extremities, finger to nose within normal limits, Psych: Alert, oriented, appropriate affect. Assessment/plan: Acute asthma exacerbation -Solu-Medrol -DuoNeb's -Supplemental oxygen. -Pulmonary consulted SIRS with myalgias, no clear infectious etiology noted -Negative Covid 19 infection negative RSV and influenza -IV Rocephin and azithromycin -Follow up blood cultures Lactic acidosis -Resolved -IV fluids -Monitor for resolution. Chronic conditions: Hypertension, hyperlipidemia, type II DM -Insulin sliding scale and blood glucose monitoring -Continue home medications. Obesity BMI 39 DVT prophylaxis -Heparin subq CODE STATUS: Full code Objective - Vital Signs Vital signs: Vital Signs Temp 97.9 F 02/27/22 07:56 Pulse 77 02/27/22 12:24 Resp 18 02/27/22 12:24 BP 124/79 02/27/22 07:56 Pulse Ox 94 L 02/27/22 08:22 Intake & Output 02/26/22 02/27/22 02/27/22 18:59 06:59 18:59 Intake Total 296 Balance 296 Intake: Oral 296 Other: Voiding Method Toilet Toilet # Voids 2 3 # Bowel Movements 0 - Labs CBC & Chem 7: 02/27/22 05:11 02/27/22 05:08 Labs: Abnormal Lab Results - Last 24 Hours (Table) 02/26/22 02/26/22 02/27/22 Range/Units 16:10 21:04 05:08 WBC (4.50-10.00) X 10*3/uL Hgb (12.0-15.0) g/dL MCHC (32.0-37.0) g/dL Immature Gran # (0.00-0.04) X 10*3/uL Neutrophils # (1.80-7.70) X 10*3/uL Eosinophils # (0.04-0.35) X 10*3/uL Creatinine 0.4 L (0.6-1.5) mg/dL BUN/Creatinine Ratio 22.14 H (12.00-20.00) Ratio Glucose 155 H (70-110) mg/dL POC Glucose (mg/dL) 171 H 168 H (75-99) mg/dL Calcium 8.4 L (8.7-10.3) mg/dL Total Bilirubin <0.15 L (0.30-1.20) mg/dL ALT 45 H (8-44) U/L Total Protein 6.1 L (6.2-8.2) g/dL 02/27/22 02/27/22 02/27/22 Range/Units 05:11 07:14 11:31 WBC 12.11 H (4.50-10.00) X 10*3/uL Hgb 11.9 L (12.0-15.0) g/dL MCHC 31.5 L (32.0-37.0) g/dL Immature Gran # 0.25 H (0.00-0.04) X 10*3/uL Neutrophils # 10.26 H (1.80-7.70) X 10*3/uL Eosinophils # 0.01 L (0.04-0.35) X 10*3/uL Creatinine (0.6-1.5) mg/dL BUN/Creatinine Ratio (12.00-20.00) Ratio Glucose (70-110) mg/dL POC Glucose (mg/dL) 137 H 139 H (75-99) mg/dL Calcium (8.7-10.3) mg/dL Total Bilirubin (0.30-1.20) mg/dL ALT (8-44) U/L Total Protein (6.2-8.2) g/dL Microbiology - Last 24 Hours (Table) 02/25/22 22:45 Blood Culture - Preliminary Blood No Growth after 24 hours 02/25/22 23:02 Blood Culture - Preliminary Blood No Growth after 24 hours
[2022-02-27] MEDS: ENALAPRILAT 1.25 MG/ML 1 ML VIAL IVP PRN (14:24)
[2022-02-27] MEDS: BENZONATATE 100 MG CAP PO SCH ×2 (14:24→20:14)
--- NOTE | 2022-02-27 14:59 | P.CNPUL ---
History of Present Illness Consult date: 02/27/22 Requesting physician: Sandra Howard Reason for consult: dyspnea, asthma Chief complaint: Shortness of breath, chest tightness and wheezing History of present illness: Visit very pleasant 52-year-old female patient with a history of morbid obesity, hyperlipidemia, hypertension, depression, diabetes mellitus, GERD chronic intermittent moderate bronchial asthma. She is a nonsmoker. She follows with Dr. Aguilar in our office. She was last seen in June 2021 at that time a CAT scan of the chest had revealed a small 6 mm right upper lobe posterior pulmonary nodule followed up with a another computed tomography scan. She presented here to the emergency room with increased shortness of breath cough and congestion. She'll set a sour throat and intermittent chills and generalized weakness. Her PCP treated her for walking pneumonia. No chest x-ray was taken. She was given a Z-Santino and a Medrol Dosepak she only completed 2 days because of a rash and irritable mood. There was some concern regarding possible pulmonary embolism and she was referred to the emergency room. Chest x-ray revealed no acute pulmonary process. CT angiogram ruled out pulmonary embolism. No mention of pulmonary nodule. No nodule seen. There is some hepatic steatosis. Blood cultures reveal no growth to date. White count 12.1. Hemoglobin 11.9. Platelets 275. Sodium 142. Potassium 4.1. BUN 9. Creatinine 0.4. Blood glucose 155. AST 17. ALT 45. She is seen today in consultation on the regular medical floor. She is up ambulating in her room. Awake and alert in no acute distress. She is still somewhat bronchospastic and wheezing. She has a dry nonproductive cough. No fever or chills. Continue good O2 saturations in the mid 90s on 2 L/m per nasal cannula. She's afebrile. Somewhat hypertensive. Review of Systems REVIEW OF SYSTEMS: CONSTITUTIONAL: Denies any recent significant weight loss or weight gain. EYES: Denies change in vision. EARS, NOSE, MOUTH, THROAT: Denies headaches, positive for sore throat. CARDIOVASCULAR: Denies chest pain, palpitations or syncopal episodes. RESPIRATORY: Positive for shortness of breath, cough, congestion no hemoptysis. GASTROINTESTINAL: Denies change in appetite, denies abdominal pain GENITOURINARY: Denies hematuria, denies infections. MUSKULOSKELETAL: Denies pain, denies swelling. INTEGUMENTARY: Denies rash, denies eczema. NEUROLOGICAL: Denies recent memory loss, no recent seizure activity. PSYCHIATRIC: Denies anxiety, denies depression. HEMATOLOGIC/LYMPHATIC: Denies anemia, denies enlarged lymph nodes. Past Medical History Past Medical History: Asthma Additional Past Medical History / Comment(s): Kidney Stones History of Any Multi-Drug Resistant Organisms: None Reported Past Surgical History: Back Surgery, Hysterectomy, Orthopedic Surgery Additional Past Surgical History / Comment(s): Rotator cuff left; foot surgery left Past Anesthesia/Blood Transfusion Reactions: No Reported Reaction Past Psychological History: No Psychological Hx Reported Smoking Status: Never smoker Past Alcohol Use History: None Reported Past Drug Use History: None Reported - Past Family History Mother Family Medical History: Myocardial Infarction ([place]) Father Family Medical History: CVA/TIA Medications and Allergies Home Medications Medication Instructions Recorded Confirmed Type Cetirizine HCl [Zyrtec] 10 mg PO HS 01/10/18 02/25/22 History Atorvastatin Calcium [Lipitor] 40 mg PO HS 03/15/21 02/25/22 History traZODone HCL [Desyrel] 50 mg PO HS 03/15/21 02/25/22 History DULoxetine HCL [Cymbalta] 30 mg PO DAILY 02/25/22 02/25/22 History Losartan Potassium [Cozaar] 100 mg PO HS 02/25/22 02/25/22 History Nitroglycerin Sl Tabs [Nitrostat] 0.4 mg SUBLINGUAL Q5M PRN 02/25/22 02/25/22 History Pantoprazole [Protonix] 40 mg PO BID 02/25/22 02/25/22 History Vitamin E 100 unit PO DAILY 02/25/22 02/25/22 History metFORMIN HCL ER [Glucophage XR] 500 mg PO HS 02/25/22 02/25/22 History Allergies Allergy/AdvReac Type Severity Reaction Status Date / Time adhesive tape Allergy Rash/Hives Verified 02/25/22 17:03 benzene Allergy Itching Verified 02/25/22 17:03 Iodine and Iodide Containing Allergy Unknown Verified 02/25/22 17:03 Produc prednisone Allergy Unknown Verified 02/25/22 17:03 Sulfa (Sulfonamide Allergy Dyspnea Verified 02/25/22 17:03 Antibiotics) Physical Exam Vitals: Vital Signs Temp Pulse Pulse Resp BP Pulse Ox 02/27/22 14:29 98 F 104 H 16 173/112 97 02/27/22 12:24 77 18 02/27/22 12:16 79 18 02/27/22 08:32 74 18 02/27/22 08:22 72 18 94 L 02/27/22 07:56 97.9 F 78 16 124/79 95 02/27/22 07:35 78 18 02/27/22 02:00 97.7 F 68 15 166/96 96 02/26/22 20:48 70 02/26/22 20:34 72 97 02/26/22 20:00 98.3 F 85 18 156/97 97 02/26/22 15:58 90 18 02/26/22 15:49 95 17 Intake and Output 02/26/22 02/27/22 02/27/22 22:59 06:59 14:59 Intake Total 296 Balance 296 Intake: Oral 296 Other: Voiding Method Toilet # Voids 2 3 # Bowel Movements 0 GENERAL EXAM: Alert, active, morbidly obese 52-year-old female patient, on 2 L nasal cannula, fairly comfortable in no apparent distress. HEAD: Normocephalic. EYES: Normal reaction of pupils, equal size. NOSE: Clear with pink turbinates. THROAT: No erythema or exudates. NECK: No masses, no JVD. CHEST: No chest wall deformity. LUNGS: Equal air entry with bilateral end expiratory wheeze CVS: S1 and S2 normal with no audible murmur, regular rhythm. ABDOMEN: No hepatosplenomegaly, normal bowel sounds, no guarding or rigidity. SPINE: No scoliosis or deformity SKIN: No rashes CENTRAL NERVOUS SYSTEM: No focal deficits, tone is normal in all 4 extremities. EXTREMITIES: There is no peripheral edema. No clubbing, no cyanosis. Peripheral pulses are intact. Results - Laboratory Findings CBC and BMP: 02/27/22 05:11 02/27/22 05:08 ABG ABG pH 7.38 (7.35-7.45) 02/25/22 22:44 ABG pCO2 34 mmHg (35-45) L 02/25/22 22:44 ABG pO2 74 mmHg (83-108) L 02/25/22 22:44 ABG O2 Saturation 95.1 % (94-97) 02/25/22 22:44 PT/INR, D-dimer PT 9.7 sec (9.0-12.0) 02/25/22 15:48 INR 0.9 (<1.2) 02/25/22 15:48 D-Dimer 0.29 mg/L FEU (<0.60) 02/25/22 15:48 Abnormal lab findings: Abnormal Labs 02/25/22 02/25/22 02/25/22 15:48 15:48 15:48 WBC 11.9 H Hgb MCHC Immature Gran # Neutrophils # 8.8 H Eosinophils # ABG pCO2 ABG pO2 ABG HCO3 Potassium 3.3 L BUN Creatinine BUN/Creatinine Ratio Glucose 192 H POC Glucose (mg/dL) Plasma Lactic Acid Aubrey 2.2 H* Calcium Total Bilirubin AST 111 H ALT 79 H Total Protein Urine Appearance Urine Protein Urine Glucose (UA) Calcium Oxalate Crystal Amorphous Sediment Urine Bacteria Urine Mucus 02/25/22 02/25/22 02/25/22 21:14 22:44 23:04 WBC Hgb MCHC Immature Gran # Neutrophils # Eosinophils # ABG pCO2 34 L ABG pO2 74 L ABG HCO3 20 L Potassium BUN Creatinine BUN/Creatinine Ratio Glucose POC Glucose (mg/dL) Plasma Lactic Acid Aubrey 4.0 H* Calcium Total Bilirubin AST ALT Total Protein Urine Appearance Cloudy H Urine Protein Trace H Urine Glucose (UA) 2+ H Calcium Oxalate Crystal Many H Amorphous Sediment Rare H Urine Bacteria Rare H Urine Mucus Occasional H 02/26/22 02/26/22 02/26/22 00:10 01:09 03:42 WBC Hgb MCHC Immature Gran # Neutrophils # Eosinophils # ABG pCO2 ABG pO2 ABG HCO3 Potassium BUN Creatinine BUN/Creatinine Ratio Glucose POC Glucose (mg/dL) Plasma Lactic Acid Aubrey 4.2 H* 3.9 H* 2.8 H* Calcium Total Bilirubin AST ALT Total Protein Urine Appearance Urine Protein Urine Glucose (UA) Calcium Oxalate Crystal Amorphous Sediment Urine Bacteria Urine Mucus 02/26/22 02/26/22 02/26/22 05:37 05:37 07:54 WBC 11.49 H Hgb MCHC Immature Gran # Neutrophils # Eosinophils # ABG pCO2 ABG pO2 ABG HCO3 Potassium BUN 7.7 L Creatinine 0.5 L BUN/Creatinine Ratio Glucose 172 H POC Glucose (mg/dL) 132 H Plasma Lactic Acid Aubrey Calcium 8.1 L Total Bilirubin AST ALT Total Protein Urine Appearance Urine Protein Urine Glucose (UA) Calcium Oxalate Crystal Amorphous Sediment Urine Bacteria Urine Mucus 02/26/22 02/26/22 02/26/22 11:41 16:10 21:04 WBC Hgb MCHC Immature Gran # Neutrophils # Eosinophils # ABG pCO2 ABG pO2 ABG HCO3 Potassium BUN Creatinine BUN/Creatinine Ratio Glucose POC Glucose (mg/dL) 195 H 171 H 168 H Plasma Lactic Acid Aubrey Calcium Total Bilirubin AST ALT Total Protein Urine Appearance Urine Protein Urine Glucose (UA) Calcium Oxalate Crystal Amorphous Sediment Urine Bacteria Urine Mucus 02/27/22 02/27/22 02/27/22 05:08 05:11 07:14 WBC 12.11 H Hgb 11.9 L MCHC 31.5 L Immature Gran # 0.25 H Neutrophils # 10.26 H Eosinophils # 0.01 L ABG pCO2 ABG pO2 ABG HCO3 Potassium BUN Creatinine 0.4 L BUN/Creatinine Ratio 22.14 H Glucose 155 H POC Glucose (mg/dL) 137 H Plasma Lactic Acid Aubrey Calcium 8.4 L Total Bilirubin <0.15 L AST ALT 45 H Total Protein 6.1 L Urine Appearance Urine Protein Urine Glucose (UA) Calcium Oxalate Crystal Amorphous Sediment Urine Bacteria Urine Mucus 02/27/22 11:31 WBC Hgb MCHC Immature Gran # Neutrophils # Eosinophils # ABG pCO2 ABG pO2 ABG HCO3 Potassium BUN Creatinine BUN/Creatinine Ratio Glucose POC Glucose (mg/dL) 139 H Plasma Lactic Acid Aubrey Calcium Total Bilirubin AST ALT Total Protein Urine Appearance Urine Protein Urine Glucose (UA) Calcium Oxalate Crystal Amorphous Sediment Urine Bacteria Urine Mucus - Diagnostic Findings Chest x-ray: image reviewed CT scan - chest: image reviewed Assessment and Plan Assessment: Acute exacerbation of moderate intermittent chronic bronchial asthma. No evidence of pneumonia. Pro-calcitonin pending History of 6 mm right upper lobe posterior pulmonary nodule on CAT scan in June 2021. Not seen on CAT scan 02/25/2022 Morbid obesity with a BMI of 40 kg per metered squared Hypertension Hyperlipidemia Diabetes mellitus History of anxiety/depression Plan: The patient was seen and evaluated Chest x-ray, CAT scans and labs reviewed No evidence of pulmonary nodule or pneumonia Continue DuoNeb inhalations, IV Solu-Medrol Add Pulmicort and Perforomist inhalations Add Tessalon Perles Check a pro-calcitonin Titrate her FiO2 as tolerated Increase her activity as tolerated We will continue to follow and make further recommendations based on her clinical status I have personally seen and examined the patient, performed the documentation and the assessment and plan as written. Number of minutes spent on the visit: 20.
[2022-02-27 17:18] LABS: Glucose,Whole Blood 205 mg/dL (75-99)
[2022-02-27] MEDS: BUDESONIDE 1 MG/2 ML NEBU INHALATION SCH (19:26)
[2022-02-27] MEDS: FORMOTEROL FUMARATE 20 MCG/2 ML NEBU INHALATION SCH (19:26)
[2022-02-27] MEDS: traZODone HCL 50 MG TAB PO SCH (20:14)
[2022-02-27] MEDS: LOSARTAN 50 MG TAB PO SCH (20:14)
[2022-02-27] MEDS: ATORVASTATIN 40 MG TAB PO SCH (20:14)
[2022-02-27 21:21] LABS: Glucose,Whole Blood 206 mg/dL (75-99)
[2022-02-28] MEDS: SODIUM CHLORIDE 0.9% 1,000 ML IV SCH ×4 (02:04→22:10)
[2022-02-28] MEDS ORDERED: BENZONATATE 100 MG CAP PO ONE (09:00)
[2022-02-28] MEDS ORDERED: methylPREDNISolone SOD SUCCI 125 MG/2 ML VIAL ONE (09:00)
[2022-02-28] MEDS ORDERED: PANTOPRAZOLE 40 MG TABLET PO ONE (09:00)
[2022-02-28 10:45] LABS: Glucose,Whole Blood 154 mg/dL (75-99)
[2022-02-28 11:43] LABS: Glucose,Whole Blood 227 mg/dL (75-99)
[2022-02-28] MEDS: INSULIN ASPART (NovoLOG) 100 UNIT/ML VIAL SQ SCH ×4 (11:49→22:07)
[2022-02-28] MEDS: methylPREDNISolone SOD SUCCI 125 MG/2 ML VIAL IV SCH ×4 (11:49→23:29)
[2022-02-28] MEDS: BENZONATATE 100 MG CAP PO SCH ×3 (11:50→22:08)
[2022-02-28] MEDS: DULoxetine HCL 30 MG CAPSULE.DR PO SCH (11:50)
[2022-02-28] MEDS: PANTOPRAZOLE 40 MG TABLET PO SCH ×2 (11:50→17:42)
[2022-02-28] MEDS: AZITHROMYCIN 500 MG in SODIUM CHLORIDE 0.9% 250 ML IVPB SCH (11:50)
--- NOTE | 2022-02-28 12:18 | P.PN ---
Subjective Progress Note Date: 02/28/22 Principal diagnosis: Shortness of breath, coughing This is a very pleasant 52-year-old female patient with a history of morbid obesity, hyperlipidemia, hypertension, depression, diabetes mellitus, GERD chronic intermittent moderate bronchial asthma. She is a nonsmoker. She follows with Dr. Aguilar in our office. She was last seen in June 2021 at that time a CAT scan of the chest had revealed a small 6 mm right upper lobe posterior pulmonary nodule followed up with a another computed tomography scan. She presented here to the emergency room with increased shortness of breath cough and congestion. She'll set a sour throat and intermittent chills and generalized weakness. Her PCP treated her for walking pneumonia. No chest x- ray was taken. She was given a Z-Santino and a Medrol Dosepak she only completed 2 days because of a rash and irritable mood. There was some concern regarding possible pulmonary embolism and she was referred to the emergency room. Chest x-ray revealed no acute pulmonary process. CT angiogram ruled out pulmonary embolism. No mention of pulmonary nodule. No nodule seen. There is some hepatic steatosis. Blood cultures reveal no growth to date. White count 12.1. Hemoglobin 11.9. Platelets 275. Sodium 142. Potassium 4.1. BUN 9. C reatinine 0.4. Blood glucose 155. AST 17. ALT 45. She is seen today in consultation on the regular medical floor. She is up ambulating in her room. Awake and alert in no acute distress. She is still somewhat bronchospastic and wheezing. She has a dry nonproductive cough. No fever or chills. Continue good O2 saturations in the mid 90s on 2 L/m per nasal cannula. She's afebrile. Somewhat hypertensive. On 02/28/2022 patient seen in follow-up on medical surgical floor. She states she feels about the same, still coughing, but on room air, pulse ox is 95-90%, she is afebrile, hemodynamically she's been stable. Denies any chest discomfort, she is able to speak in full sentences, didn't remains on a DuoNeb, remains on Solu-Medrol 60 g every 6 hours, she is on Pulmicort and Perforomist, she is on ceftriaxone 2 g every 24 hours, and patient is on Tessalon Perles. Chest x-ray showed no acute pulmonary process. CT angiogram of the chest showed no evidence of central pulmonary embolism and hepatic steatosis. No new labs today Objective - Vital Signs Vital signs: Vital Signs Temp 98.5 F 02/28/22 02:27 Pulse 74 02/28/22 02:27 Resp 14 02/28/22 02:27 BP 127/74 02/28/22 02:27 Pulse Ox 95 02/28/22 02:27 Intake & Output 02/27/22 02/28/22 02/28/22 18:59 06:59 18:59 Intake Total 296 Balance 296 Intake: Oral 296 Other: Voiding Method Toilet # Voids 2 - Exam GENERAL EXAM: Alert, morbidly obese 52-year-old white female, on room air, pulse ox of 95-98%, short of breath with exertion, but appears to be in no acute distress, has a frequent dry nonproductive cough, comfortable in no apparent distress. HEAD: Normocephalic/atraumatic. EYES: Normal reaction of pupils, equal size. Conjunctiva pink, sclera white. NOSE: Clear with pink turbinates. THROAT: No erythema or exudates. NECK: No masses, no JVD, no thyroid enlargement, no adenopathy. CHEST: No chest wall deformity. Symmetrical expansion. LUNGS: Equal air entry with diminished breath sounds CVS: Regular rate and rhythm, normal S1 and S2, no gallops, no murmurs, no rubs ABDOMEN: Soft, nontender. No hepatosplenomegaly, normal bowel sounds, no guardi ng or rigidity. EXTREMITIES: No clubbing, no edema, no cyanosis, 2+ pulses and upper and lower extremities. MUSCULOSKELETAL: Muscle strength and tone normal. SPINE: No scoliosis or deformity SKIN: No rashes CENTRAL NERVOUS SYSTEM: Alert and oriented -3. No focal deficits, tone is normal in all 4 extremities. PSYCHIATRIC: Alert and oriented -3. Appropriate affect. Intact judgment and insight. - Labs CBC & Chem 7: 02/28/22 03:26 02/28/22 03:26 Labs: Abnormal Lab Results - Last 24 Hours (Table) 02/27/22 02/27/22 02/28/22 Range/Units 17:15 20:48 07:00 POC Glucose (mg/dL) 205 H 206 H 154 H (75-99) mg/dL 02/28/22 Range/Units 11:41 POC Glucose (mg/dL) 227 H (75-99) mg/dL Microbiology - Last 24 Hours (Table) 02/25/22 22:45 Blood Culture - Preliminary Blood No Growth after 48 hours 02/25/22 23:02 Blood Culture - Preliminary Blood No Growth after 48 hours Assessment and Plan Plan: Acute exacerbation of moderate intermittent chronic bronchial asthma. No evidence of pneumonia. Pro-calcitonin pending History of 6 mm right upper lobe posterior pulmonary nodule on CAT scan in June 2021. Not seen on CAT scan 02/25/2022 Morbid obesity with a BMI of 40 kg per metered squared Hypertension Hyperlipidemia Diabetes mellitus History of anxiety/depression Plan: Continue current medical treatment No worsening dyspnea Still coughing and having exertional dyspnea We'll continue same dose IV steroids neb was bronchodilators and antibiotics Progress to a level is still pending We'll continue to follow I have personally seen and examined the patient, performed the documentation and the assessment and plan as written. Number of minutes spent on the visit: [10] I have personally seen and examined the patient and reviewed the documentation. I performed a joint evaluation with the nurse practitioner in this evaluation was done more than 20 minutes. I fully agree with the documentation above and the plan of care. The patient is still having increased cough and congestion. Limited improvement since yesterday. We'll continue same treatment of bronchodilators and steroids. Reevaluate in a.m. CAT scan of the chest was essentially negative. Time with Patient: Less than 30
[2022-02-28 12:54] LABS: HCT 38.6 % (34.0-46.0); HGB 12.4 gm/dL (11.4-16.0); MCH 29.5 pg (25.0-35.0); MCV 91.7 fL (80.0-100.0); RBC 4.21 m/uL (3.80-5.40); WBC 9.9 k/uL (3.8-10.6)
[2022-02-28 12:55] LABS: Basophils % (A) 0 %; Eosinophils % (A) 0 %; Hypochromasia Slight; Lymphocytes % (A) 10 %; MCHC 32.2 g/dL (31.0-37.0); Mean Platelet Volume 8.2; Monocytes # (A) 0.4 k/uL (0-1.0); Monocytes % (A) 4 %; Neutrophils # (A) 8.4 k/uL (1.3-7.7); Neutrophils % (A) 85 %; Platelet Count 277 k/uL (150-450); RDW 13.9 % (11.5-15.5)
[2022-02-28 12:59] LABS: ALT 37 U/L (4-34); AST 31 U/L (14-36); African American GFR (CKD) >90 (>60 ml/min/1.73 sqM); Albumin 3.3 g/dL (3.5-5.0); Albumin/Globulin Ratio 1.2; Alkaline Phosphatase 86 U/L (38-126); Anion Gap 8 mmol/L; Blood Urea Nitrogen 11 mg/dL (7-17); Calcium 8.1 mg/dL (8.4-10.2); Carbon Dioxide 22 mmol/L (22-30); Chloride 110 mmol/L (98-107); Globulin 2.8 g/dL; Glucose 142 mg/dL (74-99); Magnesium 2.2 mg/dL (1.6-2.3); Non-African American GFR(CKD) >90 (>60 ml/min/1.73 sqM); Potassium 4.1 mmol/L (3.5-5.1); Sodium 140 mmol/L (137-145); Total Bilirubin 0.4 mg/dL (0.2-1.3); Total Protein 6.1 g/dL (6.3-8.2)
--- NOTE | 2022-02-28 13:25 | P.PN ---
Subjective Progress Note Date: 02/28/22 History of Present Illness H&P Date: 02/25/22 Patient is a 52-year-old female with a PMH of asthma, hypertension, hyperlipidemia, and type II DM who presents to the emergency room with complaints of shortness of breath, wheezing, and myalgias. Patient reports that her symptoms started roughly one week ago. She reports being seen at her PCPs office 5 days ago at which time she was started on Medrol Dosepak and Z-Santino. She also was tested for COVID-19 and influenza which were reportedly negative. Patient reported however that she stopped taking her steroids due to pruritus diffusely on day 2. She also reported feeling irritable. She reports gradual worsening of her shortness of breath but denied experiencing chest discomfort. Reports nonproductive cough. Also reports diffuse myalgias. Denied nausea, vomiting, abdominal pain, diarrhea. She reported being informed of a lung nodule for which a follow-up CT was to be performed in [address] in the emergency room was unremarkable except for hepatic steatosis. Laboratory evaluation was remarkable for a lactic acid of 2.2, potassium 3.3, WBC count 11.9, with influenza, RSV, and Covid testing negative. The patient was not requiring supplemental oxygen in the emergency room with SpO2 97% on room air although was tachycardic and mildly tachypneic with RR 20-25. Interval history: 02/26 Patient was seen and examined at the bedside. She still complained of shortness of breath. She denies any chest pain. 02/27 patient was seen and examined at the bedside. She is complaining of shortness of breath she is currently on 3 L nasal cannula satting 94% 02/28 patient seen and examined at the bedside. She reported improvement in his symptoms overnight. She is currently Loy but she still reporting exertional dyspnea. She denied any chest pain. Physical examination: General: non toxic, no distress, appears at stated age, morbidly obese Derm: no unusual rashes/lesions no unusual ecchymoses, warm, dry Head: atraumatic, normocephalic, symmetric Eyes: EOMI, no lid lag, anicteric sclera, pupils equal round reactive to light ENT: Nose and ears atraumatic, no thrush, no pharyngeal erythema Neck: No thyromegaly, no cervical lymphadenopathy, trachea midline, supple Mouth: no lip lesion, mucus membranes moist Cardiovascular: S1S2 reg, no murmur, positive posterior tibial pulse bilateral, no edema, capillary refill less than 2 seconds Lungs: Diminished air entry bilaterally without significant wheezesAbdominal: soft, nontender to palpation, no guarding, no appreciable organomegaly, normal bowel sounds Ext: no gross muscle atrophy, muscle strength 5 out of 5 in all 4 extremities grossly, no contractures, Neuro: CN II-XI grossly intact, light touch intact all 4 extremities, finger to nose within normal limits, Psych: Alert, oriented, appropriate affect. Assessment/plan: Acute asthma exacerbation -Solu-Medrol -DuoNeb's -Supplemental oxygen. -Pulmonary consulted SIRS with myalgias, no clear infectious etiology noted -Negative Covid 19 infection negative RSV and influenza -IV Rocephin and azithromycin -Follow up blood cultures Lactic acidosis -Resolved -IV fluids -Monitor for resolution. History of 6 mm right upper lobe posterior pulmonary nodule on CAT scan in June 2021. -Not seen on CAT scan 02/25/2022 Chronic conditions: Hypertension, hyperlipidemia, type II DM -Insulin sliding scale and blood glucose monitoring -Continue home medications. Obesity BMI 39 DVT prophylaxis -Heparin subq CODE STATUS: Full code Discharge home on March 01 Objective - Vital Signs Vital signs: Vital Signs Temp 98.5 F 02/28/22 02:27 Pulse 74 02/28/22 02:27 Resp 14 02/28/22 02:27 BP 127/74 02/28/22 02:27 Pulse Ox 95 02/28/22 02:27 Intake & Output 02/27/22 02/28/22 02/28/22 18:59 06:59 18:59 Intake Total 296 Balance 296 Intake: Oral 296 Other: Voiding Method Toilet # Voids 2 1 - Labs CBC & Chem 7: 02/28/22 03:26 02/28/22 03:26 Labs: Abnormal Lab Results - Last 24 Hours (Table) 02/27/22 02/27/22 02/28/22 Range/Units 17:15 20:48 03:26 Neutrophils # 8.4 H (1.3-7.7) k/uL Chloride (98-107) mmol/L Creatinine (0.52-1.04) mg/dL Glucose (74-99) mg/dL POC Glucose (mg/dL) 205 H 206 H (75-99) mg/dL Calcium (8.4-10.2) mg/dL ALT (4-34) U/L Total Protein (6.3-8.2) g/dL Albumin (3.5-5.0) g/dL 02/28/22 02/28/22 02/28/22 Range/Units 03:26 07:00 11:41 Neutrophils # (1.3-7.7) k/uL Chloride 110 H (98-107) mmol/L Creatinine 0.45 L (0.52-1.04) mg/dL Glucose 142 H (74-99) mg/dL POC Glucose (mg/dL) 154 H 227 H (75-99) mg/dL Calcium 8.1 L (8.4-10.2) mg/dL ALT 37 H (4-34) U/L Total Protein 6.1 L (6.3-8.2) g/dL Albumin 3.3 L (3.5-5.0) g/dL Microbiology - Last 24 Hours (Table) 02/25/22 22:45 Blood Culture - Preliminary Blood No Growth after 48 hours 02/25/22 23:02 Blood Culture - Preliminary Blood No Growth after 48 hours
[2022-02-28] MEDS: IPRATROPIUM-ALBUTEROL 3 ML NEB INHALATION SCH ×4 (13:40→19:58)
[2022-02-28] MEDS: FORMOTEROL FUMARATE 20 MCG/2 ML NEBU INHALATION SCH ×2 (15:03→19:58)
[2022-02-28] MEDS: BUDESONIDE 1 MG/2 ML NEBU INHALATION SCH ×2 (15:03→19:58)
[2022-02-28] MEDS: ENALAPRILAT 1.25 MG/ML 1 ML VIAL IVP PRN (15:52)
[2022-02-28 17:29] LABS: Glucose,Whole Blood 153 mg/dL (75-99)
[2022-02-28 21:40] LABS: Glucose,Whole Blood 175 mg/dL (75-99)
[2022-02-28] MEDS: LOSARTAN 50 MG TAB PO SCH (22:08)
[2022-02-28] MEDS: traZODone HCL 50 MG TAB PO SCH (22:08)
[2022-02-28] MEDS: ATORVASTATIN 40 MG TAB PO SCH (22:08)
[2022-03-01] MEDS: SODIUM CHLORIDE 0.9% 1,000 ML IV SCH ×3 (04:57→14:52)
[2022-03-01] MEDS: methylPREDNISolone SOD SUCCI 125 MG/2 ML VIAL IV SCH ×3 (05:20→17:00)
[2022-03-01 07:05] LABS: Glucose,Whole Blood 158 mg/dL (75-99)
[2022-03-01] MEDS: INSULIN ASPART (NovoLOG) 100 UNIT/ML VIAL SQ SCH ×4 (08:03→22:05)
[2022-03-01] MEDS: BENZONATATE 100 MG CAP PO SCH ×3 (08:04→20:14)
[2022-03-01] MEDS: PANTOPRAZOLE 40 MG TABLET PO SCH ×2 (08:04→16:58)
[2022-03-01] MEDS: DULoxetine HCL 30 MG CAPSULE.DR PO SCH (08:05)
[2022-03-01 09:08] LABS: HCT 38.7 % (37.2-46.3); HGB 12.3 g/dL (12.0-15.0); MCH 28.3 pg (27.0-32.0); MCHC 31.8 g/dL (32.0-37.0); Mean Platelet Volume 10.4 fL (9.5-12.2); NRBC Per 100 WBC 0.3 /100 WBCS (0.0-0.0); Platelet Count 276 X 10*3/uL (140-440); RBC 4.35 X 10*6/uL (4.10-5.20); RDW 13.2 % (11.5-14.5); WBC 12.55 X 10*3/uL (4.50-10.00)
[2022-03-01 09:30] LABS: African American GFR (CKD) 130.8 (60.0-200.0); Albumin 3.8 g/dL (3.8-4.9); Albumin/Globulin Ratio 1.73 (1.60-3.17); Anion Gap 13.6 mmol/L (10.00-18.00); BUN/Creat Ratio 24.2 Ratio (12.00-20.00); Blood Urea Nitrogen 12.1 mg/dL (9.0-27.0); Calcium 8.6 mg/dL (8.7-10.3); Carbon Dioxide 21.4 mmol/L (20.0-27.5); Globulin 2.2 g/dL (1.6-3.3); Magnesium 2.4 mg/dL (1.5-2.4); Non-African American GFR(CKD) 112.9 (60.0-200.0); Potassium 4.1 mmol/L (3.5-5.5); Total Bilirubin 0.3 mg/dL (0.30-1.20)
[2022-03-01] MEDS: FORMOTEROL FUMARATE 20 MCG/2 ML NEBU INHALATION SCH ×2 (09:30→20:38)
[2022-03-01] MEDS: IPRATROPIUM-ALBUTEROL 3 ML NEB INHALATION SCH ×4 (09:30→20:38)
[2022-03-01] MEDS: BUDESONIDE 1 MG/2 ML NEBU INHALATION SCH ×2 (09:30→20:38)
[2022-03-01 09:51] LABS: Basophils # (M) 0 X 10*3/uL (0.00-0.10); Eosinophils # (M) 0 X 10*3/uL (0.04-0.35); Lymphocytes # (M) 1.51 X 10*3/uL (0.90-5.00); Metamyelocytes % 1 % (0-0); Monocytes # (M) 0.25 X 10*3/uL (0.20-1.00); Neutrophils # (M) 10.67 X 10*3/uL (2.00-8.90); Neutrophils % (M) 85 %
[2022-03-01 11:31] LABS: Glucose,Whole Blood 149 mg/dL (75-99)
--- NOTE | 2022-03-01 13:27 | P.PN ---
Subjective Progress Note Date: 03/01/22 Principal diagnosis: Shortness of breath, coughing This is a very pleasant 52-year-old female patient with a history of morbid obesity, hyperlipidemia, hypertension, depression, diabetes mellitus, GERD chronic intermittent moderate bronchial asthma. She is a nonsmoker. She follows with Dr. Aguilar in our office. She was last seen in June 2021 at that time a CAT scan of the chest had revealed a small 6 mm right upper lobe posterior pulmonary nodule followed up with a another computed tomography scan. She presented here to the emergency room with increased shortness of breath cough and congestion. She'll set a sour throat and intermittent chills and generalized weakness. Her PCP treated her for walking pneumonia. No chest x- ray was taken. She was given a Z-Santino and a Medrol Dosepak she only completed 2 days because of a rash and irritable mood. There was some concern regarding possible pulmonary embolism and she was referred to the emergency room. Chest x-ray revealed no acute pulmonary process. CT angiogram ruled out pulmonary embolism. No mention of pulmonary nodule. No nodule seen. There is some hepatic steatosis. Blood cultures reveal no growth to date. White count 12.1. Hemoglobin 11.9. Platelets 275. Sodium 142. Potassium 4.1. BUN 9. C reatinine 0.4. Blood glucose 155. AST 17. ALT 45. She is seen today in consultation on the regular medical floor. She is up ambulating in her room. Awake and alert in no acute distress. She is still somewhat bronchospastic and wheezing. She has a dry nonproductive cough. No fever or chills. Continue good O2 saturations in the mid 90s on 2 L/m per nasal cannula. She's afebrile. Somewhat hypertensive. On 02/28/2022 patient seen in follow-up on medical surgical floor. She states she feels about the same, still coughing, but on room air, pulse ox is 95-90%, she is afebrile, hemodynamically she's been stable. Denies any chest discomfort, she is able to speak in full sentences, didn't remains on a DuoNeb, remains on Solu-Medrol 60 g every 6 hours, she is on Pulmicort and Perforomist, she is on ceftriaxone 2 g every 24 hours, and patient is on Tessalon Perles. Chest x-ray showed no acute pulmonary process. CT angiogram of the chest showed no evidence of central pulmonary embolism and hepatic steatosis. No new labs today On 03/01/2022 patient seen in follow-up on medical surgical floor. She is resting comfortably in the recliner, she states her breathing is improving, she is on room air, pulse ox 95%, she's had no acute events overnight, still has exertional dyspnea, and persistent cough, but seems to be breathing and feeling better on today's exam. She was able to ambulate in the hallway last night. No acute events overnight. She remains on IV Solu-Medrol, nebulized bronchodilators, and empiric antibiotics. Cultures have been negative, patient is not producing any phlegm. Objective - Vital Signs Vital signs: Vital Signs Temp 98.4 F 03/01/22 07:33 Pulse 88 03/01/22 13:13 Resp 16 03/01/22 07:33 BP 169/94 03/01/22 07:33 Pulse Ox 95 03/01/22 07:33 Intake & Output 02/28/22 03/01/22 03/01/22 18:59 06:59 18:59 Other: Voiding Method Toilet # Voids 1 1 - Exam GENERAL EXAM: Alert, morbidly obese 52-year-old white female, on room air, pulse ox of 95-98%, short of breath with exertion, but appears to be in no acute distress, has a frequent dry nonproductive cough, comfortable in no apparent distress. HEAD: Normocephalic/atraumatic. EYES: Normal reaction of pupils, equal size. Conjunctiva pink, sclera white. NOSE: Clear with pink turbinates. THROAT: No erythema or exudates. NECK: No masses, no JVD, no thyroid enlargement, no adenopathy. CHEST: No chest wall deformity. Symmetrical expansion. LUNGS: Equal air entry with diminished breath sounds CVS: Regular rate and rhythm, normal S1 and S2, no gallops, no murmurs, no rubs ABDOMEN: Soft, nontender. No hepatosplenomegaly, normal bowel sounds, no gu arding or rigidity. EXTREMITIES: No clubbing, no edema, no cyanosis, 2+ pulses and upper and lower e xtremities. MUSCULOSKELETAL: Muscle strength and tone normal. SPINE: No scoliosis or deformity SKIN: No rashes CENTRAL NERVOUS SYSTEM: Alert and oriented -3. No focal deficits, tone is normal in all 4 extremities. PSYCHIATRIC: Alert and oriented -3. Appropriate affect. Intact judgment and insight. - Labs CBC & Chem 7: 03/01/22 04:29 03/01/22 04:29 Labs: Abnormal Lab Results - Last 24 Hours (Table) 02/28/22 02/28/22 03/01/22 Range/Units 17:27 21:38 04:29 WBC 12.55 H (4.50-10.00) X 10*3/uL MCHC 31.8 L (32.0-37.0) g/dL Absolute Nucleated RBC 0.04 H (0.00-0.00) X 10*3/uL Metamyelocytes % 1 H (0-0) % Neutrophils # (Manual) 10.67 H (2.00-8.90) X 10*3/uL Eosinophils # (Manual) 0 L (0.04-0.35) X 10*3/uL NRBC/100 WBC Diff 0.3 H (0.0-0.0) /100 WBCS Creatinine (0.6-1.5) mg/dL BUN/Creatinine Ratio (12.00-20.00) Ratio Glucose (70-110) mg/dL POC Glucose (mg/dL) 153 H 175 H (75-99) mg/dL Calcium (8.7-10.3) mg/dL Total Protein (6.2-8.2) g/dL 03/01/22 03/01/22 03/01/22 Range/Units 04:29 07:03 11:30 WBC (4.50-10.00) X 10*3/uL MCHC (32.0-37.0) g/dL Absolute Nucleated RBC (0.00-0.00) X 10*3/uL Metamyelocytes % (0-0) % Neutrophils # (Manual) (2.00-8.90) X 10*3/uL Eosinophils # (Manual) (0.04-0.35) X 10*3/uL NRBC/100 WBC Diff (0.0-0.0) /100 WBCS Creatinine 0.5 L (0.6-1.5) mg/dL BUN/Creatinine Ratio 24.20 H (12.00-20.00) Ratio Glucose 167 H (70-110) mg/dL POC Glucose (mg/dL) 158 H 149 H (75-99) mg/dL Calcium 8.6 L (8.7-10.3) mg/dL Total Protein 6.0 L (6.2-8.2) g/dL Microbiology - Last 24 Hours (Table) 02/25/22 23:02 Blood Culture - Preliminary Blood No Growth after 72 hours 02/25/22 22:45 Blood Culture - Preliminary Blood No Growth after 72 hours Assessment and Plan Plan: Acute exacerbation of moderate intermittent chronic bronchial asthma. No evidence of pneumonia. Pro-calcitonin negative History of 6 mm right upper lobe posterior pulmonary nodule on CAT scan in June 2021. Not seen on CAT scan 02/25/2022 Morbid obesity with a BMI of 40 kg per metered squared Hypertension Hyperlipidemia Diabetes mellitus History of anxiety/depression Plan: Continue current medical treatment Still coughing and having exertional dyspnea Continue IV steroids, bronchodilators and antibiotics Overall patient is feeling a bit better, breathing easier, she is tolerating ambulation Not quite ready for discharge, we will reevaluate in another 24 hours I have personally seen and examined the patient, performed the documentation and the assessment and plan as written. Number of minutes spent on the visit: [10] I have personally seen and examined the patient and reviewed the documentation. I performed a joint evaluation with the nurse practitioner in this evaluation was done more than 20 minutes. I fully agree with the documentation above and the plan of care.. The patient is feeling better and she is is less short of breath compared to yesterday. Nevertheless her recovery is still slow. No new complaints otherwise for now. Continue the bronchodilators and steroids and resident treatment for another 24 hours. At the patient to ambulate and increase her level of activity as tolerated. Time with Patient: Less than 30
--- NOTE | 2022-03-01 15:05 | P.PN ---
Subjective Progress Note Date: 03/01/22 Principal diagnosis: COPD exacerbation Patient is a 52-year-old female with a PMH of asthma, hypertension, hyperlipidemia, and type II DM who presents to the emergency room with co mplaints of shortness of breath, wheezing, and myalgias. Patient reports that her symptoms started roughly one week ago. She reports being seen at her PCPs office 5 days ago at which time she was started on Medrol Dosepak and Z-Santino. She also was tested for COVID-19 and influenza which were reportedly negative. Patient reported however that she stopped taking her steroids due to pruritus diffusely on day 2. She also reported feeling irritable. She reports gradual worsening of her shortness of breath but denied experiencing chest discomfort. Reports nonproductive cough. Also reports diffuse myalgias. Denied nausea, vomiting, abdominal pain, diarrhea. She reported being informed of a lung nodule for which a follow-up CT was to be performed in [address] in the emergency room was unremarkable except for hepatic steatosis. Laboratory evaluation was remarkable for a lactic acid of 2.2, potassium 3.3, WBC count 11.9, with influenza, RSV, and Covid testing negative. The patient was not requiring supplemental oxygen in the emergency room with SpO2 97% on room air although was tachycardic and mildly tachypneic with RR 20-25. 03/01: Patient seen and examined. She reports that she is feeling better with her breathing. She is now off oxygen she is ambulating more. Her wheezing has decreased. She still feels unsafe to be discharged home at this time. Hesitant Objective - Vital Signs Vital signs: Vital Signs Temp 97.8 F 03/01/22 14:00 Pulse 87 03/01/22 14:00 Resp 16 03/01/22 14:00 BP 152/83 03/01/22 14:00 Pulse Ox 97 03/01/22 14:00 Intake & Output 02/28/22 03/01/22 03/01/22 18:59 06:59 18:59 Other: Voiding Method Toilet # Voids 1 1 - Exam General: non toxic, no distress, appears at stated age, morbidly obese Derm: no unusual rashes/lesions no unusual ecchymoses, warm, dry Head: atraumatic, normocephalic, symmetric Eyes: EOMI, no lid lag, anicteric sclera, pupils equal round reactive to light ENT: Nose and ears atraumatic, no thrush, no pharyngeal erythema Neck: No thyromegaly, no cervical lymphadenopathy, trachea midline, supple Mouth: no lip lesion, mucus membranes moist Cardiovascular: S1S2 reg, no murmur, positive posterior tibial pulse bilateral, no edema, capillary refill less than 2 seconds Lungs: Diminished air entry bilaterally without significant wheezesAbdominal: soft, nontender to palpation, no guarding, no appreciable organomegaly, normal bowel sounds Ext: no gross muscle atrophy, muscle strength 5 out of 5 in all 4 extremities grossly, no contractures, Neuro: CN II-XI grossly intact, light touch intact all 4 extremities, finger to nose within normal limits, Psych: Alert, oriented, appropriate affect. - Labs CBC & Chem 7: 03/01/22 04:29 03/01/22 04:29 Labs: Abnormal Lab Results - Last 24 Hours (Table) 02/28/22 02/28/22 03/01/22 Range/Units 17:27 21:38 04:29 WBC 12.55 H (4.50-10.00) X 10*3/uL MCHC 31.8 L (32.0-37.0) g/dL Absolute Nucleated RBC 0.04 H (0.00-0.00) X 10*3/uL Metamyelocytes % 1 H (0-0) % Neutrophils # (Manual) 10.67 H (2.00-8.90) X 10*3/uL Eosinophils # (Manual) 0 L (0.04-0.35) X 10*3/uL NRBC/100 WBC Diff 0.3 H (0.0-0.0) /100 WBCS Creatinine (0.6-1.5) mg/dL BUN/Creatinine Ratio (12.00-20.00) Ratio Glucose (70-110) mg/dL POC Glucose (mg/dL) 153 H 175 H (75-99) mg/dL Calcium (8.7-10.3) mg/dL Total Protein (6.2-8.2) g/dL 03/01/22 03/01/22 03/01/22 Range/Units 04:29 07:03 11:30 WBC (4.50-10.00) X 10*3/uL MCHC (32.0-37.0) g/dL Absolute Nucleated RBC (0.00-0.00) X 10*3/uL Metamyelocytes % (0-0) % Neutrophils # (Manual) (2.00-8.90) X 10*3/uL Eosinophils # (Manual) (0.04-0.35) X 10*3/uL NRBC/100 WBC Diff (0.0-0.0) /100 WBCS Creatinine 0.5 L (0.6-1.5) mg/dL BUN/Creatinine Ratio 24.20 H (12.00-20.00) Ratio Glucose 167 H (70-110) mg/dL POC Glucose (mg/dL) 158 H 149 H (75-99) mg/dL Calcium 8.6 L (8.7-10.3) mg/dL Total Protein 6.0 L (6.2-8.2) g/dL Microbiology - Last 24 Hours (Table) 02/25/22 23:02 Blood Culture - Preliminary Blood No Growth after 72 hours 02/25/22 22:45 Blood Culture - Preliminary Blood No Growth after 72 hours Assessment and Plan (1) Shortness of breath Current Visit: Yes Status: Acute Code(s): R06.02 - SHORTNESS OF BREATH SNOMED Code(s): 875122037 Plan: Acute asthma exacerbation -Improved. Continue with IV Solu-Medrol -DuoNeb's -Patient is now off of supplemental oxygen and on room air -pulmonary team is currently following as well SIRS with myalgias, no clear infectious etiology noted -Negative Covid 19 infection negative RSV and influenza -IV Rocephin and azithromycin -Blood cultures negative to date Lactic acidosis -Resolved -IV fluids History of 6 mm right upper lobe posterior pulmonary nodule on CAT scan in June 2021. -Not seen on CAT scan 02/25/2022 Chronic conditions: Hypertension, hyperlipidemia, type II DM -Patient currently hypertensive despite the home medication of losartan. We will add hydrochlorothiazide. -Continue with sliding scale, patient is hyperglycemic secondary to steroids with underlying diabetes history. Obesity BMI 39 DVT prophylaxis -Heparin subq CODE STATUS: Full code Disposition: Anticipate discharge home within the next 24 hours
[2022-03-01] MEDS: hydroCHLOROthiazide 12.5 MG CAP PO SCH (15:27)
[2022-03-01 16:37] LABS: Glucose,Whole Blood 242 mg/dL (75-99)
[2022-03-01] MEDS: ENALAPRILAT 1.25 MG/ML 1 ML VIAL IVP PRN (20:10)
[2022-03-01] MEDS: LOSARTAN 50 MG TAB PO SCH (20:14)
[2022-03-01] MEDS: ATORVASTATIN 40 MG TAB PO SCH (20:14)
[2022-03-01] MEDS: traZODone HCL 50 MG TAB PO SCH (20:14)
[2022-03-01] MEDS: ACETAMINOPHEN TAB 325 MG TAB PO PRN (20:20)
[2022-03-01 20:36] LABS: Glucose,Whole Blood 198 mg/dL (75-99)
[2022-03-01] MEDS ORDERED: hydrALAZINE HCL 25 MG TAB PO STA (22:12)
[2022-03-02] MEDS: SODIUM CHLORIDE 0.9% 1,000 ML IV SCH ×3 (00:12→11:15)
[2022-03-02] MEDS: methylPREDNISolone SOD SUCCI 125 MG/2 ML VIAL IV SCH ×3 (02:11→12:21)
[2022-03-02 06:56] LABS: Glucose,Whole Blood 150 mg/dL (75-99)
[2022-03-02 07:50] VITALS: RESP 18; TEMP 97.9
[2022-03-02] MEDS: IPRATROPIUM-ALBUTEROL 3 ML NEB INHALATION SCH ×2 (08:10→11:48)
[2022-03-02] MEDS: FORMOTEROL FUMARATE 20 MCG/2 ML NEBU INHALATION SCH (08:11)
[2022-03-02] MEDS: BUDESONIDE 1 MG/2 ML NEBU INHALATION SCH (08:11)
[2022-03-02] MEDS: DULoxetine HCL 30 MG CAPSULE.DR PO SCH (09:27)
[2022-03-02] MEDS: PANTOPRAZOLE 40 MG TABLET PO SCH (09:27)
[2022-03-02] MEDS: BENZONATATE 100 MG CAP PO SCH (09:27)
[2022-03-02] MEDS: hydroCHLOROthiazide 12.5 MG CAP PO SCH (09:27)
[2022-03-02] MEDS: INSULIN ASPART (NovoLOG) 100 UNIT/ML VIAL SQ SCH ×2 (09:28→12:17)
[2022-03-02 11:08] LABS: Glucose,Whole Blood 233 mg/dL (75-99)
[2022-03-02 12:02] VITALS: PULSE 71
[2022-03-02 12:23] VITALS: BP 144/83
--- NOTE | 2022-03-02 13:28 | P.DS ---
Providers Date of admission: 02/25/22 22:10 Attending physician: Sandra Howard MD Consults: 02/26/22 13:34 Consult Physician Routine Consulting Provider: Mio Aguilar Consult Reason/Comments: acute asthma exacerbation Do you want consulting provider notified?: Yes Primary care physician: Ervin Rodarte - Discharge Diagnosis(es) (1) Shortness of breath Patient is a 52-year-old female with a PMH of asthma, hypertension, hyperlipidemia, and type II DM who presents to the emergency room with complaints of shortness of breath, wheezing, and myalgias. Patient reports that her symptoms started roughly one week ago. She reports being seen at her PCPs office 5 days ago at which time she was started on Medrol Dosepak and Z-Santino. She also was tested for COVID-19 and influenza which were reportedly negative. Patient reported however that she stopped taking her steroids due to pruritus diffusely on day 2. She also reported feeling irritable. She reports gradual worsening of her shortness of breath but denied experiencing chest discomfort. Reports nonproductive cough. Also reports diffuse myalgias. Denied nausea, vomiting, abdominal pain, diarrhea. She reported being informed of a lung nodule for which a follow-up CT was to be performed in [address] in the emergency room was unremarkable except for hepatic steatosis. Laboratory evaluation was remarkable for a lactic acid of 2.2, potassium 3.3, WBC count 11.9, with influenza, RSV, and Covid testing negative. The patient was not requiring supplemental oxygen in the emergency room with SpO2 97% on room air although was tachycardic and mildly tachypneic with RR 20-25. Patient was admitted to the hospital with acute asthma exacerbation. Patient's overall symptoms improved with treatment with IV Solu-Medrol and empiric antibiotics. Patient's x-ray imaging was negative for pneumonia. Patient's viral workup was negative, cultures were negative. Patient's oxygenation improved during her hospitalization. And on day of discharge was not requiring any oxygen. She is being discharged home in stable medical condition. She is to follow up outpatient with pulmonology team. She was prescribed prednisone on discharge as well as inhaler therapy, Patient seen was seen and examined in full physical exam was performed on day of discharge Current Visit: Yes Status: Acute Patient Condition at Discharge: Good Plan - Discharge Summary Discharge Rx Participant: Yes New Discharge Prescriptions: New Ipratropium-Albuterol Nebulize [Duoneb 0.5 mg-3 mg/3 ml Soln] 3 ml INHALATION QID 30 Days #8 pack hydroCHLOROthiazide [Hydrodiuril] 12.5 mg PO DAILY 30 Days #30 cap Fluticasone Propion/Salmeterol [Fluticasone-Salmeterol 500-50] 1 inhalation PO BID 30 Days #1 each predniSONE 0 mg PO DIRECTED 15 Days #30 tab Continue Cetirizine HCl [Zyrtec] 10 mg PO HS metFORMIN HCL ER [Glucophage XR] 500 mg PO HS Nitroglycerin Sl Tabs [Nitrostat] 0.4 mg SUBLINGUAL Q5M PRN PRN Reason: Chest Pain Vitamin E 100 unit PO DAILY traZODone HCL [Desyrel] 50 mg PO HS Atorvastatin Calcium [Lipitor] 40 mg PO HS DULoxetine HCL [Cymbalta] 30 mg PO DAILY Losartan Potassium [Cozaar] 100 mg PO HS Pantoprazole [Protonix] 40 mg PO BID Discharge Medication List Cetirizine HCl [Zyrtec] 10 mg PO HS 01/10/18 [History] Atorvastatin Calcium [Lipitor] 40 mg PO HS 03/15/21 [History] traZODone HCL [Desyrel] 50 mg PO HS 03/15/21 [History] DULoxetine HCL [Cymbalta] 30 mg PO DAILY 02/25/22 [History] Losartan Potassium [Cozaar] 100 mg PO HS 02/25/22 [History] Nitroglycerin Sl Tabs [Nitrostat] 0.4 mg SUBLINGUAL Q5M PRN 02/25/22 [History] Pantoprazole [Protonix] 40 mg PO BID 02/25/22 [History] Vitamin E 100 unit PO DAILY 02/25/22 [History] metFORMIN HCL ER [Glucophage XR] 500 mg PO HS 02/25/22 [History] Fluticasone Propion/Salmeterol [Fluticasone-Salmeterol 500-50] 1 inhalation PO BID 30 Days #1 each 03/02/22 [Rx] Ipratropium-Albuterol Nebulize [Duoneb 0.5 mg-3 mg/3 ml Soln] 3 ml INHALATION Q ID 30 Days #8 pack 03/02/22 [Rx] hydroCHLOROthiazide [Hydrodiuril] 12.5 mg PO DAILY 30 Days #30 cap 03/02/22 [Rx] predniSONE 0 mg PO DIRECTED 15 Days #30 tab 03/02/22 [Rx] Follow up Appointment(s)/Referral(s): Ervin Rodarte MD [Primary Care Provider] - 1-2 days (Office closed at time of discharge. Please call office Monday to make an appointment. ) Mio Aguilar DO [Doctor of Osteopathic Medicine] - 1 Week Patient Instructions/Handouts: Recurrent Seizures in Adults (DC) Discharge Disposition: HOME SELF-CARE
--- NOTE | 2022-03-02 14:07 | P.PN ---
Subjective Progress Note Date: 03/02/22 This is a very pleasant 52-year-old female patient with a history of morbid obesity, hyperlipidemia, hypertension, depression, diabetes mellitus, GERD chronic intermittent moderate bronchial asthma. She is a nonsmoker. She follows with Dr. Aguilar in our office. She was last seen in June 2021 at that time a CAT scan of the chest had revealed a small 6 mm right upper lobe posterior pulmonary nodule followed up with a another computed tomography scan. She presented here to the emergency room with increased shortness of breath cough and congestion. She'll set a sour throat and intermittent chills and generalized weakness. Her PCP treated her for walking pneumonia. No chest x- ray was taken. She was given a Z-Santino and a Medrol Dosepak she only completed 2 days because of a rash and irritable mood. There was some concern regarding possible pulmonary embolism and she was referred to the emergency room. Chest x-ray revealed no acute pulmonary process. CT angiogram ruled out pulmonary embolism. No mention of pulmonary nodule. No nodule seen. There is some hepatic steatosis. Blood cultures reveal no growth to date. White count 12.1. Hemoglobin 11.9. Platelets 275. Sodium 142. Potassium 4.1. BUN 9. Creatinine 0.4. Blood glucose 155. AST 17. ALT 45. She is seen today in cons ultation on the regular medical floor. She is up ambulating in her room. Awake and alert in no acute distress. She is still somewhat bronchospastic and wheezing. She has a dry nonproductive cough. No fever or chills. Continue good O2 saturations in the mid 90s on 2 L/m per nasal cannula. She's afebrile. Somewhat hypertensive. On 02/28/2022 patient seen in follow-up on medical surgical floor. She states she feels about the same, still coughing, but on room air, pulse ox is 95-90%, she is afebrile, hemodynamically she's been stable. Denies any chest discomfort, she is able to speak in full sentences, didn't remains on a DuoNeb, remains on Solu-Medrol 60 g every 6 hours, she is on Pulmicort and Perforomist, she is on ceftriaxone 2 g every 24 hours, and patient is on Tessalon Perles. Chest x-ray showed no acute pulmonary process. CT angiogram of the chest showed no evidence of central pulmonary embolism and hepatic steatosis. No new labs today On 03/01/2022 patient seen in follow-up on medical surgical floor. She is resting comfortably in the recliner, she states her breathing is improving, she is on room air, pulse ox 95%, she's had no acute events overnight, still has exertional dyspnea, and persistent cough, but seems to be breathing and feeling better on today's exam. She was able to ambulate in the hallway last night. No acute events overnight. She remains on IV Solu-Medrol, nebulized bronchodilators, and empiric antibiotics. Cultures have been negative, patient is not producing any phlegm. The patient is seen today the 2021 in follow-up on the regular medical floor. She is currently sitting up in bed. Awake and alert in no acute distress. She is feeling back to her baseline. Much less coughing. No shortness of breath. Continues to maintain good O2 saturations in the 90s on room air. She's been afebrile. Blood cultures revealed no growth. Glucose 150. She is continued on DuoNeb inhalations, Pulmicort and Perforomist inhalations, IV Solu-Medrol. Remains on Tessalon Perles. Antibiotics in the form of ceftriaxone. Objective - Vital Signs Vital signs: Vital Signs Temp 97.9 F 03/02/22 07:49 Pulse 71 03/02/22 12:01 Resp 18 03/02/22 07:49 BP 144/83 03/02/22 12:23 Pulse Ox 95 03/02/22 07:49 Intake & Output 03/01/22 03/02/22 03/02/22 18:59 06:59 18:59 Other: Voiding Method Toilet # Voids 5 # Bowel Movements 1 - Exam GENERAL EXAM: Alert, morbidly obese. Pleasant 52-year-old female, on room air, in no acute distress. HEAD: Normocephalic/atraumatic. EYES: Normal reaction of pupils, equal size. Conjunctiva pink, sclera white. NOSE: Clear with pink turbinates. THROAT: No erythema or exudates. NECK: No masses, no JVD, no thyroid enlargement, no adenopathy. CHEST: No chest wall deformity. Symmetrical expansion. LUNGS: Equal air entry with diminished breath sounds CVS: Regular rate and rhythm, normal S1 and S2, no gallops, no murmurs, no rubs ABDOMEN: Soft, nontender. No hepatosplenomegaly, normal bowel sounds, no guarding or rigidity. EXTREMITIES: No clubbing, no edema, no cyanosis, 2+ pulses and upper and lower extremities. MUSCULOSKELETAL: Muscle strength and tone normal. SPINE: No scoliosis or deformity SKIN: No rashes CENTRAL NERVOUS SYSTEM: No focal deficits, tone is normal in all 4 extremities. PSYCHIATRIC: Alert and oriented -3. Appropriate affect. Intact judgment and insight. - Labs CBC & Chem 7: 03/01/22 04:29 03/01/22 04:29 Labs: Abnormal Lab Results - Last 24 Hours (Table) 03/01/22 03/01/22 03/02/22 Range/Units 16:35 20:35 06:55 POC Glucose (mg/dL) 242 H 198 H 150 H (75-99) mg/dL 03/02/22 Range/Units 11:07 POC Glucose (mg/dL) 233 H (75-99) mg/dL Microbiology - Last 24 Hours (Table) 02/25/22 22:45 Blood Culture - Preliminary Blood No Growth after 96 hours 02/25/22 23:02 Blood Culture - Preliminary Blood No Growth after 96 hours Assessment and Plan Assessment: Acute exacerbation of moderate intermittent chronic bronchial asthma History of 6 mm right upper lobe posterior pulmonary nodule on CAT scan in June 2021. Not seen on CAT scan 02/25/2022 Morbid obesity with a BMI of 40 kg per metered squared Hypertension Hyperlipidemia Diabetes mellitus History of anxiety/depression Plan: The patient was seen and evaluated Improved and back to her baseline Recommend maintenance Symbicort, DuoNeb inhalations, albuterol HFA Complete a prednisone taper Follow-up in the office in 1-2 weeks' I have personally seen and examined the patient, performed the documentation and the assessment and plan as written. Number of minutes spent on the visit: 10. I have personally seen and examined the patient and reviewed the documentation. I performed a joint evaluation with the nurse practitioner in this evaluation was done more than 10 minutes. I fully agree with the documentation above and the plan of care. Clinically improved and the patient can be discharged home on a maintenance of fluticasone/salmeterol 500/50 one puff twice a day along with a prednisone burst taper and albuterol nebulized treatment as necessary basis.
== END 2022-03-02 14:26 | disposition home or self-care (01) | DRG 202 ==
LOC: EC 14:23 → 5NMEDONC 22:10 → 4SSUR 02-26 03:22
PROVIDERS: ADMIT Internal Medicine; ATTEND Internal Medicine
DX: J45.21 Mild intermittent asthma with (acute) exacerbation (principal); Z68.41 Body mass index [BMI] 40.0-44.9, adult; E87.2 Acidosis; R65.10 Systemic inflammatory response syndrome (SIRS) of non-infectious origin without acute organ dysfunction; E11.9 Type 2 diabetes mellitus without complications; R91.1 Solitary pulmonary nodule; E66.01 Morbid (severe) obesity due to excess calories; E78.5 Hyperlipidemia, unspecified; I10 Essential (primary) hypertension; K76.0 Fatty (change of) liver, not elsewhere classified; L29.9 Pruritus, unspecified; Z20.822 Contact with and (suspected) exposure to COVID-19; Z79.84 Long term (current) use of oral hypoglycemic drugs; Z79.899 Other long term (current) drug therapy; Z82.3 Family history of stroke; Z82.49 Family history of ischemic heart disease and other diseases of the circulatory system; Z87.442 Personal history of urinary calculi; Z90.710 Acquired absence of both cervix and uterus; Z88.2 Allergy status to sulfonamides; Z88.8 Allergy status to other drugs, medicaments and biological substances; M79.10 Myalgia, unspecified site; F32.A Depression, unspecified; Z91.128 Patient's intentional underdosing of medication regimen for other reason; T38.0X6A Underdosing of glucocorticoids and synthetic analogues, initial encounter
CPT/HCPCS: 36415; 36600; 71046; 71275; 80048; 80053; 81001; 82805; 83605; 83735; 84145; 84484; 85025; 85027; 85379; 85610; 85730; 87040; 87636; 93005; 94640; 94760; 96360; 96361; 96365; 96366; 96375; 99285

== ENCOUNTER → 2022-04-25 | Outpatient (CLI) | payer OTHER ==
--- NOTE | 2022-04-25 15:26 | US ---
EXAMINATION TYPE: US kidneys/renal and bladder DATE OF EXAM: 04/25/2022 COMPARISON: NONE CLINICAL HISTORY: N20.0 CALCULUS OF KIDNEY. known renal stones for years, no symptoms today, possible right renal cyst EXAM MEASUREMENTS: Right Kidney: 12.1 x 3.4 x 5.7 cm Left Kidney: 11.3 x 3.8 x 5.4 cm habitus and bowel gas limits study Right Kidney: 1.3cm mid pole cyst not well defined on today's exam Left Kidney: 0.7 x 0.7cm mid pole stone seen Bladder: wnl Bilateral Jets seen: not seen, patient was so full she had to void as soon as possible IMPRESSION: 1. Right renal cyst. 2. Nonobstructing left renal stone
== END | disposition home or self-care (01) ==
LOC: RADUSWWP 10:52
PROVIDERS: ATTEND Family Medicine
DX: N20.0 Calculus of kidney (principal); N28.1 Cyst of kidney, acquired
CPT/HCPCS: 76770

== ENCOUNTER → 2022-05-02 | Outpatient (CLI) | payer OTHER ==
--- NOTE | 2022-05-03 12:19 | US ---
EXAMINATION TYPE: US soft tissue tissue neck DATE OF EXAM: 05/02/2022 COMPARISON: NONE CLINICAL HISTORY: 52-year-old female R59.0 ENLARGED LYMPH NODES. Pain and edema left neck for 2 month s Technique: Targeted scanning on the left side of the neck at site of patient's pain and swelling. FINDINGS: Food Science Technician notes: lymph node left neck = 1.0 x 0.5 x 0.7cm This represents a solitary prominent but nonenlarged lymph node. The contralateral side was imaged fo r comparison purposes and no discrete abnormality is seen. IMPRESSION: 1. A solitary, prominent but nonenlarged lymph node along the left side of the neck measuring 10 x 7 x 5 mm by ultrasound. 2. Recommend clinical follow-up of any palpable abnormality. If there is growth, the area should be r eimaged. If suspicious clinical features develop, contrast enhanced CT of the neck can be considered.
== END | disposition home or self-care (01) ==
LOC: RADUSWWP 16:09
PROVIDERS: ATTEND Family Medicine
DX: R59.0 Localized enlarged lymph nodes (principal)
CPT/HCPCS: 76536

== ENCOUNTER → 2022-05-20 | Outpatient (CLI) | payer OTHER ==
--- NOTE | 2022-05-23 10:01 | MM ---
Reason for Exam: Screening (asymptomatic). Last mammogram was performed 1 year(s) and 3 month(s) ago. Patient History: Menarche at age 14. First Full-Term at age 27. Hysterectomy at age 35. Postmenopausal. Patient has history of breast feeding. Hormonal Contraceptives for 4 years from age 22 until age 26. 11/2013, Benign Core Biopsy on the left side. Risk Values: Molly 5 year model risk: 1.3%. NCI Lifetime model risk: 11.6%. Prior Study Comparison: 07/05/2018 Bilateral Screening Mammogram, [facility]. 09/11/2019 Bilateral Screening Mammogram, [facility]. 02/18/2021 Bilateral Screening Mammogram, [facility]. Tissue Density: The breast tissue is heterogeneously dense. This may lower the sensitivity of mammography. Findings: Analyzed By CAD. Stable chronic nodularity seen bilaterally. No suspicious microcalcifications evident. Overall Assessment: Benign, BI-RAD 2 Management: Screening Mammogram of both breasts in 1 year. A clinical breast exam by your physician is recommended on an annual basis and results should be correlated with mammographic findings. Electronically signed and approved by: Oliver Gillette M.D. Radiologis
== END | disposition home or self-care (01) ==
LOC: RADMAMWWP 10:50
PROVIDERS: ATTEND Family Medicine
DX: Z12.31 Encounter for screening mammogram for malignant neoplasm of breast (principal); Z78.0 Asymptomatic menopausal state
CPT/HCPCS: 77067

== ENCOUNTER → 2022-08-11 | Outpatient (CLI) | payer OTHER ==
--- NOTE | 2022-08-11 14:49 | US ---
EXAMINATION TYPE: US kidneys/renal and bladder DATE OF EXAM: 08/11/2022 COMPARISON: Renal ultrasound 04/25/2022 CLINICAL HISTORY: Z87.442 HX OF CALCULUS OF KIDNEY. H/O multiple renal stones with lithotripsy, known stone on the left, lt flank pain EXAM MEASUREMENTS: Right Kidney: 13.2 x 5.4 x 6.8 cm Left Kidney: 12.2 x 4.9 x 4.9 cm Right Kidney: No hydronephrosis or masses seen . Stable 1.5 cm cyst in the right superior pole. Left Kidney: inferior 0.6 x 0.7cm stone is redemonstrated. No hydronephrosis or solid contour deformi ng mass. Bladder: wnl Bilateral Jets seen: Yes IMPRESSION: 1. No hydronephrosis. 2. Stable right renal cyst. 3. Nonobstructive left renal calculus redemonstrated.
== END | disposition home or self-care (01) ==
LOC: RADUSWWP 13:38
PROVIDERS: ATTEND Family Medicine
DX: N20.0 Calculus of kidney (principal); N28.1 Cyst of kidney, acquired
CPT/HCPCS: 76770

== ENCOUNTER → 2022-11-08 | Outpatient (CLI) | payer OTHER | END | disposition home or self-care (01) | LOC: LABWHC1 13:22 | PROVIDERS: ATTEND Internal Medicine Critical Care Medicine | DX: J45.909 Unspecified asthma, uncomplicated (principal) | CPT/HCPCS: 36415; 82785; 85008 ==

== ENCOUNTER 2022-11-30 13:56 | Emergency (ER) | payer OTHER ==
[2022-11-30 14:06] VITALS: TEMP 98
[2022-11-30] MEDS ORDERED: IPRATROPIUM 0.5 MG/2.5 ML NEBU INHALATION STA (14:49)
[2022-11-30] MEDS ORDERED: ALBUTEROL NEBULIZED 2.5 MG/3 ML INHALATION STA (14:49)
[2022-11-30] MEDS ORDERED: DEXAMETHASONE SOD PHOSPHATE 10 MG/ML 1 ML VIAL IV STA (14:49)
--- NOTE | 2022-11-30 15:00 | ED ---
General Adult HPI - General Chief complaint: Shortness of Breath Stated complaint: DUY Time Seen by Provider: 11/30/22 14:13 Source: patient, EMS Mode of arrival: EMS Limitations: no limitations - History of Present Illness Initial comments: Dictation was produced using Unified Color dictation software. please excuse any grammatical, word or spelling errors. Chief Complaint: 52-year-old female with alleged history of asthma presents to the ER for shortness of breath 4 days. History of Present Illness: She is 52-year-old female past medical history of asthma. The ROS documented in this emergency department record has been reviewed and confirmed by me. Those systems with pertinent positive or negative responses have been documented in the HPI. All other systems are other negative and/or noncontributory. PHYSICAL EXAM: General Impression: Alert and oriented x3, not in acute distress HEENT: Normocephalic atraumatic, extra-ocular movements intact, pupils equal and reactive to light bilaterally, mucous membranes moist. Cardiovascular: Heart regular rate and rhythm Chest: Able to complete full sentences, no retractions, no tachypnea, clear to auscultation bilaterally, upper airway wheezing Abdomen: abdomen soft, non-tender, non-distended, no organomegaly Musculoskeletal: Pulses present and equal in all extremities, no peripheral edema Motor: no focal deficits noted Neurological: CN II-XII grossly intact, no focal motor or sensory deficits noted Skin: Intact with no visualized rashes Psych: Normal affect and mood ED course: 52-year-old female presents to the emergency Department with wheezing 4 days. Vital signs upon arrival are within acceptable limits. Nursing notes and chart review was performed My EKG interpretation: Ventricular rate 76, sinus rhythm,. 162, QRS 86, QTC 378. No CO prolongation, no QTC prolongation, no ST or T-wave changes noted. Overall, this EKG is unremarkable Laboratory evaluation obtained. Patient evaluated bedside. She says clear lung sounds. Patient be discharged. She is given prescription for antibiotics, albuterol inhaler. Was pt. sent in by a medical professional or institution ([facility] Ulrich, MANDARIN TEACHER, urgent care, hospital, or snf...) When possible be specific @ -No Did you speak to anyone other than the patient for history (EMS, parent, family, police, friend...)? What history was obtained from this source @ -No Did you review nursing and triage notes (agree or disagree)? Why? @ -I reviewed and agree with nursing and triage notes Were old charts reviewed (outside hosp., previous admission, EMS record, old EKG, old radiological studies, urgent care reports/EKG's, snf records)? Report findings @ -No old charts were reviewed Differential Diagnosis (chest pain, altered mental status, abdominal pain women, abdominal pain men, vaginal bleeding, weakness, fever, dyspnea, syncope, headache, dizziness, GI bleed, back pain, seizure, CVA, palpatations, mental health)? @ -Differential Dyspnea: Coronary syndrome, arrhythmia, tamponade, asthma, COPD, pulmonary embolism, pneumonia, pneumothorax, pulmonary effusion, anaphylaxis, diabetic ketoacidosis, flailed chest, pulmonary contusion, diaphragmatic rupture, anemia, neuromuscular, this is not meant to be an all-inclusive list. EKG interpreted by me (3pts min.). @ -As above X-rays interpreted by me (1pt min.). @ -As above CT interpreted by me (1pt min.). @ -None done U/S interpreted by me (1pt. min.). @ -None done What testing was considered but not performed or refused? (CT, X-rays, U/S, labs)? Why? @ -See above What meds were considered but not given or refused? Why? @ -See above Did you discuss the management of the patient with other professionals (professionals i.e. , PA, MANDARIN TEACHER, lab, RT, psych nurse, social media intern, butadiene converter operator, teacher, medical officer, casework specialist)? Give summary @ -No Was smoking cessation discussed for >3mins.? @ -No Was critical care preformed (if so, how long)? @ -No Were there social determinants of health that impacted care today? How? (Homelessness, low income, unemployed, alcoholism, drug addiction, t ransportation, low edu. Level, literacy, decrease access to med. care, prison, rehab)? @ -No Was there de-escalation of care discussed even if they declined (Discuss DNR or withdrawal of care, Hospice)? DNR status @ -No What co-morbidities impacted this encounter? (DM, HTN, Smoking, COPD, CAD, Cancer, CVA, ARF, Chemo, Hep., AIDS, mental health diagnosis, sleep apnea, morbid obesity)? @ -Obesity Was patient admitted / discharged? Hospital course, mention meds given and route, prescriptions, significant lab abnormalities, going to OR and other pertinent info. @ -See above Undiagnosed new problem with uncertain prognosis? @ -No Drug Therapy requiring intensive monitoring for toxicity (Heparin, Nitro, Insu jesi, Cardizem)? @ -No Were any procedures done? @ -No Diagnosis/symptom? @ -Acute bronchospasm Acute, or Chronic, or Acute on Chronic? @ -Acute Uncomplicated (without systemic symptoms) or Complicated (systemic symptoms)? @ -default Side effects of treatment? @ -No Exacerbation, Progression, or Severe Exacerbation? @ -No Poses a threat to life or bodily function? How? (Chest pain, [place], [place], pneumonia, PE, COPD, DKA, ARF, appy, cholecystitis, CVA, Diverticulitis, Homicidal, Suicidal, threat to staff... and all critical care pts) @ -No - Related Data Home Medications Medication Instructions Recorded Confirmed Cetirizine HCl [Zyrtec] 10 mg PO HS 01/10/18 11/30/22 traZODone HCL [Desyrel] 50 mg PO HS 03/15/21 11/30/22 DULoxetine HCL [Cymbalta] 30 mg PO HS 02/25/22 11/30/22 Losartan Potassium [Cozaar] 100 mg PO HS 02/25/22 11/30/22 Nitroglycerin Sl Tabs [Nitrostat] 0.4 mg SUBLINGUAL Q5M PRN 02/25/22 11/30/22 Pantoprazole [Protonix] 40 mg PO BID 02/25/22 11/30/22 Albuterol Inhaler [Ventolin Hfa 2 puff INHALATION RT-Q4H PRN 11/30/22 11/30/22 Inhaler] Albuterol Nebulized [Ventolin 2.5 mg INHALATION RT-QID PRN 11/30/22 11/30/22 Nebulized] Budesonide/Formoterol Fumarate 2 puff INHALATION RT-BID 11/30/22 11/30/22 [Symbicort 160-4.5 Mcg Inhaler] Dulaglutide [Trulicity] 1.5 mg SQ TH 11/30/22 11/30/22 Ibuprofen [Motrin Ib] 800 mg PO Q8H PRN 11/30/22 11/30/22 Ondansetron Odt [Zofran Odt] 4 mg PO Q4H PRN 11/30/22 11/30/22 Rosuvastatin [Crestor] 20 mg PO HS 11/30/22 11/30/22 nadoloL 10 mg PO HS 11/30/22 11/30/22 Previous Rx's Medication Instructions Recorded Albuterol Sulfate [Proair Hfa] 1 - 2 puff INHALATION Q6HR PRN 11/30/22 #8.5 gm Azithromycin [Zithromax Z Pack] 1 tab PO DIRECTED #6 tab 11/30/22 Allergies Allergy/AdvReac Type Severity Reaction Status Date / Time adhesive tape Allergy Rash/Hives Verified 11/30/22 17:20 benzene Allergy Itching Verified 11/30/22 17:20 Iodine and Iodide Containing Allergy Unknown Verified 11/30/22 17:20 Produc Sulfa (Sulfonamide Allergy Dyspnea Verified 11/30/22 17:20 Antibiotics) Review of Systems ROS Statement: Those systems with pertinent positive or pertinent negative responses have been documented in the HPI. ROS Other: All systems not noted in ROS Statement are negative. Past Medical History Past Medical History: Asthma, Hypertension Additional Past Medical History / Comment(s): Kidney Stones History of Any Multi-Drug Resistant Organisms: None Reported Past Surgical History: Back Surgery, Hysterectomy, Orthopedic Surgery Additional Past Surgical History / Comment(s): Rotator cuff left; foot surgery left Past Anesthesia/Blood Transfusion Reactions: No Reported Reaction Past Psychological History: Depression Smoking Status: Never smoker Past Alcohol Use History: Occasional Past Drug Use History: None Reported - Past Family History Mother Family Medical History: Myocardial Infarction ([place]) Father Family Medical History: CVA/TIA General Exam Limitations: no limitations Course Vital Signs 11/30/22 11/30/22 11/30/22 13:58 15:19 15:38 Temperature 98 F Pulse Rate 89 88 Respiratory 22 24 Rate Blood Pressure 135/89 O2 Sat by Pulse 98 Oximetry 11/30/22 11/30/22 11/30/22 15:41 15:42 16:04 Temperature Pulse Rate 90 90 94 Respiratory Rate Blood Pressure O2 Sat by Pulse Oximetry 11/30/22 11/30/22 16:05 16:15 Temperature Pulse Rate 94 96 Respiratory Rate Blood Pressure O2 Sat by Pulse Oximetry Medical Decision Making - Lab Data Result diagrams: 11/30/22 14:52 11/30/22 14:52 Lab Results 11/30/22 11/30/22 11/30/22 Range/Units 14:52 14:52 14:52 WBC 7.9 (3.8-10.6) k/uL RBC 4.86 (3.80-5.40) m/uL Hgb 14.2 (11.4-16.0) gm/dL Hct 42.1 (34.0-46.0) % MCV 86.6 (80.0-100.0) fL MCH 29.2 (25.0-35.0) pg MCHC 33.7 (31.0-37.0) g/dL RDW 13.6 (11.5-15.5) % Plt Count 234 (150-450) k/uL MPV 7.5 Neutrophils % 74 % Lymphocytes % 19 % Monocytes % 3 % Eosinophils % 3 % Basophils % 0 % Neutrophils # 5.9 (1.3-7.7) k/uL Lymphocytes # 1.5 (1.0-4.8) k/uL Monocytes # 0.2 (0-1.0) k/uL Eosinophils # 0.2 (0-0.7) k/uL Basophils # 0.0 (0-0.2) k/uL PT 9.4 (9.0-12.0) sec INR 0.9 (<1.2) APTT 23.5 (22.0-30.0) sec Sodium 143 (137-145) mmol/L Potassium 4.1 (3.5-5.1) mmol/L Chloride 109 H (98-107) mmol/L Carbon Dioxide 27 (22-30) mmol/L Anion Gap 7 mmol/L BUN 16 (7-17) mg/dL Creatinine 0.57 (0.52-1.04) mg/dL Est GFR (CKD-EPI)AfAm >90 (>60 ml/min/1.73 sqM) Est GFR (CKD-EPI)NonAf >90 (>60 ml/min/1.73 sqM) Glucose 121 H (74-99) mg/dL Calcium 9.2 (8.4-10.2) mg/dL Total Bilirubin 1.3 (0.2-1.3) mg/dL AST 28 (14-36) U/L ALT 38 H (4-34) U/L Alkaline Phosphatase 91 (38-126) U/L Troponin I (0.000-0.034) ng/mL NT-Pro-B Natriuret Pep pg/mL Total Protein 7.1 (6.3-8.2) g/dL Albumin 4.3 (3.5-5.0) g/dL 11/30/22 11/30/22 Range/Units 14:52 14:52 WBC (3.8-10.6) k/uL RBC (3.80-5.40) m/uL Hgb (11.4-16.0) gm/dL Hct (34.0-46.0) % MCV (80.0-100.0) fL MCH (25.0-35.0) pg MCHC (31.0-37.0) g/dL RDW (11.5-15.5) % Plt Count (150-450) k/uL MPV Neutrophils % % Lymphocytes % % Monocytes % % Eosinophils % % Basophils % % Neutrophils # (1.3-7.7) k/uL Lymphocytes # (1.0-4.8) k/uL Monocytes # (0-1.0) k/uL Eosinophils # (0-0.7) k/uL Basophils # (0-0.2) k/uL PT (9.0-12.0) sec INR (<1.2) APTT (22.0-30.0) sec Sodium (137-145) mmol/L Potassium (3.5-5.1) mmol/L Chloride (98-107) mmol/L Carbon Dioxide (22-30) mmol/L Anion Gap mmol/L BUN (7-17) mg/dL Creatinine (0.52-1.04) mg/dL Est GFR (CKD-EPI)AfAm (>60 ml/min/1.73 sqM) Est GFR (CKD-EPI)NonAf (>60 ml/min/1.73 sqM) Glucose (74-99) mg/dL Calcium (8.4-10.2) mg/dL Total Bilirubin (0.2-1.3) mg/dL AST (14-36) U/L ALT (4-34) U/L Alkaline Phosphatase (38-126) U/L Troponin I <0.012 (0.000-0.034) ng/mL NT-Pro-B Natriuret Pep 138 pg/mL Total Protein (6.3-8.2) g/dL Albumin (3.5-5.0) g/dL Disposition Clinical Impression: Asthma exacerbation Disposition: HOME SELF-CARE Instructions (If sedation given, give patient instructions): Asthma (ED) Prescriptions: Albuterol Sulfate [Proair Hfa] 1 - 2 puff INHALATION Q6HR PRN #8.5 gm PRN Reason: Dyspnea Azithromycin [Zithromax Z Pack] 1 tab PO DIRECTED #6 tab Is patient prescribed a controlled substance at d/c from ED?: No Referrals: Ervin Rodarte MD [Primary Care Provider] - 1-2 days Time of Disposition: 18:11
[2022-11-30 15:02] LABS: Basophils % (A) 0 %; Eosinophils # (A) 0.2 k/uL (0-0.7); Eosinophils % (A) 3 %; HCT 42.1 % (34.0-46.0); HGB 14.2 gm/dL (11.4-16.0); Lymphocytes # (A) 1.5 k/uL (1.0-4.8); Lymphocytes % (A) 19 %; MCH 29.2 pg (25.0-35.0); MCHC 33.7 g/dL (31.0-37.0); MCV 86.6 fL (80.0-100.0); Mean Platelet Volume 7.5; Monocytes # (A) 0.2 k/uL (0-1.0); Monocytes % (A) 3 %; Neutrophils # (A) 5.9 k/uL (1.3-7.7); Neutrophils % (A) 74 %; Platelet Count 234 k/uL (150-450); RBC 4.86 m/uL (3.80-5.40); RDW 13.6 % (11.5-15.5); WBC 7.9 k/uL (3.8-10.6)
[2022-11-30 15:13] LABS: ALT 38 U/L (4-34); AST 28 U/L (14-36); African American GFR (CKD) >90 (>60 ml/min/1.73 sqM); Albumin 4.3 g/dL (3.5-5.0); Alkaline Phosphatase 91 U/L (38-126); Anion Gap 7 mmol/L; Blood Urea Nitrogen 16 mg/dL (7-17); Calcium 9.2 mg/dL (8.4-10.2); Carbon Dioxide 27 mmol/L (22-30); Chloride 109 mmol/L (98-107); Glucose 121 mg/dL (74-99); Non-African American GFR(CKD) >90 (>60 ml/min/1.73 sqM); Potassium 4.1 mmol/L (3.5-5.1); Sodium 143 mmol/L (137-145); Total Bilirubin 1.3 mg/dL (0.2-1.3); Total Protein 7.1 g/dL (6.3-8.2)
[2022-11-30 15:23] LABS: INR 0.9 (<1.2); Partial Thromboplastin Time 23.5 sec (22.0-30.0); Prothrombin Time 9.4 sec (9.0-12.0)
--- NOTE | 2022-11-30 17:09 | XR ---
EXAMINATION TYPE: XR chest 2V DATE OF EXAM: 11/30/2022 4:45 PM COMPARISON: Chest radiographs from 02/25/2022 TECHNIQUE: XR chest 2V Frontal and lateral views of the chest. CLINICAL INDICATION:Female, 52 years old with history of dyspnea; FINDINGS: Lungs/Pleura: There is no evidence of pleural effusion, focal consolidation, or pneumothorax. Pulmonary vascularity: Unremarkable. Heart/mediastinum: Cardiomediastinal silhouette is unremarkable. Musculoskeletal: No acute osseous pathology. IMPRESSION: No acute cardiopulmonary disease/process.
[2022-11-30 18:28] VITALS: BP 125/98; PULSE 88; RESP 15
== END 2022-11-30 18:28 | disposition home or self-care (01) ==
LOC: EC 13:56
DX: J45.901 Unspecified asthma with (acute) exacerbation (principal); I10 Essential (primary) hypertension; F32.A Depression, unspecified; Z91.048 Other nonmedicinal substance allergy status; Z88.2 Allergy status to sulfonamides; Z88.8 Allergy status to other drugs, medicaments and biological substances; Z79.899 Other long term (current) drug therapy
CPT/HCPCS: 36415; 94640 ×2; 93005; 83880; 80053; 84484; 85025; 85610; 85730; 71046; 99285; 96374; J1100

== ENCOUNTER → 2023-03-06 | Outpatient (CLI) | payer OTHER ==
--- NOTE | 2023-03-06 15:08 | US ---
EXAMINATION TYPE: US kidneys/renal and bladder DATE OF EXAM: 03/06/2023 COMPARISON: US January 11, [address] abdomen and pelvis December 13, 2021 CLINICAL INDICATION: Female, 53 years old with history of R10.9 ABD PAIN; Known kidney stones, pt hav ing flank pain EXAM MEASUREMENTS: Right Kidney: 10.2 x 4.5 x 5.3 cm Left Kidney: 11.9 x 4.5 x 5.3 cm Right Kidney: wnl Left Kidney: No evidence of hydro, possible 2 echogenic foci at lower pole both 6mm in size Bladder: wnl Bilateral Jets seen: No There is no evidence for hydronephrosis at this point in time. When scanning right kidney adjacent li felicita is heterogeneously hyperechoic. Cortical medullary differentiation is maintained in bilateral kid neys. Possible nonobstructing calculi lower pole left kidney. No masses are identified. The urinary bladder is not greatly distended. Bilateral ureteral jets are not seen. IMPRESSION: No hydronephrosis seen bilaterally. Possible 2 small nonobstructing calculi lower pole le ft kidney.
== END | disposition home or self-care (01) ==
LOC: RADUSWWP 14:38
PROVIDERS: ATTEND Family Medicine
DX: R10.9 Unspecified abdominal pain (principal)
CPT/HCPCS: 76770

== ENCOUNTER → 2023-06-02 | Outpatient (CLI) | payer OTHER ==
--- NOTE | 2023-06-05 14:54 | MM ---
Reason for Exam: Screening (asymptomatic). Last screening mammogram was performed 12 month(s) ago. Patient History: Menarche at age 14. First Full-Term at age 27. Hysterectomy at age 35. Postmenopausal. Patient has history of breast feeding. Hormonal Contraceptives for 4 years from age 22 until age 26. 11/2013, Benign Core Biopsy on the left side. Risk Values: Molly 5 year model risk: 1.3%. NCI Lifetime model risk: 11.4%. Prior Study Comparison: 09/11/2019 Bilateral Screening Mammogram, [facility]. 02/18/2021 Bilateral Screening Mammogram, [facility]. 05/20/2022 Bilateral MG screening mammo w CAD, [facility]. Tissue Density: There are scattered fibroglandular densities. Findings: Analyzed By CAD. Pattern appears symmetrical stable. Chronic nodularity is present bilaterally. A core markers within the left breast. No significant interval change is evident. No suspicious groups of microcalcifications, spiculated or lobular masses, architectural distortion or other secondary signs of malignancy are mammographically apparent. Overall Assessment: Benign, BI-RAD 2 Management: Screening Mammogram of both breasts in 1 year. A negative mammogram report should not preclude additional follow up of suspicious palpable abnormalities. Patient should continue monthly self breast exam. A clinical breast exam by your physician is recommended on an annual basis and results should be correlated with mammographic findings. Electronically signed and approved by: Maksim Tobar D.O. Radiologis
== END | disposition home or self-care (01) ==
LOC: RADMAMWWP 10:48
PROVIDERS: ATTEND Family Medicine
DX: Z12.31 Encounter for screening mammogram for malignant neoplasm of breast (principal); Z78.0 Asymptomatic menopausal state
CPT/HCPCS: 77067

== ENCOUNTER 2023-07-20 19:15 | Inpatient (IN) | payer OTHER ==
[2023-07-20] MEDS ORDERED: IPRATROPIUM-ALBUTEROL 3 ML NEB INHALATION STA ×3 (20:04→21:02)
[2023-07-20] MEDS ORDERED: methylPREDNISolone SOD SUCCI 125 MG/2 ML VIAL IV STA (20:04)
[2023-07-20 20:31] LABS: Basophils % (A) 0 %; Eosinophils # (A) 0.2 k/uL (0-0.7); Eosinophils % (A) 2 %; HCT 45.7 % (34.0-46.0); HGB 15.1 gm/dL (11.4-16.0); Lymphocytes # (A) 3.1 k/uL (1.0-4.8); Lymphocytes % (A) 27 %; MCH 29.9 pg (25.0-35.0); MCHC 33.1 g/dL (31.0-37.0); MCV 90.5 fL (80.0-100.0); Mean Platelet Volume 7.3; Monocytes # (A) 0.5 k/uL (0-1.0); Monocytes % (A) 5 %; Neutrophils # (A) 7.5 k/uL (1.3-7.7); Neutrophils % (A) 65 %; Platelet Count 238 k/uL (150-450); RBC 5.04 m/uL (3.80-5.40); RDW 13.1 % (11.5-15.5); WBC 11.5 k/uL (3.8-10.6)
[2023-07-20 20:40] LABS: INR 0.9 (<1.2); Partial Thromboplastin Time 22.9 sec (22.0-30.0); Prothrombin Time 9.4 sec (9.0-12.0)
[2023-07-20] MEDS ORDERED: KETOROLAC 15 MG/ML 1 ML VIAL IVP STA (20:45)
[2023-07-20 20:56] LABS: ALT 28 U/L (4-34); AST 21 U/L (14-36); African American GFR (CKD) >90 (>60 ml/min/1.73 sqM); Albumin 4.1 g/dL (3.5-5.0); Alkaline Phosphatase 78 U/L (38-126); Anion Gap 10 mmol/L; Blood Urea Nitrogen 17 mg/dL (7-17); Calcium 9.6 mg/dL (8.4-10.2); Carbon Dioxide 27 mmol/L (22-30); Chloride 102 mmol/L (98-107); Glucose 143 mg/dL (74-99); Non-African American GFR(CKD) >90 (>60 ml/min/1.73 sqM); Sodium 139 mmol/L (137-145); Total Bilirubin 0.7 mg/dL (0.2-1.3)
[2023-07-20] MEDS: LIDOCAINE 5% PATCH TOPICAL SCH (20:57)
[2023-07-20] MEDS ORDERED: ONDANSETRON 4 MG/2 ML VIAL IVP STA (21:02)
[2023-07-20] MEDS ORDERED: MORPHINE SULFATE 4 MG/ML SYRINGE IVP STA (21:50)
--- NOTE | 2023-07-20 22:04 | XR ---
EXAMINATION TYPE: XR chest 2V DATE OF EXAM: 07/20/2023 9:38 PM CLINICAL INDICATION:Female, 53 years old with history of difficulty breathing; [facility] COMPARISON: Chest radiographs from 07/11/2023 TECHNIQUE: XR chest 2V Frontal and lateral views of the chest. FINDINGS: Lungs/Pleura: There is flattening of the diaphragm with increased lucency of the lungs. No evidence o f pneumothorax, pleural effusion or focal consolidation. Pulmonary vascularity: Unremarkable. Heart/mediastinum: Cardiomediastinal silhouette is unremarkable. Musculoskeletal: No acute osseous pathology. IMPRESSION: 1. No acute cardiopulmonary disease process. 2. COPD changes.
--- NOTE | 2023-07-20 23:10 | ED ---
General Adult HPI - General Chief complaint: Upper Respiratory Infection Stated complaint: respiratory issues Time Seen by Provider: 07/20/23 19:52 Source: patient Mode of arrival: ambulatory Limitations: no limitations - History of Present Illness Initial comments: 53-year-old female with history of asthma presenting with chief complaint of cough and shortness of breath. Patient was recently discharged on 07/14 for asthma exacerbation, she states that she has been gradually worsening since discharge. She states that at home she uses albuterol inhaler, Symbicort, and DuoNeb. She admits to chest tightness. She also admits to sharp pain to the back on the right side. States that at times she coughs hard that she vomits. She follows with Dr. Aguilar in the outpatient setting. - Related Data Home Medications Medication Instructions Recorded Confirmed Cetirizine HCl [Zyrtec] 10 mg PO HS 01/10/18 07/20/23 traZODone HCL [Desyrel] 50 mg PO HS 03/15/21 07/20/23 DULoxetine HCL [Cymbalta] 30 mg PO HS 02/25/22 07/20/23 Losartan Potassium [Cozaar] 100 mg PO HS 02/25/22 07/20/23 Pantoprazole [Protonix] 40 mg PO HS 02/25/22 07/20/23 Albuterol Inhaler [Ventolin Hfa 2 puff INHALATION RT-Q4H PRN 11/30/22 07/20/23 Inhaler] Rosuvastatin [Crestor] 20 mg PO HS 11/30/22 07/20/23 Metoprolol Succinate (ER) [Toprol 100 mg PO HS 07/11/23 07/20/23 XL] Tirzepatide [Mounjaro] 2.5 mg SQ FR 07/11/23 07/20/23 Previous Rx's Medication Instructions Recorded Budesonide/Formoterol Fumarate 2 puff INHALATION RT-BID #0 07/14/23 [Symbicort 160-4.5 Mcg Inhaler] Ipratropium-Albuterol Nebulize 3 ml INHALATION RT-Q8H PRN #10 each 07/14/23 [Duoneb 0.5 mg-3 mg/3 ml Soln] Allergies Allergy/AdvReac Type Severity Reaction Status Date / Time adhesive tape Allergy Rash/Hives Verified 07/20/23 23:16 benzene Allergy Itching Verified 07/20/23 23:16 Iodine and Iodide Containing Allergy Unknown Verified 07/20/23 23:16 Produc Sulfa (Sulfonamide Allergy Dyspnea Verified 07/20/23 23:16 Antibiotics) Review of Systems ROS Statement: Those systems with pertinent positive or pertinent negative responses have been documented in the HPI. ROS Other: All systems not noted in ROS Statement are negative. Past Medical History Past Medical History: Asthma, GERD/Reflux, Hyperlipidemia, Hypertension, Sleep Apnea/CPAP/BIPAP Additional Past Medical History / Comment(s): Kidney Stones, intermittent tachycardia, pre-diabetes, nonsmokers emphysema. no cpap History of Any Multi-Drug Resistant Organisms: None Reported Past Surgical History: Back Surgery, Cholecystectomy, Hysterectomy, Orthopedic Surgery Additional Past Surgical History / Comment(s): Rotator cuff left; foot surgery left Past Anesthesia/Blood Transfusion Reactions: No Reported Reaction Past Psychological History: Depression Smoking Status: Never smoker Past Alcohol Use History: Occasional Past Drug Use History: None Reported - Past Family History Mother Family Medical History: Myocardial Infarction ([place]) Father Family Medical History: CVA/TIA General Exam Limitations: no limitations General appearance: alert, in no apparent distress Head exam: Present: atraumatic, normocephalic, normal inspection Eye exam: Present: normal appearance, EOMI. Absent: scleral icterus, periorbital swelling Neck exam: Present: normal inspection, full ROM Respiratory exam: Present: respiratory distress, wheezes, accessory muscle use Cardiovascular Exam: Present: normal rhythm, tachycardia. Absent: systolic murmur, diastolic murmur, rubs, gallop, clicks Neurological exam: Present: alert, oriented X3, CN II-XII intact Psychiatric exam: Present: normal affect, normal mood Skin exam: Present: warm, dry, intact, normal color. Absent: rash Course Vital Signs 07/20/23 07/20/23 07/20/23 19:44 20:48 21:26 Temperature 98.1 F Pulse Rate 128 H 125 H 128 H Respiratory 20 Rate Blood Pressure 149/108 O2 Sat by Pulse 96 Oximetry 07/20/23 07/20/23 07/21/23 23:41 23:56 00:09 Temperature Pulse Rate 91 92 96 Respiratory 20 Rate Blood Pressure 178/94 O2 Sat by Pulse 96 Oximetry 07/21/23 00:10 Temperature Pulse Rate 105 H Respiratory Rate Blood Pressure O2 Sat by Pulse Oximetry Medical Decision Making - Medical Decision Making Was pt. sent in by a medical professional or institution (, [facility], [facility], urgent care, hospital, or [facility]...) When possible be specific @ -No Did you speak to anyone other than the patient for history (EMS, parent, family, police, friend...)? What history was obtained from this source @ -No Did you review nursing and triage notes (agree or disagree)? Why? @ -I reviewed and agree with nursing and triage notes Were old charts reviewed (outside hosp., previous admission, EMS record, old EKG, old radiological studies, urgent care reports/EKG's, [facility] records)? Report findings @ -No old charts were reviewed Differential Diagnosis (chest pain, altered mental status, abdominal pain women, abdominal pain men, vaginal bleeding, weakness, fever, dyspnea, syncope, headache, dizziness, GI bleed, back pain, seizure, CVA, palpatations, mental health, musculoskeletal)? @ -MDM Differential Dyspnea: Coronary syndrome, arrhythmia, tamponade, asthma, COPD, pulmonary embolism, pneumonia, pneumothorax, pulmonary effusion, anaphylaxis, diabetic ketoacidosis, flailed chest, pulmonary contusion, diaphragmatic rupture, anemia, neuromuscular this is not meant to be an all-inclusive list. EKG interpreted by me (3pts min.). @ -As above X-rays interpreted by me (1pt min.). @ -No acute cardiopulmonary process. COPD changes. CT interpreted by me (1pt min.). @ -None done U/S interpreted by me (1pt. min.). @ -None done What testing was considered but not performed or refused? (CT, X-rays, U/S, labs)? Why? @ -None What meds were considered but not given or refused? Why? @ -None Did you discuss the management of the patient with other professionals (professionals i.e. [facility], [facility], lab, RT, psych nurse, clinical social work aide, bark scaler, teacher, collection officer, nurse case management)? Give summary @ -I spoke with Dr. Ling who accepted admission Was smoking cessation discussed for >3mins.? @ -No Was critical care preformed (if so, how long)? @ -No Were there social determinants of health that impacted care today? How? (Homel essness, low income, unemployed, alcoholism, drug addiction, transportation, low edu. Level, literacy, decrease access to med. care, assisted, rehab)? @ -No Was there de-escalation of care discussed even if they declined (Discuss DNR or withdrawal of care, Hospice)? DNR status @ -No What co-morbidities impacted this encounter? (DM, HTN, Smoking, COPD, CAD, Cancer, CVA, ARF, Chemo, Hep., AIDS, mental health diagnosis, sleep apnea, morbid obesity)? @ -Asthma Was patient admitted / discharged? Hospital course, mention meds given and route, prescriptions, significant lab abnormalities, going to OR and other pertinent info. @ -53-year-old female presenting with chief complaint of shortness of breath. She admits to cough and wheezing. History of asthma. On physical examination diffuse wheezes heard on auscultation. Patient is given 3 DuoNeb treatments and Solu-Medrol 125 mg. Lab work is essentially unremarkable, negative d-dimer and troponin. Negative influenza, RSV, Covid. Chest x-ray shows no acute process. Patient will be admitted for asthma exacerbation. She is agreeable with this plan. Discussed this case with my attending Dr. Marie Undiagnosed new problem with uncertain prognosis? @ -No Drug Therapy requiring intensive monitoring for toxicity (Heparin, Nitro, Insulin, Cardizem)? @ -No Were any procedures done? @ -No Diagnosis/symptom? @ -Asthma exacerbation Acute, or Chronic, or Acute on Chronic? @ -acute Uncomplicated (without systemic symptoms) or Complicated (systemic symptoms)? @ -Complicated Side effects of treatment? @ -No Exacerbation, Progression, or Severe Exacerbation? @ -Exacerbation Poses a threat to life or bodily function? How? (Chest pain, USA, ID, pneumonia, PE, COPD, DKA, ARF, appy, cholecystitis, CVA, Diverticulitis, Homicidal, Suicidal, threat to staff... and all critical care pts) @ -yes - Lab Data Result diagrams: 07/20/23 20:21 07/20/23 20:21 Lab Results 07/20/23 07/20/23 07/20/23 Range/Units 20:21 20:21 20:21 WBC 11.5 H (3.8-10.6) k/uL RBC 5.04 (3.80-5.40) m/uL Hgb 15.1 (11.4-16.0) gm/dL Hct 45.7 (34.0-46.0) % MCV 90.5 (80.0-100.0) fL MCH 29.9 (25.0-35.0) pg MCHC 33.1 (31.0-37.0) g/dL RDW 13.1 (11.5-15.5) % Plt Count 238 (150-450) k/uL MPV 7.3 Neutrophils % 65 % Lymphocytes % 27 % Monocytes % 5 % Eosinophils % 2 % Basophils % 0 % Neutrophils # 7.5 (1.3-7.7) k/uL Lymphocytes # 3.1 (1.0-4.8) k/uL Monocytes # 0.5 (0-1.0) k/uL Eosinophils # 0.2 (0-0.7) k/uL Basophils # 0.0 (0-0.2) k/uL PT 9.4 (9.0-12.0) sec INR 0.9 (<1.2) APTT 22.9 (22.0-30.0) sec D-Dimer (<0.60) mg/L FEU Sodium 139 (137-145) mmol/L Potassium 4.0 (3.5-5.1) mmol/L Chloride 102 (98-107) mmol/L Carbon Dioxide 27 (22-30) mmol/L Anion Gap 10 mmol/L BUN 17 (7-17) mg/dL Creatinine 0.63 (0.52-1.04) mg/dL Est GFR (CKD-EPI)AfAm >90 (>60 ml/min/1.73 sqM) Est GFR (CKD-EPI)NonAf >90 (>60 ml/min/1.73 sqM) Glucose 143 H (74-99) mg/dL Calcium 9.6 (8.4-10.2) mg/dL Total Bilirubin 0.7 (0.2-1.3) mg/dL AST 21 (14-36) U/L ALT 28 (4-34) U/L Alkaline Phosphatase 78 (38-126) U/L Troponin I (0.000-0.034) ng/mL Total Protein 7.0 (6.3-8.2) g/dL Albumin 4.1 (3.5-5.0) g/dL Influenza Type A (PCR) (Not Detectd) Influenza Type B (PCR) (Not Detectd) RSV (PCR) (Not Detectd) SARS-CoV-2 (PCR) (Not Detectd) 07/20/23 07/20/23 07/20/23 Range/Units 20:21 20:21 20:21 WBC (3.8-10.6) k/uL RBC (3.80-5.40) m/uL Hgb (11.4-16.0) gm/dL Hct (34.0-46.0) % MCV (80.0-100.0) fL MCH (25.0-35.0) pg MCHC (31.0-37.0) g/dL RDW (11.5-15.5) % Plt Count (150-450) k/uL MPV Neutrophils % % Lymphocytes % % Monocytes % % Eosinophils % % Basophils % % Neutrophils # (1.3-7.7) k/uL Lymphocytes # (1.0-4.8) k/uL Monocytes # (0-1.0) k/uL Eosinophils # (0-0.7) k/uL Basophils # (0-0.2) k/uL PT (9.0-12.0) sec INR (<1.2) APTT (22.0-30.0) sec D-Dimer 0.41 (<0.60) mg/L FEU Sodium (137-145) mmol/L Potassium (3.5-5.1) mmol/L Chloride (98-107) mmol/L Carbon Dioxide (22-30) mmol/L Anion Gap mmol/L BUN (7-17) mg/dL Creatinine (0.52-1.04) mg/dL Est GFR (CKD-EPI)AfAm (>60 ml/min/1.73 sqM) Est GFR (CKD-EPI)NonAf (>60 ml/min/1.73 sqM) Glucose (74-99) mg/dL Calcium (8.4-10.2) mg/dL Total Bilirubin (0.2-1.3) mg/dL AST (14-36) U/L ALT (4-34) U/L Alkaline Phosphatase (38-126) U/L Troponin I <0.012 (0.000-0.034) ng/mL Total Protein (6.3-8.2) g/dL Albumin (3.5-5.0) g/dL Influenza Type A (PCR) Not Detected (Not Detectd) Influenza Type B (PCR) Not Detected (Not Detectd) RSV (PCR) Not Detected (Not Detectd) SARS-CoV-2 (PCR) Not Detected (Not Detectd) Disposition Clinical Impression: Asthma exacerbation Disposition: ADMITTED IP TO THIS HOSP Condition: Fair Time of Disposition: 23:10
[2023-07-20] MEDS ORDERED: IPRATROPIUM-ALBUTEROL 3 ML NEB INHALATION PRN (23:15)
[2023-07-20] MEDS ORDERED: NALOXONE 0.4 MG/ML 1 ML VIAL IVP PRN (23:15)
[2023-07-20] MEDS ORDERED: ACETAMINOPHEN TAB 325 MG TAB PO PRN (23:19)
[2023-07-21] MEDS: methylPREDNISolone SOD SUCCI 125 MG/2 ML VIAL IV SCH ×5 (00:04→23:35)
--- NOTE | 2023-07-21 01:09 | P.CNPUL ---
History of Present Illness Consult date: 07/21/23 Requesting physician: Ibeth Martinez Reason for consult: asthma Chief complaint: Shortness of breath and cough History of present illness: I am seeing this patient in new consultation today 07/21/2023 for exacerbation of severe persistent asthma. Patient is a 53-year-old white female with past medical history significant for severe persistent asthma maintained on Xolair, Symbicort, and when necessary albuterol outpatient. She does follow with Dr. Aguilar in the office. She recently stopped her Xolair, because she developed postherpetic neuralgia from prior shingles. She did have a recent admission back on July 12 for similar symptoms. She was discharged on July 14 with a steroid taper. Yesterday, she restarted her Xolair. Since her discharge, she is been having progressively worsening dyspnea. She's also had a persistent mostly nonproductive cough, chest tightness, and wheezing. She has some chest and thoracic back pain that occurs with coughin only. Denies fevers. Denies sick contacts. She has not had much relief from her rescue inhaler. She did go to an urgent care clinic in [place] yesterday, who directed her to the emergency room late last night. Patient is currently sitting up at the edge of the bed, on room air, and mildly dyspneic. Chest x-ray on arrival showed no acute cardiopulmonary process. Negative for influenza, RSV, COVID-19. CBC shows a WBC count 11.5, hemoglobin 14.1, hematocrit 45.7, platelets 238. D-dimer was normal at 0.41. BMP was unremarkable. Troponin less than 0.012. Afebrile. Overall, the patient is currently medically stable and is being admitted to the general medical floor. Review of Systems REVIEW OF SYSTEMS: CONSTITUTIONAL: Denies any recent significant weight loss or weight gain. EYES: Denies change in vision. EARS, NOSE, MOUTH, THROAT: Denies headaches, denies sore throat. CARDIOVASCULAR: Denies chest pain, palpitations or syncopal episodes. RESPIRATORY: See HPI GASTROINTESTINAL: Denies change in appetite, abdominal pain, nausea and vomiting, or diarrhea GENITOURINARY: Denies hematuria, denies infections. MUSKULOSKELETAL: Denies pain, denies swelling. INTEGUMENTARY: Denies rash, denies eczema. NEUROLOGICAL: Denies recent memory loss, no recent seizure activity. PSYCHIATRIC: Denies anxiety, denies depression. HEMATOLOGIC/LYMPHATIC: Denies anemia, denies enlarged lymph node Past Medical History Past Medical History: Asthma, GERD/Reflux, Hyperlipidemia, Hypertension, Sleep Apnea/CPAP/BIPAP Additional Past Medical History / Comment(s): Kidney Stones, intermittent ta chycardia, pre-diabetes, nonsmokers emphysema. no cpap History of Any Multi-Drug Resistant Organisms: None Reported Past Surgical History: Back Surgery, Cholecystectomy, Hysterectomy, Orthopedic Surgery Additional Past Surgical History / Comment(s): Rotator cuff left; foot surgery left Past Anesthesia/Blood Transfusion Reactions: No Reported Reaction Past Psychological History: Depression Smoking Status: Never smoker Past Alcohol Use History: Occasional Past Drug Use History: None Reported - Past Family History Mother Family Medical History: Myocardial Infarction ([place]) Father Family Medical History: CVA/TIA Medications and Allergies Home Medications Medication Instructions Recorded Confirmed Type Cetirizine HCl [Zyrtec] 10 mg PO HS 01/10/18 07/20/23 History traZODone HCL [Desyrel] 50 mg PO HS 03/15/21 07/20/23 History DULoxetine HCL [Cymbalta] 30 mg PO HS 02/25/22 07/20/23 History Losartan Potassium [Cozaar] 100 mg PO HS 02/25/22 07/20/23 History Pantoprazole [Protonix] 40 mg PO HS 02/25/22 07/20/23 History Albuterol Inhaler [Ventolin Hfa 2 puff INHALATION RT-Q4H PRN 11/30/22 07/20/23 History Inhaler] Rosuvastatin [Crestor] 20 mg PO HS 11/30/22 07/20/23 History Metoprolol Succinate (ER) [Toprol 100 mg PO HS 07/11/23 07/20/23 History XL] Tirzepatide [Mounjaro] 2.5 mg SQ FR 07/11/23 07/20/23 History Budesonide/Formoterol Fumarate 2 puff INHALATION RT-BID #0 07/14/23 07/20/23 Rx [Symbicort 160-4.5 Mcg Inhaler] Ipratropium-Albuterol Nebulize 3 ml INHALATION RT-Q8H PRN #10 each 07/14/23 07/20/23 Rx [Duoneb 0.5 mg-3 mg/3 ml Soln] Allergies Allergy/AdvReac Type Severity Reaction Status Date / Time adhesive tape Allergy Rash/Hives Verified 07/20/23 23:16 benzene Allergy Itching Verified 07/20/23 23:16 Iodine and Iodide Containing Allergy Unknown Verified 07/20/23 23:16 Produc Sulfa (Sulfonamide Allergy Dyspnea Verified 07/20/23 23:16 Antibiotics) Physical Exam Vitals: Vital Signs Temp Pulse Resp BP Pulse Ox 07/21/23 00:10 105 H 07/21/23 00:09 96 20 178/94 96 07/20/23 23:56 92 07/20/23 23:41 91 07/20/23 21:26 128 H 07/20/23 20:48 125 H 07/20/23 19:44 98.1 F 128 H 20 149/108 96 Intake and Output 07/20/23 07/20/23 07/21/23 14:59 22:59 06:59 Other: Weight 122.47 kg GENERAL EXAM: Alert, 53-year-old white female appearing stated age, comfortable in no apparent distress. HEAD: Normocephalic and atraumatic EYES: Normal reaction of pupils, equal size. NOSE: Clear with pink turbinates. THROAT: No erythema or exudates. NECK: No masses, no JVD. CHEST: No chest wall deformity. LUNGS: Equal air entry with diminished lung sounds throughout and expiratory wheezes. On room air. Speaking in sentences, mildly dyspneic CVS: S1 and S2 normal with no audible murmur, regular rhythm. No extra heart sounds. Tachycardic heart rate 116 bpm. ABDOMEN: No hepatosplenomegaly, active bowel sounds, no guarding or rigidity. SPINE: No scoliosis or deformity SKIN: No rashes CENTRAL NERVOUS SYSTEM: No focal deficits, tone is normal in all 4 extremities. EXTREMITIES: There is no peripheral edema, clubbing, or cyanosis. Peripheral pulses are intact. Results - Laboratory Findings CBC and BMP: 07/20/23 20:21 07/20/23 20:21 PT/INR, D-dimer PT 9.4 sec (9.0-12.0) 07/20/23 20: INR 0.9 (<1.2) 07/20/23 20: D-Dimer 0.41 mg/L FEU (<0.60) 07/20/23 20:21 Abnormal lab findings: Abnormal Labs 07/20/23 07/20/23 20:21 20:21 WBC 11.5 H Glucose 143 H - Diagnostic Findings Chest x-ray: image reviewed Assessment and Plan Assessment: Acute exacerbation of severe persistent chronic bronchial asthma. Possibly exacerbated by stopping Xolair. Chest x-ray on arrival showed no infiltrates or evidence of pneumonia. Negative for influenza, RSV, COVID-19. Benign essential hypertension Hyperlipidemia Type 2 diabetes mellitus Gastroesophageal reflux disease Obesity, with a BMI of 39.9 kg/m Never smoker Plan: Patient's medications, labs, chest x-ray reviewed On room air Patient has been started on a combination of bronchodilators, Symbicort inhaler, and IV Solu Medrol. Overall, the patient appears hemodynamically stable, and will be admitted to the general medical floor. We will continue to follow and make recommendations I have personally seen and examined the patient, performed the documentation and the assessment and plan as written. Number of minutes spent on the visit:20 This is a joint evaluation that was done along with the nurse practitioner. The patient has severe persistent bronchial asthma, and the patient was treated with a combination of Symbicort and bronchodilators on outpatient basis and the patient has limited on Xolair injections and according to her, the Xolair injection has given a significant symptomatic relief and the steroid requirement has dropped significantly while on therapy. She developed an episode of shingles. She had stopped Xolair injections for approximately a month and her disease exacerbated. After being treated as an outpatient, she was discharged home on a prednisone burst taper on 07/14/2023 to be readmitted for worsening shortness of breath. She is a nonsmoker. She has active bronchospasm wheezing and on examination there is marked diminished breath sounds bilaterally. Chest x-ray is clear. Blood work is negative. The viral screening was also negative. Recommend DuoNeb updrafts, will switch to Symbicort to a combination of budesonide Pulmicort updrafts twice a day and will continue IV Solu-Medrol for now. We'll continue to follow. This evaluation was done in more than 30 minutes. The patient is diabetic and will monitor blood sugar while she is being treated with systemic steroids and the patient was placed on sliding-scale insulin coverage. Time with Patient: Greater than 30
[2023-07-21] MEDS ORDERED: DEXTROSE 50% SYRINGE 50 ML IVP PRN ×2 (01:58)
[2023-07-21] MEDS: METOPROLOL SUCCINATE (ER) 100 MG TAB.ER.24H PO SCH ×2 (02:20→21:35)
[2023-07-21] MEDS: PANTOPRAZOLE 40 MG TABLET PO SCH ×2 (02:20→21:36)
[2023-07-21] MEDS: DULoxetine HCL 30 MG CAPSULE.DR PO SCH ×2 (02:20→21:35)
[2023-07-21] MEDS: LOSARTAN 50 MG TAB PO SCH ×2 (02:20→21:35)
[2023-07-21] MEDS: traZODone HCL 50 MG TAB PO SCH ×2 (02:20→21:36)
[2023-07-21] MEDS: ATORVASTATIN 40 MG TAB PO SCH ×2 (02:20→21:36)
--- NOTE | 2023-07-21 04:32 | P.HPIM ---
History of Present Illness H&P Date: 07/21/23 Chief Complaint: Shortness of breath 53-year-old female with severe asthma Patient coming in for evaluation of worsening shortness of breath she was recently hospitalized on July 11 for about 3 days where she was given IV Solu-Medrol breathing treatment and azithromycin she was diagnosed with asthma exacerbation was discharged on prednisone for couple days she reports that since she finished the prednisone her breathing started getting worse again she's been wheezing with severe shortness of breath with the slightest activity and over the past couple days she's having shortness of breath even at rest while doing nothing she can't even talk of his sentences denies any fevers or chills reports nonproductive cough denies any hemoptysis denies any chest pain denies any nausea vomiting She reports that she used to take Xolair however she stopped secondary to brittni ngles and then resumed yesterday. She denies any tobacco smoking denies any known sick contacts denies any recent travel denies any history of blood clots or coronary artery disease. review of systems Pertinent positives as noted in HPI. All other systems were reviewed and are negative on exam Constitutional: Patient is short of breath while talking difficult for her to finish a sentence she is audibly wheezing Eyes: Anicteric sclerae, moist conjunctiva, Pupils equal round reactive to light ENMT: NC/AT Oropharynx clear, no erythema, or exudates Neck: Supple, no masses, or JVD No carotid bruits No thyromegaly Lungs: Diffuse inspiratory and 3 wheezing Clear to percussion Using accessory muscles of respiration Cardiovascular: Heart regular in rate and rhythm, No murmurs, gallops, or rubs No peripheral edema Abdominal: Soft Nontender, no guarding, rebound or rigidity Abdomen moving with respiration Normoactive bowel sounds No hepatomegaly, No splenomegaly No palpable mass No abdominal wall hernia noted Extremities: No digital cyanosis No clubbing Pedal pulses intact and symmetrical Radial pulses intact and symmetrical No calf tenderness Psychiatric: Alert and oriented to person, place and time Appropriate affect fair judgement Neuro Muscles Strength 5/5 in all 4 extremities Sensation to light touch grossly present throughout Cranial nerves II-XII grossly intact Lymphatics: no palpable cervical or supraclavicular lymph nodes Past Medical History Past Medical History: Asthma, GERD/Reflux, Hyperlipidemia, Hypertension, Sleep Apnea/CPAP/BIPAP Additional Past Medical History / Comment(s): Kidney Stones, intermittent tachycardia, pre-diabetes, nonsmokers emphysema. no cpap History of Any Multi-Drug Resistant Organisms: None Reported Past Surgical History: Back Surgery, Cholecystectomy, Hysterectomy, Orthopedic Surgery Additional Past Surgical History / Comment(s): Rotator cuff left; foot surgery left Past Anesthesia/Blood Transfusion Reactions: No Reported Reaction Past Psychological History: Depression Smoking Status: Never smoker Past Alcohol Use History: Occasional Past Drug Use History: None Reported - Past Family History Mother Family Medical History: Myocardial Infarction ([place]) Father Family Medical History: CVA/TIA Medications and Allergies Home Medications Medication Instructions Recorded Confirmed Type Cetirizine HCl [Zyrtec] 10 mg PO HS 01/10/18 07/20/23 History traZODone HCL [Desyrel] 50 mg PO HS 03/15/21 07/20/23 History DULoxetine HCL [Cymbalta] 30 mg PO HS 02/25/22 07/20/23 History Losartan Potassium [Cozaar] 100 mg PO HS 02/25/22 07/20/23 History Pantoprazole [Protonix] 40 mg PO HS 02/25/22 07/20/23 History Albuterol Inhaler [Ventolin Hfa 2 puff INHALATION RT-Q4H PRN 11/30/22 07/20/23 History Inhaler] Rosuvastatin [Crestor] 20 mg PO HS 11/30/22 07/20/23 History Metoprolol Succinate (ER) [Toprol 100 mg PO HS 07/11/23 07/20/23 History XL] Tirzepatide [Mounjaro] 2.5 mg SQ FR 07/11/23 07/20/23 History Budesonide/Formoterol Fumarate 2 puff INHALATION RT-BID #0 07/14/23 07/20/23 Rx [Symbicort 160-4.5 Mcg Inhaler] Ipratropium-Albuterol Nebulize 3 ml INHALATION RT-Q8H PRN #10 each 07/14/23 Rx [Duoneb 0.5 mg-3 mg/3 ml Soln] Allergies Allergy/AdvReac Type Severity Reaction Status Date / Time adhesive tape Allergy Rash/Hives Verified 07/20/23 23:16 benzene Allergy Itching Verified 07/20/23 23:16 Iodine and Iodide Containing Allergy Unknown Verified 07/20/23 23:16 Produc Sulfa (Sulfonamide Allergy Dyspnea Verified 07/20/23 23:16 Antibiotics) Physical Exam Vitals: Vital Signs Temp Pulse Pulse Resp BP BP Pulse Ox 07/21/23 02:20 135/88 07/21/23 02:00 97.9 F 114 H 18 129/86 92 L 07/21/23 01:50 18 07/21/23 00:10 105 H 07/21/23 00:09 96 20 178/94 96 07/20/23 23:56 92 07/20/23 23:41 91 07/20/23 21:26 128 H 07/20/23 20:48 125 H 07/20/23 19:44 98.1 F 128 H 20 149/108 96 Intake and Output 07/20/23 07/20/23 07/21/23 14:59 22:59 06:59 Other: Weight 122.47 kg 122.47 kg Results CBC & Chem 7: 07/20/23 20:21 07/20/23 20:21 Labs: Abnormal Lab Results - Last 24 Hours (Table) 07/20/23 07/20/23 Range/Units 20:21 20:21 WBC 11.5 H (3.8-10.6) k/uL Glucose 143 H (74-99) mg/dL Thrombosis Risk Factor Assmnt - Choose All That Apply Each Factor Represents 1 point: Age 41-60 years Thrombosis Risk Factor Assessment Total Risk Factor Score: 1 Thrombosis Risk Factor Assessment Level: Low Risk Assessment and Plan Assessment: 53-year-old female recently discharged from the hospital returning with worsening shortness of breath after finished her by mouth prednisone at discussed the case with the ED doctor and accepted the admission for acute asthma exacerbation with anticipated length of stay more than 2 midnights Severe recurrent asthma exacerbation Resume Symbicort DuoNeb scheduled and when necessary Restart IV Solu-Medrol consider a more prolonged course of prednisone upon di scharge Chest x-ray no acute pathology Vital signs otherwise stable Afebrile Blood work showing hemoglobin 15 white count 11.5 unremarkable Renal function unremarkable sodium 139 potassium 4 BUN 17 creatinine 0.6 Acute respiratory viral panel negative for Covid RSV and influenza EKG tachycardia no acute ST changes Chronic conditions Diabetes mellitus insulin sliding scale Hypertension resume metoprolol and losartan Hyperlipidemia resume statin Full code Due to prophylaxis of subcu daily
[2023-07-21 06:10] LABS: Glucose,Whole Blood 162 mg/dL (70-110)
[2023-07-21] MEDS: INSULIN ASPART (NovoLOG) 100 UNIT/ML VIAL SQ SCH ×4 (07:01→21:45)
[2023-07-21] MEDS ORDERED: SYMBICORT 160-4.5 MCG INHALER INHALATION SCH ×2 (08:00)
[2023-07-21] MEDS: HEPARIN SODIUM,PORCINE 5,000 UNIT/ML 1 ML VIAL SQ SCH ×3 (08:02→23:35)
[2023-07-21] MEDS: IPRATROPIUM-ALBUTEROL 3 ML NEB INHALATION SCH ×4 (09:03→20:07)
[2023-07-21 11:09] LABS: Glucose,Whole Blood 155 mg/dL (70-110)
[2023-07-21] MEDS: MORPHINE SULFATE 4 MG/ML SYRINGE IV PRN ×2 (11:33→20:11)
[2023-07-21 16:06] LABS: Glucose,Whole Blood 170 mg/dL (70-110)
[2023-07-21] MEDS: BUDESONIDE 0.5 MG/2 ML NEBU INHALATION SCH (20:07)
[2023-07-21] MEDS: FORMOTEROL FUMARATE 20 MCG/2 ML NEBU INHALATION SCH (20:07)
[2023-07-21 20:56] LABS: Glucose,Whole Blood 196 mg/dL (70-110)
[2023-07-21] MEDS: LIDOCAINE 5% PATCH TOPICAL SCH (21:44)
[2023-07-22] MEDS: methylPREDNISolone SOD SUCCI 125 MG/2 ML VIAL IV SCH ×3 (05:32→19:35)
[2023-07-22 05:41] LABS: Glucose,Whole Blood 156 mg/dL (70-110)
[2023-07-22] MEDS: INSULIN ASPART (NovoLOG) 100 UNIT/ML VIAL SQ SCH ×4 (06:09→21:50)
[2023-07-22] MEDS: IPRATROPIUM-ALBUTEROL 3 ML NEB INHALATION SCH ×4 (07:24→21:39)
[2023-07-22] MEDS: BUDESONIDE 0.5 MG/2 ML NEBU INHALATION SCH ×2 (07:24→21:39)
[2023-07-22] MEDS: FORMOTEROL FUMARATE 20 MCG/2 ML NEBU INHALATION SCH ×2 (07:36→21:39)
[2023-07-22] MEDS: HEPARIN SODIUM,PORCINE 5,000 UNIT/ML 1 ML VIAL SQ SCH ×2 (08:11→17:20)
[2023-07-22] MEDS: KETOROLAC 15 MG/ML 1 ML VIAL IVP PRN (10:52)
[2023-07-22 11:43] LABS: Glucose,Whole Blood 235 mg/dL (70-110)
--- NOTE | 2023-07-22 12:43 | P.PN ---
Subjective Progress Note Date: 07/22/23 I am seeing this patient in new consultation today 07/21/2023 for exacerbation of severe persistent asthma. Patient is a 53-year-old white female with past medical history significant for severe persistent asthma maintained on Xolair, Symbicort, and when necessary albuterol outpatient. She does follow with Dr. Aguilar in the office. She recently stopped her Xolair, because she developed postherpetic neuralgia from prior shingles. She did have a recent admission back on July 12 for similar symptoms. She was discharged on July 14 with a steroid taper. Yesterday, she restarted her Xolair. Since her discharge, she is been having progressively worsening dyspnea. She's also had a persistent mostly nonproductive cough, chest tightness, and wheezing. She has some chest and thoracic back pain that occurs with coughin only. Denies fevers. Denies sick contacts. She has not had much relief from her rescue inhaler. She did go to an urgent care clinic in [place] yesterday, who directed her to the emergency room late last night. Patient is currently sitting up at the edge of the bed, on room air, and mildly dyspneic. Chest x-ray on arrival showed no acute cardiopulmonary process. Negative for influenza, RSV, COVID-19. CBC shows a WBC count 11.5, hemoglobin 14.1, hematocrit 45.7, platelets 238. D-dimer was normal at 0.41. BMP was unremarkable. Troponin less than 0.012. Afebrile. Overall, the patient is currently medically stable and is being admitted to the general medical floor. On today's evaluation of 07/22/2023 patient is still short of breath, slightly improved compared to yesterday. She is still using O2. She is on bronchodilato rs. She is on steroids. Her chest was aching because of the repeated coughing episodes. She is morbidly obese and she may potentially have an underlying component of obstructive sleep apnea. Underlying tracheal bronchomalacia cannot be completely excluded. - Objective - Vital Signs Vital signs: Vital Signs Temp 97.9 F 07/22/23 07:20 Pulse 94 07/22/23 07:49 Resp 20 07/22/23 08:00 BP 133/76 07/22/23 07:20 Pulse Ox 98 07/22/23 07:25 FiO2 Intake & Output 07/21/23 07/22/23 07/22/23 18:59 06:59 18:59 Intake Total 600 Balance 600 Intake: Oral 600 Other: # Voids 2 2 - Exam GENERAL EXAM: Alert, 53-year-old white female appearing stated age, comfortable in no apparent distress. HEAD: Normocephalic and atraumatic EYES: Normal reaction of pupils, equal size. NOSE: Clear with pink turbinates. THROAT: No erythema or exudates. NECK: No masses, no JVD. CHEST: No chest wall deformity. LUNGS: Equal air entry with diminished lung sounds throughout and expiratory wheezes. On room air. Speaking in sentences, mildly dyspneic CVS: S1 and S2 normal with no audible murmur, regular rhythm. No extra heart sounds. Tachycardic heart rate 116 bpm. ABDOMEN: No hepatosplenomegaly, active bowel sounds, no guarding or rigidity. SPINE: No scoliosis or deformity SKIN: No rashes CENTRAL NERVOUS SYSTEM: No focal deficits, tone is normal in all 4 extremities. EXTREMITIES: There is no peripheral edema, clubbing, or cyanosis. Peripheral pulses are intact. - Labs CBC & Chem 7: 07/20/23 20:21 07/20/23 20:21 Labs: Abnormal Lab Results - Last 24 Hours (Table) 07/21/23 07/21/23 07/22/23 Range/Units 16:05 20:54 05:39 POC Glucose (mg/dL) 170 H 196 H 156 H (70-110) mg/dL 07/22/23 Range/Units 11:41 POC Glucose (mg/dL) 235 H (70-110) mg/dL Assessment and Plan Assessment: Acute exacerbation of severe persistent chronic bronchial asthma. Possibly exacerbated by stopping Xolair. Chest x-ray on arrival showed no infiltrates or evidence of pneumonia. Negative for influenza, RSV, COVID-19. Benign essential hypertension Hyperlipidemia Type 2 diabetes mellitus Gastroesophageal reflux disease Obesity, with a BMI of 39.9 kg/m Never smoker Plan: Slightly improved compared to yesterday Continue same management The patient has severe persistent bronchial asthma, and the patient was treated with a combination of Symbicort and bronchodilators on outpatient basis and the patient has limited on Xolair injections and according to her, the Xolair injection has given a significant symptomatic relief and the steroid requirement has dropped significantly while on therapy. She developed an episode of shingles. She had stopped Xolair injections for approximately a month and her disease exacerbated. After being treated as an outpatient, she was discharged home on a prednisone burst taper on 07/14/2023 to be readmitted for worsening shortness of breath. She is a nonsmoker. She has active bronchospasm wheezing and on examination there is marked diminished breath sounds bilaterally. Chest x-ray is clear. Blood work is negative. The viral screening was also negative. Recommend DuoNeb [facility], will switch to Symbicort to a combination of budesonide Pulmicort [facility] twice a day and will continue IV Solu-Medrol for now. We'll continue to follow. Toradol for chest wall pain in combination with lidocaine patch We'll follow
--- NOTE | 2023-07-22 13:56 | P.PN ---
Subjective Progress Note Date: 07/22/23 53-year-old female with PMH of asthma, GERD, hypertension, dyslipidemia presents the ED for shortness of breath and wheezing. She was recently admitted from 07/11-07/14 for similar complaints. Recently been taken off of Xolair after an episode of shingles which she believes aggravated her symptoms. She was recently restarted and received her first dose this Monday. In the ED, her vital signs were stable, tachycardic in the 120s. CBC showed leukocytosis of 11.5. INR 0.9. D-dimer 0.41. CMP showed glucose 143. A1c 5.8. Troponin less than 0.012. COVID-19, flu, RSV negative. Chest x-ray no acute process. Patient was admitted for asthma exacerbation. Pulmonology was consulted. She was started on Solu-Medrol and bronchodilators scheduled and as needed. 07/22 Patient was seen and examined. No acute events overnight. Patient reports SOB and wheezing. States that she is only 40% better. Nursing reports beats of NSVT so Cardiology was consulted and Echocardiogram was ordered. EKG shows NSR. General: non toxic, no distress, appears at stated age, obese Derm: warm, dry Head: atraumatic, normocephalic, symmetric Eyes: EOMI, no lid lag, anicteric sclera Mouth: no lip lesion, mucus membranes moist Cardiovascular: S1S2 tachycardic, no murmur Lungs: Severely diminished BS bilateral with inspiratory wheezing, no rhonchi, no rales , no accessory muscle use Ext: no gross muscle atrophy, no edema, no contractures Neuro: no focal neuro deficits Psych: Alert, oriented, appropriate affect Acute asthma exacerbation NSVT? Leukocytosis Hypertension Dyslipidemia GERD Based on my assessment of this patient, this patient meets a high complexity level of care. Patient has a history of asthma with severe exacerbation or progression of disease which poses a threat to life or bodily function. Acute asthma exacerbation: Pulmicort 0.5 mg INH BID. Performist 20 mcg INH BID. DuoNeb scheduled and as needed for SOB/wheezing. Solumedrol 60 mg IV Q6H. Pulmonology on board. NSVT? Already on Metoprolol. EKG shows NSR.Cardiology consulted. K 4 and Mg 2.1. Leukocytosis: No signs of active infection. Continue to monitor. Hypertension: Metoprolol 100 mg PO BID. Losartan 100 mg PO QHS. Dyslipidemia: Lipitor 40 mg PO QHS. GERD: Protonix 40 mg PO QD. Heparin SQ for DVT prophylaxis. FULL CODE I have reviewed the following storage management consultant notes: Pulmonology note. I have reviewed the results of the following tests: Mg I have ordered the following tests: Echo I have discussed the care of this patient with the following independent historian: I have independently interpreted the following test below: EKG I have discussed the management of this patient with the following physician: Objective - Vital Signs Vital signs: Vital Signs Temp 97.9 F 07/22/23 07:20 Pulse 94 07/22/23 07:49 Resp 20 07/22/23 08:00 BP 133/76 07/22/23 07:20 Pulse Ox 98 07/22/23 07:25 FiO2 Intake & Output 07/21/23 07/22/23 07/22/23 18:59 06:59 18:59 Intake Total 600 Balance 600 Intake: Oral 600 Other: # Voids 2 2 - Labs CBC & Chem 7: 07/20/23 20:21 07/20/23 20:21 Labs: Abnormal Lab Results - Last 24 Hours (Table) 07/21/23 07/21/23 07/22/23 Range/Units 16:05 20:54 05:39 POC Glucose (mg/dL) 170 H 196 H 156 H (70-110) mg/dL 07/22/23 Range/Units 11:41 POC Glucose (mg/dL) 235 H (70-110) mg/dL
[2023-07-22] MEDS: MORPHINE SULFATE 4 MG/ML SYRINGE IV PRN (14:08)
--- NOTE | 2023-07-22 16:01 | P.CRDCN ---
History of Present Illness Consult date: 07/22/23 History of present illness: HISTORY OF PRESENTING ILLNESS 53-year-old female with past medical history of asthma, GERD, hypertension, dyslipidemia presented to ER with shortness of breath and wheezing. She was admitted last week with similar complaints. 82 she was noticed to be tachycardic, her CBC showed hemoglobin 11.5, INR 0.9, d-dimer 0.41, experiencing 5.8. Troponins are negative. Chest x-ray did not show any acute cardiac permit process. Patient's zolair shots were discontinued because of her shingles recently. It seems patient on admitted with working diagnosis of acute asthma exacerbation Biology was consulted for concerns of nonsustained ventricular tachycardia. Sodium 139, potassium 4.0, BUN 17, creatinine 0.6 DIAGNOSTICS EKG reveals sinus rhythm with LVH by voltage criteria. Chest xray acute cardiac permit process. Home cardiac medications include metoprolol succinate 100 mg daily, losartan 100 mg daily, mounjaro, trazodone, simvastatin. On today's review her telemetry, paper charts there are no serial rhythm strips were monitored in nonsustained ventricular tachycardia. REVIEW OF SYSTEMS 14 point review of system is negative except what is mentioned above in HPI. PHYSICAL EXAMINATION Vital signs reviewed. Head: Normocephalic. Eyes: Sclerae nonicteric. Neck: Brisk carotid upstroke, no jugular venous distention. Lungs: Clear to auscultation. Heart: Regular rate and rhythm, S1-S2, no S3, no murmur or rub. Abdomen: Soft nontender, positive bowel sounds no organomegaly. Extremities: No edema, intact distal pulses. ASSESSMENT Consult for nonsustained ventricular tachycardia Acute hypoxic respiratory failure due to severe asthma exacerbation, likely due to recent discontinuation of zolair shots and mild URI Obesity Type II Diabetes Essential hypertension History of palpitations and high heart rate PLAN Patient had a recent event monitor outpatient which was not revealing. At this time patient's telemetry and ECG is nonrevealing. Her labs are essentially within normal limits. Patient's symptoms of chest pressure is most likely related to asthma exacerbation and is noncardiac. We will continue patient's home medication which includes losartan, metoprolol. Further management as per primary team. We'll review the echocardiogram which was done today. Further recommendations to follow echo results Past Medical History Past Medical History: Asthma, GERD/Reflux, Hyperlipidemia, Hypertension, Sleep Apnea/CPAP/BIPAP Additional Past Medical History / Comment(s): Kidney Stones, intermittent tachycardia, pre-diabetes, nonsmokers emphysema. no cpap History of Any Multi-Drug Resistant Organisms: None Reported Past Surgical History: Back Surgery, Cholecystectomy, Hysterectomy, Orthopedic Surgery Additional Past Surgical History / Comment(s): Rotator cuff left; foot surgery left Past Anesthesia/Blood Transfusion Reactions: No Reported Reaction Past Psychological History: Depression Smoking Status: Never smoker Past Alcohol Use History: Occasional Past Drug Use History: None Reported - Past Family History Mother Family Medical History: Myocardial Infarction ([place]) Father Family Medical History: CVA/TIA Medications and Allergies Home Medications Medication Instructions Recorded Confirmed Type Cetirizine HCl [Zyrtec] 10 mg PO HS 01/10/18 07/20/23 History traZODone HCL [Desyrel] 50 mg PO HS 03/15/21 07/20/23 History DULoxetine HCL [Cymbalta] 30 mg PO HS 02/25/22 07/20/23 History Losartan Potassium [Cozaar] 100 mg PO HS 02/25/22 07/20/23 History Pantoprazole [Protonix] 40 mg PO HS 02/25/22 07/20/23 History Albuterol Inhaler [Ventolin Hfa 2 puff INHALATION RT-Q4H PRN 11/30/22 07/20/23 History Inhaler] Rosuvastatin [Crestor] 20 mg PO HS 11/30/22 07/20/23 History Metoprolol Succinate (ER) [Toprol 100 mg PO HS 07/11/23 07/20/23 History XL] Tirzepatide [Mounjaro] 2.5 mg SQ FR 07/11/23 07/20/23 History Budesonide/Formoterol Fumarate 2 puff INHALATION RT-BID #0 07/14/23 07/20/23 Rx [Symbicort 160-4.5 Mcg Inhaler] Ipratropium-Albuterol Nebulize 3 ml INHALATION RT-Q8H PRN #10 each 07/14/23 07/20/23 Rx [Duoneb 0.5 mg-3 mg/3 ml Soln] Allergies Allergy/AdvReac Type Severity Reaction Status Date / Time adhesive tape Allergy Rash/Hives Verified 09/14/23 23:16 benzene Allergy Itching Verified 07/20/23 23:16 Iodine and Iodide Containing Allergy Unknown Verified 07/20/23 23:16 Produc Sulfa (Sulfonamide Allergy Dyspnea Verified 07/20/23 23:16 Antibiotics) Physical Exam Vitals: Vital Signs Temp Pulse Pulse Resp BP Pulse Ox 07/22/23 15:35 93 07/22/23 15:23 92 07/22/23 14:22 98.5 F 78 20 114/71 99 07/22/23 08:00 20 07/22/23 07:49 94 07/22/23 07:37 95 07/22/23 07:36 95 07/22/23 07:25 93 98 07/22/23 07:20 97.9 F 76 16 133/76 94 L 07/22/23 01:05 98.1 F 73 20 107/65 95 07/21/23 20:34 92 07/21/23 20:22 95 07/21/23 20:08 97 07/21/23 20:00 98.0 F 86 20 148/90 98 07/21/23 16:22 100 07/21/23 16:09 101 H Intake and Output 07/22/23 07/22/23 07/22/23 06:59 14:59 22:59 Intake Total 600 Balance 600 Intake: Oral 600 Other: # Voids 2 Results 07/20/23 20:21 07/20/23 20:21 Current Medications Generic Name Dose Route Start Last Admin Trade Name Freq PRN Reason Stop Dose Admin Acetaminophen 650 mg 07/20/23 23:19 Acetaminophen Tab 325 Mg Tab PO Q6HR PRN Mild Pain or Fever > 100.5 Albuterol/Ipratropium 3 ml 07/20/23 23:15 07/20/23 23:56 Ipratropium-Albuterol 3 Ml Neb INHALATION 3 ml RT-Q2H PRN Administration Shortness Of Breath Or Wheezing Albuterol/Ipratropium 3 ml 07/21/23 08:00 07/22/23 15:22 Ipratropium-Albuterol 3 Ml Neb INHALATION 3 ml RT-QID DIONI Administration Atorvastatin Calcium 40 mg 07/21/23 02:15 07/21/23 21:36 Atorvastatin 40 Mg Tab PO 40 mg HS DIONI Administration Budesonide 0.5 mg 07/21/23 20:00 07/22/23 07:24 Budesonide 0.5 Mg/2 Ml Nebu INHALATION 0.5 mg RT-BID DIONI Administration Dextrose/Water 25 ml 07/21/23 01:58 Dextrose 50% Syringe 50 Ml IVP PER PROTOCOL PRN Hypoglycemia Protocol Dextrose/Water 50 ml 07/21/23 01:58 Dextrose 50% Syringe 50 Ml IVP PER PROTOCOL PRN Hypoglycemia Protocol Duloxetine HCl 30 mg 07/21/23 02:15 07/21/23 21:35 Duloxetine Hcl 30 Mg Capsule.Dr PO 30 mg HS DIONI Administration Formoterol Fumarate 20 mcg 07/21/23 20:00 07/22/23 07:36 Formoterol Fumarate 20 Mcg/2 Ml Nebu INHALATION 20 mcg RT-BID DIONI Administration Heparin Sodium (Porcine) 5,000 unit 07/21/23 08:00 07/22/23 08:11 Heparin Sodium,Porcine 5,000 Unit/Ml 1 Ml Vial SQ 5,000 unit Q8HR DIONI Administration Ibuprofen 400 mg 07/20/23 23:19 Ibuprofen 400 Mg Tab PO Q6HR PRN Mild Pain or Fever > 100.5 Insulin Aspart 0 unit 07/21/23 07:30 07/22/23 12:58 Insulin Aspart (Novolog) 100 Unit/Ml Vial SQ 6 unit ACHS DIONI Administration Protocol Ketorolac Tromethamine 15 mg 07/20/23 23:19 07/22/23 10:52 Ketorolac 15 Mg/Ml 1 Ml Vial IVP 07/23/23 23:20 15 mg Q6HR PRN Administration Moderate Pain (Scale 4 to 6) Lidocaine 1 patch 07/20/23 21:00 07/21/23 21:44 Lidocaine 5% Patch TOPICAL 1 patch HS DIONI Administration Protocol Losartan Potassium 100 mg 07/21/23 02:00 07/21/23 21:35 Losartan 50 Mg Tab PO 100 mg HS DIONI Administration Methylprednisolone Sodium Succinate 60 mg 07/21/23 00:00 07/22/23 12:59 Methylprednisolone Sod Succi 125 Mg/2 Ml Vial IV 60 mg Q6HR DIONI Administration Metoprolol Succinate 100 mg 07/21/23 02:15 07/21/23 21:35 Metoprolol Succinate (Er) 100 Mg Tab.Er.24h PO 100 mg HS DIONI Administration Morphine Sulfate 4 mg 07/20/23 23:19 07/22/23 14:08 Morphine Sulfate 4 Mg/Ml Syringe IV 4 mg Q4HR PRN Administration Severe Pain (Scale 7 to 10) Naloxone HCl 0.2 mg 07/20/23 23:15 Naloxone 0.4 Mg/Ml 1 Ml Vial IVP Q2M PRN Opioid Reversal Pantoprazole Sodium 40 mg 07/21/23 02:15 07/21/23 21:36 Pantoprazole 40 Mg Tablet PO 40 mg HS DIONI Administration Trazodone HCl 50 mg 07/21/23 02:15 07/21/23 21:36 Trazodone Hcl 50 Mg Tab PO 50 mg HS DIONI Administration Intake and Output 07/22/23 07/22/23 07/22/23 06:59 14:59 22:59 Intake Total 600 Balance 600 Intake: Oral 600 Other: # Voids 2 07/20/23 20:21 07/20/23 20:21
--- NOTE | 2023-07-22 16:24 | CA ---
Transthoracic Echo Report Name: Iveth Dockery Age: 53 Gender: F : 1970 Exam Date: 07/22/2023 11:19 Exam Location: [facility] Ht (in): 69 Wt (lb): 270 Ordering Physician: Mickey Cuevas MD Attending/Referring Phys: [employer] Finishing Range Operator Chief Jana Saleh RDCS Procedure CPT: Indications: sob Cardiac Hx: Technical Quality: Fair Contrast 1: Total Dose (mL): Contrast 2: Total Dose (mL): MEASUREMENTS (Male / Female) Normal Values 2D ECHO LV Diastolic Diameter PLAX 4.4 cm 4.2 - 5.9 / 3.9 - 5.3 cm LV Systolic Diameter PLAX 3.1 cm IVS Diastolic Thickness 1.2 cm 0.6 - 1.0 / 0.6 - 0.9 cm LVPW Diastolic Thickness 1.1 cm 0.6 - 1.0 / 0.6 - 0.9 cm LV Relative Wall Thickness 0.5 RV Internal Dim ED PLAX 3.2 cm LA Volume 53.4 cm??? 18 - 58 / 22 - 52 cm??? M-MODE Aortic Root Diameter MM 3.0 cm LA Systolic Diameter MM 3.9 cm LA Ao Ratio MM 1.3 AV Cusp Separation MM 2.0 cm DOPPLER AV Peak Velocity 173.6 cm/s AV Peak Gradient 12.1 mmHg AV Mean Velocity 122.4 cm/s AV Mean Gradient 6.6 mmHg AV Velocity Time Integral 32.1 cm LVOT Peak Velocity 136.1 cm/s LVOT Peak Gradient 7.4 mmHg LVOT Velocity Time Integral 26.9 cm MV Area PHT 3.2 cm??? Mitral E Point Velocity 110.6 cm/s Mitral A Point Velocity 81.3 cm/s Mitral E to A Ratio 1.4 MV Deceleration Time 238.1 ms MV E' Velocity 7.2 cm/s Mitral E to MV E' Ratio 15.3 TR Peak Velocity 246.0 cm/s TR Peak Gradient 24.2 mmHg Right Ventricular Systolic Press 29.2 mmHg FINDINGS Left Ventricle Mildly increased left ventricular wall thickness. Left ventricular cavity size normal. Normal left ventricular systolic function with no obvious regional wall motion abnormalities. Left ventricular ejection fraction is estimated at 55-60 %. Right Ventricle Normal right ventricular size and function. Right ventricular systolic pressure within normal limits. Right Atrium Normal right atrial size. Left Atrium Mildly increased left atrial volume. Mildly increased left atrial area. Mitral Valve Structurally normal mitral valve. Mild mitral annular calcification. Mild mitral regurgitation. Aortic Valve Trileaflet aortic valve. No aortic valve stenosis or regurgitation. Tricuspid Valve Structurally normal tricuspid valve. Mild tricuspid regurgitation. Pulmonic Valve Structurally normal pulmonic valve. Pericardium No pericardial effusion. Aorta Normal size aortic root and proximal ascending aorta. CONCLUSIONS Left ventricular ejection fraction is estimated at 55-60 %. No obvious regional wall motion abnormalities. Mild mitral regurgitation Mild left atrial dilatation No prior echo to compare with Previewed by: Dr Jv Flannery (Electronically Signed) Final Date: 22 July 2023 16:23
[2023-07-22 17:01] LABS: Glucose,Whole Blood 121 mg/dL (70-110)
[2023-07-22 20:48] LABS: Glucose,Whole Blood 227 mg/dL (70-110)
[2023-07-22] MEDS ORDERED: bisacodyL 5 MG TABLET.DR PO STA (21:28)
[2023-07-22] MEDS: traZODone HCL 50 MG TAB PO SCH (21:50)
[2023-07-22] MEDS: LOSARTAN 50 MG TAB PO SCH (21:50)
[2023-07-22] MEDS: METOPROLOL SUCCINATE (ER) 100 MG TAB.ER.24H PO SCH (21:50)
[2023-07-22] MEDS: DULoxetine HCL 30 MG CAPSULE.DR PO SCH (21:50)
[2023-07-22] MEDS: ATORVASTATIN 40 MG TAB PO SCH (21:50)
[2023-07-22] MEDS: PANTOPRAZOLE 40 MG TABLET PO SCH (21:50)
[2023-07-22] MEDS: LIDOCAINE 5% PATCH TOPICAL SCH (21:51)
[2023-07-23] MEDS: methylPREDNISolone SOD SUCCI 125 MG/2 ML VIAL IV SCH ×4 (00:55→17:37)
[2023-07-23] MEDS: HEPARIN SODIUM,PORCINE 5,000 UNIT/ML 1 ML VIAL SQ SCH ×3 (00:56→16:05)
[2023-07-23 05:24] LABS: Glucose,Whole Blood 168 mg/dL (70-110)
[2023-07-23] MEDS: INSULIN ASPART (NovoLOG) 100 UNIT/ML VIAL SQ SCH ×4 (06:01→22:07)
[2023-07-23] MEDS: BUDESONIDE 0.5 MG/2 ML NEBU INHALATION SCH ×2 (08:24→20:44)
[2023-07-23] MEDS: FORMOTEROL FUMARATE 20 MCG/2 ML NEBU INHALATION SCH ×2 (08:24→20:43)
[2023-07-23] MEDS: IPRATROPIUM-ALBUTEROL 3 ML NEB INHALATION SCH ×4 (08:24→20:44)
[2023-07-23 11:25] LABS: Glucose,Whole Blood 170 mg/dL (70-110)
--- NOTE | 2023-07-23 12:19 | P.PN ---
Subjective Progress Note Date: 07/23/23 I am seeing this patient in new consultation today 07/21/2023 for exacerbation of severe persistent asthma. Patient is a 53-year-old white female with past medical history significant for severe persistent asthma maintained on Xolair, Symbicort, and when necessary albuterol outpatient. She does follow with Dr. Aguilar in the office. She recently stopped her Xolair, because she developed postherpetic neuralgia from prior shingles. She did have a recent admission back on July 12 for similar symptoms. She was discharged on July 14 with a steroid taper. Yesterday, she restarted her Xolair. Since her discharge, she is been having progressively worsening dyspnea. She's also had a persistent mostly nonproductive cough, chest tightness, and wheezing. She has some chest and thoracic back pain that occurs with coughin only. Denies fevers. Denies sick contacts. She has not had much relief from her rescue inhaler. She did go to an urgent care clinic in [place] yesterday, who directed her to the emergency room late last night. Patient is currently sitting up at the edge of the bed, on room air, and mildly dyspneic. Chest x-ray on arrival showed no acute cardiopulmonary process. Negative for influenza, RSV, COVID-19. CBC shows a WBC count 11.5, hemoglobin 14.1, hematocrit 45.7, platelets 238. D-dimer was normal at 0.41. BMP was unremarkable. Troponin less than 0.012. Afebrile. Overall, the patient is currently medically stable and is being admitted to the general medical floor. On today's evaluation of 07/22/2023 patient is still short of breath, slightly improved compared to yesterday. She is still using O2. She is on bronchodilato rs. She is on steroids. Her chest was aching because of the repeated coughing episodes. She is morbidly obese and she may potentially have an underlying component of obstructive sleep apnea. Underlying tracheal bronchomalacia cannot be completely excluded. - On 07/23/2023, the patient continues to improve slowly. We'll continue same treatment. On today's examination, there is improvement bilaterally in her lungs. She has got the chest wall pain. No fever. No chills. She is on room air oxygen. She remains on bronchodilators. She remains on steroids. Objective - Vital Signs Vital signs: Vital Signs Temp 97.8 F 07/23/23 07:07 Pulse 77 07/23/23 08:48 Resp 18 07/23/23 08:48 BP 151/89 07/23/23 07:07 Pulse Ox 94 L 07/23/23 08:25 FiO2 Intake & Output 07/22/23 07/23/23 07/23/23 18:59 06:59 18:59 Intake Total 1080 Balance 1080 Intake: Oral 1080 Other: # Voids 3 2 - Exam GENERAL EXAM: Alert, 53-year-old white female appearing stated age, comfortable in no apparent distress. HEAD: Normocephalic and atraumatic EYES: Normal reaction of pupils, equal size. NOSE: Clear with pink turbinates. THROAT: No erythema or exudates. NECK: No masses, no JVD. CHEST: No chest wall deformity. LUNGS: Equal air entry with diminished lung sounds throughout and expiratory wheezes. On room air. Speaking in sentences, mildly dyspneic CVS: S1 and S2 normal with no audible murmur, regular rhythm. No extra heart sounds. Tachycardic heart rate 116 bpm. ABDOMEN: No hepatosplenomegaly, active bowel sounds, no guarding or rigidity. SPINE: No scoliosis or deformity SKIN: No rashes CENTRAL NERVOUS SYSTEM: No focal deficits, tone is normal in all 4 extremities. EXTREMITIES: There is no peripheral edema, clubbing, or cyanosis. Peripheral pulses are intact. - Labs CBC & Chem 7: 07/20/23 20:21 07/20/23 20:21 Labs: Abnormal Lab Results - Last 24 Hours (Table) 07/22/23 07/22/23 07/22/23 Range/Units 11:41 16:59 20:46 POC Glucose (mg/dL) 235 H 121 H 227 H (70-110) mg/dL 07/23/23 Range/Units 05:23 POC Glucose (mg/dL) 168 H (70-110) mg/dL Assessment and Plan Assessment: Acute exacerbation of severe persistent chronic bronchial asthma. Possibly exacerbated by stopping Xolair. Chest x-ray on arrival showed no infiltrates or evidence of pneumonia. Negative for influenza, RSV, COVID-19. Benign essential hypertension Hyperlipidemia Type 2 diabetes mellitus Gastroesophageal reflux disease Obesity, with a BMI of 39.9 kg/m Never smoker Plan: Slightly improved compared to yesterday, currently she is on room air oxygen. Skeletal chest wall pain is present due to repeated coughing. Continue same management The patient has severe persistent bronchial asthma, and the patient was treated with a combination of Symbicort and bronchodilators on outpatient basis and the patient has limited on Xolair injections and according to her, the Xolair injection has given a significant symptomatic relief and the steroid requirement has dropped significantly while on therapy. She developed an episode of shingles. She had stopped Xolair injections for approximately a month and her disease exacerbated. After being treated as an outpatient, she was discharged home on a prednisone burst taper on 07/14/2023 to be readmitted for worsening shortness of breath. She is a nonsmoker. She has active bronchospasm wheezing and on examination there is marked diminished breath sounds bilaterally. Chest x-ray is clear. Blood work is negative. The viral screening was also negative. [facility], will switch to Symbicort to a combination of budesonide Pulmicort updrafts twice a day and will continue IV Solu-Medrol for now. We'll continue to follow. Toradol for chest wall pain in combination with lidocaine patch We'll follow, no changes in her medication regimen for now. We'll continue to follow.
--- NOTE | 2023-07-23 12:48 | P.PN ---
Subjective Progress Note Date: 07/23/23 53-year-old female with PMH of asthma, GERD, hypertension, dyslipidemia presents the ED for shortness of breath and wheezing. She was recently admitted from 07/11-07/14 for similar complaints. Recently been taken off of Xolair after an episode of shingles which she believes aggravated her symptoms. She was recently restarted and received her first dose this Monday. In the ED, her vital signs were stable, tachycardic in the 120s. CBC showed leukocytosis of 11.5. INR 0.9. D-dimer 0.41. CMP showed glucose 143. A1c 5.8. Troponin less than 0.012. COVID-19, flu, RSV negative. Chest x-ray no acute process. Patient was admitted for asthma exacerbation. Pulmonology was consulted. She was started on Solu-Medrol and bronchodilators scheduled and as needed. 07/22 Patient was seen and examined. No acute events overnight. Patient reports SOB and wheezing. States that she is only 40% better. Nursing reports beats of NSVT so Cardiology was consulted and Echocardiogram was ordered. EKG shows NSR. 07/23 Patient was seen and examined. She continues to reports chest tightness and wheezing. States not much improvement since yesterday. She reports right flank pain radiating to the RLQ, throbbing, 10/10 in severity. She reports a history of calcium kidney stones. No dysuria or hematuria. Toradol does not help, Morphine helps slightly. CT will be ordered to evaluate. Cardiology did not see any NSVT on telemetry. Echo shows EF 55-60% with mild MR and LA dilation. Case discussed with Dr. Gibson, continue present management. General: non toxic, no distress, appears at stated age, obese Derm: warm, dry Head: atraumatic, normocephalic, symmetric Eyes: EOMI, no lid lag, anicteric sclera Mouth: no lip lesion, mucus membranes moist Cardiovascular: S1S2 tachycardic, no murmur Lungs: Severely diminished BS bilateral with inspiratory wheezing, no rhonchi, no rales , no accessory muscle use Abd: R CVA tenderness Ext: no gross muscle atrophy, no edema, no contractures Neuro: no focal neuro deficits Psych: Alert, oriented, appropriate affect CVA tenderness Acute asthma exacerbation Leukocytosis Hypertension Dyslipidemia GERD Based on my assessment of this patient, this patient meets a high complexity level of care. Patient has a history of asthma with severe exacerbation or progression of disease which poses a threat to life or bodily function. CVA tenderness: Requiring Morphine for pain management. History of Ca kidney stones requiring lithotripsy in the past. Obtain CT. Acute asthma exacerbation: Pulmicort 0.5 mg INH BID. Performist 20 mcg INH BID. DuoNeb scheduled and as needed for SOB/wheezing. Solumedrol 60 mg IV Q6H. Pulmonology on board. Leukocytosis: No signs of active infection. Continue to monitor. Hypertension: Metoprolol 100 mg PO BID. Losartan 100 mg PO QHS. Dyslipidemia: Lipitor 40 mg PO QHS. GERD: Protonix 40 mg PO QD. Heparin SQ for DVT prophylaxis. FULL CODE I have reviewed the following tanning consultant notes: Pulmonology, Cardiology note. I have reviewed the results of the following tests: Echo I have ordered the following tests: CT I have discussed the care of this patient with the following independent historian: I have independently interpreted the following test below: I have discussed the management of this patient with the following physician: Discussed with Dr. Trujillo as above. Objective - Vital Signs Vital signs: Vital Signs Temp 97.8 F 07/23/23 07:07 Pulse 89 07/23/23 12:34 Resp 20 07/23/23 12:34 BP 151/89 07/23/23 07:07 Pulse Ox 94 L 07/23/23 08:25 FiO2 Intake & Output 07/22/23 07/23/23 07/23/23 18:59 06:59 18:59 Intake Total 1080 Balance 1080 Intake: Oral 1080 Other: # Voids 3 2 - Labs CBC & Chem 7: 07/20/23 20:21 07/20/23 20:21 Labs: Abnormal Lab Results - Last 24 Hours (Table) 07/22/23 07/22/23 07/23/23 Range/Units 16:59 20:46 05:23 POC Glucose (mg/dL) 121 H 227 H 168 H (70-110) mg/dL 07/23/23 Range/Units 11:24 POC Glucose (mg/dL) 170 H (70-110) mg/dL
[2023-07-23] MEDS: KETOROLAC 15 MG/ML 1 ML VIAL IVP PRN (13:30)
--- NOTE | 2023-07-23 13:42 | CT ---
EXAMINATION TYPE: CT renal stones wo con DATE OF EXAM: 07/23/2023 HISTORY: Renal stones CT DLP: 1604.2 mGycm. Automated Exposure Control for Dose Reduction was Utilized. TECHNIQUE: CT scan of the abdomen and pelvis is performed without oral or IV contrast. COMPARISON: 12/13/2021 FINDINGS: Within the limitations of a non-contrast study, the following observations are made. LUNG BASES: Basilar scarring or atelectasis.. LIVER/GB: Hypodensity in the dome of the liver is too small to characterize not seen with certainty o n prior exam. Postcholecystectomy changes are noted. Underlying hepatic steatosis suggested.. PANCREAS: No significant abnormality is seen. SPLEEN: No significant abnormality is seen. ADRENALS: No significant abnormality is seen. KIDNEYS: No hydronephrosis. There is a punctate bilateral renal calculi. Bladder nondistended and cantu ited. Indeterminate 1 cm posterior cortical right renal lesion stable.. BOWEL: Extensive diverticulosis. Bowel gas pattern nonspecific with no obstruction. Appendix normal. Small hiatal hernia. LYMPH NODES: No greater than 1cm abdominal or pelvic lymph nodes are appreciated. OSSEOUS STRUCTURES: Hypertrophic and degenerative change of the spine.. OTHER: Aorta of normal caliber with small bilateral inguinal hernia. Soft tissue nodule measuring 4 c m the left adnexa likely related to the left ovary. Post hysterectomy changes noted. IMPRESSION: 1. Punctate 1 mm nonobstructing bilateral renal calculi. 2. Indeterminate posterior right renal cortical lesion stable from prior exam. Consider short-term fo llow-up ultrasound. 3. left adnexa demonstrates a 4 cm soft tissue nodule. This appears to be in location of previous nor mal-appearing ovary. Given the enlargement would recommend a pelvic ultrasound to assess.
--- NOTE | 2023-07-23 15:57 | P.PN ---
Subjective Progress Note Date: 07/23/23 Subjective: Patient is doing well from cardiac vessel standpoint. On review of her telemetry she has not demonstrated any arrhythmias or supraventricular tachycardia. Her echocardiogram was reviewed which showed a normal LVEF of 55% with no major valvular abnormality or any chamber size abnormality. Synopsis 53-year-old female with past medical history of asthma, GERD, hypertension, dyslipidemia presented to ER with shortness of breath and wheezing. She was admitted last week with similar complaints. 80 she was noticed to be tachycardic, her CBC showed hemoglobin 11.5, INR 0.9, d-dimer 0.41, experiencing 5.8. Troponins are negative. Chest x-ray did not show any acute cardiac permit process. Patient's zolair shots were discontinued because of her shingles recently. It seems patient on admitted with working diagnosis of acute asthma exacerbation Biology was consulted for concerns of nonsustained ventricular tachycardia. Sodium 139, potassium 4.0, BUN 17, creatinine 0.6 DIAGNOSTICS EKG reveals sinus rhythm with LVH by voltage criteria. Chest xray acute cardiac permit process. Home cardiac medications include metoprolol succinate 100 mg daily, losartan 100 mg daily, mounjaro, trazodone, simvastatin. On today's review her telemetry, paper charts there are no serial rhythm strips were monitored in nonsustained ventricular tachycardia. REVIEW OF SYSTEMS 14 point review of system is negative except what is mentioned above in HPI. PHYSICAL EXAMINATION Vital signs reviewed. Head: Normocephalic. Eyes: Sclerae nonicteric. Neck: Brisk carotid upstroke, no jugular venous distention. Lungs: Clear to auscultation. Heart: Regular rate and rhythm, S1-S2, no S3, no murmur or rub. Abdomen: Soft nontender, positive bowel sounds no organomegaly. Extremities: No edema, intact distal pulses. ASSESSMENT Consult for nonsustained ventricular tachycardia Acute hypoxic respiratory failure due to severe asthma exacerbation, likely due to recent discontinuation of zolair shots and mild URI Obesity Type II Diabetes Essential hypertension History of palpitations and high heart rate PLAN Patient had a recent event monitor outpatient which was not revealing. At this time patient's telemetry and ECG is nonrevealing. Her labs are essentially within normal limits. Patient's symptoms of chest pressure is most likely related to asthma exacerbation and is noncardiac. We will continue patient's home medication which includes losartan, metoprolol. Further management as per primary team. Patient is okay to be discharged from cardiac vessel standpoint. Cardiology team will sign off. Please reconsult us in case of any question. Objective - Vital Signs Vital signs: Vital Signs Temp 98.4 F 07/23/23 14:50 Pulse 88 07/23/23 15:42 Resp 20 07/23/23 15:42 BP 158/72 07/23/23 14:50 Pulse Ox 95 07/23/23 14:50 FiO2 Intake & Output 07/22/23 07/23/23 07/23/23 18:59 06:59 18:59 Intake Total 1080 Balance 1080 Intake: Oral 1080 Other: # Voids 3 2 - Labs CBC & Chem 7: 07/20/23 20:21 07/20/23 20:21 Labs: Abnormal Lab Results - Last 24 Hours (Table) 07/22/23 07/22/23 07/23/23 Range/Units 16:59 20:46 05:23 POC Glucose (mg/dL) 121 H 227 H 168 H (70-110) mg/dL 07/23/23 Range/Units 11:24 POC Glucose (mg/dL) 170 H (70-110) mg/dL
[2023-07-23 16:35] LABS: Glucose,Whole Blood 165 mg/dL (70-110)
[2023-07-23] MEDS: MORPHINE SULFATE 4 MG/ML SYRINGE IV PRN (21:36)
[2023-07-23 21:46] LABS: Glucose,Whole Blood 160 mg/dL (70-110)
[2023-07-23] MEDS: traZODone HCL 50 MG TAB PO SCH ×2 (22:07→22:08)
[2023-07-23] MEDS: ATORVASTATIN 40 MG TAB PO SCH (22:07)
[2023-07-23] MEDS: PANTOPRAZOLE 40 MG TABLET PO SCH (22:08)
[2023-07-23] MEDS: DULoxetine HCL 30 MG CAPSULE.DR PO SCH (22:08)
[2023-07-23] MEDS: METOPROLOL SUCCINATE (ER) 100 MG TAB.ER.24H PO SCH (22:08)
[2023-07-23] MEDS: LIDOCAINE 5% PATCH TOPICAL SCH (22:08)
[2023-07-23] MEDS: LOSARTAN 50 MG TAB PO SCH (22:08)
[2023-07-24] MEDS: HEPARIN SODIUM,PORCINE 5,000 UNIT/ML 1 ML VIAL SQ SCH ×3 (00:35→17:45)
[2023-07-24] MEDS: methylPREDNISolone SOD SUCCI 125 MG/2 ML VIAL IV SCH ×4 (00:35→17:44)
[2023-07-24 06:06] LABS: Glucose,Whole Blood 205 mg/dL (70-110)
[2023-07-24] MEDS: INSULIN ASPART (NovoLOG) 100 UNIT/ML VIAL SQ SCH ×4 (06:13→20:26)
[2023-07-24] MEDS: IPRATROPIUM-ALBUTEROL 3 ML NEB INHALATION SCH ×4 (09:06→20:18)
[2023-07-24] MEDS: BUDESONIDE 0.5 MG/2 ML NEBU INHALATION SCH ×2 (09:06→20:18)
[2023-07-24] MEDS: FORMOTEROL FUMARATE 20 MCG/2 ML NEBU INHALATION SCH ×2 (09:06→20:17)
--- NOTE | 2023-07-24 10:57 | P.PN ---
Subjective Progress Note Date: 07/24/23 I am seeing this patient in new consultation today 07/21/2023 for exacerbation of severe persistent asthma. Patient is a 53-year-old white female with past medical history significant for severe persistent asthma maintained on Xolair, Symbicort, and when necessary albuterol outpatient. She does follow with Dr. Aguilar in the office. She recently stopped her Xolair, because she developed postherpetic neuralgia from prior shingles. She did have a recent admission back on July 12 for similar symptoms. She was discharged on July 14 with a steroid taper. Yesterday, she restarted her Xolair. Since her discharge, she is been having progressively worsening dyspnea. She's also had a persistent mostly nonproductive cough, chest tightness, and wheezing. She has some chest and thoracic back pain that occurs with coughin only. Denies fevers. Denies sick contacts. She has not had much relief from her rescue inhaler. She did go to an urgent care clinic in [place] yesterday, who directed her to the emergency room late last night. Patient is currently sitting up at the edge of the bed, on room air, and mildly dyspneic. Chest x-ray on arrival showed no acute cardiopulmonary process. Negative for influenza, RSV, COVID-19. CBC shows a WBC count 11.5, hemoglobin 14.1, hematocrit 45.7, platelets 238. D-dimer was normal at 0.41. BMP was unremarkable. Troponin less than 0.012. Afebrile. Overall, the patient is currently medically stable and is being admitted to the general medical floor. On today's evaluation of 07/22/2023 patient is still short of breath, slightly improved compared to yesterday. She is still using O2. She is on bronchodilators. She is on steroids. Her chest was aching because of the repeated coughing episodes. She is morbidly obese and she may potentially have an underlying component of obstructive sleep apnea. Underlying tracheal bronchomalacia cannot be completely excluded. On 07/23/2023, the patient continues to improve slowly. We'll continue same treatment. On today's examination, there is improvement bilaterally in her lungs. She has got the chest wall pain. No fever. No chills. She is on room air oxygen. She remains on bronchodilators. She remains on steroids. The patient is seen today 07/24/2023 in follow-up on the regular medical floor. She is sitting up in bed. Awake and alert in no acute distress. She is trigge red with a cough on deep inhalation. Improved and on room air. Computed tomography scan of the kidneys revealed punctate 1 mm nonobstructing bilateral renal calculi. Indeterminate posterior right renal cortical lesion stable from previous. Left adnexa demonstrates a 4 cm soft tissue nodule. Blood glucose 205. She remains on DuoNeb inhalations, Pulmicort and Perforomist inhalations, IV Solu-Medrol. Heparin for DVT prophylaxis. Objective - Vital Signs Vital signs: Vital Signs Temp 97.5 F L 07/24/23 07:23 Pulse 92 07/24/23 09:22 Resp 18 07/24/23 08:00 BP 143/84 07/24/23 07:23 Pulse Ox 97 07/24/23 09:08 FiO2 Intake & Output 07/23/23 07/24/23 07/24/23 18:59 06:59 18:59 Intake Total 1080 600 Balance 1080 600 Intake: Oral 1080 600 Other: # Voids 4 2 - Exam GENERAL EXAM: Alert, pleasant 53-year-old female, on room air, comfortable in no apparent distress. HEAD: Normocephalic. EYES: Normal reaction of pupils, equal size. NOSE: Clear with pink turbinates. THROAT: No erythema or exudates. NECK: No masses, no JVD. CHEST: No chest wall deformity. LUNGS: Equal air entry with bilateral end expiratory wheeze. CVS: S1 and S2 normal with no audible murmur, regular rhythm. ABDOMEN: No hepatosplenomegaly, normal bowel sounds, no guarding or rigidity. SPINE: No scoliosis or deformity SKIN: No rashes CENTRAL NERVOUS SYSTEM: No focal deficits, tone is normal in all 4 extremities. EXTREMITIES: There is no peripheral edema. No clubbing, no cyanosis. Peripheral pulses are intact. - Labs CBC & Chem 7: 07/20/23 20:21 07/20/23 20:21 Labs: Abnormal Lab Results - Last 24 Hours (Table) 07/23/23 07/23/23 07/23/23 Range/Units 11:24 16:33 21:44 POC Glucose (mg/dL) 170 H 165 H 160 H (70-110) mg/dL 07/24/23 Range/Units 06:05 POC Glucose (mg/dL) 205 H (70-110) mg/dL Assessment and Plan Assessment: Acute exacerbation of severe persistent chronic bronchial asthma. Possibly exacerbated by stopping Xolair. Chest x-ray on arrival showed no infiltrates or evidence of pneumonia. Negative for influenza, RSV, COVID-19 History of renal stones, renal scan revealed punctate 1 mm nonobstructing bilateral renal calculi. Indeterminate posterior right renal cortical lesion stable from previous. 4 cm soft tissue nodule in the left adnexa Benign essential hypertension Hyperlipidemia Type 2 diabetes mellitus Gastroesophageal reflux disease Obesity, with a BMI of 39.9 kg/m Never smoker Plan: The patient was seen and evaluated Renal scan, medications reviewed Improved but not quite back to her baseline Continue with the current treatment plan Obtain a pelvic ultrasound Possible discharge in a.m. We will continue to follow I have personally seen and examined the patient, performed the documentation and the assessment and plan as written. Number of minutes spent on the visit: 10.
--- NOTE | 2023-07-24 11:07 | US ---
EXAMINATION TYPE: US pelvis complete transvag DATE OF EXAM: 07/24/2023 COMPARISON: CT CLINICAL INDICATION: Female, 53 years old with history of left ovary mass; Abnormal CT TECHNIQUE: Transvaginal (TV) and Transabdominal (TA) . Transabdominal sonographic images of the pel vis were acquired. Transvaginal sonographic images were medically necessary to better assess the fol lowing anatomy: Ovaries Date of LMP: 20 years ago 1. Uterus: Surgically absent 2. Endometrium: Surgically absent 3. Right Ovary: Obscured by overlying bowel gas 4. Left Ovary: Obscured by overlying bowel gas 5. Bilateral Adnexa: wnl 6. Posterior cul-de-sac: wnl IMPRESSION: The left ovary is not visualized due to overlying bowel gas, No evidence for acute process.
[2023-07-24 11:27] LABS: Glucose,Whole Blood 197 mg/dL (70-110)
--- NOTE | 2023-07-24 12:37 | P.PN ---
Subjective Progress Note Date: 07/24/23 53-year-old female with PMH of asthma, GERD, hypertension, dyslipidemia presents the ED for shortness of breath and wheezing. She was recently admitted from 07/11-07/14 for similar complaints. Recently been taken off of Xolair after an episode of shingles which she believes aggravated her symptoms. She was recently restarted and received her first dose this Monday. In the ED, her vital signs were stable, tachycardic in the 120s. CBC showed leukocytosis of 11.5. INR 0.9. D-dimer 0.41. CMP showed glucose 143. A1c 5.8. Troponin less than 0.012. COVID-19, flu, RSV negative. Chest x-ray no acute process. Patient was admitted for asthma exacerbation. Pulmonology was consulted. She was started on Solu-Medrol and bronchodilators scheduled and as needed. 07/22 Patient was seen and examined. No acute events overnight. Patient reports SOB and wheezing. States that she is only 40% better. Nursing reports beats of NSVT so Cardiology was consulted and Echocardiogram was ordered. EKG shows NSR. 07/23 Patient was seen and examined. She continues to reports chest tightness and wheezing. States not much improvement since yesterday. She reports right flank pain radiating to the RLQ, throbbing, 10/10 in severity. She reports a history of calcium kidney stones. No dysuria or hematuria. Toradol does not help, Morphine helps slightly. CT will be ordered to evaluate. Cardiology did not see any NSVT on telemetry. Echo shows EF 55-60% with mild MR and LA dilation. Case discussed with Dr. Gibson, continue present management. 07/24 Patient was seen and examined. Continued SOB and wheezing with exertion. Pulmonology recommends 1-2 days of continued treatment, not ready for discharge. She continues to report right flank pain worsened with cough. CT AP done yesterday showed 1 mm non obstructive renal stone bilaterally and 4 cm soft tissue nodule left adnexa. Pelvic US is non conclusive. General: non toxic, no distress, appears at stated age, obese Derm: warm, dry Head: atraumatic, normocephalic, symmetric Eyes: EOMI, no lid lag, anicteric sclera Mouth: no lip lesion, mucus membranes moist Cardiovascular: S1S2 tachycardic, no murmur Lungs: Severely diminished BS bilateral with inspiratory wheezing, no rhonchi, no rales , no accessory muscle use Abd: R CVA tenderness Ext: no gross muscle atrophy, no edema, no contractures Neuro: no focal neuro deficits Psych: Alert, oriented, appropriate affect Nephrolithiasis Left adnexal mass Acute asthma exacerbation Leukocytosis Hypertension Dyslipidemia GERD Based on my assessment of this patient, this patient meets a moderate complexity level of care. Patient has a history of asthma with severe exacerbation or progression of d isease which poses a threat to life or bodily function. Nephrolithiasis: Requiring Morphine for pain management. Outpatient Urology follow up. Left adnexal mass: Pelvic US non conclusive. Outpatient OBGYN follow up. Acute asthma exacerbation: Pulmicort 0.5 mg INH BID. Performist 20 mcg INH BID. DuoNeb scheduled and as needed for SOB/wheezing. Solumedrol 60 mg IV Q6H. Pulmonology on board. Leukocytosis: No signs of active infection. Continue to monitor. Hypertension: Metoprolol 100 mg PO BID. Losartan 100 mg PO QHS. Dyslipidemia: Lipitor 40 mg PO QHS. GERD: Protonix 40 mg PO QD. Heparin SQ for DVT prophylaxis. FULL CODE I have reviewed the following strategy planning consultant notes: Pulmonology note. I have reviewed the results of the following tests: CT AP, Pelvic US I have ordered the following tests: I have discussed the care of this patient with the following independent historian: I have independently interpreted the following test below: I have discussed the management of this patient with the following physician: Objective - Vital Signs Vital signs: Vital Signs Temp 97.5 F L 07/24/23 07:23 Pulse 88 07/24/23 12:13 Resp 18 07/24/23 08:00 BP 143/84 07/24/23 07:23 Pulse Ox 97 07/24/23 09:08 FiO2 Intake & Output 07/23/23 07/24/23 07/24/23 18:59 06:59 18:59 Intake Total 1080 600 Balance 1080 600 Intake: Oral 1080 600 Other: # Voids 4 2 - Labs CBC & Chem 7: 07/20/23 20:21 07/20/23 20:21 Labs: Abnormal Lab Results - Last 24 Hours (Table) 07/23/23 07/23/23 07/24/23 Range/Units 16:33 21:44 06:05 POC Glucose (mg/dL) 165 H 160 H 205 H (70-110) mg/dL 07/24/23 Range/Units 11:26 POC Glucose (mg/dL) 197 H (70-110) mg/dL
[2023-07-24] MEDS: MORPHINE SULFATE 4 MG/ML SYRINGE IV PRN (14:58)
[2023-07-24 16:55] LABS: Glucose,Whole Blood 171 mg/dL (70-110)
[2023-07-24 19:49] LABS: Glucose,Whole Blood 171 mg/dL (70-110)
[2023-07-24] MEDS: ATORVASTATIN 40 MG TAB PO SCH (20:25)
[2023-07-24] MEDS: METOPROLOL SUCCINATE (ER) 100 MG TAB.ER.24H PO SCH (20:25)
[2023-07-24] MEDS: LOSARTAN 50 MG TAB PO SCH (20:25)
[2023-07-24] MEDS: DULoxetine HCL 30 MG CAPSULE.DR PO SCH (20:25)
[2023-07-24] MEDS: PANTOPRAZOLE 40 MG TABLET PO SCH (20:25)
[2023-07-24] MEDS: traZODone HCL 50 MG TAB PO SCH (20:26)
[2023-07-24] MEDS: LIDOCAINE 5% PATCH TOPICAL SCH (20:26)
[2023-07-25] MEDS: HEPARIN SODIUM,PORCINE 5,000 UNIT/ML 1 ML VIAL SQ SCH ×3 (00:03→15:50)
[2023-07-25] MEDS: methylPREDNISolone SOD SUCCI 125 MG/2 ML VIAL IV SCH ×2 (00:03→06:46)
[2023-07-25 05:21] LABS: Glucose,Whole Blood 168 mg/dL (70-110)
[2023-07-25] MEDS: INSULIN ASPART (NovoLOG) 100 UNIT/ML VIAL SQ SCH ×4 (06:47→21:21)
[2023-07-25] MEDS: MORPHINE SULFATE 4 MG/ML SYRINGE IV PRN (07:29)
[2023-07-25] MEDS: FORMOTEROL FUMARATE 20 MCG/2 ML NEBU INHALATION SCH ×2 (08:44→20:58)
[2023-07-25] MEDS: BUDESONIDE 0.5 MG/2 ML NEBU INHALATION SCH ×2 (08:44→20:58)
[2023-07-25] MEDS: IPRATROPIUM-ALBUTEROL 3 ML NEB INHALATION SCH ×5 (08:45→20:58)
[2023-07-25] MEDS ORDERED: TAMSULOSIN 0.4 MG CAP.ER.24H PO STA (10:14)
[2023-07-25] MEDS ORDERED: ALBUTEROL HFA INHALER INHALATION PRN (10:15)
[2023-07-25] MEDS ORDERED: IPRATROPIUM-ALBUTEROL 3 ML NEB INHALATION PRN (10:15)
[2023-07-25 11:21] LABS: Glucose,Whole Blood 154 mg/dL (70-110)
--- NOTE | 2023-07-25 11:45 | P.PN ---
Subjective Progress Note Date: 07/25/23 I am seeing this patient in new consultation today 07/21/2023 for exacerbation of severe persistent asthma. Patient is a 53-year-old white female with past medical history significant for severe persistent asthma maintained on Xolair, Symbicort, and when necessary albuterol outpatient. She does follow with Dr. Aguilar in the office. She recently stopped her Xolair, because she developed postherpetic neuralgia from prior shingles. She did have a recent admission back on July 12 for similar symptoms. She was discharged on July 14 with a steroid taper. Yesterday, she restarted her Xolair. Since her discharge, she is been having progressively worsening dyspnea. She's also had a persistent mostly nonproductive cough, chest tightness, and wheezing. She has some chest and thoracic back pain that occurs with coughin only. Denies fevers. Denies sick contacts. She has not had much relief from her rescue inhaler. She did go to an urgent care clinic in [place] yesterday, who directed her to the emergency room late last night. Patient is currently sitting up at the edge of the bed, on room air, and mildly dyspneic. Chest x-ray on arrival showed no acute cardiopulmonary process. Negative for influenza, RSV, COVID-19. CBC shows a WBC count 11.5, hemoglobin 14.1, hematocrit 45.7, platelets 238. D-dimer was normal at 0.41. BMP was unremarkable. Troponin less than 0.012. Afebrile. Overall, the patient is currently medically stable and is being admitted to the general medical floor. On today's evaluation of 07/22/2023 patient is still short of breath, slightly improved compared to yesterday. She is still using O2. She is on bronchodilators. She is on steroids. Her chest was aching because of the repeated coughing episodes. She is morbidly obese and she may potentially have an underlying component of obstructive sleep apnea. Underlying tracheal bronchomalacia cannot be completely excluded. On 07/23/2023, the patient continues to improve slowly. We'll continue same treatment. On today's examination, there is improvement bilaterally in her lungs. She has got the chest wall pain. No fever. No chills. She is on room air oxygen. She remains on bronchodilators. She remains on steroids. The patient is seen today 07/24/2023 in follow-up on the regular medical floor. She is sitting up in bed. Awake and alert in no acute distress. She is trigge red with a cough on deep inhalation. Improved and on room air. Computed tomography scan of the kidneys revealed punctate 1 mm nonobstructing bilateral renal calculi. Indeterminate posterior right renal cortical lesion stable from previous. Left adnexa demonstrates a 4 cm soft tissue nodule. Blood glucose 205. She remains on DuoNeb inhalations, Pulmicort and Perforomist inhalations, IV Solu-Medrol. Heparin for DVT prophylaxis. The patient is seen today 07/25/2023 in follow-up on the regular medical floor. She is awake and alert in no acute distress. Feeling nearly back to her baseline. Continues to maintain good O2 saturations in the 90s on room air. She's afebrile. Hemodynamically stable. Glucose 154. Pelvic ultrasound was unable to observe the left ovarian abnormality due to overlying bowel gas pattern. She is continued on DuoNeb inhalations, Pulmicort and Perforomist in halations, IV Solu-Medrol. Heparin for DVT prophylaxis. Objective - Vital Signs Vital signs: Vital Signs Temp 98.6 F 07/25/23 07:32 Pulse 80 07/25/23 11:38 Resp 17 07/25/23 07:35 BP 150/84 07/25/23 07:32 Pulse Ox 94 L 07/25/23 08:46 FiO2 21 07/25/23 08:46 Intake & Output 07/24/23 07/25/23 07/25/23 18:59 06:59 18:59 Other: # Voids 3 1 - Exam GENERAL EXAM: Alert, 53-year-old female, on room air, comfortable in no apparent distress. HEAD: Normocephalic. EYES: Normal reaction of pupils, equal size. NOSE: Clear with pink turbinates. THROAT: No erythema or exudates. NECK: No masses, no JVD. CHEST: No chest wall deformity. LUNGS: Equal air entry with faint bilateral end expiratory wheeze. CVS: S1 and S2 normal with no audible murmur, regular rhythm. ABDOMEN: No hepatosplenomegaly, normal bowel sounds, no guarding or rigidity. SPINE: No scoliosis or deformity SKIN: No rashes CENTRAL NERVOUS SYSTEM: No focal deficits, tone is normal in all 4 extremities. EXTREMITIES: There is no peripheral edema. No clubbing, no cyanosis. Peripheral pulses are intact. - Labs CBC & Chem 7: 07/20/23 20:21 07/20/23 20:21 Labs: Abnormal Lab Results - Last 24 Hours (Table) 07/24/23 07/24/23 07/25/23 Range/Units 16:54 19:47 05:20 POC Glucose (mg/dL) 171 H 171 H 168 H (70-110) mg/dL 07/25/23 Range/Units 11:20 POC Glucose (mg/dL) 154 H (70-110) mg/dL Assessment and Plan Assessment: Acute exacerbation of severe persistent chronic bronchial asthma. Possibly exacerbated by stopping Xolair. Chest x-ray on arrival showed no infiltrates or evidence of pneumonia. Negative for influenza, RSV, COVID-19 History of renal stones, renal scan revealed punctate 1 mm nonobstructing bilateral renal calculi. Indeterminate posterior right renal cortical lesion stable from previous. 4 cm soft tissue nodule in the left adnexa. Unable to visualize ovary due to bowel gas pattern per pelvic ultrasound report Benign essential hypertension Hyperlipidemia Type 2 diabetes mellitus Gastroesophageal reflux disease Obesity, with a BMI of 39.9 kg/m Never smoker Plan: The patient was seen and evaluated Pelvic ultrasound, medications reviewed Cleared for discharge from the pulmonary standpoint Continue her home pulmonary medications Complete a prednisone taper starting at 40 mg daily for 4 days Follow-up in our office in 1 week Follow-up with her PCP/BEE [facility] regarding soft tissue nodule in the left ovary I have personally seen and examined the patient, performed the documentation and the assessment and plan as written. Number of minutes spent on the visit: 10.
[2023-07-25] MEDS: HYDROcodone/APAP 5-325MG 1 EACH TAB PO PRN ×2 (13:03→21:20)
[2023-07-25] MEDS: IBUPROFEN 400 MG TAB PO PRN (15:36)
[2023-07-25 15:53] LABS: Basophils # (A) 0.01 X 10*3/uL (0.00-0.10); Basophils % (A) 0.1 %; Eosinophils # (A) 0 X 10*3/uL (0.04-0.35); Eosinophils % (A) 0 %; HCT 41.4 % (37.2-46.3); HGB 13.4 d/dL (12.0-15.0); Lymphocytes % (A) 6.9 %; MCH 29.1 pg (27.0-32.0); MCHC 32.4 d/dL (32.0-37.0); MCV 89.8 FL (80.0-97.0); Mean Platelet Volume 10.9 FL (9.5-12.2); Monocytes # (A) 0.44 X 10*3/uL (0.20-1.00); Monocytes % (A) 4.3 %; NRBC Per 100 WBC 0 X 10*3/uL (0.00-0.01); Neutrophils # (A) 8.75 X 10*3/uL (1.80-7.70); Neutrophils % (A) 86.2 %; Platelet Count 180 X 10*3/uL (140-440); RBC 4.61 X 10*6/uL (4.10-5.20); RDW 12.5 % (11.5-14.5); WBC 10.15 X 10*3/uL (4.50-10.00)
[2023-07-25 16:08] LABS: Blood Urea Nitrogen 14.4 mg/dL (9.0-27.0); Calcium 8.6 mg/dL (8.7-10.3); Carbon Dioxide 24.7 mmol/L (21.6-31.8); Chloride 104 mmol/L (96-109); Glucose 165 mg/dL (70-110); Magnesium 2.5 mg/dL (1.5-2.4); Potassium 4.5 mmol/L (3.5-5.5); Sodium 140 mmol/L (135-145)
--- NOTE | 2023-07-25 16:29 | P.PN ---
Subjective Progress Note Date: 07/25/23 Pt still c/o right flank pain, but breathing is improved. Gen: awake, alert HEENT: normocephalic, atraumatic, good hearing acuity, moist mucous membranes Resp: good air exchange, breathing comfortably with no accessory muscle use CVS: good distal perfusion x 4, GI: soft, NTTP, ND : no SPT, right CVAT, hobbs catheter not present MSK: no pitting edema, no clubbing Neuro: non-focal, moving all extremities Psych: cooperative, euthymic mood Hospital Course: 53-year-old female with PMH of asthma, GERD, hypertension, dyslipidemia presents the ED for shortness of breath and wheezing. She was recently admitted from 07/11-07/14 for similar complaints. Recently been taken off of Xolair after an episode of shingles which she believes aggravated her symptoms. She was recently restarted and received her first dose this Monday. In the ED, her vital signs were stable, tachycardic in the 120s. CBC showed leukocytosis of 11.5. INR 0.9. D-dimer 0.41. CMP showed glucose 143. A1c 5.8. Troponin less than 0.012. COVID-19, flu, RSV negative. Chest x-ray no acute process. Patient was admitted for asthma exacerbation. Pulmonology was consulted. She was started on Solu-Medrol and bronchodilators scheduled and as needed. 07/22 Patient was seen and examined. No acute events overnight. Patient reports SOB and wheezing. States that she is only 40% better. Nursing reports beats of NSVT so Cardiology was consulted and Echocardiogram was ordered. EKG shows NSR. 07/23 Patient was seen and examined. She continues to reports chest tightness and wheezing. States not much improvement since yesterday. She reports right flank pain radiating to the RLQ, throbbing, 10/10 in severity. She reports a history of calcium kidney stones. No dysuria or hematuria. Toradol does not help, Morphine helps slightly. CT will be ordered to evaluate. Cardiology did not see any NSVT on telemetry. Echo shows EF 55-60% with mild MR and LA dilation. Case discussed with Dr. Gibson, continue present management. 07/24 Patient was seen and examined. Continued SOB and wheezing with exertion. Pulmonology recommends 1-2 days of continued treatment, not ready for discharge. She continues to report right flank pain worsened with cough. CT AP done yesterday showed 1 mm non obstructive renal stone bilaterally and 4 cm soft tissue nodule left adnexa. Pelvic US is non conclusive. Assessment/plan: Nephrolithiasis Left adnexal mass - start tamsulosin 0.4mg daily - start IVF LR @ 125cc/hr - pain control: tylenol PRN, norco PRN, ibuprofen PRN - Re: adnexal mass - pelvic US non conclusive. Outpatient OBGYN follow up. Acute asthma exacerbation Leukocytosis - continue steroids, nebulizers - pulmonology consult following, appreciate recs Hypertension Dyslipidemia GERD - Home medications reviewed and reconciled Heparin SQ for DVT prophylaxis. FULL CODE Objective - Vital Signs Vital signs: Vital Signs Temp 98.2 F 07/25/23 13:55 Pulse 84 07/25/23 16:14 Resp 20 07/25/23 13:55 BP 131/80 07/25/23 13:55 Pulse Ox 97 07/25/23 13:55 FiO2 21 07/25/23 08:46 Intake & Output 07/24/23 07/25/23 07/25/23 18:59 06:59 18:59 Other: # Voids 3 1 - Labs CBC & Chem 7: 07/25/23 10:54 07/25/23 10:54 Labs: Abnormal Lab Results - Last 24 Hours (Table) 07/24/23 07/24/23 07/25/23 Range/Units 16:54 19:47 05:20 WBC (4.50-10.00) X 10*3/uL Neutrophils # (1.80-7.70) X 10*3/uL Lymphocytes # (0.90-5.00) X 10*3/uL Eosinophils # (0.04-0.35) X 10*3/uL BUN/Creatinine Ratio (12.00-20.00) Ratio Glucose (70-110) mg/dL POC Glucose (mg/dL) 171 H 171 H 168 H (70-110) mg/dL Calcium (8.7-10.3) mg/dL Magnesium (1.5-2.4) mg/dL 07/25/23 07/25/23 07/25/23 Range/Units 10:54 10:54 11:20 WBC 10.15 H (4.50-10.00) X 10*3/uL Neutrophils # 8.75 H (1.80-7.70) X 10*3/uL Lymphocytes # 0.70 L (0.90-5.00) X 10*3/uL Eosinophils # 0 L (0.04-0.35) X 10*3/uL BUN/Creatinine Ratio 24.00 H (12.00-20.00) Ratio Glucose 165 H (70-110) mg/dL POC Glucose (mg/dL) 154 H (70-110) mg/dL Calcium 8.6 L (8.7-10.3) mg/dL Magnesium 2.5 H (1.5-2.4) mg/dL
[2023-07-25 16:34] LABS: Glucose,Whole Blood 184 mg/dL (70-110)
[2023-07-25] MEDS: LACTATED RINGERS 1,000 ML IV SCH (17:15)
[2023-07-25] MEDS: MORPHINE SULFATE 2 MG/ML SYRINGE IVP STA ×2 (17:15→17:31)
[2023-07-25] MEDS ORDERED: MORPHINE SULFATE 2 MG/ML SYRINGE IVP STA (17:27)
[2023-07-25 19:29] LABS: Glucose,Whole Blood 156 mg/dL (70-110)
[2023-07-25] MEDS: DULoxetine HCL 30 MG CAPSULE.DR PO SCH (21:19)
[2023-07-25] MEDS: ATORVASTATIN 40 MG TAB PO SCH (21:19)
[2023-07-25] MEDS: PANTOPRAZOLE 40 MG TABLET PO SCH (21:19)
[2023-07-25] MEDS: METOPROLOL SUCCINATE (ER) 100 MG TAB.ER.24H PO SCH (21:19)
[2023-07-25] MEDS: LOSARTAN 50 MG TAB PO SCH (21:19)
[2023-07-25] MEDS: LIDOCAINE 5% PATCH TOPICAL SCH (21:21)
[2023-07-25] MEDS: traZODone HCL 50 MG TAB PO SCH (22:44)
[2023-07-26] MEDS: IBUPROFEN 400 MG TAB PO PRN ×2 (00:16→06:15)
[2023-07-26] MEDS: HEPARIN SODIUM,PORCINE 5,000 UNIT/ML 1 ML VIAL SQ SCH ×2 (00:17→11:17)
[2023-07-26] MEDS: LACTATED RINGERS 1,000 ML IV SCH ×2 (02:19→04:12)
[2023-07-26] MEDS: HYDROcodone/APAP 5-325MG 1 EACH TAB PO PRN ×2 (04:11→11:08)
[2023-07-26 05:31] LABS: Glucose,Whole Blood 117 mg/dL (70-110)
[2023-07-26] MEDS: INSULIN ASPART (NovoLOG) 100 UNIT/ML VIAL SQ SCH (06:32)
[2023-07-26 07:16] VITALS: BP 132/67; RESP 14; TEMP 98.5
[2023-07-26] MEDS ORDERED: TAMSULOSIN 0.4 MG CAP.ER.24H PO SCH (08:30)
[2023-07-26] MEDS ORDERED: predniSONE 20 MG TAB PO SCH (09:00)
[2023-07-26] MEDS: IPRATROPIUM-ALBUTEROL 3 ML NEB INHALATION SCH (09:15)
[2023-07-26] MEDS: BUDESONIDE 0.5 MG/2 ML NEBU INHALATION SCH (09:15)
[2023-07-26] MEDS: FORMOTEROL FUMARATE 20 MCG/2 ML NEBU INHALATION SCH (09:15)
--- NOTE | 2023-07-26 09:33 | P.DS ---
Providers Date of admission: 07/20/23 23:20 Expected date of discharge: 07/26/23 Attending physician: Gilma Ling MD Consults: 07/20/23 23:19 Consult Physician Urgent Consulting Provider: Mio Aguilar Reason/Comments: asthma exacerbation Do you want consulting provider notified?: Yes, Notify in am Primary care physician: Ervin Rodarte Hospital Course: Nephrolithiasis Left adnexal mass Acute asthma exacerbation Leukocytosis Hypertension Dyslipidemia GERD Hospital Course: 53-year-old female with PMH of asthma, GERD, hypertension, dyslipidemia presents the ED for shortness of breath and wheezing. She was recently admitted from 07/11-07/14 for similar complaints. Recently been taken off of Xolair after an episode of shingles which she believes aggravated her symptoms. She was recently restarted and received her first dose this Monday. In the ED, her vital signs were stable, tachycardic in the 120s. CBC showed leukocytosis of 11.5. INR 0.9. D-dimer 0.41. CMP showed glucose 143. A1c 5.8. Troponin less than 0.012. COVID-19, flu, RSV negative. Chest x-ray no acute process. Patient was admitted for asthma exacerbation. Pulmonology was consulted. She was started on Solu-Medrol and bronchodilators scheduled and as needed. 07/22 Patient was seen and examined. No acute events overnight. Patient reports SOB and wheezing. States that she is only 40% better. Nursing reports beats of NSVT so Cardiology was consulted and Echocardiogram was ordered. EKG shows NSR. 07/23 Patient was seen and examined. She continues to reports chest tightness and wheezing. States not much improvement since yesterday. She reports right flank pain radiating to the RLQ, throbbing, 10/10 in severity. She reports a history of calcium kidney stones. No dysuria or hematuria. Toradol does not help, Morphine helps slightly. CT will be ordered to evaluate. Cardiology did not see any NSVT on telemetry. Echo shows EF 55-60% with mild MR and LA dilation. Case discussed with Dr. Gibson, continue present management. 07/24 Patient was seen and examined. Continued SOB and wheezing with exertion. Pulmonology recommends 1-2 days of continued treatment, not ready for discharge. She continues to report right flank pain worsened with cough. CT AP done yesterday showed 1 mm non obstructive renal stone bilaterally and 4 cm soft tissue nodule left adnexa. Pelvic US is non conclusive. 07/25 Patient reported improvement of shortness of breath, wheezing. Continues to report significant right flank pain. Patient was started on Flomax as well as IV fluids for right-sided renal stone which was 1 mm nonobstructing. Patient's morphine was discontinued and Cherry Log 5/325 was added in addition to ibuprofen. 07/26 Patient reported improvement in right flank pain. She relates to me a history of recurrent urinary stones which has been previously worked up, and she was advised to drink a daily lemonade which I reiterated to her today. I did prescribe this patient 30 days of Flomax and 20 pills of 400 mg Motrin every 6 hours when necessary for pain. She was also prescribed that and is on taper per pulmonary recommendations. She should follow-up with her primary care physician. As noted regarding her left adnexal mass, she should follow up with [facility]. Lastly I also recommended she follow-up with urology regarding her history of recurrent urinary stones. I spent 38 minutes coordinating this discharge on 07/26 Gen: awake, alert HEENT: normocephalic, atraumatic, good hearing acuity, moist mucous membranes Resp: good air exchange, breathing comfortably with no accessory muscle use CVS: good distal perfusion x 4, GI: soft, NTTP, ND : no SPT, right CVAT, hobbs catheter not present MSK: no pitting edema, no clubbing Neuro: non-focal, moving all extremities Psych: cooperative, euthymic mood Patient Condition at Discharge: Good Plan - Discharge Summary Discharge Rx Participant: Yes New Discharge Prescriptions: New predniSONE [Deltasone] See Rx Instructions .ROUTE .COMPLEX #15 tab Tamsulosin [Flomax] 0.4 mg PO PC-BRKFST #30 cap Acetaminophen Tab [Tylenol] 650 mg PO Q6HR PRN tab PRN Reason: Mild Pain Or Fever > 100.5 Ibuprofen [Motrin] 400 mg PO Q6HR PRN #20 tab PRN Reason: Mild Pain Or Fever > 100.5 Continue Cetirizine HCl [Zyrtec] 10 mg PO HS Tirzepatide [Mounjaro] 2.5 mg SQ FR traZODone HCL [Desyrel] 50 mg PO HS DULoxetine HCL [Cymbalta] 30 mg PO HS Losartan Potassium [Cozaar] 100 mg PO HS Pantoprazole [Protonix] 40 mg PO HS Rosuvastatin [Crestor] 20 mg PO HS Albuterol Inhaler [Ventolin Hfa Inhaler] 2 puff INHALATION RT-Q4H PRN PRN Reason: Shortness Of Breath Metoprolol Succinate (ER) [Toprol XL] 100 mg PO HS Budesonide/Formoterol Fumarate [Symbicort 160-4.5 Mcg Inhaler] 2 puff INHALATION RT-BID #0 Ipratropium-Albuterol Nebulize [Duoneb 0.5 mg-3 mg/3 ml Soln] 3 ml INHALATION RT-Q8H PRN #10 each PRN Reason: Shortness Of Breath Discharge Medication List Cetirizine HCl [Zyrtec] 10 mg PO HS 01/10/18 [History] traZODone HCL [Desyrel] 50 mg PO HS 03/15/21 [History] DULoxetine HCL [Cymbalta] 30 mg PO HS 02/25/22 [History] Losartan Potassium [Cozaar] 100 mg PO HS 02/25/22 [History] Pantoprazole [Protonix] 40 mg PO HS 02/25/22 [History] Albuterol Inhaler [Ventolin Hfa Inhaler] 2 puff INHALATION RT-Q4H PRN 11/30/22 [History] Rosuvastatin [Crestor] 20 mg PO HS 11/30/22 [History] Metoprolol Succinate (ER) [Toprol XL] 100 mg PO HS 07/11/23 [History] Tirzepatide [Mounjaro] 2.5 mg SQ FR 07/11/23 [History] Budesonide/Formoterol Fumarate [Symbicort 160-4.5 Mcg Inhaler] 2 puff INHALATION RT-BID #0 07/14/23 [Rx] Ipratropium-Albuterol Nebulize [Duoneb 0.5 mg-3 mg/3 ml Soln] 3 ml INHALATION RT-Q8H PRN #10 each 07/14/23 [Rx] Acetaminophen Tab [Tylenol] 650 mg PO Q6HR PRN tab 07/26/23 [Rx] Ibuprofen [Motrin] 400 mg PO Q6HR PRN #20 tab 07/26/23 [Rx] Tamsulosin [Flomax] 0.4 mg PO PC-BRKFST #30 cap 07/26/23 [Rx] predniSONE [Deltasone] See Rx Instructions .ROUTE .COMPLEX #15 tab 07/26/23 [Rx] Follow up Appointment(s)/Referral(s): Rodrigo Sandoval MD [STAFF PHYSICIAN] - 4 Weeks (Kidney Stones. Office not answering please call to schedule appoinetment ) Ervin Rodarte MD [Primary Care Provider] - 1-2 days (office not answering Please call to schedule appointment) Discharge Disposition: HOME SELF-CARE
[2023-07-26 09:45] VITALS: PULSE 60
[2023-07-26 11:21] LABS: Basophils # (A) 0.01 X 10*3/uL (0.00-0.10); Basophils % (A) 0.1 %; Eosinophils # (A) 0.02 X 10*3/uL (0.04-0.35); Eosinophils % (A) 0.3 %; HCT 39.6 % (37.2-46.3); HGB 12.9 d/dL (12.0-15.0); Lymphocytes # (A) 1.83 X 10*3/uL (0.90-5.00); Lymphocytes % (A) 26.5 %; MCH 29.5 pg (27.0-32.0); MCHC 32.6 d/dL (32.0-37.0); MCV 90.6 FL (80.0-97.0); Mean Platelet Volume 11.1 FL (9.5-12.2); Monocytes # (A) 0.54 X 10*3/uL (0.20-1.00); Monocytes % (A) 7.8 %; NRBC Per 100 WBC 0 X 10*3/uL (0.00-0.01); Neutrophils # (A) 4.43 X 10*3/uL (1.80-7.70); Neutrophils % (A) 64.1 %; Platelet Count 142 X 10*3/uL (140-440); RBC 4.37 X 10*6/uL (4.10-5.20); RDW 12.6 % (11.5-14.5); WBC 6.91 X 10*3/uL (4.50-10.00)
[2023-07-26 11:22] LABS: Glucose,Whole Blood 151 mg/dL (70-110)
[2023-07-26 11:38] LABS: BUN/Creat Ratio 24.14 Ratio (12.00-20.00); Blood Urea Nitrogen 16.9 mg/dL (9.0-27.0); Calcium 7.9 mg/dL (8.7-10.3); Carbon Dioxide 25.8 mmol/L (21.6-31.8); Chloride 103 mmol/L (96-109); Glucose 102 mg/dL (70-110); Magnesium 2.2 mg/dL (1.5-2.4); Potassium 4.1 mmol/L (3.5-5.5); Sodium 139 mmol/L (135-145)
--- NOTE | 2023-07-26 12:48 | P.PN ---
Subjective Progress Note Date: 07/26/23 I am seeing this patient in new consultation today 07/21/2023 for exacerbation of severe persistent asthma. Patient is a 53-year-old white female with past medical history significant for severe persistent asthma maintained on Xolair, Symbicort, and when necessary albuterol outpatient. She does follow with Dr. Aguilar in the office. She recently stopped her Xolair, because she developed postherpetic neuralgia from prior shingles. She did have a recent admission back on July 12 for similar symptoms. She was discharged on July 14 with a steroid taper. Yesterday, she restarted her Xolair. Since her discharge, she is been having progressively worsening dyspnea. She's also had a persistent mostly nonproductive cough, chest tightness, and wheezing. She has some chest and thoracic back pain that occurs with coughin only. Denies fevers. Denies sick contacts. She has not had much relief from her rescue inhaler. She did go to an urgent care clinic in [place] yesterday, who directed her to the emergency room late last night. Patient is currently sitting up at the edge of the bed, on room air, and mildly dyspneic. Chest x-ray on arrival showed no acute cardiopulmonary process. Negative for influenza, RSV, COVID-19. CBC shows a WBC count 11.5, hemoglobin 14.1, hematocrit 45.7, platelets 238. D-dimer was normal at 0.41. BMP was unremarkable. Troponin less than 0.012. Afebrile. Overall, the patient is currently medically stable and is being admitted to the general medical floor. On today's evaluation of 07/22/2023 patient is still short of breath, slightly improved compared to yesterday. She is still using O2. She is on bronchodilators. She is on steroids. Her chest was aching because of the repeated coughing episodes. She is morbidly obese and she may potentially have an underlying component of obstructive sleep apnea. Underlying tracheal bronchomalacia cannot be completely excluded. On 07/23/2023, the patient continues to improve slowly. We'll continue same treatment. On today's examination, there is improvement bilaterally in her lungs. She has got the chest wall pain. No fever. No chills. She is on room air oxygen. She remains on bronchodilators. She remains on steroids. The patient is seen today 07/24/2023 in follow-up on the regular medical floor. She is sitting up in bed. Awake and alert in no acute distress. She is trigge red with a cough on deep inhalation. Improved and on room air. Computed tomography scan of the kidneys revealed punctate 1 mm nonobstructing bilateral renal calculi. Indeterminate posterior right renal cortical lesion stable from previous. Left adnexa demonstrates a 4 cm soft tissue nodule. Blood glucose 205. She remains on DuoNeb inhalations, Pulmicort and Perforomist inhalations, IV Solu-Medrol. Heparin for DVT prophylaxis. The patient is seen today 07/25/2023 in follow-up on the regular medical floor. She is awake and alert in no acute distress. Feeling nearly back to her baseline. Continues to maintain good O2 saturations in the 90s on room air. She's afebrile. Hemodynamically stable. Glucose 154. Pelvic ultrasound was unable to observe the left ovarian abnormality due to overlying bowel gas pattern. She is continued on DuoNeb inhalations, Pulmicort and Perforomist in halations, IV Solu-Medrol. Heparin for DVT prophylaxis. The patient is seen today 07/26/2023 in follow-up on the regular medical floor. She is awake and alert in no acute distress. Maintaining good O2 saturations in the 90s on room air. She is still having some right-sided chest wall discomfort . Lidoderm patch is in place. White count 6.9. Hemoglobin 12.9. Platelets 142. Sodium 139. Potassium 4.1. Bicarb 26. BUN 17. Creatinine 0.7. Glucose 102. She is continued on DuoNeb inhalations, Pulmicort and Perforomist inhalations, prednisone taper. Objective - Vital Signs Vital signs: Vital Signs Temp 98.5 F 07/26/23 07:13 Pulse 60 07/26/23 09:42 Resp 14 07/26/23 07:13 BP 132/67 07/26/23 07:13 Pulse Ox 98 07/26/23 07:13 FiO2 21 07/25/23 08:46 Intake & Output 07/25/23 07/26/23 07/26/23 18:59 06:59 18:59 Intake Total 175 Balance 175 Intake: Intake, IV Titration 175 Amount Lactated Ringers 1,000 ml 175 @ 125 mls/hr IV .Q8H [facility] Rx#:[id number] Other: Voiding Method Toilet # Voids 3 2 - Exam GENERAL EXAM: Alert, obese 53-year-old female, on room air, fairly comfortable in no apparent distress. HEAD: Normocephalic. EYES: Normal reaction of pupils, equal size. NOSE: Clear with pink turbinates. THROAT: No erythema or exudates. NECK: No masses, no JVD. CHEST: No chest wall deformity. LUNGS: Equal air entry with faint bilateral end expiratory wheeze. CVS: S1 and S2 normal with no audible murmur, regular rhythm. ABDOMEN: No hepatosplenomegaly, normal bowel sounds, no guarding or rigidity. SPINE: No scoliosis or deformity SKIN: No rashes CENTRAL NERVOUS SYSTEM: No focal deficits, tone is normal in all 4 extremities. EXTREMITIES: There is no peripheral edema. No clubbing, no cyanosis. Peripheral pulses are intact. - Labs CBC & Chem 7: 07/26/23 06:23 07/26/23 06:23 Labs: Abnormal Lab Results - Last 24 Hours (Table) 07/25/23 07/25/23 07/25/23 Range/Units 10:54 10:54 16:33 WBC 10.15 H (4.50-10.00) X 10*3/uL Neutrophils # 8.75 H (1.80-7.70) X 10*3/uL Lymphocytes # 0.70 L (0.90-5.00) X 10*3/uL Eosinophils # 0 L (0.04-0.35) X 10*3/uL BUN/Creatinine Ratio 24.00 H (12.00-20.00) Ratio Glucose 165 H (70-110) mg/dL POC Glucose (mg/dL) 184 H (70-110) mg/dL Calcium 8.6 L (8.7-10.3) mg/dL Magnesium 2.5 H (1.5-2.4) mg/dL 07/25/23 07/26/23 07/26/23 Range/Units 19:28 05:30 06:23 WBC (4.50-10.00) X 10*3/uL Neutrophils # (1.80-7.70) X 10*3/uL Lymphocytes # (0.90-5.00) X 10*3/uL Eosinophils # 0.02 L (0.04-0.35) X 10*3/uL BUN/Creatinine Ratio (12.00-20.00) Ratio Glucose (70-110) mg/dL POC Glucose (mg/dL) 156 H 117 H (70-110) mg/dL Calcium (8.7-10.3) mg/dL Magnesium (1.5-2.4) mg/dL 07/26/23 07/26/23 Range/Units 06:23 11:21 WBC (4.50-10.00) X 10*3/uL Neutrophils # (1.80-7.70) X 10*3/uL Lymphocytes # (0.90-5.00) X 10*3/uL Eosinophils # (0.04-0.35) X 10*3/uL BUN/Creatinine Ratio 24.14 H (12.00-20.00) Ratio Glucose (70-110) mg/dL POC Glucose (mg/dL) 151 H (70-110) mg/dL Calcium 7.9 L (8.7-10.3) mg/dL Magnesium (1.5-2.4) mg/dL Assessment and Plan Assessment: Acute exacerbation of severe persistent chronic bronchial asthma. Possibly exacerbated by stopping Xolair. Chest x-ray on arrival showed no infiltrates or evidence of pneumonia. Negative for influenza, RSV, COVID-19 History of renal stones, renal scan revealed punctate 1 mm nonobstructing bilateral renal calculi. Indeterminate posterior right renal cortical lesion stable from previous. 4 cm soft tissue nodule in the left adnexa. Unable to visualize ovary due to bowel gas pattern per pelvic ultrasound report Benign essential hypertension Hyperlipidemia Type 2 diabetes mellitus Gastroesophageal reflux disease Obesity, with a BMI of 39.9 kg/m Never smoker Plan: The patient was seen and evaluated Cleared for discharge from the pulmonary standpoint Continue her home pulmonary medications Complete a prednisone taper starting at 40 mg daily for 4 days Follow-up in our office in 1 week I have personally seen and examined the patient, performed the documentation and the assessment and plan as written. Number of minutes spent on the visit: 10.
== END 2023-07-26 12:43 | disposition home or self-care (01) | DRG 141 ==
LOC: EC 19:15 → 5NMEDONC 23:20 → 4SSUR 23:55
PROVIDERS: ADMIT Internal Medicine; ATTEND Internal Medicine
DX: J45.51 Severe persistent asthma with (acute) exacerbation (principal); I47.20 Ventricular tachycardia, unspecified; E11.9 Type 2 diabetes mellitus without complications; E66.01 Morbid (severe) obesity due to excess calories; Z20.822 Contact with and (suspected) exposure to COVID-19; Z28.310 Unvaccinated for COVID-19; J06.9 Acute upper respiratory infection, unspecified; E78.5 Hyperlipidemia, unspecified; F32.A Depression, unspecified; I10 Essential (primary) hypertension; J43.9 Emphysema, unspecified; N83.9 Noninflammatory disorder of ovary, fallopian tube and broad ligament, unspecified; G47.30 Sleep apnea, unspecified; M54.6 Pain in thoracic spine; B02.29 Other postherpetic nervous system involvement; Z68.39 Body mass index [BMI] 39.0-39.9, adult; Z79.51 Long term (current) use of inhaled steroids; Z79.85 Long-term (current) use of injectable non-insulin antidiabetic drugs; Z79.899 Other long term (current) drug therapy; J96.01 Acute respiratory failure with hypoxia; K21.9 Gastro-esophageal reflux disease without esophagitis; N20.0 Calculus of kidney; Z87.442 Personal history of urinary calculi; Z86.19 Personal history of other infectious and parasitic diseases; Z85.528 Personal history of other malignant neoplasm of kidney; Z88.2 Allergy status to sulfonamides; Z88.8 Allergy status to other drugs, medicaments and biological substances; Z91.041 Radiographic dye allergy status
CPT/HCPCS: 36415; 71046; 74150; 76830; 76856; 80048; 80053; 83036; 83735; 84484; 85025; 85379; 85610; 85730; 87636; 93005; 93306; 94640; 94760; 96374; 96375; 99285

== ENCOUNTER 2023-10-30 17:05 | Inpatient (IN) | payer OTHER ==
[2023-10-30] MEDS ORDERED: SODIUM CHLORIDE 0.9% 1,000 ML IV STA (17:15)
[2023-10-30] MEDS ORDERED: IPRATROPIUM-ALBUTEROL 3 ML NEB INHALATION STA (17:15)
[2023-10-30] MEDS ORDERED: methylPREDNISolone SOD SUCCI 125 MG/2 ML VIAL IV STA (17:15)
--- NOTE | 2023-10-30 17:17 | ED ---
General Adult HPI - General Chief complaint: Shortness of Breath Stated complaint: Sob Time Seen by Provider: 10/30/23 17:11 Source: patient Mode of arrival: wheelchair Limitations: no limitations - History of Present Illness Initial comments: Patient is a pleasant 53-year-old female presenting to the emergency department with concerns with difficulty breathing. Onset of symptoms was 2 or 3 days ago. Patient does have cough and chest congestion. Cough has occasional dark green sputum. Patient is having fevers at home up to 102. Patient does have chest congestion. Patient does have history of similar symptoms previously associated with asthma - Related Data Home Medications Medication Instructions Recorded Confirmed Cetirizine HCl [Zyrtec] 10 mg PO HS 01/10/18 08/17/23 traZODone HCL [Desyrel] 50 mg PO HS 03/15/21 08/17/23 DULoxetine HCL [Cymbalta] 30 mg PO HS 02/25/22 08/17/23 Losartan Potassium [Cozaar] 100 mg PO HS 02/25/22 08/17/23 Pantoprazole [Protonix] 40 mg PO HS 02/25/22 08/17/23 Albuterol Inhaler [Ventolin Hfa 2 puff INHALATION RT-Q4H PRN 11/30/22 08/17/23 Inhaler] Rosuvastatin [Crestor] 20 mg PO HS 11/30/22 08/17/23 Metoprolol Succinate (ER) [Toprol 100 mg PO HS 07/11/23 08/17/23 XL] Xolair(Unknown Dose) 0 mg SQ Q14D 08/17/23 Previous Rx's Medication Instructions Recorded Budesonide/Formoterol Fumarate 2 puff INHALATION RT-BID #0 07/14/23 [Symbicort 160-4.5 Mcg Inhaler] Ipratropium-Albuterol Nebulize 3 ml INHALATION RT-Q8H PRN #10 each 07/14/23 [Duoneb 0.5 mg-3 mg/3 ml Soln] Acetaminophen Tab [Tylenol] 650 mg PO Q6HR PRN tab 07/26/23 Allergies Allergy/AdvReac Type Severity Reaction Status Date / Time adhesive tape Allergy Rash/Hives Verified 10/30/23 17:09 benzene Allergy Itching Verified 10/30/23 17:09 Iodinated Contrast Media Allergy Anaphylaxis Verified 10/30/23 17:09 Iodine and Iodide Containing Allergy Anaphylaxis Verified 10/30/23 17:09 Produc Sulfa (Sulfonamide Allergy Dyspnea Verified 10/30/23 17:09 Antibiotics) MRI dye Allergy Anaphylaxis Uncoded 08/17/23 11:54 Review of Systems ROS Statement: Those systems with pertinent positive or pertinent negative responses have been documented in the HPI. ROS Other: All systems not noted in ROS Statement are negative. Constitutional: Reports: as per HPI, fever, chills Eyes: Denies: eye pain ENT: Denies: ear pain Respiratory: Reports: as per HPI, cough, dyspnea, wheezes Cardiovascular: Denies: palpitations Endocrine: Denies: fatigue Gastrointestinal: Denies: abdominal pain Past Medical History Past Medical History: Asthma, GERD/Reflux, Hyperlipidemia, Hypertension, Sleep Apnea/CPAP/BIPAP Additional Past Medical History / Comment(s): Kidney Stones, intermittent tachy cardia, pre-diabetes, nonsmokers emphysema. no cpap, recent adm. for asthma exacerbation per pt. History of Any Multi-Drug Resistant Organisms: None Reported Past Surgical History: Back Surgery, Cholecystectomy, Hysterectomy, Orthopedic Surgery Additional Past Surgical History / Comment(s): Rotator cuff left; foot surgery l eft Past Anesthesia/Blood Transfusion Reactions: No Reported Reaction Past Psychological History: Depression Smoking Status: Never smoker Past Alcohol Use History: Rare Past Drug Use History: None Reported - Past Family History Mother Family Medical History: Myocardial Infarction (NH) Father Family Medical History: CVA/TIA General Exam Limitations: no limitations General appearance: alert, in no apparent distress Head exam: Present: normocephalic Eye exam: Present: normal appearance Neck exam: Present: normal inspection Respiratory exam: Present: wheezes Cardiovascular Exam: Present: tachycardia GI/Abdominal exam: Present: soft. Absent: tenderness Extremities exam: Present: normal inspection. Absent: pedal edema, calf tenderness Neurological exam: Present: alert Psychiatric exam: Present: normal affect, normal mood Skin exam: Present: normal color Course Vital Signs 10/30/23 10/30/23 10/30/23 17:07 18:07 18:19 Temperature 97.6 F Pulse Rate 109 H 103 H 106 H Respiratory 18 Rate Blood Pressure 153/73 O2 Sat by Pulse 92 L Oximetry 10/30/23 18:29 Temperature 99.9 F H Pulse Rate 112 H Respiratory 32 H Rate Blood Pressure 155/100 O2 Sat by Pulse 92 L Oximetry EKG Findings - EKG Results: EKG: interpreted by ERMD, sinus rhythm, normal axis, normal QRS, normal ST/T EKG shows: tachycardia Medical Decision Making - Medical Decision Making Was pt. sent in by a medical professional or institution (, [facility], BOX TOE C[employer]ER, urgent care, hospital, or care home...) When possible be specific @ -No Did you speak to anyone other than the patient for history (EMS, parent, family, police, friend...)? What history was obtained from this source @ -No Did you review nursing and triage notes (agree or disagree)? Why? @ -I reviewed and agree with nursing and triage notes Were old charts reviewed (outside hosp., previous admission, EMS record, old EKG, old radiological studies, urgent care reports/EKG's, care home records)? Report findings @ -Previous chest x-ray reviewed Differential Diagnosis (chest pain, altered mental status, abdominal pain women, abdominal pain men, vaginal bleeding, weakness, fever, dyspnea, syncope, headache, dizziness, GI bleed, back pain, seizure, CVA, palpatations, mental health, musculoskeletal)? @ -.Differential Dyspnea: Coronary syndrome, arrhythmia, tamponade, asthma, COPD, pulmonary embolism, pneumonia, pneumothorax, pulmonary effusion, anaphylaxis, diabetic ketoacidosis, flailed chest, pulmonary contusion, diaphragmatic rupture, anemia, neuromuscular, this is not meant to be an all-inclusive list. EKG interpreted by me (3pts min.). @ -As above X-rays interpreted by me (1pt min.). @ -Chest x-ray shows patchy interstitial changes left midlung CT interpreted by me (1pt min.). @ -None done U/S interpreted by me (1pt. min.). @ -None done What testing was considered but not performed or refused? (CT, X-rays, U/S, l abs)? Why? @ -None What meds were considered but not given or refused? Why? @ -None Did you discuss the management of the patient with other professionals (professionals i.e. , [facility], BOX TOE [employer]ER, lab, RT, psych nurse, social work lecturer, adobe developer, teacher, promotion officer, ed case manager)? Give summary @ -Sound physician Dr. Mathews covering for Dr. Rodarte. He agrees no antibiotics this patient has influenza and no white blood cell count elevated. Was smoking cessation discussed for >3mins.? @ -No Was critical care preformed (if so, how long)? @ -No Were there social determinants of health that impacted care today? How? (Homelessness, low income, unemployed, alcoholism, drug addiction, transportation, low edu. Level, literacy, decrease access to med. care, senior care, rehab)? @ -No Was there de-escalation of care discussed even if they declined (Discuss DNR or withdrawal of care, Hospice)? DNR status @ -No What co-morbidities impacted this encounter? (DM, HTN, Smoking, COPD, CAD, Cancer, CVA, ARF, Chemo, Hep., AIDS, mental health diagnosis, sleep apnea, morbid obesity)? @ -None Was patient admitted / discharged? Hospital course, mention meds given and route, prescriptions, significant lab abnormalities, going to OR and other pertinent info. @ -Patient reevaluated and still not feeling comfortable with her breathing. Patient has decreased air exchange and wheezing. Patient will be admitted. Patient does see Dr. Sinha with pulmonary. Admission orders written. Undiagnosed new problem with uncertain prognosis? @ -No Drug Therapy requiring intensive monitoring for toxicity (Heparin, Nitro, Insulin, Cardizem)? @ -No Were any procedures done? @ -No Diagnosis/symptom? @ -Asthma, influenza Acute, or Chronic, or Acute on Chronic? @ -Acute on chronic, acute Uncomplicated (without systemic symptoms) or Complicated (systemic symptoms)? @ -default Side effects of treatment? @ -No Exacerbation, Progression, or Severe Exacerbation? @ -Exacerbation of asthma Poses a threat to life or bodily function? How? (Chest pain, USA, NH, pneumonia, PE, COPD, DKA, ARF, appy, cholecystitis, CVA, Diverticulitis, Homicidal, Suicidal, threat to staff... and all critical care pts) @ -No - Lab Data Result diagrams: 10/30/23 17:55 10/30/23 17:55 Lab Results 10/30/23 10/30/23 10/30/23 Range/Units 17:55 17:55 17:55 WBC 6.2 (3.8-10.6) k/uL RBC 4.20 (3.80-5.40) m/uL Hgb 13.6 (11.4-16.0) gm/dL Hct 39.3 (34.0-46.0) % MCV 93.5 (80.0-100.0) fL MCH 32.3 (25.0-35.0) pg MCHC 34.6 (31.0-37.0) g/dL RDW 13.5 (11.5-15.5) % Plt Count 156 (150-450) k/uL MPV 8.3 Neutrophils % 89 % Lymphocytes % 7 % Monocytes % 3 % Eosinophils % 0 % Basophils % 0 % Neutrophils # 5.6 (1.3-7.7) k/uL Lymphocytes # 0.4 L (1.0-4.8) k/uL Monocytes # 0.2 (0-1.0) k/uL Eosinophils # 0.0 (0-0.7) k/uL Basophils # 0.0 (0-0.2) k/uL PT 9.9 L (10.0-12.5) sec INR 0.9 (<1.2) APTT 25.9 (22.0-30.0) sec Sodium 136 L (137-145) mmol/L Potassium 3.3 L (3.5-5.1) mmol/L Chloride 100 (98-107) mmol/L Carbon Dioxide 21 L (22-30) mmol/L Anion Gap 15 mmol/L BUN 13 (7-17) mg/dL Creatinine 0.42 L (0.52-1.04) mg/dL Est GFR (CKD-EPI)AfAm >90 (>60 ml/min/1.73 sqM) Est GFR (CKD-EPI)NonAf >90 (>60 ml/min/1.73 sqM) Glucose 242 H (74-99) mg/dL Plasma Lactic Acid Aubrey (0.7-2.0) mmol/L Calcium 8.0 L (8.4-10.2) mg/dL Total Bilirubin 0.6 (0.2-1.3) mg/dL AST 31 (14-36) U/L ALT 34 (4-34) U/L Alkaline Phosphatase 60 (38-126) U/L Total Protein 6.2 L (6.3-8.2) g/dL Albumin 3.7 (3.5-5.0) g/dL Influenza Type A (PCR) (Not Detectd) Influenza Type B (PCR) (Not Detectd) RSV (PCR) (Not Detectd) SARS-CoV-2 (PCR) (Not Detectd) 10/30/23 10/30/23 Range/Units 17:55 17:55 WBC (3.8-10.6) k/uL RBC (3.80-5.40) m/uL Hgb (11.4-16.0) gm/dL Hct (34.0-46.0) % MCV (80.0-100.0) fL MCH (25.0-35.0) pg MCHC (31.0-37.0) g/dL RDW (11.5-15.5) % Plt Count (150-450) k/uL MPV Neutrophils % % Lymphocytes % % Monocytes % % Eosinophils % % Basophils % % Neutrophils # (1.3-7.7) k/uL Lymphocytes # (1.0-4.8) k/uL Monocytes # (0-1.0) k/uL Eosinophils # (0-0.7) k/uL Basophils # (0-0.2) k/uL PT (10.0-12.5) sec INR (<1.2) APTT (22.0-30.0) sec Sodium (137-145) mmol/L Potassium (3.5-5.1) mmol/L Chloride (98-107) mmol/L Carbon Dioxide (22-30) mmol/L Anion Gap mmol/L BUN (7-17) mg/dL Creatinine (0.52-1.04) mg/dL Est GFR (CKD-EPI)AfAm (>60 ml/min/1.73 sqM) Est GFR (CKD-EPI)NonAf (>60 ml/min/1.73 sqM) Glucose (74-99) mg/dL Plasma Lactic Acid Aubrey 2.3 H* (0.7-2.0) mmol/L Calcium (8.4-10.2) mg/dL Total Bilirubin (0.2-1.3) mg/dL AST (14-36) U/L ALT (4-34) U/L Alkaline Phosphatase (38-126) U/L Total Protein (6.3-8.2) g/dL Albumin (3.5-5.0) g/dL Influenza Type A (PCR) Detected A (Not Detectd) Influenza Type B (PCR) Not Detected (Not Detectd) RSV (PCR) Not Detected (Not Detectd) SARS-CoV-2 (PCR) Not Detected (Not Detectd) Disposition Clinical Impression: Asthma exacerbation, Influenza Disposition: ADMITTED IP TO THIS HOSP Condition: Serious Is patient prescribed a controlled substance at d/c from ED?: No Time of Disposition: 19:53
--- NOTE | 2023-10-30 18:17 | XR ---
EXAMINATION TYPE: XR chest 2V DATE OF EXAM: 10/30/2023 COMPARISON: 07/20/2023 HISTORY: 53 year-old female shortness of breath, difficulty breathing TECHNIQUE: AP and lateral views FINDINGS: Heart normal size. Aorta and pulmonary vasculature within normal limits. Diffuse interstitial density and more confluent patchy opacity left mid lung. IMPRESSION: Patchy interstitial changes and more confluent airspace disease in the left midlung. Correlate for pn eumonia including the possibility of atypical/COVID pneumonias.
[2023-10-30 18:26] LABS: Basophils % (A) 0 %; Eosinophils % (A) 0 %; HCT 39.3 % (34.0-46.0); HGB 13.6 gm/dL (11.4-16.0); Lymphocytes # (A) 0.4 k/uL (1.0-4.8); Lymphocytes % (A) 7 %; MCH 32.3 pg (25.0-35.0); MCHC 34.6 g/dL (31.0-37.0); MCV 93.5 fL (80.0-100.0); Mean Platelet Volume 8.3; Monocytes # (A) 0.2 k/uL (0-1.0); Monocytes % (A) 3 %; Neutrophils # (A) 5.6 k/uL (1.3-7.7); Neutrophils % (A) 89 %; Platelet Count 156 k/uL (150-450); RDW 13.5 % (11.5-15.5); WBC 6.2 k/uL (3.8-10.6)
[2023-10-30 18:38] LABS: ALT 34 U/L (4-34); AST 31 U/L (14-36); African American GFR (CKD) >90 (>60 ml/min/1.73 sqM); Albumin 3.7 g/dL (3.5-5.0); Alkaline Phosphatase 60 U/L (38-126); Anion Gap 15 mmol/L; Blood Urea Nitrogen 13 mg/dL (7-17); Carbon Dioxide 21 mmol/L (22-30); Chloride 100 mmol/L (98-107); Glucose 242 mg/dL (74-99); Non-African American GFR(CKD) >90 (>60 ml/min/1.73 sqM); Potassium 3.3 mmol/L (3.5-5.1); Sodium 136 mmol/L (137-145); Total Bilirubin 0.6 mg/dL (0.2-1.3); Total Protein 6.2 g/dL (6.3-8.2)
[2023-10-30 18:44] LABS: INR 0.9 (<1.2); Partial Thromboplastin Time 25.9 sec (22.0-30.0); Prothrombin Time 9.9 sec (10.0-12.5)
[2023-10-30] MEDS ORDERED: POTASSIUM CHLORIDE ER 20 MEQ TAB.ER PO STA (19:17)
[2023-10-30] MEDS ORDERED: IBUPROFEN 600 MG TAB PO STA (19:20)
[2023-10-30] MEDS ORDERED: ACETAMINOPHEN TAB 500 MG TAB PO STA (19:20)
[2023-10-30] MEDS ORDERED: NALOXONE 0.4 MG/ML 1 ML VIAL IVP PRN (19:54)
[2023-10-30] MEDS ORDERED: IPRATROPIUM-ALBUTEROL 3 ML NEB INHALATION PRN (19:54)
[2023-10-30] MEDS: OSELTAMIVIR 75 MG CAP PO SCH (22:22)
[2023-10-30] MEDS: LORATADINE 10 MG TAB PO SCH (22:23)
[2023-10-30] MEDS: LOSARTAN 50 MG TAB PO SCH (22:23)
[2023-10-30] MEDS: traZODone HCL 50 MG TAB PO SCH (22:23)
[2023-10-30] MEDS: PANTOPRAZOLE 40 MG TABLET PO SCH (22:23)
[2023-10-30] MEDS: ATORVASTATIN 40 MG TAB PO SCH (22:24)
[2023-10-30] MEDS: DULoxetine HCL 30 MG CAPSULE.DR PO SCH (22:24)
[2023-10-31] MEDS: IPRATROPIUM-ALBUTEROL 3 ML NEB INHALATION SCH ×5 (01:25→19:54)
--- NOTE | 2023-10-31 02:37 | P.HPIM ---
History of Present Illness H&P Date: 10/30/23 Chief Complaint: SOB 53 year old female with moderate persistent asthma she is coming in for progressive SOB over the past 1 week, which got worse over the past couple days, she saw her PCP 2 days ago , and had a negative influenza test. she reports generalized body aches, sore throat, wheezing , SOB, fever, up to 102. today her symptoms got worse, and she decided to come in for evaluation. she denies any cardiac history , or blood clots. , she denies tobacco smoking , illicit drugs or alcohol she denies any nausea , vomiting, abd pain , or GI bleeding , denies any urinary or bowel habit changes. review of systems Pertinent positives as noted in HPI. All other systems were reviewed and are negative on exam Constitutional: No acute distress, conversant, pleasant Eyes: Anicteric sclerae, moist conjunctiva, Pupils equal round reactive to light ENMT: NC/AT Oropharynx clear, no erythema, or exudates Neck: Supple, no masses, or JVD No carotid bruits No thyromegaly Lungs: diminished breath sounds, with expiratory wheezing Clear to percussion Normal respiratory effort, no accessory muscle use Cardiovascular: Heart regular in rate and rhythm, No murmurs, gallops, or rubs No peripheral edema Abdominal: Soft Nontender, no guarding, rebound or rigidity Abdomen moving with respiration Normoactive bowel sounds No hepatomegaly, No splenomegaly No palpable mass No abdominal wall hernia noted Extremities: No digital cyanosis No clubbing Pedal pulses intact and symmetrical Radial pulses intact and symmetrical No calf tenderness Psychiatric: Alert and oriented to person, place and time Appropriate affect fair judgement Neuro Muscles Strength 5/5 in all 4 extremities Sensation to light touch grossly present throughout Cranial nerves II-XII grossly intact Lymphatics: no palpable cervical or supraclavicular lymph nodes Past Medical History Past Medical History: Asthma, GERD/Reflux, Hyperlipidemia, Hypertension, Sleep Apnea/CPAP/BIPAP Additional Past Medical History / Comment(s): Kidney Stones, intermittent tachycardia, pre-diabetes, nonsmokers emphysema. no cpap, recent adm. for asthma exacerbation per pt. History of Any Multi-Drug Resistant Organisms: None Reported Past Surgical History: Back Surgery, Cholecystectomy, Hysterectomy, Orthopedic Surgery Additional Past Surgical History / Comment(s): Rotator cuff left; foot surgery left Past Anesthesia/Blood Transfusion Reactions: No Reported Reaction Past Psychological History: Depression Smoking Status: Never smoker Past Alcohol Use History: Rare Past Drug Use History: None Reported - Past Family History Mother Family Medical History: Myocardial Infarction ([place]) Father Family Medical History: CVA/TIA Medications and Allergies Home Medications Medication Instructions Recorded Confirmed Type Cetirizine HCl [Zyrtec] 10 mg PO HS 01/10/18 10/30/23 History traZODone HCL [Desyrel] 50 mg PO HS 03/15/21 10/30/23 History DULoxetine HCL [Cymbalta] 30 mg PO HS 02/25/22 10/30/23 History Losartan Potassium [Cozaar] 100 mg PO HS 02/25/22 10/30/23 History Pantoprazole [Protonix] 40 mg PO HS 02/25/22 10/30/23 History Albuterol Inhaler [Ventolin Hfa 2 puff INHALATION RT-Q4H PRN 11/30/22 10/30/23 History Inhaler] Rosuvastatin [Crestor] 20 mg PO HS 11/30/22 10/30/23 History Metoprolol Succinate (ER) [Toprol 100 mg PO HS 07/11/23 10/30/23 History XL] Azithromycin [Zithromax Z Pack] See Taper PO DIRECTED 10/30/23 10/30/23 History Fluticasone Propionate 220 Mcg 2 puff INHALATION RT-BID 10/30/23 10/30/23 History [Flovent 220 Mcg Inhaler] Hydrocortisone Cream 1 applic TOPICAL BID PRN 10/30/23 10/30/23 History [Hydrocortisone 2.5% Cream] Ipratropium-Albuterol Nebulize 3 ml INHALATION RT-QID 10/30/23 10/30/23 History [Duoneb 0.5 mg-3 mg/3 ml Soln] Ketoconazole 2% Cream [Nizoral 2%] 1 applic TOPICAL BID PRN 10/30/23 10/30/23 History predniSONE 10 mg PO DIRECTED 10/30/23 10/30/23 History predniSONE 50 mg PO DAILY 10/30/23 10/30/23 History Allergies Allergy/AdvReac Type Severity Reaction Status Date / Time adhesive tape Allergy Rash/Hives Verified 10/30/23 20:34 benzene Allergy Itching Verified 10/30/23 20:34 Iodinated Contrast Media Allergy Anaphylaxis Verified 10/30/23 20:34 Iodine and Iodide Containing Allergy Anaphylaxis Verified 10/30/23 20:34 Produc Sulfa (Sulfonamide Allergy Dyspnea Verified 10/30/23 20:34 Antibiotics) MRI dye Allergy Anaphylaxis Uncoded 10/30/23 20:34 Physical Exam Vitals: Vital Signs Temp Pulse Resp BP Pulse Ox 10/30/23 18:29 99.9 F H 112 H 32 H 155/100 92 L 10/30/23 18:19 106 H 10/30/23 18:07 103 H 10/30/23 17:07 97.6 F 109 H 18 153/73 92 L Intake and Output 10/30/23 10/30/23 10/30/23 06:59 14:59 22:59 Other: Weight 127.006 kg Results CBC & Chem 7: 10/30/23 17:55 10/30/23 17:55 Labs: Abnormal Lab Results - Last 24 Hours (Table) 10/30/23 10/30/23 10/30/23 Range/Units 17:55 17:55 17:55 Lymphocytes # 0.4 L (1.0-4.8) k/uL PT 9.9 L (10.0-12.5) sec Sodium 136 L (137-145) mmol/L Potassium 3.3 L (3.5-5.1) mmol/L Carbon Dioxide 21 L (22-30) mmol/L Creatinine 0.42 L (0.52-1.04) mg/dL Glucose 242 H (74-99) mg/dL Plasma Lactic Acid Aubrey (0.7-2.0) mmol/L Calcium 8.0 L (8.4-10.2) mg/dL Total Protein 6.2 L (6.3-8.2) g/dL Influenza Type A (PCR) (Not Detectd) 10/30/23 10/30/23 Range/Units 17:55 17:55 Lymphocytes # (1.0-4.8) k/uL PT (10.0-12.5) sec Sodium (137-145) mmol/L Potassium (3.5-5.1) mmol/L Carbon Dioxide (22-30) mmol/L Creatinine (0.52-1.04) mg/dL Glucose (74-99) mg/dL Plasma Lactic Acid Aubrey 2.3 H* (0.7-2.0) mmol/L Calcium (8.4-10.2) mg/dL Total Protein (6.3-8.2) g/dL Influenza Type A (PCR) Detected A (Not Detectd) Assessment and Plan Assessment: 53 year old female with hypertension , moderate persistent asthma , coming in with 1 week history of URI symptoms , and progressive SOB, I discussed the case with ED doc and I accepted the admission for acute asthma exacerbation , secondary to Influenza A infection with anticipated length of stay > 2 midnights acute asthma exacerbation Influenza A positive CXR showed some patchy infiltrate follow up cultures continue with Tamiflu BID duonebs PRN qid systemic iv steroids with solumedrol 60 mg q 6hr supplemental oxygen as needed droplet precautions zyrtec daily motrin 600 mg po q6hr PRN chronic conditions hyeprtnesion , controlled resume losartan and metoprolol blood work showed hgb 13, WBC 6 renal function unremarkable Na 136, K 3.3 , BUN 13, cr 0.4 full code DVT PPX heparin sc tid GI PPX protonix 40 mg po daily 1
[2023-10-31] MEDS: methylPREDNISolone SOD SUCCI 125 MG/2 ML VIAL IV SCH ×4 (02:58→17:28)
[2023-10-31] MEDS ORDERED: IPRATROPIUM-ALBUTEROL 3 ML NEB INHALATION SCH (08:00)
[2023-10-31] MEDS: OSELTAMIVIR 75 MG CAP PO SCH ×2 (08:08→21:19)
[2023-10-31] MEDS: HEPARIN SODIUM,PORCINE 5,000 UNIT/ML 1 ML VIAL SQ SCH ×2 (08:09→17:28)
[2023-10-31] MEDS: IBUPROFEN 600 MG TAB PO PRN ×2 (08:12→17:35)
[2023-10-31] MEDS: FLUTICASONE 220 MCG INHALER INHALATION SCH ×2 (09:10→19:54)
[2023-10-31] MEDS: ACETAMINOPHEN TAB 325 MG TAB PO PRN ×2 (10:49→21:19)
--- NOTE | 2023-10-31 16:27 | P.PN ---
Subjective Progress Note Date: 10/31/23 Hospital course: Patient is a pleasant 53-year-old female with a past medical history of hypertension, hyperlipidemia, GERD, obstructive sleep apnea, and moderate persistent asthma. She presented to the emergency department on 10/30/23 secondary to worsening shortness of breath accompanied by generalized body aches, wheezing, and a subjective fever up to 102F. Patient was found to be positive for influenza A. She was admitted under our services for acute asthma exacerbation secondary to influenza A. Pulmonology was consulted. Physical exam: Patient seen and fully evaluated at bedside. Patient reports feeling awful reporting generalized body aches. Vital signs reviewed and stable. General: Nontoxic, no distress and appears stated age. Derm: Skin warm and dry, normal coloration for ethnicity. Head: Atraumatic, normocephalic and symmetric. Eyes: EOMs intact, no lid lag, and anicteric sclera Mouth: no lip lesions, mucus membranes moist Cardiovascular: regular rate and rhythm with normal S1S2, no murmur, positive posterior tibial pulses bilaterally, and cap refill < 2 seconds. Lungs: Respirations even, regular, and unlabored on room air. Lungs with equal air entry, soft expiratory wheezes bilaterally. No rhonchi, rales, or crackles noted. Abdominal: soft, nontender to palpation, no guarding, no appreciable organomegaly Ext: ROM intact. No gross muscle atrophy, no edema, no contractures Neuro: Speech clear, face symmetrical and CN II-XII grossly intact with no noted focal neuro deficits Psych: Alert and oriented to person, place, time, and situation. Appropriate and pleasant affect. Assessment and Plan of Care: 53 year old female with hypertension , moderate persistent asthma, coming in with 1 week history of URI symptoms, and progressive SOB, she underwent full evaluation in the emergency department and was found to test positive for influenza A. Patient was admitted under our services for acute asthma exacerbation secondary to Influenza A infection. Acute asthma exacerbation Influenza A positive Lactic acidosis, resolved -Oxygenation to be administered and titrated as needed to maintain SPO2 equal to or greater than 92% -Telemetry monitoring. -Monitor Pulse-oximetry -Duonebs scheduled for times daily and as needed for SOB and/or wheezing -Incentive Spirometry -Steroids: Solu-Medrol 60 mg every 6 hours -Patient was started on Tamiflu upon arrival to the emergency department and is currently on day 2 of 5 -CXR showed some patchy infiltrate -Continue droplet precautions -Oncology following, appreciate recommendations. Hyeprtnesion , controlled -Continue daily medication regimen with losartan 100 mg nightly and metoprolol persistent 800 mg nightly. Hyperlipidemia -Continue daily medication regimen with atorvastatin 40 mg nightly. Data reviewed: Lactic acidosis resolved initially 2.3 status post IV fluid hydration with repeat lactate 1.3. Vital signs reviewed. Blood pressure 135/76, heart rate 69, respiratory rate 14, temp 98.0F, SpO2 of 94% on room air CODE STATUS: Full code DVT prophylaxis: Heparin Anticipated discharge date: 24-[address]: 24-48 hours Patient was seen independently by Nurse Pracitioner. This document was prepared using [employer] dictation software. Please allow for errors in account manager [email or web address], while rare they do occur. Objective - Vital Signs Vital signs: Vital Signs Temp 98.0 F 10/31/23 07:00 Pulse 65 10/31/23 09:23 Resp 14 10/31/23 08:00 BP 135/76 10/31/23 07:00 Pulse Ox 94 L 10/31/23 07:00 FiO2 Intake & Output 10/30/23 10/31/23 10/31/23 18:59 06:59 18:59 Weight 127.006 kg Other: Voiding Method Toilet - Labs CBC & Chem 7: 10/30/23 17:55 10/30/23 17:55 Labs: Abnormal Lab Results - Last 24 Hours (Table) 10/30/23 10/30/23 10/30/23 Range/Units 17:55 17:55 17:55 Lymphocytes # 0.4 L (1.0-4.8) k/uL PT 9.9 L (10.0-12.5) sec Sodium 136 L (137-145) mmol/L Potassium 3.3 L (3.5-5.1) mmol/L Carbon Dioxide 21 L (22-30) mmol/L Creatinine 0.42 L (0.52-1.04) mg/dL Glucose 242 H (74-99) mg/dL Plasma Lactic Acid Aubrey (0.7-2.0) mmol/L Calcium 8.0 L (8.4-10.2) mg/dL Total Protein 6.2 L (6.3-8.2) g/dL Influenza Type A (PCR) (Not Detectd) 10/30/23 10/30/23 Range/Units 17:55 17:55 Lymphocytes # (1.0-4.8) k/uL PT (10.0-12.5) sec Sodium (137-145) mmol/L Potassium (3.5-5.1) mmol/L Carbon Dioxide (22-30) mmol/L Creatinine (0.52-1.04) mg/dL Glucose (74-99) mg/dL Plasma Lactic Acid Aubrey 2.3 H* (0.7-2.0) mmol/L Calcium (8.4-10.2) mg/dL Total Protein (6.3-8.2) g/dL Influenza Type A (PCR) Detected A (Not Detectd)
--- NOTE | 2023-10-31 20:05 | P.CNPUL ---
History of Present Illness Consult date: 10/31/23 Reason for consult: dyspnea History of present illness: This is a 53-year-old female patient with severe asthmatic disorder, maintain on a combination of Symbicort, albuterol and more recently Tezspire injections for control of severe persistent bronchial asthma. The patient is coming in with diffuse body aches, fever, cough and congestion and wheezing and shortness of breath. She was less in the hospital back in July 2023 and at that time she was treated for an acute asthma exacerbation and she was discharged home. She has hypertension, hyperlipidemia, diabetes mellitus type 2 and she is morbidly obese with a body mass index of 41.3. The white cell count at 6.2 with a hemoglobin 13.6, cognition profile is within normal, initial lactic acid level was at 2.3 and dropped down to 1.3 and the patient has a sodium level of 136, p otassium of 3.3, BUN is at 30 with a creatinine of 0.4. Influenza A was positive. The rest of the viral screening was negative. The chest x-ray showing a patchy infiltrate in the left midlung consistent with an atypical pneumonia. She is currently on room air oxygen with a pulse ox of 94%. She is hemodynamically stable and she is afebrile. She is currently on Tamiflu. She is also on bronchodilators around the clock and IV Solu-Medrol. Her symptoms started approximately 3-4 days ago. No nausea. No vomiting. No diarrhea. No altered mentation. Review of Systems CONSTITUTIONAL: Denies any recent significant weight loss or weight gain. EYES: Denies change in vision. EARS, NOSE, MOUTH, THROAT: Denies headaches, denies sore throat. CARDIOVASCULAR: Denies chest pain, palpitations or syncopal episodes. RESPIRATORY: See HPI GASTROINTESTINAL: Denies change in appetite, abdominal pain, nausea and vomiting, or diarrhea GENITOURINARY: Denies hematuria, denies infections. MUSKULOSKELETAL: Denies pain, denies swelling. INTEGUMENTARY: Denies rash, denies eczema. NEUROLOGICAL: Denies recent memory loss, no recent seizure activity. PSYCHIATRIC: Denies anxiety, denies depression. HEMATOLOGIC/LYMPHATIC: Denies anemia, denies enlarged lymph node Past Medical History Past Medical History: Asthma, GERD/Reflux, Hyperlipidemia, Hypertension, Sleep Apnea/CPAP/BIPAP Additional Past Medical History / Comment(s): Kidney Stones, intermittent tachycardia, pre-diabetes, nonsmokers emphysema. no cpap, recent adm. for asthma exacerbation per pt. History of Any Multi-Drug Resistant Organisms: None Reported Past Surgical History: Back Surgery, Cholecystectomy, Hysterectomy, Orthopedic Surgery Additional Past Surgical History / Comment(s): Rotator cuff left; foot surgery left Past Anesthesia/Blood Transfusion Reactions: No Reported Reaction Past Psychological History: Depression Smoking Status: Never smoker Past Alcohol Use History: Rare Past Drug Use History: None Reported - Past Family History Mother Family Medical History: Myocardial Infarction ([place]) Father Family Medical History: CVA/TIA Medications and Allergies Home Medications Medication Instructions Recorded Confirmed Type Cetirizine HCl [Zyrtec] 10 mg PO HS 01/10/18 10/30/23 History traZODone HCL [Desyrel] 50 mg PO HS 03/15/21 10/30/23 History DULoxetine HCL [Cymbalta] 30 mg PO HS 02/25/22 10/30/23 History Losartan Potassium [Cozaar] 100 mg PO HS 02/25/22 10/30/23 History Pantoprazole [Protonix] 40 mg PO HS 02/25/22 10/30/23 History Albuterol Inhaler [Ventolin Hfa 2 puff INHALATION RT-Q4H PRN 11/30/22 10/30/23 History Inhaler] Rosuvastatin [Crestor] 20 mg PO HS 11/30/22 10/30/23 History Metoprolol Succinate (ER) [Toprol 100 mg PO HS 07/11/23 10/30/23 History XL] Azithromycin [Zithromax Z Pack] See Taper PO DIRECTED 10/30/23 10/30/23 History Fluticasone Propionate 220 Mcg 2 puff INHALATION RT-BID 10/30/23 10/30/23 History [Flovent 220 Mcg Inhaler] Hydrocortisone Cream 1 applic TOPICAL BID PRN 10/30/23 10/30/23 History [Hydrocortisone 2.5% Cream] Ipratropium-Albuterol Nebulize 3 ml INHALATION RT-QID 10/30/23 10/30/23 History [Duoneb 0.5 mg-3 mg/3 ml Soln] Ketoconazole 2% Cream [Nizoral 2%] 1 applic TOPICAL BID PRN 10/30/23 10/30/23 History predniSONE 10 mg PO DIRECTED 10/30/23 10/30/23 History predniSONE 50 mg PO DAILY 10/30/23 10/30/23 History Allergies Allergy/AdvReac Type Severity Reaction Status Date / Time adhesive tape Allergy Rash/Hives Verified 10/30/23 20:34 benzene Allergy Itching Verified 10/30/23 20:34 Iodinated Contrast Media Allergy Anaphylaxis Verified 10/30/23 20:34 Iodine and Iodide Containing Allergy Anaphylaxis Verified 10/30/23 20:34 Produc Sulfa (Sulfonamide Allergy Dyspnea Verified 10/30/23 20:34 Antibiotics) MRI dye Allergy Anaphylaxis Uncoded 10/30/23 20:34 Physical Exam Vitals: Vital Signs Temp Pulse Pulse Resp BP BP Pulse Ox 10/31/23 14:00 69 14 10/31/23 12:31 72 10/31/23 12:20 72 10/31/23 09:23 65 10/31/23 09:14 65 10/31/23 08:00 69 14 10/31/23 07:00 98.0 F 69 14 135/76 94 L 10/31/23 06:32 81 18 133/82 95 10/31/23 03:02 98.1 F 71 18 120/70 95 10/30/23 21:50 88 22 137/77 96 10/30/23 18:29 99.9 F H 112 H 32 H 155/100 92 L 10/30/23 18:19 106 H 10/30/23 18:07 103 H 10/30/23 17:07 97.6 F 109 H 18 153/73 92 L Intake and Output 10/30/23 10/31/23 10/31/23 22:59 06:59 14:59 Intake Total 168 Output Total 911 Balance -743 Intake: Oral 168 Output: Post Void Residual 911 Other: Voiding Method Toilet # Voids 3 Weight 127.006 kg 127.006 kg GENERAL EXAM: Alert, 53-year-old white female appearing stated age, comfortable in no apparent distress. HEAD: Normocephalic and atraumatic EYES: Normal reaction of pupils, equal size. NOSE: Clear with pink turbinates. THROAT: No erythema or exudates. NECK: No masses, no JVD. CHEST: No chest wall deformity. LUNGS: Equal air entry with diminished lung sounds throughout and expiratory wheezes. On room air. Speaking in sentences, mildly dyspneic CVS: S1 and S2 normal with no audible murmur, regular rhythm. No extra heart sounds. Tachycardic heart rate 116 bpm. ABDOMEN: No hepatosplenomegaly, active bowel sounds, no guarding or rigidity. SPINE: No scoliosis or deformity SKIN: No rashes CENTRAL NERVOUS SYSTEM: No focal deficits, tone is normal in all 4 extremities. EXTREMITIES: There is no peripheral edema, clubbing, or cyanosis. Peripheral pulses are intact. Results - Laboratory Findings CBC and BMP: 10/30/23 17:55 10/30/23 17:55 PT/INR, D-dimer PT 9.9 sec (10.0-12.5) L 10/30/23 17:55 INR 0.9 (<1.2) 10/30/23 17:55 Abnormal lab findings: Abnormal Labs 10/30/23 10/30/23 12 17:55 17:55 17:55 Lymphocytes # 0.4 L PT 9.9 L Sodium 136 L Potassium 3.3 L Carbon Dioxide 21 L Creatinine 0.42 L Glucose 242 H Plasma Lactic Acid Aubrey Calcium 8.0 L Total Protein 6.2 L Influenza Type A (PCR) 10/30/23 10/30/23 17:55 17:55 Lymphocytes # PT Sodium Potassium Carbon Dioxide Creatinine Glucose Plasma Lactic Acid Aubrey 2.3 H* Calcium Total Protein Influenza Type A (PCR) Detected A Assessment and Plan Plan: Acute influenza pneumonia and the patient has a patchy interstitial infiltrate in the left midlung, likely viral in nature. Currently on Tamiflu. Symptoms started approximately 3-4 days ago Acute exacerbation of severe chronic persistent bronchial asthma Severe persistent bronchial asthma maintained on accommodation Symbicort, albuterol, and Tezspire injection on outpatient basis Benign essential hypertension Hyperlipidemia Type 2 diabetes mellitus Gastroesophageal reflux disease Obesity, with a BMI of 39.9 kg/m Never smoker Plan: Continue Tamiflu Continue IV Solu-Medrol Continue DuoNeb [facility] [id number] This patient has pneumonia with a history of severe persistent bronchial asthma, and the patient was treated with a combination of Symbicort and bronchodilators on outpatient basis and the patient has limited on Tezspire injections We'll follow, no changes in her medication regimen for now. We'll continue to follow.
[2023-10-31] MEDS: traZODone HCL 50 MG TAB PO SCH (21:19)
[2023-10-31] MEDS: PANTOPRAZOLE 40 MG TABLET PO SCH (21:19)
[2023-10-31] MEDS: LORATADINE 10 MG TAB PO SCH (21:19)
[2023-10-31] MEDS: METOPROLOL SUCCINATE (ER) 100 MG TAB.ER.24H PO SCH (21:19)
[2023-10-31] MEDS: LOSARTAN 50 MG TAB PO SCH (21:19)
[2023-10-31] MEDS: DULoxetine HCL 30 MG CAPSULE.DR PO SCH (21:19)
[2023-11-01] MEDS: HEPARIN SODIUM,PORCINE 5,000 UNIT/ML 1 ML VIAL SQ SCH ×3 (00:28→15:09)
[2023-11-01] MEDS: methylPREDNISolone SOD SUCCI 125 MG/2 ML VIAL IV SCH ×4 (00:29→18:25)
[2023-11-01] MEDS: IBUPROFEN 600 MG TAB PO PRN ×2 (05:59→15:09)
[2023-11-01] MEDS: FLUTICASONE 220 MCG INHALER INHALATION SCH ×2 (07:40→20:37)
[2023-11-01] MEDS: IPRATROPIUM-ALBUTEROL 3 ML NEB INHALATION SCH ×4 (07:40→20:37)
[2023-11-01] MEDS: OSELTAMIVIR 75 MG CAP PO SCH ×2 (08:19→22:40)
[2023-11-01 10:58] LABS: HCT 40.6 % (37.2-46.3); HGB 13.2 g/dL (12.0-15.0); MCH 30.1 pg (27.0-32.0); MCHC 32.5 g/dL (32.0-37.0); MCV 92.7 FL (80.0-97.0); Mean Platelet Volume 10.5 FL (9.5-12.2); NRBC Per 100 WBC 0 X 10*3/uL (0.00-0.01); Platelet Count 177 X 10*3/uL (140-440); RBC 4.38 X 10*6/uL (4.10-5.20); RDW 12.9 % (11.5-14.5); WBC 7.18 X 10*3/uL (4.50-10.00)
[2023-11-01 11:10] LABS: ALT 27 U/L (8-44); AST 16 U/L (13-35); Albumin 3.9 g/dL (3.8-4.9); Alkaline Phosphatase 61 U/L (41-126); Blood Urea Nitrogen 13.6 mg/dL (9.0-27.0); Calcium 9.1 mg/dL (8.7-10.3); Carbon Dioxide 26.6 mmol/L (21.6-31.8); Chloride 105 mmol/L (96-109); Globulin 2.3 g/dL (1.6-3.3); Glucose 157 mg/dL (70-110); Magnesium 2.3 mg/dL (1.5-2.4); Potassium 3.9 mmol/L (3.5-5.5); Sodium 143 mmol/L (135-145); Total Bilirubin 0.3 mg/dL (0.3-1.2); Total Protein 6.2 g/dL (6.2-8.2)
--- NOTE | 2023-11-01 12:28 | P.PN ---
Subjective Progress Note Date: 11/01/23 Hospital course: Patient is a pleasant 53-year-old female with a past medical history of hypertension, hyperlipidemia, GERD, obstructive sleep apnea, and moderate persistent asthma. She presented to the emergency department on 10/30/23 secondary to worsening shortness of breath accompanied by generalized body aches, wheezing, and a subjective fever up to 102F. Patient was found to be positive for influenza A and chest x-ray revealing patchy interstitial changes and more confluent airspace disease in the left mid lung correlating for pneumonia versus atypical/Covid pneumonias.. She was admitted under our services to observation unit for acute asthma exacerbation secondary to influenza A. Pulmonology was consulted and stated pt continues to require s cheduled nebulizer treatments and IV steroids. She is persistently bronchospasmic and reports difficult time taking a deep breath. Patient failing observation stay and orders placed for inpatient admission at this time. Physical exam: Patient seen and fully evaluated at bedside. Patient reports that she continues to feel awful with generalized body aches/pain and persistent coarse cough. Patient reports difficult time taking a deep breath due to bronchospasms. Vital signs reviewed and stable. General: Nontoxic, no distress and appears stated age. Derm: Skin warm and dry, normal coloration for ethnicity. Head: Atraumatic, normocephalic and symmetric. Eyes: EOMs intact, no lid lag, and anicteric sclera Mouth: no lip lesions, mucus membranes moist Cardiovascular: regular rate and rhythm with normal S1S2, no murmur, positive posterior tibial pulses bilaterally, and cap refill < 2 seconds. Lungs: Respirations even, regular, and unlabored on room air. Lungs with equal air entry, soft expiratory wheezes bilaterally. No rhonchi, rales, or crackles noted. Abdominal: soft, nontender to palpation, no guarding, no appreciable organomeg brea Ext: ROM intact. No gross muscle atrophy, no edema, no contractures Neuro: Speech clear, face symmetrical and CN II-XII grossly intact with no noted focal neuro deficits Psych: Alert and oriented to person, place, time, and situation. Appropriate and pleasant affect. Assessment and Plan of Care: 53 year old female with hypertension , moderate persistent asthma, presented with 1 week history of URI symptoms, and progressive SOB. She underwent full evaluation in the emergency department and was found to test positive for influenza A. Patient was admitted under our services for acute asthma exacerbation secondary to Influenza A infection. Acute asthma exacerbation Influenza A positive Lactic acidosis, resolved -Oxygenation to be administered and titrated as needed to maintain SPO2 equal to or greater than 92%. Patient maintaining oxygen saturations >92% on room air at rest and with ambulation. -Continue Telemetry monitoring. -Monitor Pulse-oximetry -Continue Duonebs scheduled four times daily and as needed for SOB and/or wheezing -Incentive Spirometry, encourage use 10-15 times hourly while awake -Steroids: Solu-Medrol 60 mg every 6 hours -Patient was started on Tamiflu upon arrival to the emergency department and is currently on day 3 of 5 -CXR showed some patchy infiltrate -Continue droplet precautions -Pulmonology following, discussed plan of care with Dr. Gibson. -Order placed for pro-calcitonin Hyeprtnesion , controlled -Continue daily medication regimen with losartan 100 mg nightly and metoprolol persistent 800 mg nightly. Hyperlipidemia -Continue daily medication regimen with atorvastatin 40 mg nightly. Data reviewed: Morning labs completed and reviewed. CBC remains unremarkable with normal WBC count of 7.18. BMP unremarkable. Glucose 157. Magnesium 2.3. Liver profile normal findings. Vital signs reviewed. Blood pressure 147/76, heart rate 63, respiratory rate 18, temp 98.7F, SpO2 97% on room air. Patient has remained afebrile since admission. CODE STATUS: Full code DVT prophylaxis: Heparin Anticipated discharge date: 24-[address]: 24-48 hours Patient was seen independently by Nurse Pracitioner. This document was prepared using [employer] dictation software. Please allow for errors in ip counsel, while rare they do occur. Rj Ramirez NP rendered care for this patient independently, reviewed the findings and plan as documented in the note above. I did not physically speak with or examine the patient on this date. Objective - Vital Signs Vital signs: Vital Signs Temp 98.7 F 11/01/23 07:00 Pulse 82 11/01/23 07:55 Resp 18 11/01/23 07:00 BP 147/76 11/01/23 07:00 Pulse Ox 94 L 11/01/23 07:42 FiO2 Intake & Output 10/31/23 11/01/23 11/01/23 18:59 06:59 18:59 Intake Total 168 Output Total 911 Balance -743 Weight 127.006 kg Intake: Oral 168 Output: Post Void Residual 911 Other: Voiding Method Toilet Toilet # Voids 3 3 - Labs CBC & Chem 7: 11/01/23 06:24 11/01/23 06:24
[2023-11-01] MEDS: ACETAMINOPHEN TAB 325 MG TAB PO PRN ×2 (13:17→18:30)
--- NOTE | 2023-11-01 14:08 | P.PN ---
Subjective Progress Note Date: 11/01/23 This is a 53-year-old female patient with severe asthmatic disorder, maintain on a combination of Symbicort, albuterol and more recently Tezspire injections for control of severe persistent bronchial asthma. The patient is coming in with diffuse body aches, fever, cough and congestion and wheezing and shortness of breath. She was less in the hospital back in July 2023 and at that time she was treated for an acute asthma exacerbation and she was discharged home. She has hypertension, hyperlipidemia, diabetes mellitus type 2 and she is morbidly obese with a body mass index of 41.3. The white cell count at 6.2 with a hemoglobin 13.6, cognition profile is within normal, initial lactic acid level was at 2.3 and dropped down to 1.3 and the patient has a sodium level of 136, potassium of 3.3, BUN is at 30 with a creatinine of 0.4. Influenza A was positive. The rest of the viral screening was negative. The chest x-ray showing a patchy infiltrate in the left midlung consistent with an atypical pneumonia. She is currently on room air oxygen with a pulse ox of 94%. She is hemodynamically stable and she is afebrile. She is currently on Tamiflu. She is also on bronchodilators around the clock and IV Solu-Medrol. Her symptoms started approximately 3-4 days ago. No nausea. No vomiting. No diarrhea. No altered mentation. On today's evaluation of 11/01/2023, the patient is doing slightly better compared to yesterday. Still bronchospastic and wheezy. She is still coughing. Breath sounds are quite diminished bilaterally. As mentioned earlier, the patient has an acute asthma exacerbation related to influenza infection and the patient is currently on Tamiflu. The patient remains on IV Solu-Medrol 60 mg every 6 hours and bronchodilators around the clock. There was noted 7.1, hemoglobin 13.2, B is a 50 with a creatinine of 0.5. The rest of the electrolytes are all within normal limits. No other issues for now. She remains on room air oxygen. Objective - Vital Signs Vital signs: Vital Signs Temp 98.7 F 11/01/23 07:00 Pulse 78 11/01/23 11:24 Resp 18 11/01/23 08:00 BP 147/76 11/01/23 07:00 Pulse Ox 94 L 11/01/23 07:42 FiO2 Intake & Output 10/31/23 11/01/23 11/01/23 18:59 06:59 18:59 Intake Total 168 118 Output Total 911 Balance -743 118 Weight 127.006 kg Intake: Oral 168 118 Output: Post Void Residual 911 Other: Voiding Method Toilet Toilet Toilet # Voids 3 3 - Exam GENERAL EXAM: Alert, 53-year-old white female appearing stated age, comfortable in no apparent distress. HEAD: Normocephalic and atraumatic EYES: Normal reaction of pupils, equal size. NOSE: Clear with pink turbinates. THROAT: No erythema or exudates. NECK: No masses, no JVD. CHEST: No chest wall deformity. LUNGS: Equal air entry with diminished lung sounds throughout and expiratory wheezes. On room air. Speaking in sentences, mildly dyspneic CVS: S1 and S2 normal with no audible murmur, regular rhythm. No extra heart sounds. Tachycardic heart rate 116 bpm. ABDOMEN: No hepatosplenomegaly, active bowel sounds, no guarding or rigidity. SPINE: No scoliosis or deformity SKIN: No rashes CENTRAL NERVOUS SYSTEM: No focal deficits, tone is normal in all 4 extremities. EXTREMITIES: There is no peripheral edema, clubbing, or cyanosis. Peripheral pulses are intact. - Labs CBC & Chem 7: 11/01/23 06:24 11/01/23 06:24 Labs: Abnormal Lab Results - Last 24 Hours (Table) 11/01/23 Range/Units 06:24 Creatinine 0.5 L (0.6-1.5) mg/dL BUN/Creatinine Ratio 27.20 H (12.00-20.00) Ratio Glucose 157 H (70-110) mg/dL Assessment and Plan Plan: Acute influenza pneumonia and the patient has a patchy interstitial infiltrate in the left midlung, likely viral in nature. Currently on Tamiflu. Symptoms started approximately 3-4 days ago, the patient has a component of pneumonia and the repeat chest x-ray was done tomorrow, clinically slightly improved compared to yesterday. Acute exacerbation of severe chronic persistent bronchial asthma Severe persistent bronchial asthma maintained on accommodation Symbicort, albuterol, and Tezspire injection on outpatient basis Benign essential hypertension Hyperlipidemia Type 2 diabetes mellitus Gastroesophageal reflux disease Obesity, with a BMI of 39.9 kg/m Never smoker Plan: Repeat chest x-ray in the morning Continue Tamiflu Continue IV Solu-Medrol at the same dose Continue Lory vieyra [id number] This patient has pneumonia with a history of severe persistent bronchial asthma, and the patient was treated with a combination of Symbicort and bronchodilators on outpatient basis and the patient has limited on Tezspire injections We'll follow, no changes in her medication regimen for now. We'll continue to follow.
[2023-11-01] MEDS: DULoxetine HCL 30 MG CAPSULE.DR PO SCH (22:39)
[2023-11-01] MEDS: METOPROLOL SUCCINATE (ER) 100 MG TAB.ER.24H PO SCH (22:40)
[2023-11-01] MEDS: ATORVASTATIN 40 MG TAB PO SCH (22:40)
[2023-11-01] MEDS: LORATADINE 10 MG TAB PO SCH (22:40)
[2023-11-01] MEDS: LOSARTAN 50 MG TAB PO SCH (22:40)
[2023-11-01] MEDS: traZODone HCL 50 MG TAB PO SCH (22:41)
[2023-11-01] MEDS: PANTOPRAZOLE 40 MG TABLET PO SCH (22:41)
[2023-11-01 23:25] LABS: Glucose,Whole Blood 241 mg/dL (70-110)
[2023-11-02] MEDS ORDERED: DEXTROSE 50% SYRINGE 50 ML IVP PRN ×2 (00:09)
[2023-11-02] MEDS: HEPARIN SODIUM,PORCINE 5,000 UNIT/ML 1 ML VIAL SQ SCH ×3 (00:17→18:11)
[2023-11-02] MEDS: INSULIN ASPART (NovoLOG) 100 UNIT/ML VIAL SQ SCH ×5 (00:17→21:06)
[2023-11-02] MEDS: methylPREDNISolone SOD SUCCI 125 MG/2 ML VIAL IV SCH ×5 (00:17→23:04)
[2023-11-02 06:32] LABS: Glucose,Whole Blood 180 mg/dL (70-110)
[2023-11-02] MEDS: IPRATROPIUM-ALBUTEROL 3 ML NEB INHALATION SCH ×4 (07:30→18:06)
[2023-11-02] MEDS: FLUTICASONE 220 MCG INHALER INHALATION SCH ×2 (07:31→18:06)
[2023-11-02] MEDS: OSELTAMIVIR 75 MG CAP PO SCH ×2 (08:41→20:23)
[2023-11-02] MEDS: IBUPROFEN 600 MG TAB PO PRN ×2 (10:42→18:22)
[2023-11-02 12:20] LABS: Glucose,Whole Blood 172 mg/dL (70-110)
--- NOTE | 2023-11-02 13:10 | XR ---
EXAMINATION TYPE: XR chest 1V DATE OF EXAM: 11/02/2023 12:12 PM CLINICAL INDICATION:Female, 53 years old with history of Follow-up pneumonia; [facility] COMPARISON: Chest radiographs from 10/30/2023. TECHNIQUE: XR chest 1V Frontal view of the chest. FINDINGS: Lungs/Pleura: There is no evidence of pleural effusion, focal consolidation, or pneumothorax. Pulmonary vascularity: Unremarkable. Heart/mediastinum: Cardiomediastinal silhouette is unremarkable. Musculoskeletal: No acute osseous pathology. IMPRESSION: No acute cardiopulmonary disease/process.
--- NOTE | 2023-11-02 14:16 | P.PN ---
Subjective Progress Note Date: 11/02/23 This is a 53-year-old female patient with severe asthmatic disorder, maintain on a combination of Symbicort, albuterol and more recently Tezspire injections for control of severe persistent bronchial asthma. The patient is coming in with diffuse body aches, fever, cough and congestion and wheezing and shortness of breath. She was less in the hospital back in July 2023 and at that time she was treated for an acute asthma exacerbation and she was discharged home. She has hypertension, hyperlipidemia, diabetes mellitus type 2 and she is morbidly obese with a body mass index of 41.3. The white cell count at 6.2 with a hemoglobin 13.6, cognition profile is within normal, initial lactic acid level was at 2.3 and dropped down to 1.3 and the patient has a sodium level of 136, potassium of 3.3, BUN is at 30 with a creatinine of 0.4. Influenza A was positive. The rest of the viral screening was negative. The chest x-ray showing a patchy infiltrate in the left midlung consistent with an atypical pneumonia. She is currently on room air oxygen with a pulse ox of 94%. She is hemodynamically stable and she is afebrile. She is currently on Tamiflu. She is also on bronchodilators around the clock and IV Solu-Medrol. Her symptoms started approximately 3-4 days ago. No nausea. No vomiting. No diarrhea. No altered mentation. On today's evaluation of 11/01/2023, the patient is doing slightly better compared to yesterday. Still bronchospastic and wheezy. She is still coughing. Breath sounds are quite diminished bilaterally. As mentioned earlier, the patient has an acute asthma exacerbation related to influenza infection and the patient is currently on Tamiflu. The patient remains on IV Solu-Medrol 60 mg every 6 hours and bronchodilators around the clock. There was noted 7.1, hemoglobin 13.2, B is a 50 with a creatinine of 0.5. The rest of the electrolytes are all within normal limits. No other issues for now. She remains on room air oxygen. On today's evaluation of 10/25/2023, the patient is improving. A repeat chest x-ray was done, the findings are improved compared to the earlier chest x-ray. Interstitial infiltrative was seen in the left lung is improved considerably. Clinically the patient is doing well and she reports improvement. No new complaints otherwise for now. No new labs. She remains on bronchodilators. She remains on steroids. She is also completing a course of Tamiflu. Home medications have been ordered resume. Objective - Vital Signs Vital signs: Vital Signs Temp 98.5 F 11/02/23 07:00 Pulse 62 11/02/23 11:21 Resp 16 11/02/23 07:00 BP 161/82 11/02/23 07:00 Pulse Ox 93 L 11/02/23 07:33 FiO2 Intake & Output 11/01/23 11/02/23 11/02/23 18:59 06:59 18:59 Intake Total 236 Balance 236 Intake: Oral 236 Other: Voiding Method Toilet Toilet # Voids 3 2 - Exam GENERAL EXAM: Alert, 53-year-old white female appearing stated age, comfortable in no apparent distress. HEAD: Normocephalic and atraumatic EYES: Normal reaction of pupils, equal size. NOSE: Clear with pink turbinates. THROAT: No erythema or exudates. NECK: No masses, no JVD. CHEST: No chest wall deformity. LUNGS: Equal air entry with diminished lung sounds throughout and expiratory wheezes. On room air. Speaking in sentences, mildly dyspneic CVS: S1 and S2 normal with no audible murmur, regular rhythm. No extra heart sounds. Tachycardic heart rate 116 bpm. ABDOMEN: No hepatosplenomegaly, active bowel sounds, no guarding or rigidity. SPINE: No scoliosis or deformity SKIN: No rashes CENTRAL NERVOUS SYSTEM: No focal deficits, tone is normal in all 4 extremities. EXTREMITIES: There is no peripheral edema, clubbing, or cyanosis. Peripheral pulses are intact. - Labs CBC & Chem 7: 11/01/23 06:24 11/01/23 06:24 Labs: Abnormal Lab Results - Last 24 Hours (Table) 11/01/23 11/02/23 11/02/23 Range/Units 23:24 06:31 12:19 POC Glucose (mg/dL) 241 H 180 H 172 H (70-110) mg/dL Assessment and Plan Plan: Acute influenza pneumonia and the patient has a patchy interstitial infiltrate in the left midlung, likely viral in nature. Currently on Tamiflu. Repeat chest x-ray shows improvement in the pulmonary infiltrates and the repeat chest x-ray from today shows no acute pulmonary abnormalities. Clinically the patient is improving. The patient on Tamiflu. The patient is on steroids. Acute exacerbation of severe chronic persistent bronchial asthma, improving Severe persistent bronchial asthma maintained on accommodation Symbicort, albuterol, and Tezspire injection on outpatient basis Benign essential hypertension Hyperlipidemia Type 2 diabetes mellitus Gastroesophageal reflux disease Obesity, with a BMI of 39.9 kg/m Never smoker Plan: Repeat chest x-ray in the morning was reviewed and the patient was reassured Continue Tamiflu, complete the course for a total of 5 days Continue IV Solu-Medrol at the same dose, the patient with this patient a prednisone burst taper at time of discharge [id number] This patient has pneumonia with a history of severe persistent bronchial asthma, and the patient was treated with a combination of Symbicort and bronchodilators on outpatient basis and the patient has limited on Tezspire injections We'll follow, no changes in her medication regimen for now. We'll continue to follow. Possible discharge either today or within next 24 hours
[2023-11-02 17:26] LABS: Glucose,Whole Blood 218 mg/dL (70-110)
--- NOTE | 2023-11-02 17:31 | P.PN ---
Subjective Progress Note Date: 11/02/23 Hospital course: Patient is a pleasant 53-year-old female with a past medical history of hypertension, hyperlipidemia, GERD, obstructive sleep apnea, and moderate persistent asthma. She presented to the emergency department on 10/30/23 secondary to worsening shortness of breath accompanied by generalized body aches, wheezing, and a subjective fever up to 102F. Patient was found to be positive for influenza A and chest x-ray revealing patchy interstitial changes and more confluent airspace disease in the left mid lung correlating for pneumonia versus atypical/Covid pneumonias.. She was admitted under our services to observation unit for acute asthma exacerbation secondary to influenza A. Pulmonology was consulted and stated pt continues to require s cheduled nebulizer treatments and IV steroids. She is persistently bronchospasmic and reports difficult time taking a deep breath. Patient failing observation stay and orders placed for inpatient admission at this time. Physical exam: Patient seen and fully evaluated at bedside. Patient reports that she is finally starting to do a little bit better. Patient able to speak in approximately 3-5 word sentences prior to bronchospasms and coughing fits. Vital signs reviewed and stable. General: Nontoxic, no distress and appears stated age. Derm: Skin warm and dry, normal coloration for ethnicity. Head: Atraumatic, normocephalic and symmetric. Eyes: EOMs intact, no lid lag, and anicteric sclera Mouth: no lip lesions, mucus membranes moist Cardiovascular: regular rate and rhythm with normal S1S2, no murmur, positive posterior tibial pulses bilaterally, and cap refill < 2 seconds. Lungs: Respirations even, regular, and unlabored on room air. Lungs with equal air entry, soft expiratory wheezes bilaterally. No rhonchi, rales, or crackles noted. Abdominal: soft, nontender to palpation, no guarding, no appreciable organomegaly Ext: ROM intact. No gross muscle atrophy, no edema, no contractures Neuro: Speech clear, face symmetrical and CN II-XII grossly intact with no noted focal neuro deficits Psych: Alert and oriented to person, place, time, and situation. Appropriate and pleasant affect. Assessment and Plan of Care: 53 year old female with hypertension , moderate persistent asthma, presented with 1 week history of URI symptoms, and progressive SOB. She underwent full evaluation in the emergency department and was found to test positive for influenza A. Patient was admitted under our services for acute asthma exacerbation secondary to Influenza A infection. Acute asthma exacerbation Influenza A positive Lactic acidosis, resolved -Oxygenation to be administered and titrated as needed to maintain SPO2 equal to or greater than 92%. Patient maintaining oxygen saturations >92% on room air at rest and with ambulation. -Continue Telemetry monitoring. -Monitor Pulse-oximetry -Continue Duonebs scheduled four times daily and as needed for SOB and/or wheezing -Incentive Spirometry, encourage use 10-15 times hourly while awake -Steroids: Solu-Medrol 60 mg every 6 hours -Patient was started on Tamiflu upon arrival to the emergency department and is currently on day 4 of 5 -CXR showed some patchy infiltrate -Continue droplet precautions -Pulmonology following, discussed plan of care with Dr. Gibson and we will plan for discharge within the next 24 hours. -Pro-calcitonin was negative at 0.02. Hyeprtnesion , controlled -Continue daily medication regimen with losartan 100 mg nightly and metoprolol persistent 800 mg nightly. Hyperlipidemia -Continue daily medication regimen with atorvastatin 40 mg nightly. Data reviewed: Vital signs reviewed. Blood pressure 161/82, heart rate 67, respiratory rate 16, temp 98.5F, and SpO2 of 93% on room air. CODE STATUS: Full code DVT prophylaxis: Heparin Anticipated discharge date: Likely tomorrow morning Anticipated discharge place: Home Patient was seen independently by Nurse Pracitioner. This document was prepared using [employer] dictation software. Please allow for errors in coupon clerk, while rare they do occur. Objective - Vital Signs Vital signs: Vital Signs Temp 98.5 F 11/02/23 07:00 Pulse 60 11/02/23 07:47 Resp 16 11/02/23 07:00 BP 161/82 11/02/23 07:00 Pulse Ox 93 L 11/02/23 07:33 FiO2 Intake & Output 11/01/23 11/02/23 11/02/23 18:59 06:59 18:59 Intake Total 236 Balance 236 Intake: Oral 236 Other: Voiding Method Toilet Toilet # Voids 3 2 - Labs CBC & Chem 7: 11/01/23 06:24 11/01/23 06:24 Labs: Abnormal Lab Results - Last 24 Hours (Table) 11/01/23 11/01/23 11/02/23 Range/Units 06:24 23:24 06:31 Creatinine 0.5 L (0.6-1.5) mg/dL BUN/Creatinine Ratio 27.20 H (12.00-20.00) Ratio Glucose 157 H (70-110) mg/dL POC Glucose (mg/dL) 241 H 180 H (70-110) mg/dL
[2023-11-02] MEDS: ACETAMINOPHEN TAB 325 MG TAB PO PRN (18:22)
[2023-11-02] MEDS: DULoxetine HCL 30 MG CAPSULE.DR PO SCH (20:23)
[2023-11-02] MEDS: METOPROLOL SUCCINATE (ER) 100 MG TAB.ER.24H PO SCH (20:23)
[2023-11-02] MEDS: PANTOPRAZOLE 40 MG TABLET PO SCH (20:24)
[2023-11-02] MEDS: LORATADINE 10 MG TAB PO SCH (20:24)
[2023-11-02] MEDS: traZODone HCL 50 MG TAB PO SCH (20:24)
[2023-11-02] MEDS: LOSARTAN 50 MG TAB PO SCH (20:24)
[2023-11-02] MEDS: ATORVASTATIN 40 MG TAB PO SCH (20:24)
[2023-11-02 20:36] LABS: Glucose,Whole Blood 248 mg/dL (70-110)
[2023-11-02] MEDS ORDERED: SUMAtriptan succinate 6 MG/0.5 ML VIAL SQ STA (21:45)
[2023-11-03] MEDS: HEPARIN SODIUM,PORCINE 5,000 UNIT/ML 1 ML VIAL SQ SCH ×3 (00:12→16:28)
[2023-11-03 02:15] LABS: Glucose,Whole Blood 209 mg/dL (70-110)
[2023-11-03 06:07] LABS: Glucose,Whole Blood 186 mg/dL (70-110)
[2023-11-03] MEDS: methylPREDNISolone SOD SUCCI 125 MG/2 ML VIAL IV SCH ×3 (06:20→18:53)
[2023-11-03] MEDS: INSULIN ASPART (NovoLOG) 100 UNIT/ML VIAL SQ SCH ×4 (06:21→20:33)
[2023-11-03] MEDS: FLUTICASONE 220 MCG INHALER INHALATION SCH ×2 (08:40→20:09)
[2023-11-03] MEDS: IPRATROPIUM-ALBUTEROL 3 ML NEB INHALATION SCH ×4 (08:40→20:09)
[2023-11-03] MEDS: OSELTAMIVIR 75 MG CAP PO SCH ×2 (09:30→20:34)
[2023-11-03] MEDS: IBUPROFEN 600 MG TAB PO PRN (09:35)
[2023-11-03 12:42] LABS: Glucose,Whole Blood 196 mg/dL (70-110)
[2023-11-03] MEDS: ACETAMINOPHEN TAB 325 MG TAB PO PRN (16:28)
[2023-11-03 17:13] LABS: Glucose,Whole Blood 245 mg/dL (70-110)
--- NOTE | 2023-11-03 17:23 | P.PN ---
Subjective Progress Note Date: 11/03/23 This is a 53-year-old female patient with severe asthmatic disorder, maintain on a combination of Symbicort, albuterol and more recently Tezspire injections for control of severe persistent bronchial asthma. The patient is coming in with diffuse body aches, fever, cough and congestion and wheezing and shortness of breath. She was less in the hospital back in July 2023 and at that time she was treated for an acute asthma exacerbation and she was discharged home. She has hypertension, hyperlipidemia, diabetes mellitus type 2 and she is morbidly obese with a body mass index of 41.3. The white cell count at 6.2 with a hemoglobin 13.6, cognition profile is within normal, initial lactic acid level was at 2.3 and dropped down to 1.3 and the patient has a sodium level of 136, potassium of 3.3, BUN is at 30 with a creatinine of 0.4. Influenza A was positive. The rest of the viral screening was negative. The chest x-ray showing a patchy infiltrate in the left midlung consistent with an atypical pneumonia. She is currently on room air oxygen with a pulse ox of 94%. She is hemodynamically stable and she is afebrile. She is currently on Tamiflu. She is also on bronchodilators around the clock and IV Solu-Medrol. Her symptoms started approximately 3-4 days ago. No nausea. No vomiting. No diarrhea. No altered mentation. On today's evaluation of 11/01/2023, the patient is doing slightly better compared to yesterday. Still bronchospastic and wheezy. She is still coughing. Breath sounds are quite diminished bilaterally. As mentioned earlier, the patient has an acute asthma exacerbation related to influenza infection and the patient is currently on Tamiflu. The patient remains on IV Solu-Medrol 60 mg every 6 hours and bronchodilators around the clock. There was noted 7.1, hemoglobin 13.2, B is a 50 with a creatinine of 0.5. The rest of the electrolytes are all within normal limits. No other issues for now. She remains on room air oxygen. On today's evaluation of 10/25/2023, the patient is improving. A repeat chest x-ray was done, the findings are improved compared to the earlier chest x-ray. Interstitial infiltrative was seen in the left lung is improved considerably. Clinically the patient is doing well and she reports improvement. No new complaints otherwise for now. No new labs. She remains on bronchodilators. She remains on steroids. She is also completing a course of Tamiflu. Home medications have been ordered resume. On today's evaluation of 11/03/2023, the patient is reporting some interval worsening and the patient is having cough and chest discomfort related to her coughing pH remains on IV Solu-Medrol pH she remains on Tamiflu. Occupation is stable without any significant desaturations. She is still actively bronchospastic and wheezy. No new labs are available from today. No altered mentation. Objective - Vital Signs Vital signs: Vital Signs Temp 98.3 F 11/03/23 15:00 Pulse 60 11/03/23 15:16 Resp 16 11/03/23 15:00 BP 146/84 11/03/23 15:00 Pulse Ox 93 L 11/03/23 15:00 FiO2 Intake & Output 11/02/23 11/03/23 11/03/23 18:59 06:59 18:59 Intake Total 240 480 Balance 240 480 Intake: Oral 240 480 Other: Voiding Method Toilet # Voids 1 2 - Exam GENERAL EXAM: Alert, 53-year-old white female appearing stated age, comfortable in no apparent distress. HEAD: Normocephalic and atraumatic EYES: Normal reaction of pupils, equal size. NOSE: Clear with pink turbinates. THROAT: No erythema or exudates. NECK: No masses, no JVD. CHEST: No chest wall deformity. LUNGS: Equal air entry with diminished lung sounds throughout and expiratory wheezes. On room air. Speaking in sentences, mildly dyspneic CVS: S1 and S2 normal with no audible murmur, regular rhythm. No extra heart sounds. Tachycardic heart rate 116 bpm. ABDOMEN: No hepatosplenomegaly, active bowel sounds, no guarding or rigidity. SPINE: No scoliosis or deformity SKIN: No rashes CENTRAL NERVOUS SYSTEM: No focal deficits, tone is normal in all 4 extremities. EXTREMITIES: There is no peripheral edema, clubbing, or cyanosis. Peripheral pulses are intact. - Labs CBC & Chem 7: 11/01/23 06:24 11/01/23 06:24 Labs: Abnormal Lab Results - Last 24 Hours (Table) 10/30/23 11/02/23 11/02/23 Range/Units 17:55 17:24 20:35 POC Glucose (mg/dL) 218 H 248 H (70-110) mg/dL Hemoglobin A1c 6.1 H (<=6.0) % 11/03/23 11/03/23 11/03/23 Range/Units 02:09 06:05 12:41 POC Glucose (mg/dL) 209 H 186 H 196 H (70-110) mg/dL Hemoglobin A1c (<=6.0) % 11/03/23 Range/Units 17:12 POC Glucose (mg/dL) 245 H (70-110) mg/dL Hemoglobin A1c (<=6.0) % Assessment and Plan Plan: Acute influenza pneumonia and the patient has a patchy interstitial infiltrate in the left midlung, likely viral in nature. Currently on Tamiflu. Repeat chest x-ray shows improvement in the pulmonary infiltrates and the repeat chest x-ray from today shows no acute pulmonary abnormalities. Clinically the patient is improving. The patient on Tamiflu. The patient is on steroids. Acute exacerbation of severe chronic persistent bronchial asthma, improving Severe persistent bronchial asthma maintained on accommodation Symbicort, albuterol, and Tezspire injection on outpatient basis Benign essential hypertension Hyperlipidemia Type 2 diabetes mellitus Gastroesophageal reflux disease Obesity, with a BMI of 39.9 kg/m Never smoker Plan: We will add promethazine to suppress the cough Repeat chest x-ray from yesterday was improving Continue Tamiflu, complete the course for a total of 5 days Continue IV Solu-Medrol at the same dose, the patient with this patient a prednisone burst taper at time of discharge [id number] This patient has pneumonia with a history of severe persistent bronchial asthma, and the patient was treated with a combination of Symbicort and bronchodilators on outpatient basis and the patient has limited on Tezspire injections She is still struggling with her breathing and I would suggest continuing the treatment for now with high-dose Solu-Medrol and Tamiflu. We'll continue the same bronchodilator regimen for now. Will glide and add Perforomist and Pulmicort.
--- NOTE | 2023-11-03 17:26 | P.PN ---
Subjective Progress Note Date: 11/03/23 Late entry...patient was seen and fully evaluated at bedside this morning at 9:15 AM Hospital course: Patient is a pleasant 53-year-old female with a past medical history of hypertension, hyperlipidemia, GERD, obstructive sleep apnea, and moderate persistent asthma. She presented to the emergency department on 10/30/23 secondary to worsening shortness of breath accompanied by generalized body aches, wheezing, and a subjective fever up to 102F. Patient was found to be positive for influenza A and chest x-ray revealing patchy interstitial changes and more confluent airspace disease in the left mid lung correlating for pneumonia versus atypical/Covid pneumonias.. She was admitted under our services to observation unit for acute asthma exacerbation secondary to influenza A. Pulmonology was consulted and stated pt continues to require scheduled nebulizer treatments and IV steroids. She is persistently bronchospasmic and reports difficult time taking a deep breath. Patient failing observation stay and orders placed for inpatient admission Physical exam: Patient seen and fully evaluated at bedside this morning. Patient reports feeling much worse today, patient states she has significant worsening shortness of breath and cough compared to yesterday. Vital signs reviewed and stable. General: Nontoxic, no distress and appears stated age. Derm: Skin warm and dry, normal coloration for ethnicity. Head: Atraumatic, normocephalic and symmetric. Eyes: EOMs intact, no lid lag, and anicteric sclera Mouth: no lip lesions, mucus membranes moist Cardiovascular: regular rate and rhythm with normal S1S2, no murmur, positive posterior tibial pulses bilaterally, and cap refill < 2 seconds. Lungs: Respirations even, regular, and unlabored on room air. Lungs with equal air entry, soft expiratory wheezes bilaterally. No rhonchi, rales, or crackles noted. Abdominal: soft, nontender to palpation, no guarding, no appreciable organomegaly Ext: ROM intact. No gross muscle atrophy, no edema, no contractures Neuro: Speech clear, face symmetrical and CN II-XII grossly intact with no noted focal neuro deficits Psych: Alert and oriented to person, place, time, and situation. Appropriate and pleasant affect. Assessment and Plan of Care: 53 year old female with hypertension , moderate persistent asthma, presented with 1 week history of URI symptoms, and progressive SOB. She underwent full evaluation in the emergency department and was found to test positive for influenza A. Patient was admitted under our services for acute asthma exacerbation secondary to Influenza A infection. Acute asthma exacerbation Influenza A positive Lactic acidosis, resolved -Oxygenation to be administered and titrated as needed to maintain SPO2 equal to or greater than 92%. Patient maintaining oxygen saturations >92% on room air at rest and with ambulation. -Continue Telemetry monitoring. -Monitor Pulse-oximetry -Continue Duonebs scheduled four times daily and as needed for SOB and/or wheezing -Incentive Spirometry, encourage use 10-15 times hourly while awake -Steroids: Solu-Medrol 60 mg every 6 hours -Patient was started on Tamiflu upon arrival to the emergency department and is currently on day 4 of 5 -CXR showed some patchy infiltrate -Continue droplet precautions -Pulmonology following, discussed plan of care with Dr. Gibson and we will plan for discharge within the next 24 hours. -Pro-calcitonin was negative at 0.02. Hyeprtnesion , controlled -Continue daily medication regimen with losartan 100 mg nightly and metoprolol persistent 800 mg nightly. Hyperlipidemia -Continue daily medication regimen with atorvastatin 40 mg nightly. Data reviewed: Vital signs reviewed. Blood pressure 159/90, heart rate 54, respiratory rate 18, temp 98.4F, SpO2 of 90% on room air. CODE STATUS: Full code DVT prophylaxis: Heparin Anticipated discharge date: Likely tomorrow morning Anticipated discharge place: Home Patient was seen independently by Nurse Pracitioner. This document was prepared using [employer] dictation software. Please allow for errors in assembler billiard table, while rare they do occur. Rj Ramirez NP rendered care for this patient independently, reviewed the findings and plan as documented in the note above. I did not physically speak with or examine the patient on this date. Increased BS add levemir 8 units this evening. Objective - Vital Signs Vital signs: Vital Signs Temp 98.3 F 11/03/23 15:00 Pulse 60 11/03/23 15:16 Resp 16 11/03/23 15:00 BP 146/84 11/03/23 15:00 Pulse Ox 93 L 11/03/23 15:00 FiO2 Intake & Output 11/02/23 11/03/23 11/03/23 18:59 06:59 18:59 Intake Total 240 480 Balance 240 480 Intake: Oral 240 480 Other: Voiding Method Toilet # Voids 1 2 - Labs CBC & Chem 7: 11/01/23 06:24 11/01/23 06:24 Labs: Abnormal Lab Results - Last 24 Hours (Table) 10/30/23 11/02/23 11/02/23 Range/Units 17:55 17:24 20:35 POC Glucose (mg/dL) 218 H 248 H (70-110) mg/dL Hemoglobin A1c 6.1 H (<=6.0) % 11/03/23 11/03/23 11/03/23 Range/Units 02:09 06:05 12:41 POC Glucose (mg/dL) 209 H 186 H 196 H (70-110) mg/dL Hemoglobin A1c (<=6.0) % 11/03/23 Range/Units 17:12 POC Glucose (mg/dL) 245 H (70-110) mg/dL Hemoglobin A1c (<=6.0) %
[2023-11-03] MEDS ORDERED: PROMETHAZINE HCL 6.25 MG/5 ML CUP PO SCH (18:00)
[2023-11-03] MEDS: BUDESONIDE 0.5 MG/2 ML NEBU INHALATION SCH (20:09)
[2023-11-03] MEDS: FORMOTEROL FUMARATE 20 MCG/2 ML NEBU INHALATION SCH ×2 (20:09→20:21)
[2023-11-03 20:25] LABS: Glucose,Whole Blood 328 mg/dL (70-110)
[2023-11-03] MEDS: LOSARTAN 50 MG TAB PO SCH (20:33)
[2023-11-03] MEDS: ATORVASTATIN 40 MG TAB PO SCH (20:33)
[2023-11-03] MEDS: traZODone HCL 50 MG TAB PO SCH (20:33)
[2023-11-03] MEDS: LORATADINE 10 MG TAB PO SCH (20:33)
[2023-11-03] MEDS: PANTOPRAZOLE 40 MG TABLET PO SCH (20:33)
[2023-11-03] MEDS: DULoxetine HCL 30 MG CAPSULE.DR PO SCH (20:33)
[2023-11-03] MEDS: METOPROLOL SUCCINATE (ER) 100 MG TAB.ER.24H PO SCH (20:33)
[2023-11-03] MEDS: INSULIN DETEMIR (LEVEMIR) 100 UNIT/ML SYR SQ SCH ×2 (20:34→21:00)
[2023-11-03] MEDS: PROMETHAZINE HCL 6.25 MG/5 ML CUP PO SCH (20:34)
[2023-11-04] MEDS: HEPARIN SODIUM,PORCINE 5,000 UNIT/ML 1 ML VIAL SQ SCH ×3 (00:02→18:30)
[2023-11-04] MEDS: methylPREDNISolone SOD SUCCI 125 MG/2 ML VIAL IV SCH ×4 (00:02→19:07)
[2023-11-04 02:33] LABS: Glucose,Whole Blood 220 mg/dL (70-110)
[2023-11-04 05:52] LABS: Glucose,Whole Blood 217 mg/dL (70-110)
[2023-11-04] MEDS: INSULIN ASPART (NovoLOG) 100 UNIT/ML VIAL SQ SCH ×4 (06:25→20:55)
[2023-11-04] MEDS: OSELTAMIVIR 75 MG CAP PO SCH (08:58)
[2023-11-04] MEDS: PROMETHAZINE HCL 6.25 MG/5 ML CUP PO SCH ×4 (08:58→20:55)
[2023-11-04] MEDS: IBUPROFEN 600 MG TAB PO PRN (09:02)
[2023-11-04] MEDS: FORMOTEROL FUMARATE 20 MCG/2 ML NEBU INHALATION SCH ×2 (09:07→18:37)
[2023-11-04] MEDS: BUDESONIDE 0.5 MG/2 ML NEBU INHALATION SCH ×2 (09:07→18:37)
[2023-11-04] MEDS: IPRATROPIUM-ALBUTEROL 3 ML NEB INHALATION SCH ×4 (09:07→18:37)
[2023-11-04] MEDS: FLUTICASONE 220 MCG INHALER INHALATION SCH ×2 (09:08→18:37)
[2023-11-04 10:04] LABS: HCT 38.1 % (37.2-46.3); HGB 12.6 g/dL (12.0-15.0); MCH 30.4 pg (27.0-32.0); MCHC 33.1 g/dL (32.0-37.0); MCV 91.8 FL (80.0-97.0); Mean Platelet Volume 10.4 FL (9.5-12.2); NRBC Per 100 WBC 0.04 X 10*3/uL (0.00-0.01); Platelet Count 228 X 10*3/uL (140-440); RBC 4.15 X 10*6/uL (4.10-5.20); RDW 12.5 % (11.5-14.5); WBC 8.82 X 10*3/uL (4.50-10.00)
[2023-11-04 10:06] LABS: Blood Urea Nitrogen 16.4 mg/dL (9.0-27.0); Chloride 102 mmol/L (96-109); Glucose 230 mg/dL (70-110); Magnesium 2.3 mg/dL (1.5-2.4); Potassium 4.1 mmol/L (3.5-5.5); Sodium 141 mmol/L (135-145)
[2023-11-04 10:07] LABS: Calcium 8.7 mg/dL (8.7-10.3)
[2023-11-04 12:29] LABS: Glucose,Whole Blood 212 mg/dL (70-110)
[2023-11-04] MEDS: HYDROcodone/APAP 7.5-325MG 1 EACH TAB PO PRN ×2 (13:04→20:55)
--- NOTE | 2023-11-04 13:15 | P.PN ---
Subjective Progress Note Date: 11/04/23 This is a 53-year-old female patient with severe asthmatic disorder, maintain on a combination of Symbicort, albuterol and more recently Tezspire injections for control of severe persistent bronchial asthma. The patient is coming in with diffuse body aches, fever, cough and congestion and wheezing and shortness of breath. She was less in the hospital back in July 2023 and at that time she was treated for an acute asthma exacerbation and she was discharged home. She has hypertension, hyperlipidemia, diabetes mellitus type 2 and she is morbidly obese with a body mass index of 41.3. The white cell count at 6.2 with a hemoglobin 13.6, cognition profile is within normal, initial lactic acid level was at 2.3 and dropped down to 1.3 and the patient has a sodium level of 136, potassium of 3.3, BUN is at 30 with a creatinine of 0.4. Influenza A was positive. The rest of the viral screening was negative. The chest x-ray showing a patchy infiltrate in the left midlung consistent with an atypical pneumonia. She is currently on room air oxygen with a pulse ox of 94%. She is hemodynamically stable and she is afebrile. She is currently on Tamiflu. She is also on bronchodilators around the clock and IV Solu-Medrol. Her symptoms started approximately 3-4 days ago. No nausea. No vomiting. No diarrhea. No altered mentation. On today's evaluation of 11/01/2023, the patient is doing slightly better compared to yesterday. Still bronchospastic and wheezy. She is still coughing. Breath sounds are quite diminished bilaterally. As mentioned earlier, the patient has an acute asthma exacerbation related to influenza infection and the patient is currently on Tamiflu. The patient remains on IV Solu-Medrol 60 mg every 6 hours and bronchodilators around the clock. There was noted 7.1, hemoglobin 13.2, B is a 50 with a creatinine of 0.5. The rest of the electrolytes are all within normal limits. No other issues for now. She remains on room air oxygen. On today's evaluation of 10/25/2023, the patient is improving. A repeat chest x-ray was done, the findings are improved compared to the earlier chest x-ray. Interstitial infiltrative was seen in the left lung is improved considerably. Clinically the patient is doing well and she reports improvement. No new complaints otherwise for now. No new labs. She remains on bronchodilators. She remains on steroids. She is also completing a course of Tamiflu. Home medications have been ordered resume. On today's evaluation of 11/03/2023, the patient is reporting some interval worsening and the patient is having cough and chest discomfort related to her coughing pH remains on IV Solu-Medrol pH she remains on Tamiflu. Occupation is stable without any significant desaturations. She is still actively bronchospastic and wheezy. No new labs are available from today. No altered mentation. On 11/04/2023, condition is essentially unchanged. Still having chest soreness and pain with coughing. She has responded somewhat to promethazine there was given for cough suppression. She was taken ibuprofen which I'm going to switch to [place]. She remains on bronchodilators with DuoNeb updrafts. She is also on IV Solu-Medrol. She is also on accommodation Perforomist and Pulmicort updrafts. Able to sit up on a recliner. Markedly diminished breath sounds bilaterally. No fever or chills. Objective - Vital Signs Vital signs: Vital Signs Temp 98.6 F 11/04/23 07:45 Pulse 72 11/04/23 09:28 Resp 17 11/04/23 07:45 BP 167/90 11/04/23 07:45 Pulse Ox 91 L 11/04/23 09:08 FiO2 Intake & Output 11/03/23 11/04/23 11/04/23 18:59 06:59 18:59 Intake Total 840 Balance 840 Intake: Oral 840 Other: Voiding Method Toilet # Voids 3 2 - Exam GENERAL EXAM: Alert, 53-year-old white female appearing stated age, comfortable in no apparent distress. HEAD: Normocephalic and atraumatic EYES: Normal reaction of pupils, equal size. NOSE: Clear with pink turbinates. THROAT: No erythema or exudates. NECK: No masses, no JVD. CHEST: No chest wall deformity. LUNGS: Equal air entry with diminished lung sounds throughout and expiratory wheezes. On room air. Speaking in sentences, mildly dyspneic CVS: S1 and S2 normal with no audible murmur, regular rhythm. No extra heart sounds. Tachycardic heart rate 116 bpm. ABDOMEN: No hepatosplenomegaly, active bowel sounds, no guarding or rigidity. SPINE: No scoliosis or deformity SKIN: No rashes CENTRAL NERVOUS SYSTEM: No focal deficits, tone is normal in all 4 extremities. EXTREMITIES: There is no peripheral edema, clubbing, or cyanosis. Peripheral pulses are intact. - Labs CBC & Chem 7: 11/04/23 04:08 11/04/23 04:08 Labs: Abnormal Lab Results - Last 24 Hours (Table) 11/03/23 11/03/23 11/03/23 Range/Units 12:41 17:12 20:23 NRBC/100 WBC Diff (0.00-0.01) X 10*3/uL Anion Gap (4.00-12.00) mmol/L Creatinine (0.6-1.5) mg/dL BUN/Creatinine Ratio (12.00-20.00) Ratio Glucose (70-110) mg/dL POC Glucose (mg/dL) 196 H 245 H 328 H (70-110) mg/dL 11/04/23 11/04/23 11/04/23 Range/Units 02:32 04:08 04:08 NRBC/100 WBC Diff 0.04 H (0.00-0.01) X 10*3/uL Anion Gap 13.00 H (4.00-12.00) mmol/L Creatinine 0.5 L (0.6-1.5) mg/dL BUN/Creatinine Ratio 32.80 H (12.00-20.00) Ratio Glucose 230 H (70-110) mg/dL POC Glucose (mg/dL) 220 H (70-110) mg/dL 11/04/23 Range/Units 05:51 NRBC/100 WBC Diff (0.00-0.01) X 10*3/uL Anion Gap (4.00-12.00) mmol/L Creatinine (0.6-1.5) mg/dL BUN/Creatinine Ratio (12.00-20.00) Ratio Glucose (70-110) mg/dL POC Glucose (mg/dL) 217 H (70-110) mg/dL Assessment and Plan Plan: Acute influenza pneumonia and the patient has a patchy interstitial infiltrate in the left midlung, likely viral in nature. Currently on Tamiflu. Repeat chest x-ray shows improvement in the pulmonary infiltrates and the repeat chest x-ray from today shows no acute pulmonary abnormalities. Clinically the patient is improving. The patient on Tamiflu. The patient is on steroids. Acute exacerbation of severe chronic persistent bronchial asthma, improving Severe persistent bronchial asthma maintained on accommodation Symbicort, albuterol, and Tezspire injection on outpatient basis Chest wall pain secondary to vigorous cough Benign essential hypertension Hyperlipidemia Type 2 diabetes mellitus Gastroesophageal reflux disease Obesity, with a BMI of 39.9 kg/m Never smoker Plan: Continue promethazine to suppress the cough Add [place] for pain control Discontinue the ibuprofen Repeat chest x-ray from yesterday was improving Continue Tamiflu, complete the course for a total of 5 days Continue IV Solu-Medrol at the same dose, Continue DuoNeb updrafts [id number] Continue Perforomist and Pulmicort Blood sugar management Increase mobility We'll follow
--- NOTE | 2023-11-04 15:39 | P.PN ---
Subjective Progress Note Date: 11/04/23 Late entry...patient was seen and fully evaluated at bedside this morning at 9:15 AM Hospital course: Patient is a pleasant 53-year-old female with a past medical history of hypertension, hyperlipidemia, GERD, obstructive sleep apnea, and moderate persistent asthma. She presented to the emergency department on 10/30/23 secondary to worsening shortness of breath accompanied by generalized body aches, wheezing, and a subjective fever up to 102F. Patient was found to be positive for influenza A and chest x-ray revealing patchy interstitial changes and more confluent airspace disease in the left mid lung correlating for pneumonia versus atypical/Covid pneumonias.. She was admitted under our services to observation unit for acute asthma exacerbation secondary to influenza A. Pulmonology was consulted and stated pt continues to require scheduled nebulizer treatments and IV steroids. She is persistently bronchospasmic and reports difficult time taking a deep breath. Patient failing observation stay and orders placed for inpatient admission Physical exam: Patient seen and fully evaluated at bedside this morning. Patient sitting up in recliner at time of assessment and she was receiving a DuoNeb nebulizer treatment. Patient continues with intractable dry cough with bronchospasm. Patient reports pain in chest and back with coughing and overall not feeling well. Clinically patient is showing little to no improvement over the past 24 hours. Vital signs reviewed and stable. General: Nontoxic, no distress and appears stated age. Obese Derm: Skin warm and dry, normal coloration for ethnicity. Head: Atraumatic, normocephalic and symmetric. Eyes: EOMs intact, no lid lag, and anicteric sclera Mouth: no lip lesions, mucus membranes moist Cardiovascular: regular rate and rhythm with normal S1S2, no murmur, positive posterior tibial pulses bilaterally, and cap refill < 2 seconds. Lungs: Respirations even, regular, and unlabored on room air. Lungs diminished throughout with diffuse significant expiratory wheezes in all hermosillo. Abdominal: soft, nontender to palpation, no guarding, no appreciable organomegaly Ext: ROM intact. No gross muscle atrophy, no edema, no contractures Neuro: Speech clear, face symmetrical and CN II-XII grossly intact with no noted focal neuro deficits Psych: Alert and oriented to person, place, time, and situation. Appropriate and pleasant affect. Assessment and Plan of Care: 53 year old female with hypertension , moderate persistent asthma, presented with 1 week history of URI symptoms, and progressive SOB. She underwent full evaluation in the emergency department and was found to test positive for influenza A. Patient was admitted under our services for acute asthma exacerbation secondary to Influenza A infection. Acute asthma exacerbation Influenza A positive Lactic acidosis, resolved -Oxygenation to be administered and titrated as needed to maintain SPO2 equal to or greater than 92%. Patient maintaining oxygen saturations >92% on room air at rest and with ambulation. -Continue Telemetry monitoring. -Monitor Pulse-oximetry -Continue Duonebs scheduled four times daily and as needed for SOB and/or wheezing -Incentive Spirometry, encourage use 10-15 times hourly while awake -Steroids: Solu-Medrol 60 mg every 6 hours -Patient was started on Tamiflu upon arrival to the emergency department and is currently on day 4 of 5 -CXR showed some patchy infiltrate initially but repeat chest x-ray completed 11/02/23 was negative for acute cardiopulmonary process. -Continue droplet precautions -Pulmonology following, discussed plan of care with Dr. Gibson and we will con tinue with current course of treatment at this time -Pro-calcitonin was negative at 0.02. Hyeprtnesion , controlled -Continue daily medication regimen with losartan 100 mg nightly and metoprolol persistent 800 mg nightly. Hyperlipidemia -Continue daily medication regimen with atorvastatin 40 mg nightly. Data reviewed: Vital signs reviewed. Blood pressure 167/90, heart rate 58, respiratory rate 17, temp 98.6F, and SpO2 of 93% on room air Morning labs reviewed. CBC remains unremarkable. BMP also unremarkable with the exception of elevated blood glucose of 230. CODE STATUS: Full code DVT prophylaxis: Heparin Anticipated discharge date: Clinical course to determine, patient initially improving and now clinically showing no improvement over the past [address]: Home Patient was seen independently by Nurse Pracitioner. This document was prepared using [employer] dictation software. Please allow for errors in geothermal technician, while rare they do occur. Rj Ramirez NP rendered care for this patient independently, reviewed the findings and plan as documented in the note above. I did not physically speak with or examine the patient on this date. Objective - Vital Signs Vital signs: Vital Signs Temp 98.6 F 11/04/23 07:45 Pulse 58 L 11/04/23 07:45 Resp 17 11/04/23 07:45 BP 167/90 11/04/23 07:45 Pulse Ox 93 L 11/04/23 07:45 FiO2 Intake & Output 11/03/23 11/04/23 11/04/23 18:59 06:59 18:59 Intake Total 840 Balance 840 Intake: Oral 840 Other: Voiding Method Toilet # Voids 3 2 - Labs CBC & Chem 7: 11/04/23 04:08 11/04/23 04:08 Labs: Abnormal Lab Results - Last 24 Hours (Table) 10/30/23 11/03/23 11/03/23 Range/Units 17:55 12:41 17:12 POC Glucose (mg/dL) 196 H 245 H (70-110) mg/dL Hemoglobin A1c 6.1 H (<=6.0) % 11/03/23 11/04/23 11/04/23 Range/Units 20:23 02:32 05:51 POC Glucose (mg/dL) 328 H 220 H 217 H (70-110) mg/dL Hemoglobin A1c (<=6.0) %
[2023-11-04 17:21] LABS: Glucose,Whole Blood 206 mg/dL (70-110)
[2023-11-04] MEDS: PANTOPRAZOLE 40 MG TABLET PO SCH (20:21)
[2023-11-04] MEDS: ATORVASTATIN 40 MG TAB PO SCH (20:21)
[2023-11-04] MEDS: DULoxetine HCL 30 MG CAPSULE.DR PO SCH (20:21)
[2023-11-04] MEDS: LORATADINE 10 MG TAB PO SCH (20:21)
[2023-11-04] MEDS: LOSARTAN 50 MG TAB PO SCH (20:21)
[2023-11-04] MEDS: METOPROLOL SUCCINATE (ER) 100 MG TAB.ER.24H PO SCH (20:21)
[2023-11-04] MEDS: traZODone HCL 50 MG TAB PO SCH (20:21)
[2023-11-04 20:34] LABS: Glucose,Whole Blood 215 mg/dL (70-110)
[2023-11-04] MEDS: INSULIN DETEMIR (LEVEMIR) 100 UNIT/ML SYR SQ SCH (20:55)
[2023-11-05] MEDS: HEPARIN SODIUM,PORCINE 5,000 UNIT/ML 1 ML VIAL SQ SCH ×4 (00:57→23:53)
[2023-11-05] MEDS: methylPREDNISolone SOD SUCCI 125 MG/2 ML VIAL IV SCH ×5 (01:01→23:53)
[2023-11-05] MEDS ORDERED: BENZONATATE 100 MG CAP PO STA (02:17)
[2023-11-05 02:25] LABS: Glucose,Whole Blood 179 mg/dL (70-110)
[2023-11-05] MEDS: guaiFENesin SYRUP 100MG/5ML 200 MG/10 ML CUP PO PRN ×3 (02:33→21:16)
[2023-11-05 06:29] LABS: Glucose,Whole Blood 197 mg/dL (70-110)
[2023-11-05] MEDS: INSULIN ASPART (NovoLOG) 100 UNIT/ML VIAL SQ SCH ×4 (06:45→22:08)
[2023-11-05] MEDS: BUDESONIDE 0.5 MG/2 ML NEBU INHALATION SCH ×2 (07:44→19:54)
[2023-11-05] MEDS: IPRATROPIUM-ALBUTEROL 3 ML NEB INHALATION SCH ×4 (07:44→19:55)
[2023-11-05] MEDS: FLUTICASONE 220 MCG INHALER INHALATION SCH (07:44)
[2023-11-05] MEDS: FORMOTEROL FUMARATE 20 MCG/2 ML NEBU INHALATION SCH ×2 (08:00→19:54)
[2023-11-05] MEDS: PROMETHAZINE HCL 6.25 MG/5 ML CUP PO SCH ×4 (09:20→21:17)
[2023-11-05] MEDS: HYDROcodone/APAP 7.5-325MG 1 EACH TAB PO PRN ×2 (11:47→18:36)
[2023-11-05 12:02] LABS: Glucose,Whole Blood 218 mg/dL (70-110)
--- NOTE | 2023-11-05 13:26 | P.PN ---
Subjective Progress Note Date: 11/05/23 Late entry...patient was seen and fully evaluated at bedside this morning at 9:15 AM Hospital course: Patient is a pleasant 53-year-old female with a past medical history of hypertension, hyperlipidemia, GERD, obstructive sleep apnea, and moderate persistent asthma. She presented to the emergency department on 10/30/23 secondary to worsening shortness of breath accompanied by generalized body aches, wheezing, and a subjective fever up to 102F. Patient was found to be positive for influenza A and chest x-ray revealing patchy interstitial changes and more confluent airspace disease in the left mid lung correlating for pneumonia versus atypical/Covid pneumonias.. She was admitted under our services to observation unit for acute asthma exacerbation secondary to influenza A. Pulmonology was consulted and stated pt continues to require scheduled nebulizer treatments and IV steroids. She is persistently bronchospasmic and reports difficult time taking a deep breath. Patient failing observation stay and orders placed for inpatient admission Physical exam: Patient seen and fully evaluated at bedside this morning. Patient with persistent coughing fits. Clinically patient has remained unchanged over the past 48 hours showing no progression. This was discussed with marsh buggy operator, Phenergan cough syrup was increased and we will continue with current treatment plan for an additional 24 hours. Vital signs reviewed and stable. General: Nontoxic, no distress and appears stated age. Obese Derm: Skin warm and dry, normal coloration for ethnicity. Head: Atraumatic, normocephalic and symmetric. Eyes: EOMs intact, no lid lag, and anicteric sclera Mouth: no lip lesions, mucus membranes moist Cardiovascular: regular rate and rhythm with normal S1S2, no murmur, positive posterior tibial pulses bilaterally, and cap refill < 2 seconds. Lungs: Respirations even, regular, and unlabored on room air. Lungs diminished throughout with diffuse significant expiratory wheezes in all hermosillo. Abdominal: soft, nontender to palpation, no guarding, no appreciable organomegaly Ext: ROM intact. No gross muscle atrophy, no edema, no contractures Neuro: Speech clear, face symmetrical and CN II-XII grossly intact with no noted focal neuro deficits Psych: Alert and oriented to person, place, time, and situation. Appropriate and pleasant affect. Assessment and Plan of Care: 53 year old female with hypertension , moderate persistent asthma, presented with 1 week history of URI symptoms, and progressive SOB. She underwent full evaluation in the emergency department and was found to test positive for influenza A. Patient was admitted under our services for acute asthma exacerbation secondary to Influenza A infection. Acute asthma exacerbation Influenza A positive Lactic acidosis, resolved -Oxygenation to be administered and titrated as needed to maintain SPO2 equal to or greater than 92%. Patient maintaining oxygen saturations >92% on room air at rest and with ambulation. -Continue Telemetry monitoring. -Monitor Pulse-oximetry -Continue Duonebs scheduled four times daily and as needed for SOB and/or wheezing -Incentive Spirometry, encourage use 10-15 times hourly while awake -Steroids: Solu-Medrol 60 mg every 6 hours -Promethazine HCL increased to 12.5 mg 4 times daily. -Patient completed 5 day course of Tamiflu on 11/04/23 -CXR showed some patchy infiltrate initially but repeat chest x-ray completed 11/02/23 was negative for acute cardiopulmonary process. -Continue droplet precautions -Pulmonology following, discussed plan of care with Dr. Gibson and we will continue with current course of treatment at this time with plans for discharge in the next 24 hours. -Pro-calcitonin was negative at 0.02. Hyeprtnesion , controlled -Continue daily medication regimen with losartan 100 mg nightly and metoprolol persistent 800 mg nightly. Hyperlipidemia -Continue daily medication regimen with atorvastatin 40 mg nightly. Data reviewed: Vital signs reviewed. Blood pressure 158/85, heart rate 67, respiratory rate 18, temperature 98.6F, SpO2 of 92% on room air. CODE STATUS: Full code DVT prophylaxis: Heparin Anticipated discharge date: Clinical course to determine, patient initially improving and now clinically showing no improvement over the past [address]: Home Patient was seen independently by Nurse Pracitioner. This document was prepared using [employer] dictation software. Please allow for errors in java consultant, while rare they do occur. Rj Ramirez NP rendered care for this patient independently, reviewed the findings and plan as documented in the note above. I did not physically speak with or examine the patient on this date. Objective - Vital Signs Vital signs: Vital Signs Temp 98.6 F 11/05/23 07:47 Pulse 67 11/05/23 07:47 Resp 18 11/05/23 07:47 BP 158/85 11/05/23 07:47 Pulse Ox 92 L 11/05/23 07:47 FiO2 Intake & Output 11/04/23 11/05/23 11/05/23 18:59 06:59 18:59 Other: Voiding Method Toilet # Voids 2 - Labs CBC & Chem 7: 11/04/23 04:08 11/04/23 04:08 Labs: Abnormal Lab Results - Last 24 Hours (Table) 11/04/23 11/04/23 11/04/23 Range/Units 04:08 04:08 12:27 NRBC/100 WBC Diff 0.04 H (0.00-0.01) X 10*3/uL Anion Gap 13.00 H (4.00-12.00) mmol/L Creatinine 0.5 L (0.6-1.5) mg/dL BUN/Creatinine Ratio 32.80 H (12.00-20.00) Ratio Glucose 230 H (70-110) mg/dL POC Glucose (mg/dL) 212 H (70-110) mg/dL 11/04/23 11/04/23 11/05/23 Range/Units 17:20 20:33 02:24 NRBC/100 WBC Diff (0.00-0.01) X 10*3/uL Anion Gap (4.00-12.00) mmol/L Creatinine (0.6-1.5) mg/dL BUN/Creatinine Ratio (12.00-20.00) Ratio Glucose (70-110) mg/dL POC Glucose (mg/dL) 206 H 215 H 179 H (70-110) mg/dL 11/05/23 Range/Units 06:28 NRBC/100 WBC Diff (0.00-0.01) X 10*3/uL Anion Gap (4.00-12.00) mmol/L Creatinine (0.6-1.5) mg/dL BUN/Creatinine Ratio (12.00-20.00) Ratio Glucose (70-110) mg/dL POC Glucose (mg/dL) 197 H (70-110) mg/dL
--- NOTE | 2023-11-05 13:40 | P.PN ---
Subjective Progress Note Date: 11/05/23 This is a 53-year-old female patient with severe asthmatic disorder, maintain on a combination of Symbicort, albuterol and more recently Tezspire injections for control of severe persistent bronchial asthma. The patient is coming in with diffuse body aches, fever, cough and congestion and wheezing and shortness of breath. She was less in the hospital back in July 2023 and at that time she was treated for an acute asthma exacerbation and she was discharged home. She has hypertension, hyperlipidemia, diabetes mellitus type 2 and she is morbidly obese with a body mass index of 41.3. The white cell count at 6.2 with a hemoglobin 13.6, cognition profile is within normal, initial lactic acid level was at 2.3 and dropped down to 1.3 and the patient has a sodium level of 136, potassium of 3.3, BUN is at 30 with a creatinine of 0.4. Influenza A was positive. The rest of the viral screening was negative. The chest x-ray showing a patchy infiltrate in the left midlung consistent with an atypical pneumonia. She is currently on room air oxygen with a pulse ox of 94%. She is hemodynamically stable and she is afebrile. She is currently on Tamiflu. She is also on bronchodilators around the clock and IV Solu-Medrol. Her symptoms started approximately 3-4 days ago. No nausea. No vomiting. No diarrhea. No altered mentation. On today's evaluation of 11/01/2023, the patient is doing slightly better compared to yesterday. Still bronchospastic and wheezy. She is still coughing. Breath sounds are quite diminished bilaterally. As mentioned earlier, the patient has an acute asthma exacerbation related to influenza infection and the patient is currently on Tamiflu. The patient remains on IV Solu-Medrol 60 mg every 6 hours and bronchodilators around the clock. There was noted 7.1, hemoglobin 13.2, B is a 50 with a creatinine of 0.5. The rest of the electrolytes are all within normal limits. No other issues for now. She remains on room air oxygen. On today's evaluation of 10/25/2023, the patient is improving. A repeat chest x-ray was done, the findings are improved compared to the earlier chest x-ray. Interstitial infiltrative was seen in the left lung is improved considerably. Clinically the patient is doing well and she reports improvement. No new complaints otherwise for now. No new labs. She remains on bronchodilators. She remains on steroids. She is also completing a course of Tamiflu. Home medications have been ordered resume. On today's evaluation of 11/03/2023, the patient is reporting some interval worsening and the patient is having cough and chest discomfort related to her coughing pH remains on IV Solu-Medrol pH she remains on Tamiflu. Occupation is stable without any significant desaturations. She is still actively bronchospastic and wheezy. No new labs are available from today. No altered mentation. On 11/04/2023, condition is essentially unchanged. Still having chest soreness and pain with coughing. She has responded somewhat to promethazine there was given for cough suppression. She was taken ibuprofen which I'm going to switch to [place]. She remains on bronchodilators with DuoNeb updrafts. She is also on IV Solu-Medrol. She is also on accommodation Perforomist and Pulmicort updrafts. Able to sit up on a recliner. Markedly diminished breath sounds bilaterally. No fever or chills. On 11/05/2020, the patient is still struggling with her breathing. She is having frequent cough, chest wall pain, congestion and wheeze. She is currently on IV Solu-Medrol, DuoNeb updrafts, Perforomist and Pulmicort neb blotchiness, and she is also on Phenergan for cough and [place] for pain control. She is also on Robitussin. Remains on room air oxygen. Blood sugar slightly elevated. Objective - Vital Signs Vital signs: Vital Signs Temp 98.6 F 11/05/23 07:47 Pulse 72 11/05/23 08:10 Resp 18 11/05/23 08:00 BP 158/85 11/05/23 07:47 Pulse Ox 92 L 11/05/23 07:47 FiO2 Intake & Output 11/04/23 11/05/23 11/05/23 18:59 06:59 18:59 Intake Total 118 Balance 118 Intake: Oral 118 Other: Voiding Method Toilet Toilet # Voids 2 - Exam GENERAL EXAM: Alert, 53-year-old white female appearing stated age, comfortable in no apparent distress. HEAD: Normocephalic and atraumatic EYES: Normal reaction of pupils, equal size. NOSE: Clear with pink turbinates. THROAT: No erythema or exudates. NECK: No masses, no JVD. CHEST: No chest wall deformity. LUNGS: Equal air entry with diminished lung sounds throughout and expiratory wheezes. On room air. Speaking in sentences, mildly dyspneic CVS: S1 and S2 normal with no audible murmur, regular rhythm. No extra heart sounds. Tachycardic heart rate 116 bpm. ABDOMEN: No hepatosplenomegaly, active bowel sounds, no guarding or rigidity. SPINE: No scoliosis or deformity SKIN: No rashes CENTRAL NERVOUS SYSTEM: No focal deficits, tone is normal in all 4 extremities. EXTREMITIES: There is no peripheral edema, clubbing, or cyanosis. Peripheral pulses are intact. - Labs CBC & Chem 7: 11/04/23 04:08 11/04/23 04:08 Labs: Abnormal Lab Results - Last 24 Hours (Table) 11/04/23 11/04/23 11/04/23 Range/Units 12:27 17:20 20:33 POC Glucose (mg/dL) 212 H 206 H 215 H (70-110) mg/dL 11/05/23 11/05/23 Range/Units 02:24 06:28 POC Glucose (mg/dL) 179 H 197 H (70-110) mg/dL Assessment and Plan Plan: Acute influenza pneumonia and the patient has a patchy interstitial infiltrate in the left midlung, likely viral in nature. Currently on Tamiflu. Repeat chest x-ray shows improvement in the pulmonary infiltrates and the repeat chest x-ray from today shows no acute pulmonary abnormalities. Clinically the patient is improving. The patient on Tamiflu. The patient is on steroids. Acute exacerbation of severe chronic persistent bronchial asthma, improving Severe persistent bronchial asthma maintained on accommodation Symbicort, albuterol, and Tezspire injection on outpatient basis Chest wall pain secondary to vigorous cough Benign essential hypertension Hyperlipidemia Type 2 diabetes mellitus Gastroesophageal reflux disease Obesity, with a BMI of 39.9 kg/m Never smoker Plan: Continue same treatment Continue promethazine to suppress the cough increases also 12.5 mg every 6 hours Continue [place] for pain control Avoid nonsteroidal anti-inflammatory medications Continued Tamiflu, complete the course for a total of 5 days Continue IV Solu-Medrol at the same dose, Continue DuoNeb updrafts [id number] Continue Perforomist and Pulmicort Blood sugar management Increase mobility We'll follow
[2023-11-05 17:06] LABS: Glucose,Whole Blood 264 mg/dL (70-110)
[2023-11-05] MEDS: PANTOPRAZOLE 40 MG TABLET PO SCH (20:54)
[2023-11-05] MEDS: ATORVASTATIN 40 MG TAB PO SCH (20:54)
[2023-11-05] MEDS: LORATADINE 10 MG TAB PO SCH (20:54)
[2023-11-05] MEDS: METOPROLOL SUCCINATE (ER) 100 MG TAB.ER.24H PO SCH (20:54)
[2023-11-05] MEDS: LOSARTAN 50 MG TAB PO SCH (20:54)
[2023-11-05] MEDS: traZODone HCL 50 MG TAB PO SCH (20:54)
[2023-11-05] MEDS: DULoxetine HCL 30 MG CAPSULE.DR PO SCH (20:54)
[2023-11-05 22:00] LABS: Glucose,Whole Blood 265 mg/dL (70-110)
[2023-11-05] MEDS: INSULIN DETEMIR (LEVEMIR) 100 UNIT/ML SYR SQ SCH (22:09)
[2023-11-06] MEDS: guaiFENesin SYRUP 100MG/5ML 200 MG/10 ML CUP PO PRN (03:00)
[2023-11-06 04:19] LABS: Glucose,Whole Blood 211 mg/dL (70-110)
[2023-11-06] MEDS: methylPREDNISolone SOD SUCCI 125 MG/2 ML VIAL IV SCH (05:55)
[2023-11-06 06:12] LABS: Glucose,Whole Blood 178 mg/dL (70-110)
[2023-11-06] MEDS: INSULIN ASPART (NovoLOG) 100 UNIT/ML VIAL SQ SCH (06:19)
[2023-11-06] MEDS: IPRATROPIUM-ALBUTEROL 3 ML NEB INHALATION SCH ×2 (08:07→12:11)
[2023-11-06] MEDS: BUDESONIDE 0.5 MG/2 ML NEBU INHALATION SCH (08:07)
[2023-11-06] MEDS: FORMOTEROL FUMARATE 20 MCG/2 ML NEBU INHALATION SCH (08:20)
[2023-11-06 09:16] VITALS: RESP 16; TEMP 98.5
--- NOTE | 2023-11-06 09:51 | P.DS ---
Providers Date of admission: 10/30/23 19:56 Expected date of discharge: 11/06/23 Attending physician: Sandra Howard MD Consults: 10/30/23 19:54 Consult Physician Routine Consulting Provider: Mio Aguilar Consult Reason/Comments: Asthma, influenza Do you want consulting provider notified?: Yes Primary care physician: Ervni Rodarte Hospital Course: Discharge Diagnosis: Acute asthma exacerbation Influenza A positive Lactic acidosis, resolved Type II diabetes mellitus with hyperglycemia. Hyeprtnesion , controlled Hyperlipidemia Hospital Course: Patient is a pleasant 53-year-old female with a past medical history of hypertension, hyperlipidemia, GERD, obstructive sleep apnea, and moderate persistent asthma. She presented to the emergency department on 10/30/23 secondary to worsening shortness of breath accompanied by generalized body aches, wheezing, and a subjective fever up to 102F. Patient was found to be positive for influenza A and chest x-ray revealing patchy interstitial changes and more confluent airspace disease in the left mid lung correlating for pneumonia versus atypical/Covid pneumonias.. She was admitted under our services to observation unit for acute asthma exacerbation secondary to influenza A. Pulmonology was consulted and stated pt continues to require scheduled nebulizer treatments and IV steroids. She is persistently bronchospasmic and reports difficult time taking a deep breath. Patient failing observation stay and orders were placed for inpatient admission on 10/30/23. Patient underwent a 698/7 day hospitalization. She completed entire course of Tamiflu. Repeat chest x-rays negative for acute cardiopulmonary process. Ambulatory pulse ox was completed and patient maintaining oxygen saturations. Patient continues to have cough but requesting discharge this morning. Medically, patient is stable at this time and is showing no signs of acute distress. Patient to follow up outpatient with PCP in 1-2 days and with data entry manager in 1 week. Patient discharged home on metformin 500 mg twice daily and was provided with a glucometer and supplies secondary to hyperglycemia and elevated hemoglobin A1c. Patient was instructed she will need to monitor her blood glucose levels daily and document these findings in a daily log to take with her to her next doctor's appointment. Patient discharged home on prednisone taper and provided with refills on her nebulizer treatments as well as Phenergan cough syrup. Physical exam: Patient seen and fully evaluated at bedside this morning. Patient with persistent coughing fits. Clinically patient has remained unchanged over the past 48 hours showing no progression. This was discussed with data entry manager, Phenergan cough syrup was increased and we will continue with current treatment plan for an additional 24 hours. Vital signs reviewed and stable. General: Nontoxic, no distress and appears stated age. Obese Derm: Skin warm and dry, normal coloration for ethnicity. Head: Atraumatic, normocephalic and symmetric. Eyes: EOMs intact, no lid lag, and anicteric sclera Mouth: no lip lesions, mucus membranes moist Cardiovascular: regular rate and rhythm with normal S1S2, no murmur, positive posterior tibial pulses bilaterally, and cap refill < 2 seconds. Lungs: Respirations even, regular, and unlabored on room air. Lungs diminished throughout with diffuse significant expiratory wheezes in all [place]. Abdominal: soft, nontender to palpation, no guarding, no appreciable organomegaly Ext: ROM intact. No gross muscle atrophy, no edema, no contractures Neuro: Speech clear, face symmetrical and CN II-XII grossly intact with no noted focal neuro deficits Psych: Alert and oriented to person, place, time, and situation. Appropriate and pleasant affect. A total of 36 minutes of time were spent preparing this complex discharge summary. Pt was discharged on 11/06/23 at 9:49 AM Patient was seen independently by Nurse Practitioner. This document was prepared using wumo dictation software. Please allow for errors in manager social work while rare they do occur. Rj Ramirez NP rendered care for this patient independently, reviewed the findings and plan as documented in the note above. I did not physically speak with or examine the patient on this date. Patient Condition at Discharge: Stable Plan - Discharge Summary Discharge Rx Participant: No New Discharge Prescriptions: New Ipratropium-Albuterol Nebulize [Duoneb 0.5 mg-3 mg/3 ml Soln] 3 ml INHALATION RT-QID #120 each Promethazine HCl [Phenergan Syrup] 12.5 mg PO QID #200 ml predniSONE See Taper PO DIRECTED 16 Days #40 tab metFORMIN HCL [Glucophage] 500 mg PO BID 30 Days #60 tab Continue Cetirizine HCl [Zyrtec] 10 mg PO HS Ketoconazole 2% Cream [Nizoral 2%] 1 applic TOPICAL BID PRN PRN Reason: Skin Irritation Ipratropium-Albuterol Nebulize [Duoneb 0.5 mg-3 mg/3 ml Soln] 3 ml INHALATION RT-QID Hydrocortisone Cream [Hydrocortisone 2.5% Cream] 1 applic TOPICAL BID PRN PRN Reason: Skin Irritation traZODone HCL [Desyrel] 50 mg PO HS DULoxetine HCL [Cymbalta] 30 mg PO HS Losartan Potassium [Cozaar] 100 mg PO HS Pantoprazole [Protonix] 40 mg PO HS Rosuvastatin [Crestor] 20 mg PO HS Albuterol Inhaler [Ventolin Hfa Inhaler] 2 puff INHALATION RT-Q4H PRN PRN Reason: Shortness Of Breath Metoprolol Succinate (ER) [Toprol XL] 100 mg PO HS Fluticasone Propionate 220 Mcg [Flovent 220 Mcg Inhaler] 2 puff INHALATION RT-BID Azithromycin [Zithromax Z Pack] See Taper PO DIRECTED Discontinued predniSONE 10 mg PO DIRECTED predniSONE 50 mg PO DAILY Discharge Medication List Cetirizine HCl [Zyrtec] 10 mg PO HS 01/10/18 [History] traZODone HCL [Desyrel] 50 mg PO HS 03/15/21 [History] DULoxetine HCL [Cymbalta] 30 mg PO HS 02/25/22 [History] Losartan Potassium [Cozaar] 100 mg PO HS 02/25/22 [History] Pantoprazole [Protonix] 40 mg PO HS 02/25/22 [History] Albuterol Inhaler [Ventolin Hfa Inhaler] 2 puff INHALATION RT-Q4H PRN 11/30/22 [History] Rosuvastatin [Crestor] 20 mg PO HS 11/30/22 [History] Metoprolol Succinate (ER) [Toprol XL] 100 mg PO HS 07/11/23 [History] Azithromycin [Zithromax Z Pack] See Taper PO DIRECTED 10/30/23 [History] Fluticasone Propionate 220 Mcg [Flovent 220 Mcg Inhaler] 2 puff INHALATION RT- BID 10/30/23 [History] Hydrocortisone Cream [Hydrocortisone 2.5% Cream] 1 applic TOPICAL BID PRN 10/30/23 [History] Ipratropium-Albuterol Nebulize [Duoneb 0.5 mg-3 mg/3 ml Soln] 3 ml INHALATION RT-QID 10/30/23 [History] Ketoconazole 2% Cream [Nizoral 2%] 1 applic TOPICAL BID PRN 10/30/23 [History] Ipratropium-Albuterol Nebulize [Duoneb 0.5 mg-3 mg/3 ml Soln] 3 ml INHALATION RT-QID #120 each 11/06/23 [Rx] Promethazine HCl [Phenergan Syrup] 12.5 mg PO QID #200 ml 11/06/23 [Rx] metFORMIN HCL [Glucophage] 500 mg PO BID 30 Days #60 tab 11/06/23 [Rx] predniSONE See Taper PO DIRECTED 16 Days #40 tab 11/06/23 [Rx] Follow up Appointment(s)/Referral(s): Ervin Rodarte MD [Primary Care Provider] - 1-2 days Henry Gibson MD [STAFF PHYSICIAN] - 1 Week Patient Instructions/Handouts: Influenza (DC), Moderate and Severe Persistent Asthma (DC) Activity/Diet/Wound Care/Special Instructions: Activity: As tolerated. Take breaks as needed. Diet: Heart healthy and carb consistent diet. Avoid salts, or foods with hidden salts such as canned or boxed foods and frozen dinners. Extra salt makes your heart work harder and traps the fluid in your body for longer. Special Instructions: Take all of your medications as directed and remember to keep all of your doctor's appointments and follow-up as needed. Please check your blood glucose levels daily and document these findings in a daily log to bring with you to your next doctors appointment. Thank you for allowing us to participate in your care, it was truly a pleasure having you for our patient!!! Discharge Disposition: HOME SELF-CARE
[2023-11-06] MEDS: HEPARIN SODIUM,PORCINE 5,000 UNIT/ML 1 ML VIAL SQ SCH (10:14)
[2023-11-06] MEDS: PROMETHAZINE HCL 6.25 MG/5 ML CUP PO SCH (10:14)
[2023-11-06 10:32] LABS: HCT 39.7 % (37.2-46.3); HGB 13.2 g/dL (12.0-15.0); MCH 29.9 pg (27.0-32.0); MCHC 33.2 g/dL (32.0-37.0); Mean Platelet Volume 10.3 FL (9.5-12.2); NRBC Per 100 WBC 0.05 X 10*3/uL (0.00-0.01); Platelet Count 263 X 10*3/uL (140-440); RBC 4.41 X 10*6/uL (4.10-5.20); RDW 12.4 % (11.5-14.5); WBC 10.24 X 10*3/uL (4.50-10.00)
[2023-11-06 10:50] LABS: Magnesium 2.5 mg/dL (1.5-2.4)
[2023-11-06 11:10] LABS: Blood Urea Nitrogen 17.5 mg/dL (9.0-27.0); Chloride 100 mmol/L (96-109); Glucose 199 mg/dL (70-110); Potassium 4.1 mmol/L (3.5-5.5); Sodium 139 mmol/L (135-145)
[2023-11-06 11:11] LABS: ALT 27 U/L (8-44); AST 10 U/L (13-35); Albumin 3.6 g/dL (3.8-4.9); Albumin/Globulin Ratio 1.57 Ratio (1.60-3.17); Alkaline Phosphatase 53 U/L (41-126); Calcium 8.7 mg/dL (8.7-10.3); Carbon Dioxide 27.3 mmol/L (21.6-31.8); Globulin 2.3 g/dL (1.6-3.3); Total Bilirubin 0.7 mg/dL (0.3-1.2); Total Protein 5.9 g/dL (6.2-8.2)
[2023-11-06 11:46] VITALS: BP 144/85
[2023-11-06 12:36] VITALS: PULSE 73
--- NOTE | 2023-11-06 14:47 | P.PN ---
Subjective Progress Note Date: 11/06/23 This is a 53-year-old female patient with severe asthmatic disorder, maintain on a combination of Symbicort, albuterol and more recently Tezspire injections for control of severe persistent bronchial asthma. The patient is coming in with diffuse body aches, fever, cough and congestion and wheezing and shortness of breath. She was less in the hospital back in July 2023 and at that time she was treated for an acute asthma exacerbation and she was discharged home. She has hypertension, hyperlipidemia, diabetes mellitus type 2 and she is morbidly obese with a body mass index of 41.3. The white cell count at 6.2 with a hemoglobin 13.6, cognition profile is within normal, initial lactic acid level was at 2.3 and dropped down to 1.3 and the patient has a sodium level of 136, potassium of 3.3, BUN is at 30 with a creatinine of 0.4. Influenza A was positive. The rest of the viral screening was negative. The chest x-ray showing a patchy infiltrate in the left midlung consistent with an atypical pneumonia. She is currently on room air oxygen with a pulse ox of 94%. She is hemodynamically stable and she is afebrile. She is currently on Tamiflu. She is also on bronchodilators around the clock and IV Solu-Medrol. Her symptoms started approximately 3-4 days ago. No nausea. No vomiting. No diarrhea. No altered mentation. On today's evaluation of 11/01/2023, the patient is doing slightly better compared to yesterday. Still bronchospastic and wheezy. She is still coughing. Breath sounds are quite diminished bilaterally. As mentioned earlier, the patient has an acute asthma exacerbation related to influenza infection and the patient is currently on Tamiflu. The patient remains on IV Solu-Medrol 60 mg every 6 hours and bronchodilators around the clock. There was noted 7.1, hemoglobin 13.2, B is a 50 with a creatinine of 0.5. The rest of the electrolytes are all within normal limits. No other issues for now. She remains on room air oxygen. On today's evaluation of 10/25/2023, the patient is improving. A repeat chest x-ray was done, the findings are improved compared to the earlier chest x-ray. Interstitial infiltrative was seen in the left lung is improved considerably. Clinically the patient is doing well and she reports improvement. No new complaints otherwise for now. No new labs. She remains on bronchodilators. She remains on steroids. She is also completing a course of Tamiflu. Home medications have been ordered resume. On today's evaluation of 11/03/2023, the patient is reporting some interval worsening and the patient is having cough and chest discomfort related to her coughing pH remains on IV Solu-Medrol pH she remains on Tamiflu. Occupation is stable without any significant desaturations. She is still actively bronchospastic and wheezy. No new labs are available from today. No altered mentation. On 11/04/2023, condition is essentially unchanged. Still having chest soreness and pain with coughing. She has responded somewhat to promethazine there was given for cough suppression. She was taken ibuprofen which I'm going to switch to [place]. She remains on bronchodilators with DuoNeb updrafts. She is also on IV Solu-Medrol. She is also on accommodation Perforomist and Pulmicort updrafts. Able to sit up on a recliner. Markedly diminished breath sounds bilaterally. No fever or chills. On 11/05/2020, the patient is still struggling with her breathing. She is having frequent cough, chest wall pain, congestion and wheeze. She is currently on IV Solu-Medrol, DuoNeb updrafts, Perforomist and Pulmicort neb blotchiness, and she is also on Phenergan for cough and [place] for pain control. She is also on Robitussin. Remains on room air oxygen. Blood sugar slightly elevated. On today's evaluation of 11/06/2023, not completely recovered. Better. The patient will go home and completed treatment on outpatient basis. She has no specific complaints. He is on room air oxygen. Labs from today showed ed ematous count 10.2, hemoglobin 13, BUN is at 70 with a creatinine of 0.5 and sodium levels of 139. The patient will be given promethazine at time of discharge, prednisone burst taper, DuoNeb updrafts, in addition to routine respiratory medications. Objective - Vital Signs Vital signs: Vital Signs Temp 98.5 F 11/06/23 08:00 Pulse 73 11/06/23 12:24 Resp 16 11/06/23 08:00 BP 144/85 11/06/23 10:30 Pulse Ox 93 L 11/06/23 10:30 FiO2 Intake & Output 11/05/23 11/06/23 11/06/23 18:59 06:59 18:59 Intake Total 236 240 Balance 236 240 Intake: Oral 236 240 Other: Voiding Method Toilet Toilet # Voids 3 2 - Exam GENERAL EXAM: Alert, 53-year-old white female appearing stated age, comfortable in no apparent distress. HEAD: Normocephalic and atraumatic EYES: Normal reaction of pupils, equal size. NOSE: Clear with pink turbinates. THROAT: No erythema or exudates. NECK: No masses, no JVD. CHEST: No chest wall deformity. LUNGS: Equal air entry with diminished lung sounds throughout and expiratory wheezes. On room air. Speaking in sentences, mildly dyspneic CVS: S1 and S2 normal with no audible murmur, regular rhythm. No extra heart sounds. Tachycardic heart rate 116 bpm. ABDOMEN: No hepatosplenomegaly, active bowel sounds, no guarding or rigidity. SPINE: No scoliosis or deformity SKIN: No rashes CENTRAL NERVOUS SYSTEM: No focal deficits, tone is normal in all 4 extremities. EXTREMITIES: There is no peripheral edema, clubbing, or cyanosis. Peripheral pulses are intact. - Labs CBC & Chem 7: 11/06/23 05:37 11/06/23 05:37 Labs: Abnormal Lab Results - Last 24 Hours (Table) 11/05/23 11/05/23 11/06/23 Range/Units 17:04 21:55 04:13 WBC (4.50-10.00) X 10*3/uL NRBC/100 WBC Diff (0.00-0.01) X 10*3/uL Creatinine (0.6-1.5) mg/dL BUN/Creatinine Ratio (12.00-20.00) Ratio Glucose (70-110) mg/dL POC Glucose (mg/dL) 264 H 265 H 211 H (70-110) mg/dL Magnesium (1.5-2.4) mg/dL AST (13-35) U/L Total Protein (6.2-8.2) g/dL Albumin (3.8-4.9) g/dL Albumin/Globulin Ratio (1.60-3.17) Ratio 11/06/23 11/06/23 11/06/23 Range/Units 05:37 05:37 06:11 WBC 10.24 H (4.50-10.00) X 10*3/uL NRBC/100 WBC Diff 0.05 H (0.00-0.01) X 10*3/uL Creatinine 0.5 L (0.6-1.5) mg/dL BUN/Creatinine Ratio 35.00 H (12.00-20.00) Ratio Glucose 199 H (70-110) mg/dL POC Glucose (mg/dL) 178 H (70-110) mg/dL Magnesium 2.5 H (1.5-2.4) mg/dL AST 10 L (13-35) U/L Total Protein 5.9 L (6.2-8.2) g/dL Albumin 3.6 L (3.8-4.9) g/dL Albumin/Globulin Ratio 1.57 L (1.60-3.17) Ratio Assessment and Plan Plan: Acute influenza pneumonia and the patient has a patchy interstitial infiltrate in the left midlung, likely viral in nature. Currently on Tamiflu. Repeat chest x-ray shows improvement in the pulmonary infiltrates and the repeat chest x-ray from today shows no acute pulmonary abnormalities. Clinically the patient is improving. The patient on Tamiflu. The patient is on steroids. Acute exacerbation of severe chronic persistent bronchial asthma, improving Severe persistent bronchial asthma maintained on accommodation Symbicort, albuterol, and Tezspire injection on outpatient basis Chest wall pain secondary to vigorous cough Benign essential hypertension Hyperlipidemia Type 2 diabetes mellitus Gastroesophageal reflux disease Obesity, with a BMI of 39.9 kg/m Never smoker Plan: We'll discharge home today Continue promethazine outpatient basis Continued Tamiflu, complete the course for a total of 5 days Prednisone burst taper and resume home asthma medications, Follow-up with pulmonary
== END 2023-11-06 12:28 | disposition home or self-care (01) | DRG 141 ==
LOC: EC 17:05 → 6NMEDSUR 19:55 → OBSVTOIN 19:56 → 6NMEDSUR 10-31 06:37
PROVIDERS: ADMIT Internal Medicine; ATTEND Internal Medicine
DX: J45.41 Moderate persistent asthma with (acute) exacerbation (principal); J10.00 Influenza due to other identified influenza virus with unspecified type of pneumonia; J43.9 Emphysema, unspecified; G47.33 Obstructive sleep apnea (adult) (pediatric); K21.9 Gastro-esophageal reflux disease without esophagitis; I10 Essential (primary) hypertension; E87.20 Acidosis, unspecified; E78.5 Hyperlipidemia, unspecified; E11.65 Type 2 diabetes mellitus with hyperglycemia; F32.A Depression, unspecified; Z68.41 Body mass index [BMI] 40.0-44.9, adult; Z78.9 Other specified health status; Z79.4 Long term (current) use of insulin; Z79.51 Long term (current) use of inhaled steroids; Z79.84 Long term (current) use of oral hypoglycemic drugs; Z79.899 Other long term (current) drug therapy; Z82.49 Family history of ischemic heart disease and other diseases of the circulatory system; Z87.442 Personal history of urinary calculi; Z28.310 Unvaccinated for COVID-19; Z28.21 Immunization not carried out because of patient refusal; Z88.2 Allergy status to sulfonamides; Z91.041 Radiographic dye allergy status; Z11.52 Encounter for screening for COVID-19
CPT/HCPCS: 36415; 71045; 71046; 80048; 80053; 83036; 83605; 83735; 84145; 85025; 85027; 85610; 85730; 87636; 93005; 94640; 94760; 96361; 96374; 96376; 99285

== ENCOUNTER 2023-11-16 14:03 | Emergency (ER) | payer OTHER ==
[2023-11-16 14:26] LABS: Glucose,Whole Blood 151 mg/dL (70-110)
--- NOTE | 2023-11-16 14:35 | ED ---
General Adult HPI - General Source: patient, RN notes reviewed Mode of arrival: ambulatory Limitations: no limitations <Nitish Freed - Last Filed: 11/16/23 14:28> - General Source: RN notes reviewed, old records reviewed Mode of arrival: ambulatory Limitations: no limitations - History of Present Illness -: days(s) Radiation: abdomen Severity scale (1-10): 4 Consistency: constant Improves with: none Worsens with: none Associated Symptoms: confusion <Gulshan Mathis - Last Filed: 11/27/23 15:31> - General Stated complaint: Confusion, Blood Sugar check Time Seen by Provider: 11/16/23 14:28 - History of Present Illness Initial comments: 53-year-old female presents emergency Department with multiple complaints. Patient states she's had increasing thirst, elevated blood sugars, hypertension, confusion. She states she's been a large amount of steroids recently secondary to influenza and Covid Patient states that she had no history of diabetes prior. Patient states that she still been having sweating episodes possible fever. (Nitish Freed) This is a 53-year-old female to the emergency department for evaluation of weakness not feeling well concern for blood sugar elevation secondary to recent steroid use. Patient please or something off his confusion and she cannot think straight (Gulshan Mathis) - Related Data Home Medications Medication Instructions Recorded Confirmed Cetirizine HCl [Zyrtec] 10 mg PO HS 01/10/18 11/16/23 traZODone HCL [Desyrel] 50 mg PO HS 03/15/21 11/16/23 DULoxetine HCL [Cymbalta] 30 mg PO HS 02/25/22 11/16/23 Losartan Potassium [Cozaar] 100 mg PO HS 02/25/22 11/16/23 Pantoprazole [Protonix] 40 mg PO HS 02/25/22 11/16/23 Albuterol Inhaler [Ventolin Hfa 2 puff INHALATION RT-Q4H PRN 11/30/22 11/16/23 Inhaler] Rosuvastatin [Crestor] 20 mg PO HS 11/30/22 11/16/23 Metoprolol Succinate (ER) [Toprol 100 mg PO HS 07/11/23 11/16/23 XL] Fluticasone Propionate 220 Mcg 2 puff INHALATION RT-BID 10/30/23 11/16/23 [Flovent 220 Mcg Inhaler] Hydrocortisone Cream 1 applic TOPICAL BID PRN 10/30/23 11/16/23 [Hydrocortisone 2.5% Cream] Ketoconazole 2% Cream [Nizoral 2%] 1 applic TOPICAL BID PRN 10/30/23 11/16/23 Doxycycline Hyclate 100 mg PO BID 11/16/23 11/16/23 Fluticasone/Umeclidin/Vilanter 1 puff INHALATION DIRECTED 11/16/23 11/16/23 [Trelegy Ellipta 200-62.5-25] Promethazine HCl [Phenergan Syrup] 12.5 mg PO QID PRN 11/16/23 11/16/23 Previous Rx's Medication Instructions Recorded Ipratropium-Albuterol Nebulize 3 ml INHALATION RT-QID #120 each 11/06/23 [Duoneb 0.5 mg-3 mg/3 ml Soln] metFORMIN HCL [Glucophage] 500 mg PO BID 30 Days #60 tab 11/06/23 predniSONE See Taper PO DIRECTED 16 Days 11/06/23 #40 tab Allergies Allergy/AdvReac Type Severity Reaction Status Date / Time adhesive tape Allergy Rash/Hives Verified 11/16/23 16:34 benzene Allergy Itching Verified 11/16/23 16:34 Iodinated Contrast Media Allergy Anaphylaxis Verified 11/16/23 16:34 Iodine and Iodide Containing Allergy Anaphylaxis Verified 11/16/23 16:34 Produc Sulfa (Sulfonamide Allergy Dyspnea Verified 11/16/23 16:34 Antibiotics) MRI dye Allergy Anaphylaxis Uncoded 10/30/23 20:34 Review of Systems ROS Other: All systems not noted in ROS Statement are negative. <Nitish Freed - Last Filed: 11/16/23 14:28> ROS Other: All systems not noted in ROS Statement are negative. <Gulshan Mathis - Last Filed: 11/27/23 15:31> ROS Statement: Those systems with pertinent positive or pertinent negative responses have been documented in the HPI. Past Medical History Past Medical History: Asthma, GERD/Reflux, Hyperlipidemia, Hypertension, Sleep Apnea/CPAP/BIPAP Additional Past Medical History / Comment(s): Kidney Stones, intermittent tachycardia, pre-diabetes, nonsmokers emphysema. no cpap, recent adm. for asthma exacerbation per pt. History of Any Multi-Drug Resistant Organisms: None Reported Past Surgical History: Back Surgery, Cholecystectomy, Hysterectomy, Orthopedic Surgery Additional Past Surgical History / Comment(s): Rotator cuff left; foot surgery left Past Anesthesia/Blood Transfusion Reactions: No Reported Reaction Past Psychological History: Depression Smoking Status: Never smoker Past Alcohol Use History: Rare Past Drug Use History: None Reported - Past Family History Mother Family Medical History: Myocardial Infarction (DC) Father Family Medical History: CVA/TIA <Nitish Freed - Last Filed: 11/16/23 14:28> General Exam <Nitish Freed - Last Filed: 11/16/23 14:28> General appearance: alert, in no apparent distress Head exam: Present: atraumatic, normocephalic, normal inspection Eye exam: Present: normal appearance, PERRL, EOMI. Absent: scleral icterus, conjunctival injection, periorbital swelling ENT exam: Present: normal exam, mucous membranes moist Neck exam: Present: normal inspection. Absent: tenderness, meningismus, lymphadenopathy Respiratory exam: Present: normal lung sounds bilaterally. Absent: respiratory distress, wheezes, rales, rhonchi, stridor Cardiovascular Exam: Present: regular rate, normal rhythm, normal heart sounds. Absent: systolic murmur, diastolic murmur, rubs, gallop, clicks GI/Abdominal exam: Present: soft, normal bowel sounds. Absent: distended, tenderness, guarding, rebound, rigid Extremities exam: Present: normal inspection, full ROM, normal capillary refill. Absent: tenderness, pedal edema, joint swelling, calf tenderness Back exam: Present: normal inspection Neurological exam: Present: alert, oriented X3, CN II-XII intact Psychiatric exam: Present: normal affect, normal mood Skin exam: Present: warm, dry, intact, normal color. Absent: rash <Gulshan Mathis - Last Filed: 11/27/23 15:31> - General Exam Comments Initial Comments: Visual Physical Exam Vital signs reviewed General: Well-appearing, nontoxic, no acute distress. Head: Normocephalic, atraumatic Eyes: PERRLA, EOMI ENT: Airway patent Chest: Nonlabored breathing Skin: No visual rash, normal skin tone Neuro: Alert and oriented 3 Musculoskeletal: No gross abnormalities (Nitish Freed) Course <Gulshan Mathis - Last Filed: 11/27/23 15:31> Vital Signs 11/16/23 11/16/23 11/16/23 14:25 14:50 16:00 Temperature 99.0 F 99.1 F 98.6 F Pulse Rate 102 H 92 85 Respiratory 22 18 18 Rate Blood Pressure 174/112 151/101 138/83 O2 Sat by Pulse 95 97 Oximetry 11/16/23 18:27 Temperature Pulse Rate 86 Respiratory 18 Rate Blood Pressure 148/94 O2 Sat by Pulse 98 Oximetry - Reevaluation(s) Reevaluation #1: Medical Records reviewed (Gulshan Mathis) Reevaluation #2: Patient symptoms are improving (Gulshan Mathis) Reevaluation #3: Patient informed results questions answered (Gulshan Mathis) Reevaluation #4: Was pt. sent in by a medical professional or institution (, PA, FRANCHISE SALES REPRESENTATIVE, urgent care, hospital, or snf...) When possible be specific @ -no Did you speak to anyone other than the patient for history (EMS, parent, family, police, friend...)? What history was obtained from this source @ -no Did you review nursing and triage notes (agree or disagree)? Why? @ -agree Are old charts reviewed (outside hosp., previous admission, EMS record, old EKG, old radiological studies, urgent care reports/EKG's, snf records)? Report findings @ -yes Differential Diagnosis (chest pain, altered mental status, abdominal pain women, abdominal pain men, vaginal bleeding, weakness, fever, dyspnea, syncope, headache, dizziness, GI bleed, back pain, seizure, CVA, palpatations, mental health, musculoskeletal)? @ -prior EKG interpreted by me (3pts min.). @ -yes X-rays interpreted by me (1pt min.). @ -no CT interpreted by me (1pt min.). @ -yes negative for acute disease U/S interpreted by me (1pt. min.). @ -no What testing was considered but not performed or refused? (CT, X-rays, U/S, labs)? Why? @ -none What meds were considered but not given or refused? Why? @ -none Did you discuss the management of the patient with other professionals (pr ofessionals i.e. , PA, FRANCHISE SALES REPRESENTATIVE, lab, RT, psych nurse, social science analyst, live truck technician, teacher, department of natural resources officer, corrections caseworker)? Give summary @ -no Was smoking cessation discussed for >3mins.? @ -no Were there social determinants of health that impacted care today? How? (Homelessness, low income, unemployed, alcoholism, drug addiction, transportation, low edu. Level, literacy, decrease access to med. care, shelter, rehab)? @ -none Was there de-escalation of care discussed even if they declined (Discuss DNR or withdrawal of care, Hospice)? DNR status @ -no What co-morbidities impacted this encounter? (DM, HTN, Smoking, COPD, CAD, Cancer, CVA, ARF, Chemo, Hep., AIDS, mental health diagnosis, sleep apnea, m orbid obesity)? @ -none Was patient admitted / discharged? Hospital course, mention meds given and route, prescriptions, significant lab abnormalities, going to OR and other pertinent info. @ - 53 female to the emergency department for evaluation of some altered mental status. Maybe some mild delirium, patient symptoms are improving here in the ER she feels well at this time is no complaints and can be discharged home Discharge Was critical care preformed (if so, how long)? @ -no Undiagnosed new problem with uncertain prognosis? @ -no Drug Therapy requiring intensive monitoring for toxicity (Heparin, Nitro, Insulin, Cardizem)? @ -no Were any procedures done? @ -no Diagnosis/symptom? @ -Altered mental status, delirium likely steroid-induced Acute, or Chronic, or Acute on Chronic? @ -Acute Uncomplicated (without systemic symptoms) or Complicated (systemic symptoms)? @ -Complicated Side effects of treatment? @ -no Exacerbation, Progression, or Severe Exacerbation? @ -exacerbation Poses a threat to life or bodily function? How? (Chest pain, USA, DC, pneumonia, PE, COPD, DKA, ARF, appy, cholecystitis, CVA, Diverticulitis, Homicidal, Suicidal, threat to staff... and all critical care pts) @ -yes with significant altered mental status (Gulshan Mathis) Reevaluation #5: Differential Altered Mental Status: Hypoglycemia, DKA, hypercapnia, ETOH, overdose, CO poisoning, trauma, myxedema coma, HTN encephalopathy, infection, encephalitis, psychosis, intercranial hemorrhage, hepatic encephalopathy, meningitis, CVA, this is not meant to be an all-inclusive list (Gulshan Mathis) EKG Findings - EKG Comments: EKG Findings:: EKG sinus 86 UT 140 QRS 90 QTC 380. - EKG Results: EKG: interpreted by ERMD <Gulshan Mathis - Last Filed: 11/27/23 15:31> Medical Decision Making <Nitish Freed - Last Filed: 11/16/23 14:28> - Lab Data Result diagrams: 11/16/23 14:56 11/16/23 14:56 - EKG Data -: EKG Interpreted by Me - Radiology Data Radiology results: report reviewed (CT brain is negative for acute disease), image reviewed <Gulshan Mathis - Last Filed: 11/27/23 15:31> - Medical Decision Making Visual Physical Exam Vital signs reviewed General: Well-appearing, nontoxic, no acute distress. Head: Normocephalic, atraumatic Eyes: PERRLA, EOMI ENT: Airway patent Chest: Nonlabored breathing Skin: No visual rash, normal skin tone Neuro: Alert and oriented 3 Musculoskeletal: No gross abnormalities (Nitish Freed) 53 female to the emergency department for evaluation of some altered mental status. Maybe some mild delirium, patient symptoms are improving here in the ER she feels well at this time is no complaints and can be discharged home (Gulshan Mathis) - Lab Data Lab Results 11/16/23 11/16/23 11/16/23 Range/Units 14:24 14:56 14:56 WBC 13.0 H (3.8-10.6) k/uL RBC 5.22 (3.80-5.40) m/uL Hgb 16.2 H (11.4-16.0) gm/dL Hct 48.7 H (34.0-46.0) % MCV 93.2 (80.0-100.0) fL MCH 31.1 (25.0-35.0) pg MCHC 33.4 (31.0-37.0) g/dL RDW 13.4 (11.5-15.5) % Plt Count 293 (150-450) k/uL MPV 7.2 Neutrophils % 69 % Lymphocytes % 24 % Monocytes % 5 % Eosinophils % 0 % Basophils % 0 % Neutrophils # 8.9 H (1.3-7.7) k/uL Lymphocytes # 3.2 (1.0-4.8) k/uL Monocytes # 0.7 (0-1.0) k/uL Eosinophils # 0.0 (0-0.7) k/uL Basophils # 0.0 (0-0.2) k/uL Sodium (137-145) mmol/L Potassium (3.5-5.1) mmol/L Chloride (98-107) mmol/L Carbon Dioxide (22-30) mmol/L Anion Gap mmol/L BUN (7-17) mg/dL Creatinine (0.52-1.04) mg/dL Est GFR (CKD-EPI)AfAm (>60 ml/min/1.73 sqM) Est GFR (CKD-EPI)NonAf (>60 ml/min/1.73 sqM) Glucose (74-99) mg/dL POC Glucose (mg/dL) 151 H (70-110) mg/dL POC Glu Regional Planner ID Pablo Loya Plasma Lactic Acid Aubrey (0.7-2.0) mmol/L Calcium (8.4-10.2) mg/dL Magnesium (1.6-2.3) mg/dL Total Bilirubin (0.2-1.3) mg/dL AST (14-36) U/L ALT (4-34) U/L Alkaline Phosphatase (38-126) U/L Ammonia (<30) umol/L Troponin I (0.000-0.034) ng/mL Total Protein (6.3-8.2) g/dL Albumin (3.5-5.0) g/dL Lipase (23-300) U/L TSH (0.465-4.680) mIU/L Urine Color Yellow Urine Appearance Clear (Clear) Urine pH 5.5 (5.0-8.0) Ur Specific [place] 1.021 (1.001-1.035) Urine Protein Trace H (Negative) Urine Glucose (UA) Negative (Negative) Urine Ketones Negative (Negative) Urine Blood Negative (Negative) Urine Nitrite Negative (Negative) Urine Bilirubin Negative (Negative) Urine Urobilinogen <2.0 (<2.0) mg/dL Ur Leukocyte Esterase Negative (Negative) Influenza Type A (PCR) (Not Detectd) Influenza Type B (PCR) (Not Detectd) RSV (PCR) (Not Detectd) SARS-CoV-2 (PCR) (Not Detectd) 11/16/23 11/16/23 11/16/23 Range/Units 14:56 14:56 14:56 WBC (3.8-10.6) k/uL RBC (3.80-5.40) m/uL Hgb (11.4-16.0) gm/dL Hct (34.0-46.0) % MCV (80.0-100.0) fL MCH (25.0-35.0) pg MCHC (31.0-37.0) g/dL RDW (11.5-15.5) % Plt Count (150-450) k/uL MPV Neutrophils % % Lymphocytes % % Monocytes % % Eosinophils % % Basophils % % Neutrophils # (1.3-7.7) k/uL Lymphocytes # (1.0-4.8) k/uL Monocytes # (0-1.0) k/uL Eosinophils # (0-0.7) k/uL Basophils # (0-0.2) k/uL Sodium 139 (137-145) mmol/L Potassium 3.9 (3.5-5.1) mmol/L Chloride 101 (98-107) mmol/L Carbon Dioxide 27 (22-30) mmol/L Anion Gap 11 mmol/L BUN 21 H (7-17) mg/dL Creatinine 0.54 (0.52-1.04) mg/dL Est GFR (CKD-EPI)AfAm >90 (>60 ml/min/1.73 sqM) Est GFR (CKD-EPI)NonAf >90 (>60 ml/min/1.73 sqM) Glucose 140 H (74-99) mg/dL POC Glucose (mg/dL) (70-110) mg/dL POC Glu [facility] Planner ID Plasma Lactic Acid Aubrey 1.6 (0.7-2.0) mmol/L Calcium 9.3 (8.4-10.2) mg/dL Magnesium 2.1 (1.6-2.3) mg/dL Total Bilirubin 1.0 (0.2-1.3) mg/dL AST 27 (14-36) U/L ALT 43 H (4-34) U/L Alkaline Phosphatase 69 (38-126) U/L Ammonia <9 (<30) umol/L Troponin I <0.012 (0.000-0.034) ng/mL Total Protein 6.9 (6.3-8.2) g/dL Albumin 4.2 (3.5-5.0) g/dL Lipase 69 (23-300) U/L TSH 3.400 (0.465-4.680) mIU/L Urine Color Urine Appearance (Clear) Urine pH (5.0-8.0) Ur Specific [place] (1.001-1.035) Urine Protein (Negative) Urine Glucose (UA) (Negative) Urine Ketones (Negative) Urine Blood (Negative) Urine Nitrite (Negative) Urine Bilirubin (Negative) Urine Urobilinogen (<2.0) mg/dL Ur Leukocyte Esterase (Negative) Influenza Type A (PCR) (Not Detectd) Influenza Type B (PCR) (Not Detectd) RSV (PCR) (Not Detectd) SARS-CoV-2 (PCR) (Not Detectd) 11/16/23 Range/Units 14:56 WBC (3.8-10.6) k/uL RBC (3.80-5.40) m/uL Hgb (11.4-16.0) gm/dL Hct (34.0-46.0) % MCV (80.0-100.0) fL MCH (25.0-35.0) pg MCHC (31.0-37.0) g/dL RDW (11.5-15.5) % Plt Count (150-450) k/uL MPV Neutrophils % % Lymphocytes % % Monocytes % % Eosinophils % % Basophils % % Neutrophils # (1.3-7.7) k/uL Lymphocytes # (1.0-4.8) k/uL Monocytes # (0-1.0) k/uL Eosinophils # (0-0.7) k/uL Basophils # (0-0.2) k/uL Sodium (137-145) mmol/L Potassium (3.5-5.1) mmol/L Chloride (98-107) mmol/L Carbon Dioxide (22-30) mmol/L Anion Gap mmol/L BUN (7-17) mg/dL Creatinine (0.52-1.04) mg/dL Est GFR (CKD-EPI)AfAm (>60 ml/min/1.73 sqM) Est GFR (CKD-EPI)NonAf (>60 ml/min/1.73 sqM) Glucose (74-99) mg/dL POC Glucose (mg/dL) (70-110) mg/dL POC Glu Regional Planner ID Plasma Lactic Acid Aubrey (0.7-2.0) mmol/L Calcium (8.4-10.2) mg/dL Magnesium (1.6-2.3) mg/dL Total Bilirubin (0.2-1.3) mg/dL AST (14-36) U/L ALT (4-34) U/L Alkaline Phosphatase (38-126) U/L Ammonia (<30) umol/L Troponin I (0.000-0.034) ng/mL Total Protein (6.3-8.2) g/dL Albumin (3.5-5.0) g/dL Lipase (23-300) U/L TSH (0.465-4.680) mIU/L Urine Color Urine Appearance (Clear) Urine pH (5.0-8.0) Ur Specific [place] (1.001-1.035) Urine Protein (Negative) Urine Glucose (UA) (Negative) Urine Ketones (Negative) Urine Blood (Negative) Urine Nitrite (Negative) Urine Bilirubin (Negative) Urine Urobilinogen (<2.0) mg/dL Ur Leukocyte Esterase (Negative) Influenza Type A (PCR) Not Detected (Not Detectd) Influenza Type B (PCR) Not Detected (Not Detectd) RSV (PCR) Not Detected (Not Detectd) SARS-CoV-2 (PCR) Not Detected (Not Detectd) Disposition <Nitish Freed M - Last Filed: 11/16/23 14:28> Is patient prescribed a controlled substance at d/c from ED?: No Time of Disposition: 17:30 <Gulshan Mathis - Last Filed: 11/27/23 15:31> Clinical Impression: AMS (altered mental status), Anxiety, Delirium Disposition: HOME SELF-CARE Condition: Fair Instructions (If sedation given, give patient instructions): Acute Delirium (ED) Referrals: Ervin Rodarte MD [Primary Care Provider] - 1-2 days
[2023-11-16 15:18] VITALS: RESP 18
[2023-11-16 15:32] LABS: Basophils % (A) 0 %; Eosinophils % (A) 0 %; HCT 48.7 % (34.0-46.0); HGB 16.2 gm/dL (11.4-16.0); Lymphocytes # (A) 3.2 k/uL (1.0-4.8); Lymphocytes % (A) 24 %; MCH 31.1 pg (25.0-35.0); MCHC 33.4 g/dL (31.0-37.0); MCV 93.2 fL (80.0-100.0); Mean Platelet Volume 7.2; Monocytes # (A) 0.7 k/uL (0-1.0); Monocytes % (A) 5 %; Neutrophils # (A) 8.9 k/uL (1.3-7.7); Neutrophils % (A) 69 %; Platelet Count 293 k/uL (150-450); RBC 5.22 m/uL (3.80-5.40); RDW 13.4 % (11.5-15.5)
[2023-11-16 15:39] LABS: Appearance,Urine Clear (Clear); Bilirubin,Urine Negative (Negative); Blood,Urine Negative (Negative); Color,Urine Yellow; Glucose,Urine (UA) Negative (Negative); Ketones,Urine Negative (Negative); Leukocyte Esterase,Urine Negative (Negative); Nitrite,Urine Negative (Negative); PH, Urine 5.5 (5.0-8.0); Protein,Urine Trace (Negative); Specific Gravity,Urine 1.021 (1.001-1.035); Urobilinogen,Urine <2.0 mg/dL (<2.0)
[2023-11-16 15:47] LABS: Lactic Acid, Venous 1.6 mmol/L (0.7-2.0)
[2023-11-16 15:49] LABS: ALT 43 U/L (4-34); AST 27 U/L (14-36); African American GFR (CKD) >90 (>60 ml/min/1.73 sqM); Albumin 4.2 g/dL (3.5-5.0); Alkaline Phosphatase 69 U/L (38-126); Anion Gap 11 mmol/L; Blood Urea Nitrogen 21 mg/dL (7-17); Calcium 9.3 mg/dL (8.4-10.2); Carbon Dioxide 27 mmol/L (22-30); Chloride 101 mmol/L (98-107); Glucose 140 mg/dL (74-99); Lipase 69 U/L (23-300); Magnesium 2.1 mg/dL (1.6-2.3); Non-African American GFR(CKD) >90 (>60 ml/min/1.73 sqM); Potassium 3.9 mmol/L (3.5-5.1); Sodium 139 mmol/L (137-145); Total Protein 6.9 g/dL (6.3-8.2)
--- NOTE | 2023-11-16 16:11 | CT ---
EXAMINATION TYPE: CT brain wo con DATE OF EXAM: 11/16/2023 COMPARISON: None HISTORY: 53-year-old female confusion, AMS, confusion and headache TECHNIQUE: Examination was done in axial plane without intravenous contrast. Coronal and sagittal r econstructions performed. CT DLP: 1118.4 mGycm Automated exposure control for dose reduction was used. FINDINGS: There is no evidence of acute intracranial hemorrhage, acute ischemic changes, mass, mass-effect, or extra-axial fluid collection. There is no effacement of cerebral sulci or basal subarachnoid cister ns. There is no hydrocephalus. There is no midline shift. [place]-white matter distinction is preserv ed. 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 Leftward nasal septal deviation. Paranasal sinuses and mastoid air cells well pneumatized The globes are intact. IMPRESSION: No acute intracranial abnormality seen. 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
[2023-11-16 17:28] VITALS: TEMP 98.6
[2023-11-16 18:44] VITALS: BP 148/94; PULSE 86
== END 2023-11-16 18:41 | disposition home or self-care (01) ==
LOC: EC 14:03
DX: R41.82 Altered mental status, unspecified (principal); F41.9 Anxiety disorder, unspecified; I10 Essential (primary) hypertension; J43.9 Emphysema, unspecified; K21.9 Gastro-esophageal reflux disease without esophagitis; E78.5 Hyperlipidemia, unspecified; F32.A Depression, unspecified; Z20.822 Contact with and (suspected) exposure to COVID-19; Z79.51 Long term (current) use of inhaled steroids; Z79.899 Other long term (current) drug therapy; Z88.8 Allergy status to other drugs, medicaments and biological substances; Z88.2 Allergy status to sulfonamides; Z91.041 Radiographic dye allergy status; Z91.09 Other allergy status, other than to drugs and biological substances; Z90.49 Acquired absence of other specified parts of digestive tract
CPT/HCPCS: 36415; 70450; 80053; 81003; 82140; 83605; 83690; 83735; 84443; 84484; 85025; 87636; 93005; 99285

== ENCOUNTER → 2024-01-25 | Outpatient (CLI) | payer OTHER ==
--- NOTE | 2024-01-27 18:34 | MR ---
EXAMINATION TYPE: MR pelvis wo con DATE OF EXAM: 01/25/2024 7:55 PM CLINICAL INDICATION:Female, 54 years old with history of R19.00; PHH, No prior, left sided pain, hist ory of hysterectomy, f/u from US and CT COMPARISON: CT 07/23/2023, ultrasound 07/24/2023 TECHNIQUE: Triplane multisequence imaging was performed of the pelvis. IV Contrast: None FINDINGS: Reproductive: Vagina: Unremarkable. Uterus: The uterus is surgically absent. A portion of the cervix appears to be remaining nabothian cy sts versus postsurgical change present. Ovaries:, Left ovarian cyst which are high T2 low T1 signal cyst immediately adjacent to each other i n totality measuring 45 x 25 mm for the 2 dominant cysts with daughter cyst present in the more super ior cyst. Smaller cysts are also present. Present on series 601 image 18. Largest cyst measuring up t o 30 mm superiorly. The right ovary measures 33 x 13 x 19 mm the left ovary measures 48 x 35 x 30 mm. Bladder: Unremarkable. Bowel: Scattered colonic diverticula are present. Peritoneum: A small amount of free fluid in the pelvis. Lymph nodes: No evidence of adenopathy. Vasculature: Unremarkable. Musculoskeletal: Bone marrow signal is within normal signal intensity. Abdominal wall/soft tissues: Unremarkable. IMPRESSION: 1. Multiple left ovarian cysts/follicles. No suspicious features at this time. Consider follow-up im aging in one year with MRI pelvis. 2. Colonic diverticulosis.
== END | disposition home or self-care (01) ==
LOC: RADMRIMAIN 18:45
PROVIDERS: ATTEND Family Medicine
DX: K57.30 Diverticulosis of large intestine without perforation or abscess without bleeding (principal); N83.292 Other ovarian cyst, left side; R19.00 Intra-abdominal and pelvic swelling, mass and lump, unspecified site; Z90.710 Acquired absence of both cervix and uterus
CPT/HCPCS: 72195

== ENCOUNTER → 2024-03-25 | Outpatient (CLI) | payer OTHER ==
[2024-03-25 15:52] LABS: ALT 42 U/L (8-44); AST 37 U/L (13-35); Albumin 4.1 g/dL (3.8-4.9); Albumin/Globulin Ratio 2.05 Ratio (1.60-3.17); Alkaline Phosphatase 92 U/L (41-126); Blood Urea Nitrogen 12.3 mg/dL (9.0-27.0); Carbon Dioxide 24.3 mmol/L (21.6-31.8); Chloride 105 mmol/L (96-109); Glucose 161 mg/dL (70-110); Potassium 4.2 mmol/L (3.5-5.5); Rheumatoid Factor, Qnt <15 IU/mL (0-15); Sodium 142 mmol/L (135-145); Total Bilirubin 0.6 mg/dL (0.3-1.2); Total Protein 6.1 g/dL (6.2-8.2)
[2024-03-25 16:04] LABS: Basophils # (A) 0.01 X 10*3/uL (0.00-0.10); Basophils % (A) 0.2 %; Eosinophils # (A) 0.09 X 10*3/uL (0.04-0.35); Eosinophils % (A) 2.1 %; HCT 40.2 % (37.2-46.3); HGB 13.3 g/dL (12.0-15.0); Immature Grans, Automated 0 %; Lymphocytes # (A) 1.41 X 10*3/uL (0.90-5.00); Lymphocytes % (A) 32.3 %; MCH 29.6 pg (27.0-32.0); MCHC 33.1 g/dL (32.0-37.0); MCV 89.3 FL (80.0-97.0); Mean Platelet Volume 10.8 FL (9.5-12.2); Monocytes # (A) 0.32 X 10*3/uL (0.20-1.00); Monocytes % (A) 7.3 %; NRBC Per 100 WBC 0 X 10*3/uL (0.00-0.01); Neutrophils # (A) 2.53 X 10*3/uL (1.80-7.70); Neutrophils % (A) 58.1 %; Platelet Count 196 X 10*3/uL (140-440); RDW 12.5 % (11.5-14.5); WBC 4.36 X 10*3/uL (4.50-10.00)
[2024-03-25 16:33] LABS: Erythrocyte Sedimentation Rate 11 mm/Hr (0-30)
[2024-03-26 18:59] LABS: ANA Pattern Speckled
== END | disposition home or self-care (01) ==
LOC: LABWHC1 11:33
PROVIDERS: ATTEND Family Medicine
DX: L65.9 Nonscarring hair loss, unspecified (principal); K14.6 Glossodynia
CPT/HCPCS: 36415; 80053; 82607; 84443; 85025; 85652; 86038; 86039; 86140; 86431

== ENCOUNTER → 2024-08-06 | Outpatient (CLI) | payer OTHER ==
--- NOTE | 2024-08-06 11:03 | US ---
EXAMINATION TYPE: US carotid duplex BILAT DATE OF EXAM: 08/06/2024 COMPARISON: NONE CLINICAL INDICATION: Female, 54 years old with history of H53.9 VALVE DISTURBANCE; Pt states HTN, vis ion changes TECHNIQUE: Grayscale, color Doppler and spectral Doppler evaluation of the bilateral carotid systems and vertebral arteries.Indirect Doppler criteria was utilized. 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 Criteria for Assigning % of Stenosis / Diameter reduction (Estimation based on the indirect measurements of the internal carotid artery velocities (ICA PSV). 1. Normal (no stenosis)=ICA PSV < 125 cm/s: ratio < 2.0: ICA EDV<40 cm/s. 2. Less than 50% stenosis=ICA PSV < 125 cm/s: ratio < 2.0: ICA EDV<40 cm/s. 3. 50 to 69% stenosis=ICA PSV of 125 to 230 cm/s: ration 2.0 ? 4.0: ICA EDV 40-100 cm/s. 4. Greater than 70% stenosis to near occlusion= ICA PSV > 230 cm/s: ratio > 4.0: ICA EDV > 100 cm/s. 5. Near occlusion= ICA PSV velocities may be low or undetectable: variable ratio and ICA EDV. 6. Total occlusion=unable to detect flow. [facility], , 08/06/2024 11:01 AM
== END | disposition home or self-care (01) ==
LOC: RADUSWWP 10:30
PROVIDERS: ATTEND Family Medicine
DX: H53.9 Unspecified visual disturbance
CPT/HCPCS: 93880

== ENCOUNTER → 2024-08-19 | Outpatient (CLI) | payer OTHER ==
--- NOTE | 2024-08-19 14:53 | MM ---
Reason for Exam: Screening (asymptomatic). Last mammogram was performed 1 year(s) and 3 month(s) ago. Patient History: Menarche at age 14. First Full-Term at age 27. Hysterectomy at age 35. Postmenopausal. Patient has history of breast feeding. Hormonal Contraceptives for 4 years from age 22 until age 26. 11/2013, Benign Core Biopsy on the left side. Risk Values: Molly 5 year model risk: 1.4%. NCI Lifetime model risk: 11.2%. Prior Study Comparison: 02/18/2021 Bilateral Screening Mammogram, [facility]. 05/20/2022 Bilateral MG screening mammo w CAD, [facility]. 06/02/2023 Bilateral MG screening mammo w CAD, [facility]. Tissue Density: There are scattered areas of fibroglandular density. Findings: Analyzed By CAD. Right breast: There is no suspicious group of microcalcifications or new suspicious mass. Left breast: There is no suspicious group of microcalcifications or new suspicious mass. Overall Assessment: Negative, BI-RAD 1 Management: Screening Mammogram of both breasts in [address] [facility] will attempt to contact patient to return for supplemental views and ultrasound if indicated. Patient should continue monthly self-breast exams. A clinical breast exam by your physician is recommended on an annual basis. This exam should not preclude additional follow-up of suspicious palpable abnormalities. Note on Molly scores and lifetime risk: 1. A Molly score greater than 3% is considered moderate risk. If this is the case, consider specialist referral to assess eligibility for a risk reducing agent. 2. If overall lifetime risk for the development of breast cancer is 20% or higher, the patient may qualify for future screening with alternating mammogram and breast MRI. [facility], , 08/19/2024 2:48 PM. Electronically signed and approved by: Mio Cheung DO
== END ==
LOC: RADMAMWWP 11:00
PROVIDERS: ATTEND Family Medicine
CPT/HCPCS: 77067

== ENCOUNTER → 2025-03-25 | Outpatient (CLI) | payer OTHER ==
--- NOTE | 2025-03-26 08:09 | US ---
EXAMINATION TYPE: US thyroid st tissue head/neck DATE OF EXAM: 03/25/2025 COMPARISON: NONE CLINICAL INDICATION: Female, 55 years old with history of R22.9 SWELLING, MASS AND LUMP; Pt states pa lpable lump left supraclavicular area with tenderness TECHNIQUE: Grayscale and color Doppler imaging of the left supraclavicular lump. FINDINGS AND IMPRESSION: Left supraclavicular region shows a vague isoechoic oval area in the area of the patient's lump measu ring 1.7 x 0.6 x 1.5 cm, possible subcutaneous lipoma. This can be followed clinically. If any enlargement or the area becomes symptomatic, it can be rescan velma. [facility], , 03/26/2025 8:07 AM
== END | disposition home or self-care (01) ==
LOC: RADUSWWP 15:30
PROVIDERS: ATTEND Family Medicine
DX: R22.1 Localized swelling, mass and lump, neck (principal)
CPT/HCPCS: 76536